=== PATIENT | male | born 1945 | race Two or more races ===

== ENCOUNTER → 2020-01-12 14:50 | Outpatient (BNVA) | payer MEDICARE, MEDICAID, SELFPAY | PROVIDERS: PCP Nurse Practitioner Family; Referring Provider Nurse Practitioner Family; Visit Provider Internal Medicine | DX: I25.10 Atherosclerotic heart disease of native coronary artery without angina pectoris (principal); I42.8 Other cardiomyopathies; R94.31 Abnormal electrocardiogram [ECG] [EKG]; E78.5 Hyperlipidemia, unspecified; E11.8 Type 2 diabetes mellitus with unspecified complications; F17.200 Nicotine dependence, unspecified, uncomplicated; Z86.73 Personal history of transient ischemic attack (TIA), and cerebral infarction without residual deficits | CPT/HCPCS: 99214 ==

== ENCOUNTER 2020-01-16 13:51 | Emergency (ER) | payer MEDICARE, MEDICAID, SELFPAY ==
[2020-01-16 16:47] VITALS: BP 143/81; PULSE 89; RESP 16; TEMP 36.4; O2SAT 97; BMI 26.4
--- NOTE | 2020-01-16 17:34 | CT_ITS ---
EXAMINATION: CT ABDOMEN AND PELVIS WITHOUT CONTRAST CLINICAL INFORMATION: Abdominal pain. COMPARISON: Chest CT from May 27, 2018. TECHNIQUE: Contiguous axial thin section helical images of the abdomen and pelvis were performed without oral or IV contrast. The data set was reformatted in the coronal and sagittal planes and reviewed on an independent workstation. DLP: 488 mGy-cm. FINDINGS: There is stable chronic changes at the lung bases including a bleb within the posterior basal segment of the left lower lobe. The visualized portions of the heart are unremarkable. The liver is of normal size and attenuation without focal lesions nor intrahepatic biliary ductal dilation. A normal gallbladder is identified. There is no wall thickening or discernible pericholecystic fluid. The spleen, pancreas, adrenal glands are unremarkable. Both kidneys are of normal size and attenuation without hydronephrosis. There is a punctate 2 mm nonobstructive calculus within the upper pole of the left kidney. There aren't. Punctate nonobstructive calculi, possibly vascular, within the right kidney. There is no abdominal free fluid. There is neither mesenteric nor retroperitoneal lymphadenopathy. There is sigmoid diverticulosis without evidence of diverticulitis; otherwise, unremarkable unopacified loops of small and large bowel are identified. There is no pelvic free fluid. The urinary bladder is unremarkable. There is neither pelvic nor inguinal lymphadenopathy. Bone windows: Neither sclerotic nor lytic bone lesions are identified. IMPRESSION: Unremarkable abdominal and pelvic CT. Automated exposure control (Care Dose) Adjustment of the mA and/or kv according to patient size (this includes techniques or standardized protocols for targeted exams where dose is matched to indication / reason for exam; i.e. extremities or head).
[2020-01-16 17:35] VITALS: PULSE 89; RESP 15; TEMP 36.6; O2SAT 96
--- NOTE | 2020-01-16 17:35 | ED.MALEGU ---
HPI - Male Genitourinary General Chief complaint: Urogenital-Male Stated complaint: WEAKNESS Time Seen by Provider: 01/16/20 17:16 Source: patient History of Present Illness HPI Narrative: patient is a 74-year-old male with a history of diabetes, non ischemic cardiomyopathy, coronary artery disease presented today with having generalized malaise. Increased urination. Pain on urination. Patient denies any chest pain shortness of breath diaphoresis. Positive increasing urinary frequency. Mild flank pain bilaterally. No radiation. The pain is dull in nature. Worse with movement. No coughing or congestion or upper respiratory symptoms. No diaphoresis. States the symptom has been ongoing for 3 days. No history of the same. No bloody urine. No bloody stool. No vomiting. No nausea. No history of abdominal surgery Related Data Home Medications Medication Instructions Recorded Confirmed aspirin 81 mg tablet,delayed 81 mg PO DAILY 01/12/20 release gabapentin 400 mg capsule 800 mg PO TID 01/12/20 loratadine 10 mg tablet 10 mg PO QAM 01/12/20 metformin 500 mg tablet,extended 0 mg PO 01/12/20 release 24 hr simvastatin 20 mg tablet 20 mg PO BEDTIME 01/12/20 Allergies Allergy/AdvReac Type Severity Reaction Status Date / Time No Known Allergies Allergy Verified 01/12/20 15:02 [No Known Allergies*] Review of Systems Review of Systems: Constitutional: No Weight loss, No Fever, No Chills, No Night Sweats, positive Fatigue, No Malaise ENT/Mouth: No Hearing loss, No Ear Pain, No Nasal Congestion, No Sinus Pain, No Hoarseness, No sore throat, No Rhinorrhea, No Swallowing Difficulty Eyes: No Eye Pain, No Swelling, No Redness, No Foreign Body, No Discharge, No Vision Changes Cardiovascular: No Chest Pain, No SOB, No Dyspnea on Exertion, No Orthopnea, No Edema, No Palpitations Respiratory: No Cough, No Sputum, No Wheezing, No Smoke Exposure, No Dyspnea Gastrointestinal: No Nausea, No Vomiting, No Diarrhea, No Constipation, No abdominal Pain, No Hematochezia, No Melena Genitourinary: no irregular bleeding, No Hematuria, No Urinary Incontinence, positive urgency positive flank pain positive pain on urination Musculoskeletal: No joint pain, No Myalgias, No Joint Swelling Skin: No Skin Lesions, No rash Neuro: No Weakness, No Numbness, No Paresthesias, No Loss of Consciousness, No Dizziness, No Headache Psych: No Anxiety/Panic, No Depression, No SI/HI/AH/VH, No Social Issues, Heme/Lymph: No Bruising, No Bleeding,No Lymphadenopathy Endocrine: No Polyuria, No Polydipsia, No Temperature Intolerance [facility] Past Medical History Medical History Atherosclerotic heart disease of [place] coronary artery without angina pectoris Hyperlipidemia, unspecified NICM (nonischemic cardiomyopathy) Smoker Transient cerebral ischemic attack, unspecified Type 2 diabetes mellitus with unspecified complications Surgical History History of cardiac catheterization (12/28/19) History of inguinal hernia repair, bilateral (~04/2016) Family History Family History Father Cardiovascular disease Diabetes Mother Osteoporosis Social History Social History Alcohol intake: never Smoking Status: Unknown if ever smoked Packs Per Day: 1 Cigarettes Per Day: 20.0 Use of substances other than those prescribed or required for medical reasons: No Advance Directives: No Advance Directives Information Provided: No Physical Exam Vital Signs: Vital Signs: Vital Signs Temp Pulse Resp BP Pulse Ox 01/16/20 18:00 86 16 142/74 H 96 01/16/20 17:35 98 F 89 15 96 01/16/20 16:47 97.6 F 89 16 143/81 H 97 Body Mass Index 26.4 O2 sat 97% on room air normal. Appearance: Alert. Oriented X3. No acute distress. Eyes: Pupils equal, round and reactive to light. ENT: Pharynx normal. Neck: Normal inspection. Neck supple. No lymph nodes noted. No crepitus CVS: Normal heart rate and rhythm. Pulses normal. Normal S1 and S2 Respiratory: No respiratory distress. Breath sounds normal. No Wheezing. No rales Abdomen: Soft and nontender. No rigidity. No distention. good BS x4 Skin: Skin warm and dry. Normal skin color. Normal skin turgor. Extremities: No lower extremity edema. Neurovascular intact to all extremities. No Lacerations. No Rash Neuro: Oriented X 3. No motor deficit. No sensory deficit. Moving all extermities. No slurred speech MDM - Male Genitourinary Medical Records Medical records narrative: patient's creatinine is normal. CT scan of the abdomen did not show any acute evidence of kidney stone, abscess, perforation. Urine did show evidence of blood 2+. There was blood will need to be further investigated by Urology. Malignancy cannot be absolutely excluded. Patient's hemoglobin hematocrit is normal. White count is normal. Patient's postvoid residual was 46 cc is no evidence of retention. Will discharge patient home close follow-up outpatient. Patient given information for bloody urine. Told that he must follow-up with urology. Currently in stable condition. Lab Data Attestation: I reviewed the patient's lab results. Result diagrams: 01/16/20 17:54 01/16/20 17:54 Labs: Lab Results 01/16/20 01/16/20 01/16/20 Range/Units 17:54 17:54 17:54 WBC 9.7 (4.8-10.8) X10*3/uL RBC 4.64 (4.60-5.80) X10*6/uL Hgb 14.6 (14.0-18.0) g/dl Hct 43.4 (42-52) % MCV 93.5 (80-98) fL MCH 31.5 (27.0-33.0) pg MCHC 33.6 (31.0-36.0) g/dl RDW 12.5 (11.0-16.0) % Plt Count 240 (160-400) X10*3/uL MPV 9.8 (9.4-12.4) fL Immature Gran % (Auto) 0.4 (0.0-0.4) % Neut % (Auto) 66.0 (45-73) % Lymph % (Auto) 19.4 L (20-40) % Kern % (Auto) 9.5 (2-11) % Eos % (Auto) 4.4 H (0-4) % Baso % (Auto) 0.3 (0-2) % Lymph # (Auto) 1.9 (1.2-4.9) X10*3/uL Kern # (Auto) 0.9 (0.1-1.2) X10*3/uL Eos # (Auto) 0.4 (0.0-0.4) X10*3/uL Baso # (Auto) 0.0 (0.0-0.2) X10*3/uL Abs Immat Gran (auto) 0.04 H (0.00-0.03) X10*3/uL Absolute Neuts (auto) 6.4 (2.0-8.3) X10*3/uL Absolute Nucleated RBC 0.000 (0.0-0.012) X10*3/uL Nucleated RBC % (auto) 0.0 (0.0-0.2) /100WBC Hold Blue Top SEE NOTE Sodium (135-145) mmol/L Potassium (3.3-5.1) mmol/l Chloride (96-108) mmol/L Carbon Dioxide (22-29) mmol/L Anion Gap (12-20) BUN (9-16) mg/dL Creatinine (0.5-1.4) mg/dL Estim Creat Clear Calc Estimated GFR Random Glucose (60-115) mg/dL Calcium (8.4-10.2) mg/dL Total Bilirubin (0.0-1.0) mg/dL AST (5-37) U/L ALT (0-40) U/L Alkaline Phosphatase (39-117) U/L Total Protein (6.5-8.0) g/dL Albumin (3.5-5.0) g/dL Lipase (8-78) U/L Urine Color YELLOW Urine Appearance CLEAR Urine pH 5.5 (5.0-8.0) Ur Specific [place] 1.020 (1.005-1.025) Urine Protein 1+ H (NEG-TRACE) MG/DL Urine Glucose (UA) NEG (NEG) MG/DL Urine Ketones NEG (NEG) MG/DL Urine Blood 2+ H (NEG) Urine Nitrite NEG (NEG) Ur Leukocyte Esterase NEG (NEG) Urine RBC 10-14 H (0) /HPF Urine WBC 0-2 (0-4) /HPF Ur Squamous Epith Cells TRACE /LPF Urine Bacteria NONE /LPF 01/16/20 Range/Units 17:54 WBC (4.8-10.8) X10*3/uL RBC (4.60-5.80) X10*6/uL Hgb (14.0-18.0) g/dl Hct (42-52) % MCV (80-98) fL MCH (27.0-33.0) pg MCHC (31.0-36.0) g/dl RDW (11.0-16.0) % Plt Count (160-400) X10*3/uL MPV (9.4-12.4) fL Immature Gran % (Auto) (0.0-0.4) % Neut % (Auto) (45-73) % Lymph % (Auto) (20-40) % Kern % (Auto) (2-11) % Eos % (Auto) (0-4) % Baso % (Auto) (0-2) % Lymph # (Auto) (1.2-4.9) X10*3/uL Kern # (Auto) (0.1-1.2) X10*3/uL Eos # (Auto) (0.0-0.4) X10*3/uL Baso # (Auto) (0.0-0.2) X10*3/uL Abs Immat Gran (auto) (0.00-0.03) X10*3/uL Absolute Neuts (auto) (2.0-8.3) X10*3/uL Absolute Nucleated RBC (0.0-0.012) X10*3/uL Nucleated RBC % (auto) (0.0-0.2) /100WBC Hold Blue Top Sodium 137 (135-145) mmol/L Potassium 4.4 (3.3-5.1) mmol/l Chloride 101 (96-108) mmol/L Carbon Dioxide 25 (22-29) mmol/L Anion Gap 15 (12-20) BUN 18 H (9-16) mg/dL Creatinine 1.34 (0.5-1.4) mg/dL Estim Creat Clear Calc 44.9 Estimated GFR 52 Random Glucose 87 (60-115) mg/dL Calcium 9.0 (8.4-10.2) mg/dL Total Bilirubin 0.3 (0.0-1.0) mg/dL AST 20 (5-37) U/L ALT 14 (0-40) U/L Alkaline Phosphatase 80 (39-117) U/L Total Protein 7.0 (6.5-8.0) g/dL Albumin 4.4 (3.5-5.0) g/dL Lipase 37 (8-78) U/L Urine Color Urine Appearance Urine pH (5.0-8.0) Ur Specific [place] (1.005-1.025) Urine Protein (NEG-TRACE) MG/DL Urine Glucose (UA) (NEG) MG/DL Urine Ketones (NEG) MG/DL Urine Blood (NEG) Urine Nitrite (NEG) Ur Leukocyte Esterase (NEG) Urine RBC (0) /HPF Urine WBC (0-4) /HPF Ur Squamous Epith Cells /LPF Urine Bacteria /LPF Discharge Plan Discharge Clinical Impression: Blood in urine Patient Disposition: Home, Self-Care Additional Instructions: Thank you for visiting the emergency department today. If your symptoms worsen or do not resolve completely please return to the emergency department immediately or call 911. if he have any questions please call your primary care physician. Blood was noted in your urine. This could be from cancer. Please closely follow-up with urology on an outpatient basis. Prescriptions: No Action gabapentin 400 mg capsule 800 mg PO TID RF: 0 loratadine 10 mg tablet 10 mg PO QAM RF: 0 metformin 500 mg tablet extended release 24 hr 0 mg PO RF: 0 simvastatin 20 mg tablet 20 mg PO BEDTIME RF: 0 aspirin 81 mg tablet,delayed release (DR/EC) 81 mg PO DAILY RF: 0 Referrals: Krunal Garcia III, MD [Physician] - 2 days
[2020-01-16 18:00] VITALS: BP 142/74; PULSE 86; RESP 16; O2SAT 96
[2020-01-16 18:22] LABS: MANUAL DIFF FLAG NO
[2020-01-16 18:24] LABS: Basophils Percent Auto 0.3 % (0-2); Eosinophils Absolute Auto 0.4 X10*3/uL (0.0-0.4); Eosinophils Percent Auto 4.4 % (0-4); Hematocrit 43.4 % (42-52); Hemoglobin 14.6 g/dl (14.0-18.0); Imm Gran Abs Auto 0.04 X10*3/uL (0.00-0.03); Imm Gran Pct Auto 0.4 % (0.0-0.4); Lymphocytes Absolute Auto 1.9 X10*3/uL (1.2-4.9); Lymphocytes Percent Auto 19.4 % (20-40); Mean Corpuscular HGB Conc 33.6 g/dl (31.0-36.0); Mean Corpuscular Hemoglobin 31.5 pg (27.0-33.0); Mean Corpuscular Volume 93.5 fL (80-98); Mean Platelet Volume 9.8 fL (9.4-12.4); Monocytes Absolute Auto 0.9 X10*3/uL (0.1-1.2); Monocytes Percent Auto 9.5 % (2-11); Neutrophils Absolute Auto 6.4 X10*3/uL (2.0-8.3); Platelet Count 240 X10*3/uL (160-400); Red Blood Count 4.64 X10*6/uL (4.60-5.80); Red Cell Distribution Width 12.5 % (11.0-16.0); White Blood Count 9.7 X10*3/uL (4.8-10.8)
[2020-01-16 18:26] LABS: Glucose Urine UA NEG (NEG); Leukocyte Esterase Urine NEG (NEG); Nitrite Urine NEG (NEG); PH 5.5 (5.0-8.0); Urine Blood 2+ (NEG); Urine Ketones NEG (NEG); Urine Protein 1+ MG/DL (NEG-TRACE)
[2020-01-16 18:27] LABS: Appearance Urine CLEAR; Color Urine YELLOW
[2020-01-16 18:35] LABS: Squamous Epithelial Cell Urine TRACE /LPF; WBC Urine 0-2 /HPF (0-4)
[2020-01-16 18:58] LABS: Alanine Aminotransferase 14 U/L (0-40); Albumin Level 4.4 g/dL (3.5-5.0); Alkaline Phosphatase 80 U/L (39-117); Anion Gap 15 (12-20); Aspartate Amino Transferase 20 U/L (5-37); Bilirubin Total 0.3 mg/dL (0.0-1.0); Blood Urea Nitrogen 18 mg/dL (9-16); Carbon Dioxide 25 mmol/L (22-29); Chloride 101 mmol/L (96-108); Creatinine Clr Calc Pharmacy 44.9; Estimated Glomerular Filt Rate 52; Glucose Random 87 mg/dL (60-115); Lipase 37 U/L (8-78); Potassium 4.4 mmol/l (3.3-5.1); Sodium 137 mmol/L (135-145)
== END 2020-01-16 21:25 | disposition home or self-care (01) ==
PROVIDERS: Emergency Provider Emergency Medicine Emergency Medical Services; PCP Nurse Practitioner Family
DX: R31.9 Hematuria, unspecified (principal); R10.9 Unspecified abdominal pain; E11.9 Type 2 diabetes mellitus without complications; Z86.73 Personal history of transient ischemic attack (TIA), and cerebral infarction without residual deficits; Z79.899 Other long term (current) drug therapy; Z79.84 Long term (current) use of oral hypoglycemic drugs
CPT/HCPCS: 36415; 51798; 74176; 80053; 81001; 83690; 85025; 99284

== ENCOUNTER → 2020-01-21 14:41 | Outpatient (BNVA) | payer MEDICARE, MEDICAID, SELFPAY | PROVIDERS: PCP Nurse Practitioner Family; Visit Provider Urology | DX: Z76.89 Persons encountering health services in other specified circumstances (principal) | CPT/HCPCS: 99202 ==

== ENCOUNTER 2020-02-07 09:28 | Day surgery (SDC) | payer MEDICARE, MEDICAID, SELFPAY ==
[2020-01-31 13:09] VITALS: BP 138/70; PULSE 106; RESP 16; O2SAT 98; BMI 27.5
--- NOTE | 2020-01-31 13:27 | P.CONAN_ITS ---
Documented by User: Aide Aguilar 02/04/20 11:53 HPI - Anesthesia Eval Consult details Narrative: 74yo M for fulgeration of condyloma PMFSH Past Medical History Medical History Atherosclerotic heart disease of [place] coronary artery without angina pectoris BPH (benign prostatic hyperplasia) CAD (coronary artery disease) CVA (cerebral vascular accident) Hematuria HTN (hypertension) Hx of dermatitis Hyperlipidemia, unspecified NICM (nonischemic cardiomyopathy) Pulmonary HTN Seasonal allergies Smoker Transient cerebral ischemic attack, unspecified Type 2 diabetes mellitus with unspecified complications Family History Family History Father Cardiovascular disease Diabetes Mother Osteoporosis Surgical History Surgical History History of cardiac catheterization (12/28/19) History of inguinal hernia repair, bilateral (~04/2016) Hx of bilateral cataract extraction Hx of colonoscopy Social History Social History Are you a primary after school caregiver to a significant other at home: No Do you presently have visiting nurse or other home services: No Alcohol intake: never Smoking Status: Current every day smoker Packs Per Day: 1 Cigarettes Per Day: 20.0 Years Smoked: 55 Patient Given Instructions on How to Stop Smoking: Yes Date Education Initiated: 01/31/20 Second Hand Smoke Exposure: Yes Use of substances other than those prescribed or required for medical reasons: No Have you been hit, kicked, punched, or otherwise hurt by someone within the past year? If so, by whom?: No [employer] Healthcare Practices: Adventism Advance Directives: No Advance Directives Information Provided: No Advance Directives on File: No Recently lost weight without trying: No Narrative Narrative: 01/23/20 Had near syncope with overnight OBS at [facility]. No ischemic changes by EKG, orthostatics negative, neg for PE. Thought related to terazosin and instructed to stop (had recently been rx'd by Uro). Incidental finding of lung nodules with recommended follow up in 8-[address] Fabian No CP/SOB at rest. Denies CP. Reports RINCON with stairs. Meds Allergies Allergy/AdvReac Type Severity Reaction Status Date / Time No Known Allergies Allergy Verified 01/28/20 13:27 [No Known Allergies*] Home Medications Medication Instructions Recorded Confirmed Type aspirin 81 mg tablet,delayed 81 mg PO DAILY 01/12/20 01/31/20 History release gabapentin 400 mg capsule 800 mg PO TID 01/12/20 02/07/20 History loratadine 10 mg tablet 10 mg PO QAM 01/12/20 01/31/20 History metformin 500 mg tablet,extended 500 mg PO TID 01/12/20 01/31/20 History release 24 hr Exam Exam Date and Time: January 31, 2020 1327 Height,Weight and Vital Signs: Height 5 ft 5 in Weight 75 kg Last Vital Signs Pulse 106 H 01/31/20 13:09 Resp 16 01/31/20 13:09 BP 138/70 01/31/20 13:09 Pulse Ox 98 01/31/20 13:09 Pertinent Lab Results Pertinent Lab Results: Laboratory Tests 01/16/20 01/16/20 17:54 17:54 WBC 9.7 Hgb 14.6 Hct 43.4 Plt Count 240 Sodium 137 Potassium 4.4 Chloride 101 BUN 18 H Creatinine 1.34 Narrative Narrative: EKG 12/28/19: NSR@91 Cath 12/28/19: mild CAD, false positive stress Echo 11/2019: LVEF 40-45%, Gr 1 DD, no obvious valve pathology Holter 10/2019: NSR, no long pause or profound stephie, occ PAC Airway Mallampati Class: I TM Dist: >3cm Neck ROM: Full Denture: Upper and Lower (Doesn't wear) Heart: RR Tachy Lungs: Coarse MARGARITA and LLL, clears with cough Clear right lobes Assessment and Plan Assessment Anesthesia Assessment: Anesthesia Plan Discussed (MAC vs GA), Smoking Cess. Discussed and PAT Visit Documented by User: Sary Gale 02/07/20 12:29 [facility] Past Medical History Medical History Atherosclerotic heart disease of [place] coronary artery without angina pectoris BPH (benign prostatic hyperplasia) CAD (coronary artery disease) CVA (cerebral vascular accident) Hematuria HTN (hypertension) Hx of dermatitis Hyperlipidemia, unspecified NICM (nonischemic cardiomyopathy) Pulmonary HTN Seasonal allergies Smoker Transient cerebral ischemic attack, unspecified Type 2 diabetes mellitus with unspecified complications Family History Family History Father Cardiovascular disease Diabetes Mother Osteoporosis Surgical History Surgical History History of cardiac catheterization (12/28/19) History of inguinal hernia repair, bilateral (~04/2016) Hx of bilateral cataract extraction Hx of colonoscopy Social History Social History Are you a primary after school caregiver to a significant other at home: No Do you presently have visiting nurse or other home services: No Alcohol intake: never Smoking Status: Current every day smoker Packs Per Day: 1 Cigarettes Per Day: 20.0 Years Smoked: 55 Patient Given Instructions on How to Stop Smoking: Yes Date Education Initiated: 01/31/20 Second Hand Smoke Exposure: Yes Use of substances other than those prescribed or required for medical reasons: No Have you been hit, kicked, punched, or otherwise hurt by someone within the past year? If so, by whom?: No [employer] Healthcare Practices: Adventism Advance Directives: No Advance Directives Information Provided: No Advance Directives on File: No Recently lost weight without trying: No Meds Allergies Allergy/AdvReac Type Severity Reaction Status Date / Time No Known Allergies Allergy Verified 01/28/20 13:27 [No Known Allergies*] Home Medications Medication Instructions Recorded Confirmed Type aspirin 81 mg tablet,delayed 81 mg PO DAILY 01/12/20 01/31/20 History release gabapentin 400 mg capsule 800 mg PO TID 01/12/20 02/07/20 History loratadine 10 mg tablet 10 mg PO QAM 01/12/20 01/31/20 History metformin 500 mg tablet,extended 500 mg PO TID 01/12/20 01/31/20 History release 24 hr Exam Airway Mallampati Class: II TM Dist: >3cm Neck ROM: Full Denture: Upper and Lower Heart: RRR Lungs: cTA
[2020-02-07 11:17] VITALS: BP 125/73; PULSE 86; RESP 18; TEMP 36.2; O2SAT 97
[2020-02-07] MEDS: Lactated Ringers 1,000 ML 50 ML IVCONT (11:37)
[2020-02-07 11:41] LABS: Glucose, Whole Blood 128 mg/dL (60-115)
[2020-02-07] MEDS: cephALEXin 500 MG CAPSULE PO (12:42)
--- NOTE | 2020-02-07 13:15 | PM.OP ---
Brief Operative Note Date of procedure: 02/07/20 Pre-op diagnosis: perineal condyloma Post-op diagnosis: same Procedure: removal of multiple condyloma - 1 lesion 1.5 cm - 5 lesions 0.5-1.0 cm Surgeon: Grady Aly MD Anesthesia: GLMA Estimated blood loss (mL): 0 Pathology: other Condition: stable Disposition: same day
[2020-02-07 13:27] VITALS: BP 141/71; PULSE 85; RESP 16; TEMP 36.1; O2SAT 95
[2020-02-07 13:32] VITALS: BP 149/80; PULSE 84; RESP 18; O2SAT 98
[2020-02-07 13:37] VITALS: BP 144/74; PULSE 85; RESP 16; O2SAT 98
[2020-02-07 13:42] VITALS: BP 150/79; PULSE 84; RESP 18; O2SAT 97
[2020-02-07 14:01] VITALS: BP 156/83; PULSE 85; RESP 18; TEMP 36.3; O2SAT 94
--- NOTE | 2020-02-07 14:37 | HO.POSTANES ---
Post Anesthesia Evaluation Post Anesthesia Evaluation Vital Signs: Vital Signs Temp Pulse Resp BP Pulse Ox 02/07/20 14:01 97.4 F 85 18 156/83 H 94 02/07/20 13:42 84 18 150/79 H 97 02/07/20 13:37 85 16 144/74 H 98 02/07/20 13:32 84 18 149/80 H 98 02/07/20 13:27 97 F 85 16 141/71 H 95 02/07/20 11:17 97.2 F 86 18 125/73 97 Anesthesia: Monitored Mental Status: Awake Pain Control: Satisfactory Nausea/Vomiting: None Hydration: Adequate Anesthesia-Related Issues: No Anes. Related Issues
== END 2020-02-07 23:59 | disposition home or self-care (01) ==
PROVIDERS: PCP Nurse Practitioner Family; Visit Provider Urology
PROC: (CPT 46922; principal; 2020-02-07 11:30)
DX: A63.0 Anogenital (venereal) warts (principal); I10 Essential (primary) hypertension; I27.20 Pulmonary hypertension, unspecified; E11.9 Type 2 diabetes mellitus without complications; I25.10 Atherosclerotic heart disease of native coronary artery without angina pectoris; N40.0 Benign prostatic hyperplasia without lower urinary tract symptoms; F17.210 Nicotine dependence, cigarettes, uncomplicated; Z86.73 Personal history of transient ischemic attack (TIA), and cerebral infarction without residual deficits; Z79.84 Long term (current) use of oral hypoglycemic drugs; Z79.82 Long term (current) use of aspirin; Z79.899 Other long term (current) drug therapy
CPT/HCPCS: 46922; 82947; 88305; J2370; J3010

== ENCOUNTER 2020-02-25 09:12 | Outpatient (REF) | payer MEDICARE, MEDICAID, SELFPAY ==
--- NOTE | 2020-02-25 09:17 | CT_ITS ---
EXAMINATION: CT CHEST WITHOUT CONTRAST CLINICAL INFORMATION: Solitary pulmonary nodule. COMPARISON: Chest CT scan dated 05/27/2018. TECHNIQUE: Multidetector volumetric CT imaging of the chest was done. Axial MIP volume rendering provided. Sagittal and coronal reformatted images were obtained. This CT examination was performed using dose optimization techniques as appropriate, variously including the following: *Automated exposure control *Adjustment of mA and/or kV according to patient size (this includes techniques or standardized protocols for targeted exams where dose is matched to indication/reason for exam; i.e. extremities or head) *Use of iterative reconstruction technique DLP: 151 mGy-cm FINDINGS: LUNGS/PLEURA/AIRWAYS: There is mild to moderate elevation of the right hemidiaphragm without interval change. Mild to moderate upper lobe and lower lobe superior segment predominant centrilobular and paraseptal emphysema is again seen without significant change. The previously seen cyst along the posterior margin of the left lower lobe shows interval decreased mural thickening. Previously seen infiltrative changes and cystic mural thickening anteromedially in the left upper lobe has resolved as well. No significant new or suspicious abnormality is seen. There are no pleural effusions. The airways are patent. MEDIASTINUM: The visualized thyroid gland is unremarkable. Mild atherosclerosis is seen in the thoracic aorta without significant ectasia. The pulmonary arteries are unremarkable. Moderate to severe coronary artery calcifications are seen. There is no pericardial effusion. AXILLA: No lymphadenopathy. UPPER ABDOMEN: Unremarkable. OSSEOUS STRUCTURES: Unremarkable. CT/CT chest wo con IMPRESSION: 1. Mild to moderate centrilobular and paraseptal emphysema shows a similar distribution and severity compared the previous study. Previously seen infiltrative changes in the left upper lobe anteromedially as well as cystic mural thickening in the left lower lobe have resolved. No significant new or suspicious abnormality is seen. Radiographic/CT follow-up is recommended as clinically indicated. 2. Moderate to severe coronary artery calcifications without significant change.
== END 2020-02-25 09:13 | disposition home or self-care (01) ==
LOC: HO.CT 09:12
PROVIDERS: PCP Nurse Practitioner Family; Visit Provider Nurse Practitioner Family
DX: R91.1 Solitary pulmonary nodule (principal)
CPT/HCPCS: 71250

== ENCOUNTER 2020-03-07 09:15 | Outpatient (REF) | payer MEDICARE, MEDICAID, SELFPAY ==
[2020-03-07 11:51] LABS: MANUAL DIFF FLAG NO
[2020-03-07 11:58] LABS: Basophils Percent Auto 0.6 % (0-2); Eosinophils Absolute Auto 0.3 X10*3/uL (0.0-0.4); Eosinophils Percent Auto 4.2 % (0-4); Hemoglobin 14.4 g/dl (14.0-18.0); Imm Gran Abs Auto 0.03 X10*3/uL (0.00-0.03); Imm Gran Pct Auto 0.4 % (0.0-0.4); Lymphocytes Absolute Auto 1.3 X10*3/uL (1.2-4.9); Lymphocytes Percent Auto 17.9 % (20-40); Mean Corpuscular HGB Conc 32.7 g/dl (31.0-36.0); Mean Corpuscular Hemoglobin 31.4 pg (27.0-33.0); Mean Corpuscular Volume 95.9 fL (80-98); Mean Platelet Volume 9.8 fL (9.4-12.4); Monocytes Absolute Auto 0.8 X10*3/uL (0.1-1.2); Monocytes Percent Auto 10.8 % (2-11); Neutrophils Absolute Auto 4.8 X10*3/uL (2.0-8.3); Neutrophils Percent Auto 66.1 % (45-73); Platelet Count 258 X10*3/uL (160-400); Red Blood Count 4.59 X10*6/uL (4.60-5.80); Red Cell Distribution Width 12.9 % (11.0-16.0); White Blood Count 7.2 X10*3/uL (4.8-10.8)
[2020-03-07 12:28] LABS: Alanine Aminotransferase 13 U/L (0-40); Albumin Level 4.3 g/dL (3.5-5.0); Alkaline Phosphatase 79 U/L (39-117); Anion Gap 14 (12-20); Aspartate Amino Transferase 15 U/L (5-37); Bilirubin Direct 0.2 mg/dL (0.0-0.5); Bilirubin Total 0.5 mg/dL (0.0-1.0); Blood Urea Nitrogen 23 mg/dL (9-16); C Reactive Protein 0.15 mg/dL (< or = 0.50); Calcium 9.2 mg/dL (8.4-10.2); Carbon Dioxide 25 mmol/L (22-29); Chloride 102 mmol/L (96-108); Estimated Glomerular Filt Rate 46; Glucose Random 130 mg/dL (60-115); Sodium 136 mmol/L (135-145); Total Protein 6.8 g/dL (6.5-8.0)
[2020-03-07 12:44] LABS: Erythrocyte Sedimentation Rate 6 MM/HR (0-15)
[2020-03-07 12:50] LABS: Thyroid Stimulating Hormone 1.86 uIU/mL (0.32-4.0)
[2020-03-10 00:02] LABS: Anti Nuclear Antibody Screen NEGATIVE (NEGATIVE)
[2020-03-10 05:27] LABS: Immunoglobulin E 10837 kU/L (<OR=114)
== END 2020-03-07 09:16 | disposition home or self-care (01) ==
LOC: HO.HMGCLDS 09:15
PROVIDERS: PCP Nurse Practitioner Family; Visit Provider Physician Assistant Medical
DX: L30.9 Dermatitis, unspecified (principal); L29.8 Other pruritus
CPT/HCPCS: 36415; 80048; 80076; 82785; 84439; 84443; 85025; 85652; 86038; 86039; 86140

== ENCOUNTER 2020-05-18 08:40 | Outpatient (REF) | payer MEDICARE, MEDICAID, SELFPAY | END 2020-05-18 08:41 | disposition home or self-care (01) | LOC: HO.LAB 08:40 | PROVIDERS: Visit Provider Internal Medicine | DX: Z20.822 Contact with and (suspected) exposure to COVID-19 (principal) | CPT/HCPCS: 36415; C9803; U0003; U0005 ==

== ENCOUNTER 2020-06-27 14:22 | Outpatient (REF) | payer MEDICARE, MEDICAID, SELFPAY ==
--- NOTE | ~2020-06-27 | XR_ITS ---
EXAMINATION: XR CHEST CLINICAL INFORMATION: Cough. COMPARISON: None TECHNIQUE: 2 views of the chest were obtained. FINDINGS: The lungs are well-expanded patchy opacities seen in the left lower lobe and lingula likely developing infiltrates. Rest of lungs are clear. The heart size and pulmonary vascularity is normal. No gross bony abnormality. XR/XR chest 2V IMPRESSION: Patchy opacity in the lingula and left lower lobe likely developing infiltrates.
[2020-06-27 16:21] LABS: MANUAL DIFF FLAG NO
[2020-06-27 16:36] LABS: Basophils Percent Auto 0.1 % (0-2); Eosinophils Absolute Auto 0.1 X10*3/uL (0.0-0.4); Eosinophils Percent Auto 1.3 % (0-4); Hematocrit 42.7 % (42-52); Hemoglobin 14.1 g/dl (14.0-18.0); Imm Gran Abs Auto 0.05 X10*3/uL (0.00-0.03); Imm Gran Pct Auto 0.5 % (0.0-0.4); Lymphocytes Absolute Auto 1.4 X10*3/uL (1.2-4.9); Lymphocytes Percent Auto 13.8 % (20-40); Mean Corpuscular Hemoglobin 31.1 pg (27.0-33.0); Mean Corpuscular Volume 94.1 fL (80-98); Mean Platelet Volume 9.5 fL (9.4-12.4); Monocytes Percent Auto 10.1 % (2-11); Neutrophils Absolute Auto 7.7 X10*3/uL (2.0-8.3); Neutrophils Percent Auto 74.2 % (45-73); Platelet Count 253 X10*3/uL (160-400); Red Blood Count 4.54 X10*6/uL (4.60-5.80); White Blood Count 10.3 X10*3/uL (4.8-10.8)
[2020-06-27 16:37] LABS: Glucose Urine UA 250 MG/DL (NEG); Leukocyte Esterase Urine NEG (NEG); Nitrite Urine NEG (NEG); Urine Blood NEG (NEG); Urine Ketones NEG (NEG); Urine Protein TRACE MG/DL (NEG-TRACE)
[2020-06-27 16:39] LABS: Appearance Urine CLEAR; Color Urine YELLOW
[2020-06-27 16:54] LABS: Alanine Aminotransferase 20 U/L (0-40); Albumin Level 3.8 g/dL (3.5-5.0); Alkaline Phosphatase 96 U/L (39-117); Anion Gap 21 (12-20); Aspartate Amino Transferase 24 U/L (5-37); Bilirubin Total 0.5 mg/dL (0.0-1.0); Blood Urea Nitrogen 16 mg/dL (9-16); Calcium 8.6 mg/dL (8.4-10.2); Carbon Dioxide 24 mmol/L (22-29); Chloride 95 mmol/L (96-108); Estimated Glomerular Filt Rate 48; Glucose Random 218 mg/dL (60-115); Potassium 4.5 mmol/L (3.3-5.1); Sodium 135 mmol/L (135-145); Total Protein 6.8 g/dL (6.5-8.0)
[2020-06-27 16:55] LABS: B Type Natriuretic Peptide 21 pg/mL (<100)
== END 2020-06-27 14:23 | disposition home or self-care (01) ==
LOC: HO.HMGCX 14:22
PROVIDERS: Visit Provider Nurse Practitioner Family
DX: R42 Dizziness and giddiness (principal); R05 Cough
CPT/HCPCS: 36415; 71046; 80053; 81003; 83880; 85025

== ENCOUNTER → 2020-07-11 10:24 | Outpatient (REF) | payer MEDICARE, MEDICAID, SELFPAY ==
--- NOTE | 2020-07-11 10:30 | CA_ITS ---
Transthoracic Echocardiogram Patient (Last, First, Middle): Darius Askew, Gender: Male Date of : 1945 Age: 75 Procedure Date: 07/11/2020 Procedure Type: Transthoracic Echocardiogram Location: OP Height: 167.64 cm Weight: 77.11 kg BSA: 1.87 m2 Heart Rate: bpm BP: 127 / 74 mmHg Frame Catcher: VERÓNICA Oviedo MD: Georges Key MD Rn Diabetes: Vinny Ballard MD Symptoms: I42.8 - Other cardiomyopathies Study Quality: Fair ECG Rhythm: Sinus Conclusions: - 1. [id number]-[id number] LV systolic dysfunction with grade 1 diastolic dysfunction 2. Normal cardiac valvular Doppler 3. Normal RV systolic pressure 4. No pericardial effusion Findings Left Ventricle Normal left ventricular cavity size. There is normal left ventricular wall thickness. The left ventricular systolic function is mild to moderately decreased. The visually estimated ejection fraction is between 40-45%. Spectral Doppler is indicative of an impaired relaxation filling pattern. E/E prime ratio is <8, consistent with normal filling pressures. Evidence suggests grade I (mild) diastolic dysfunction.Peak global LV strain is reduced at-7.4% Right Ventricle The right ventricle was not well visualized. Atria The left atrium is normal in size. Interatrial shunt cannot be excluded. The right atrium was not well visualized. Aortic Valve The aortic valve structure and function is likely normal. There is no aortic valve stenosis. There is no aortic valve regurgitation. Mitral Valve Likely normal mitral valve structure and function. There is trace mitral valve regurgitation. There is no mitral valve stenosis. Pulmonic Valve The pulmonic valve was not well visualized. Tricuspid Valve Likely normal tricuspid valve structure and function. There is trace tricuspid valve regurgitation. The right ventricular systolic pressure is normal. The right ventricular systolic pressure is 26 mmHg. Normal right atrial pressure. There is no evidence of pulmonary hypertension. Great Vessels All visible segments of the aorta are normal in size. Venous The inferior vena cava is normal in size and collapses greater than 50% with inspiration. Pericardium/Pleural There is no evidence of pericardial effusion. Prior Study Comparison No significant change compared to prior study dated: 11/15/2019. Measurements M-Mode Liner Measurements Normals - Women/Men AOV Cusps: 2.20 1.5-2.6 cm/m2 2D Linear Measurements IVSd: 1.05 0.6-0.9/0.6-1.0 cm LVIDd: 3.66 3.9-5.3/4.2-5.9 cm LVIDd Index: 1.96 2.4-3.2/2.2-3.1 cm/m2 LVIDs: 2.14 2.0-3.6 cm LVPWd: 1.11 0.7-1.1 cm Ao Root: 3.50 2.1-3.5 cm LA Diam: 2.20 2.7-3.8/3.0-4.0 cm LAIDs Index: 1.18 1.5-2.3 cm/m2 LV Mass: 154.03 67-162/88-224 g LV Mass Index: 82.37 43-95/49-115 g/m2 LVOT Diam: 2.20 3.0+(-)1.3 cm 2D Systolic Function EF 4C: 49.90 >55% EF 2C: 38.70 >55% EF BiP: 44.30 >55% Mitral Valve MV Pk E: 0.42 MV PK A: 1.03 MV Decel Time: 361.00 E/A: 0.40 E'Lateral: 5.66 E'Medial: 4.24 E/E' Med: 9.80 E/E' Lat: 7.30 PHT: 106.00 MVA PHT: 2.08 Decel [place]: 1.15 Aortic Valve AoV Pk Albaro: 1.05 AoV Pk Grad: 4.00 LVOT LVOT Pk Albaro: 0.70 LVOT Mn Albaro: 0.52 LVOT VTI: 0.12 LVOT Pk Grad: 2.00 LVOT Mn Grad: 1.00 LVOT Diam: 2.20 LVOT Area: 3.80 Diastolic Function MV Pk E: 0.42 MV Pk A: 1.03 E/A: 0.40 E'Medial: 4.24 E/E' Med: 9.80 E' Laterial: 5.66 E/E' Lat: 7.30 Tricuspid Valve TR Pk Albaro: 2.39 TR Pk Grad: 23.00 RA Press: 3.00 RVSP: 26.00 Great Vessels Aorta Ao Root-2D: 3.50 2.0-3.7 cm Ao Asc: 3.60 2.1-3.4 cm Ao Arch: 2.60 Pulmonary Valve PV Pk Albaro: 0.96 Peak PV Grad: 4.00 Updated in Other Vendor System with Status of Final Vinny Ballard MD electronically signed on 07/11/2020 3:16:36 PM with status of Final
== END ==
LOC: HO.CARD 10:24
PROVIDERS: Visit Provider Internal Medicine
DX: I42.8 Other cardiomyopathies (principal)
CPT/HCPCS: 93306

== ENCOUNTER 2020-07-12 09:39 | Outpatient (REF) | payer MEDICARE, MEDICAID, SELFPAY ==
[2020-07-12 17:57] LABS: Anion Gap 15 (12-20); Blood Urea Nitrogen 22 mg/dL (9-16); Calcium 9.2 mg/dL (8.4-10.2); Carbon Dioxide 27 mmol/L (22-29); Chloride 100 mmol/L (96-108); Estimated Glomerular Filt Rate 48; Potassium 5.2 mmol/L (3.3-5.1); Sodium 137 mmol/L (135-145); Uric Acid 6.1 mg/dL (3.4-7.0)
[2020-07-12 18:48] LABS: Renal w Reflex Lab Use Only Order verified
== END 2020-07-12 09:40 | disposition home or self-care (01) ==
LOC: HO.HMGCLDS 09:39
PROVIDERS: Visit Provider Internal Medicine Nephrology
DX: R79.89 Other specified abnormal findings of blood chemistry (principal); I12.9 Hypertensive chronic kidney disease with stage 1 through stage 4 chronic kidney disease, or unspecified chronic kidney disease; M18.30 Unilateral post-traumatic osteoarthritis of first carpometacarpal joint, unspecified hand; E11.22 Type 2 diabetes mellitus with diabetic chronic kidney disease; N17.9 Acute kidney failure, unspecified
CPT/HCPCS: 36415; 80051; 82310; 82565; 84100; 84520; 84550

== ENCOUNTER → 2020-07-13 09:09 | Outpatient (BNVA) | payer MEDICARE, MEDICAID, SELFPAY | PROVIDERS: PCP Nurse Practitioner Family; Visit Provider Internal Medicine | DX: I25.10 Atherosclerotic heart disease of native coronary artery without angina pectoris (principal); I42.8 Other cardiomyopathies; I73.9 Peripheral vascular disease, unspecified; G45.9 Transient cerebral ischemic attack, unspecified; F17.200 Nicotine dependence, unspecified, uncomplicated; E11.8 Type 2 diabetes mellitus with unspecified complications; E11.22 Type 2 diabetes mellitus with diabetic chronic kidney disease; N18.31 Chronic kidney disease, stage 3a | CPT/HCPCS: 99212 ==

== ENCOUNTER 2020-07-25 08:24 | Outpatient (REF) | payer MEDICARE, MEDICAID, SELFPAY ==
--- NOTE | ~2020-07-25 | US_ITS ---
EXAMINATION: COLOR-FLOW DUPLEX IMAGING OF THE BILATERAL LOWER EXTREMITY ARTERIAL SYSTEM. VELOCITY MEASUREMENTS THROUGHOUT THE FEMORAL ARTERIES CLINICAL INFORMATION: This is a 75-year-old male with peripheral vascular disease. Interventional Radiologist: Dougie Vega M.D., F.S.I.R., F.A.C.R. RIGHT FEMORAL RUNOFF VELOCITIES: The right common femoral artery measures 149 cm/s and biphasic. The right profunda femoral artery is 117 cm/s and is biphasic. Right proximal superficial femoral artery measures 119 cm/s and biphasic. Mid superficial femoral artery is 87 cm/s and biphasic. Distal right superficial femoral artery measures 46 cm/s and is biphasic. Right popliteal velocity measures 48 cm/s and is biphasic. The posterior tibial artery velocity measures 54 cm/s and was biphasic. LEFT FEMORAL RUNOFF VELOCITIES: The left common femoral artery measures 138 cm/s and biphasic. The left profunda femoral artery is 93 cm/s and is biphasic. Left proximal superficial femoral artery measures 149 cm/s and biphasic. Mid superficial femoral artery is 89 cm/s and biphasic. Distal left superficial femoral artery measures 82 cm/s and is triphasic. Left popliteal velocity measures 89 cm/s and is biphasic. The posterior tibial artery velocity measures 75 cm/s and was biphasic. There is scattered atherosclerotic plaque with calcified atherosclerotic disease throughout the arteries. However, a focal stenosis could not be demonstrated.. An arrhythmia was demonstrated during the duplex portion of the study. US/US arterial duplex LE BI IMPRESSION: 1. There is scattered bilateral atherosclerotic disease without evidence of focal velocity shift or hemodynamically significant stenosis.
== END 2020-07-25 08:25 | disposition home or self-care (01) ==
LOC: HO.US 08:24
PROVIDERS: Visit Provider Internal Medicine
DX: I73.9 Peripheral vascular disease, unspecified (principal)
CPT/HCPCS: 93925

== ENCOUNTER 2020-09-12 12:40 | Outpatient (REF) | payer MEDICARE, MEDICAID, SELFPAY ==
--- NOTE | ~2020-09-12 | XR_ITS ---
EXAMINATION: XR CHEST CLINICAL INFORMATION: COPD COMPARISON: None TECHNIQUE: 2 views of the chest were obtained. FINDINGS: The cardiac and mediastinal contours are stable. There is slight elevation of the right hemidiaphragm that is stable. Improvement in the increased markings at the left lung base probably representing resolving pneumonia compared to most recent chest x-ray June 2020. The lungs are otherwise clear. There is no pleural effusion or pneumothorax. Bony structures are unremarkable. XR/XR chest 2V IMPRESSION: No evidence for acute disease in the chest. Improved left base infiltrate from June 2020. Stable elevation of the right hemidiaphragm.
[2020-09-12 14:12] LABS: MANUAL DIFF FLAG NO
[2020-09-12 14:19] LABS: Basophils Absolute Auto 0.1 X10*3/uL (0.0-0.2); Basophils Percent Auto 0.7 % (0-2); Eosinophils Absolute Auto 0.3 X10*3/uL (0.0-0.4); Eosinophils Percent Auto 4.5 % (0-4); Hematocrit 46.6 % (42-52); Hemoglobin 15.6 g/dl (14.0-18.0); Imm Gran Abs Auto 0.02 X10*3/uL (0.00-0.03); Imm Gran Pct Auto 0.3 % (0.0-0.4); Lymphocytes Absolute Auto 2.2 X10*3/uL (1.2-4.9); Mean Corpuscular HGB Conc 33.5 g/dl (31.0-36.0); Mean Corpuscular Hemoglobin 30.6 pg (27.0-33.0); Mean Corpuscular Volume 91.6 fL (80-98); Mean Platelet Volume 9.9 fL (9.4-12.4); Monocytes Absolute Auto 0.6 X10*3/uL (0.1-1.2); Monocytes Percent Auto 9.3 % (2-11); Neutrophils Absolute Auto 3.7 X10*3/uL (2.0-8.3); Neutrophils Percent Auto 53.2 % (45-73); Platelet Count 266 X10*3/uL (160-400); Red Blood Count 5.09 X10*6/uL (4.60-5.80); Red Cell Distribution Width 12.7 % (11.0-16.0); White Blood Count 6.9 X10*3/uL (4.8-10.8)
[2020-09-12 14:31] LABS: D Dimer < 200 NG/ML
[2020-09-12 14:34] LABS: Troponin-I High Sensitivity 4.7 ng/L (<3.5-35.0)
[2020-09-12 14:46] LABS: Alanine Aminotransferase 10 U/L (0-40); Albumin Level 4.5 g/dL (3.5-5.0); Alkaline Phosphatase 89 U/L (39-117); Anion Gap 15 (12-20); Aspartate Amino Transferase 16 U/L (5-37); Bilirubin Total 0.7 mg/dL (0.0-1.0); Blood Urea Nitrogen 21 mg/dL (9-16); Calcium 9.4 mg/dL (8.4-10.2); Carbon Dioxide 23 mmol/L (22-29); Chloride 102 mmol/L (96-108); Estimated Glomerular Filt Rate 50; Glucose Random 138 mg/dL (60-115); Iron 148 mcg/dL (45-160); Percent Iron Saturation 46 % (15-50); Sodium 135 mmol/L (135-145); Total Iron Binding Capacity 320 mcg/dL (228-428); Total Protein 7.1 g/dL (6.5-8.0); Unsaturated Iron Binding 172 ug/dL
[2020-09-12 15:00] LABS: Vitamin B12 199 pg/mL (200-900)
[2020-09-12 15:50] LABS: Ferritin 73 ng/mL (20-250); TSH reflex Free T4 2.22 uIU/mL (0.32-4.0)
[2020-09-13 21:22] LABS: Lyme Abs Screen <0.90 index
== END 2020-09-12 12:41 | disposition home or self-care (01) ==
LOC: HO.HMGCX 12:40
PROVIDERS: PCP Nurse Practitioner Family; Visit Provider Nurse Practitioner Family
DX: J44.9 Chronic obstructive pulmonary disease, unspecified (principal); R05 Cough; R53.83 Other fatigue; F17.200 Nicotine dependence, unspecified, uncomplicated
CPT/HCPCS: 36415; 71046; 80053; 82607; 82728; 83540; 84443; 84484; 85025; 85379; 86617; 86618

== ENCOUNTER → 2020-10-24 13:58 | Outpatient (BNVA) | payer MEDICARE, MEDICAID, SELFPAY | PROVIDERS: PCP Nurse Practitioner Family; Visit Provider Internal Medicine Pulmonary Disease | DX: J44.9 Chronic obstructive pulmonary disease, unspecified (principal); I25.10 Atherosclerotic heart disease of native coronary artery without angina pectoris; E11.22 Type 2 diabetes mellitus with diabetic chronic kidney disease; I12.9 Hypertensive chronic kidney disease with stage 1 through stage 4 chronic kidney disease, or unspecified chronic kidney disease; N18.30 Chronic kidney disease, stage 3 unspecified; N40.0 Benign prostatic hyperplasia without lower urinary tract symptoms; F17.210 Nicotine dependence, cigarettes, uncomplicated | CPT/HCPCS: 99202 ==

== ENCOUNTER 2020-11-20 09:41 | Outpatient (REF) | payer MEDICARE, MEDICAID, SELFPAY ==
--- NOTE | 2020-11-20 10:36 | PFT_ITS ---
INDICATION: COPD. SPIROMETRY: The FEV1 to FVC of 73% with an FEV1 of 1.5 L, which is 57% predicted, an FVC of 2.05 L which is 56% predicted. No significant response to bronchodilators noted. Maximum voluntary ventilation. Total lung capacity 58% predicted. Expiratory reserve volume 35% predicted. DIFFUSION CAPACITY: DLCO of 32% predicted. COMPARISONS: None. INTERPRETATION: No definitive obstructive ventilatory defect. The patient does not meet the FEV1 to FVC criteria 70%, although does appear to have an obstructive physiology, however. The patient also has significant small airways disease and no significant response to bronchodilators noted. The patient has a moderate decrease in the maximum voluntary ventilation secondary to deconditioning, although cannot rule out neuromuscular conditions. Most significant in the moderate restrictive ventilatory defect, which could be secondary to underlying interstitial lung conditions and/or neuromuscular conditions. In addition to that, the patient does have a decrease in the expiratory reserve volume secondary to likely an elevated BMI that may be contributing as well. The patient has a severe diffusion impairment. Therefore, 6-minute walk test may be warranted. Clinical correlation warranted. MD SARIAH Medina/DESMOND / [id number]
== END 2020-11-20 09:42 | disposition home or self-care (01) ==
LOC: HO.RESP 09:41
PROVIDERS: Visit Provider Internal Medicine Pulmonary Disease
DX: J44.9 Chronic obstructive pulmonary disease, unspecified (principal)
CPT/HCPCS: 94060; 94727; 94729

== ENCOUNTER → 2020-12-07 09:09 | Outpatient (BNVA) | payer MEDICARE, MEDICAID, SELFPAY | PROVIDERS: PCP Nurse Practitioner Family; Visit Provider Internal Medicine Pulmonary Disease | DX: J44.9 Chronic obstructive pulmonary disease, unspecified (principal); R91.1 Solitary pulmonary nodule | CPT/HCPCS: 99212 ==

== ENCOUNTER 2020-12-13 12:18 | Outpatient (REF) | payer MEDICARE, MEDICAID, SELFPAY ==
[2020-12-13 13:04] LABS: MANUAL DIFF FLAG NO
[2020-12-13 13:10] LABS: Basophils Percent Auto 0.4 % (0-2); Eosinophils Absolute Auto 0.3 X10*3/uL (0.0-0.4); Eosinophils Percent Auto 4.1 % (0-4); Hematocrit 45.5 % (42-52); Hemoglobin 15.1 g/dl (14.0-18.0); Imm Gran Abs Auto 0.02 X10*3/uL (0.00-0.03); Imm Gran Pct Auto 0.3 % (0.0-0.4); Lymphocytes Absolute Auto 1.5 X10*3/uL (1.2-4.9); Lymphocytes Percent Auto 19.6 % (20-40); Mean Corpuscular HGB Conc 33.2 g/dl (31.0-36.0); Mean Corpuscular Hemoglobin 30.9 pg (27.0-33.0); Mean Platelet Volume 9.9 fL (9.4-12.4); Monocytes Absolute Auto 0.8 X10*3/uL (0.1-1.2); Monocytes Percent Auto 10.8 % (2-11); Neutrophils Percent Auto 64.8 % (45-73); Platelet Count 222 X10*3/uL (160-400); Red Blood Count 4.89 X10*6/uL (4.60-5.80); Red Cell Distribution Width 12.8 % (11.0-16.0); White Blood Count 7.8 X10*3/uL (4.8-10.8)
[2020-12-13 13:15] LABS: Estimated Average Glucose 160 mg/dL; Hemoglobin A1c % 7.2 %
[2020-12-13 13:27] LABS: Anion Gap 14 (12-20); Blood Urea Nitrogen 26 mg/dL (9-16); Calcium 9.9 mg/dL (8.4-10.2); Carbon Dioxide 25 mmol/L (22-29); Chloride 105 mmol/L (96-108); Estimated Glomerular Filt Rate 45; Glucose Random 182 mg/dL (60-115); Potassium 4.8 mmol/L (3.3-5.1); Sodium 139 mmol/L (135-145)
== END 2020-12-13 12:19 | disposition home or self-care (01) ==
LOC: HO.LAB 12:18
PROVIDERS: PCP Nurse Practitioner Family; Visit Provider Psychiatry & Neurology Neurology
DX: G62.9 Polyneuropathy, unspecified (principal); E11.9 Type 2 diabetes mellitus without complications
CPT/HCPCS: 36415; 80048; 83036; 85025

== ENCOUNTER 2021-02-14 09:55 | Outpatient (REF) | payer MEDICARE, MEDICAID, SELFPAY ==
--- NOTE | ~2021-02-14 | CT_ITS ---
EXAMINATION: CT CHEST WITHOUT CONTRAST CLINICAL INFORMATION: Follow up pulmonary nodule. COMPARISON: Previous chest CT 02/25/2020. TECHNIQUE: Multidetector volumetric CT imaging of the chest was done. Axial MIP volume rendering provided. Sagittal and coronal reformatted images were obtained. This CT examination was performed using dose optimization techniques as appropriate, variously including the following: *Automated exposure control *Adjustment of mA and/or kV according to patient size (this includes techniques or standardized protocols for targeted exams where dose is matched to indication/reason for exam; i.e. extremities or head) *Use of iterative reconstruction technique DLP: 157 mGy-cm FINDINGS: LUNGS: There is elevation of the right hemidiaphragm that appears unchanged. There is paraseptal and centrilobular emphysema. There is a bullous or cystic change in the peripheral or subpleural left lower lobe. This does not appear appreciably changed from previous exams. There is a small 3 mm peripheral or subpleural calcified nodule in the left lower lobe (axial image 260, series 7). This is stable. No other pulmonary nodule is seen. No endobronchial or endotracheal lesion is seen. MEDIASTINUM: There is coronary artery calcification. The mediastinum is otherwise normal. PLEURA: There is no pleural effusion. No pleural mass or thickening. AXILLA: No lymphadenopathy. UPPER ABDOMEN: There are small calcifications in the upper pole of both kidneys questionable for small stones. OSSEOUS STRUCTURES: There are degenerative changes of the spine. CT/CT chest wo con IMPRESSION: Severe emphysema. Stable small calcified left lower lobe nodule. Coronary artery calcification. Elevated right hemidiaphragm.
== END 2021-02-14 09:56 | disposition home or self-care (01) ==
LOC: HO.CT 09:55
PROVIDERS: PCP Nurse Practitioner Family; Visit Provider Internal Medicine Pulmonary Disease
DX: R91.1 Solitary pulmonary nodule (principal)
CPT/HCPCS: 71250

== ENCOUNTER → 2021-03-06 12:13 | Outpatient (BNVA) | payer MEDICARE, MEDICAID, SELFPAY | PROVIDERS: PCP Nurse Practitioner Family; Referring Provider Nurse Practitioner Family; Visit Provider Internal Medicine | DX: I25.10 Atherosclerotic heart disease of native coronary artery without angina pectoris (principal); I42.8 Other cardiomyopathies; I73.9 Peripheral vascular disease, unspecified; G45.9 Transient cerebral ischemic attack, unspecified; F17.200 Nicotine dependence, unspecified, uncomplicated; E11.22 Type 2 diabetes mellitus with diabetic chronic kidney disease; N18.31 Chronic kidney disease, stage 3a; E11.8 Type 2 diabetes mellitus with unspecified complications | CPT/HCPCS: 99212 ==

== ENCOUNTER 2021-03-12 09:50 | Outpatient (REF) | payer MEDICARE, MEDICAID, SELFPAY ==
[2021-03-12 11:45] LABS: MANUAL DIFF FLAG NO
[2021-03-12 11:47] LABS: Basophils Percent Auto 0.4 % (0-2); Eosinophils Absolute Auto 0.2 X10*3/uL (0.0-0.4); Eosinophils Percent Auto 2.3 % (0-4); Hematocrit 46.9 % (42.0-52.0); Hemoglobin 15.5 g/dl (14.0-18.0); Imm Gran Abs Auto 0.02 X10*3/uL (0.00-0.03); Imm Gran Pct Auto 0.3 % (0.0-0.4); Lymphocytes Absolute Auto 1.5 X10*3/uL (1.2-4.9); Lymphocytes Percent Auto 21.2 % (20-40); Mean Corpuscular Hemoglobin 31.1 pg (27.0-33.0); Mean Platelet Volume 10.1 fL (9.4-12.4); Monocytes Absolute Auto 0.6 X10*3/uL (0.1-1.2); Monocytes Percent Auto 8.9 % (2-11); Neutrophils Absolute Auto 4.6 x10*3/uL (2.0-8.3); Neutrophils Percent Auto 66.9 % (45-73); Platelet Count 217 X10*3/uL (160-400); Red Blood Count 4.99 X10*6/uL (4.60-5.80); Red Cell Distribution Width 12.4 % (11.0-16.0); White Blood Count 6.9 X10*3/uL (4.8-10.8)
[2021-03-12 12:34] LABS: Alanine Aminotransferase 10 U/L (0-40); Albumin Level 4.2 g/dL (3.5-5.0); Alkaline Phosphatase 95 U/L (39-117); Anion Gap 13 (12-20); Aspartate Amino Transferase 13 U/L (5-37); Bilirubin Total 0.4 mg/dL (0.0-1.0); Blood Urea Nitrogen 22 mg/dL (9-16); Calcium 9.3 mg/dL (8.4-10.2); Carbon Dioxide 25 mmol/L (22-29); Chloride 103 mmol/L (96-108); Estimated Glomerular Filt Rate 47; Glucose Random 234 mg/dL (60-115); Sodium 136 mmol/L (135-145); Total Protein 6.7 g/dL (6.5-8.0)
[2021-03-12 12:39] LABS: Folate 8.8 ng/mL (> or = 4.0); Vitamin B12 896 pg/mL (200-900)
== END 2021-03-12 09:51 | disposition home or self-care (01) ==
LOC: HO.HMGCLDS 09:50
PROVIDERS: PCP Nurse Practitioner Family; Visit Provider Nurse Practitioner Family
DX: E53.8 Deficiency of other specified B group vitamins (principal)
CPT/HCPCS: 36415; 80053; 82607; 82746; 85025

== ENCOUNTER 2021-03-20 08:08 | Outpatient (REF) | payer MEDICARE, MEDICAID, SELFPAY ==
--- NOTE | ~2021-03-20 | CT_ITS ---
EXAMINATION: CT ABDOMEN WITH CONTRAST CLINICAL INFORMATION: Epigastric pain. COMPARISON: CT abdomen and pelvis dated 01/16/2020; renal ultrasound dated 11/20/2018. TECHNIQUE: Contiguous axial thin section helical images of the abdomen were performed following the administration of oral contrast and 85 mL of Omnipaque 350 intravenous contrast. The data set was reformatted in the coronal and sagittal planes and reviewed on an independent workstation. This CT examination was performed using dose optimization techniques as appropriate, variously including the following: *Automated exposure control *Adjustment of mA and/or kV according to patient size (this includes techniques or standardized protocols for targeted exams where dose is matched to indication/reason for exam; i.e. extremities or head) *Use of iterative reconstruction technique DLP: 225 mGy-cm FINDINGS: LUNG BASES: There are bibasilar paraseptal emphysematous changes. There is mild bibasilar hypoaeration. There are coronary artery atherosclerotic calcifications. LIVER, GALLBLADDER, AND BILIARY TREE: The liver is normal in size, shape, and attenuation. No focal hepatic lesion or biliary ductal dilatation is present. The gallbladder is unremarkable, with no evidence of radiopaque gallstones, gallbladder wall thickening or obvious pericholecystic inflammatory change. PANCREAS: Unremarkable. SPLEEN: Unremarkable. ADRENAL GLANDS: Unremarkable. KIDNEYS AND URETERS: The kidneys are normal in size, shape, and attenuation. No hydronephrosis, hydroureter, or calculi seen. No perinephric stranding. GASTROINTESTINAL TRACT: The small and large bowel are unremarkable. The appendix is unremarkable. ABDOMINAL WALL: There is a small fat-containing umbilical hernia. LYMPH NODES: Normal. VASCULAR: There is moderate aortoiliac atherosclerotic calcification. OSSEOUS STRUCTURES: There is multi-level lumbar spondylosis. No acute or aggressive osseous abnormality is seen. CT/CT abdomen w con IMPRESSION: 1. No bowel obstruction, free intraperitoneal air or abscess is seen. No appendicitis or diverticulitis is noted. 2. No urinary calculus or obstructive uropathy is seen. 3. There is no abdominal mass or lymphadenopathy seen. 4. There is multi-level lumbar degenerative disc disease and spondylosis. No aggressive osseous lesion is seen. 5. There are paraseptal emphysematous changes. 6. There are coronary artery atherosclerotic calcifications.
[2021-03-20] MEDS: iohexoL 350 MG/ML 100 ML INFUS..BTL IV (09:44)
[2021-03-20] MEDS: Barium Sulfate Oral (Vanilla) 450 ML ORAL.SUSP PO (09:45)
== END 2021-03-20 08:09 | disposition home or self-care (01) ==
LOC: HO.CT 08:08
PROVIDERS: Visit Provider Nurse Practitioner Family
DX: R10.13 Epigastric pain (principal)
CPT/HCPCS: 74160; Q9967

== ENCOUNTER 2021-06-06 07:42 | Outpatient (REF) | payer MEDICARE, MEDICAID, SELFPAY ==
[2021-06-06 11:05] LABS: MANUAL DIFF FLAG NO
[2021-06-06 11:17] LABS: Appearance Urine CLOUDY; Basophils Percent Auto 0.3 % (0-2); Color Urine YELLOW; Eosinophils Absolute Auto 0.2 X10*3/uL (0.0-0.4); Glucose Urine UA NEG (NEG); Hematocrit 45.8 % (42.0-52.0); Hemoglobin 15.1 g/dl (14.0-18.0); Imm Gran Abs Auto 0.02 X10*3/uL (0.00-0.03); Imm Gran Pct Auto 0.3 % (0.0-0.4); Leukocyte Esterase Urine NEG (NEG); Lymphocytes Absolute Auto 1.9 X10*3/uL (1.2-4.9); Lymphocytes Percent Auto 27.4 % (20-40); Mean Corpuscular Hemoglobin 30.8 pg (27.0-33.0); Mean Corpuscular Volume 93.5 fL (80.0-98.0); Mean Platelet Volume 10.2 fL (9.4-12.4); Monocytes Absolute Auto 0.7 X10*3/uL (0.1-1.2); Monocytes Percent Auto 9.2 % (2-11); Neutrophils Absolute Auto 4.2 x10*3/uL (2.0-8.3); Neutrophils Percent Auto 59.8 % (45-73); Nitrite Urine NEG (NEG); PH 5.5 (5.0-8.0); Platelet Count 225 X10*3/uL (160-400); Red Cell Distribution Width 12.7 % (11.0-16.0); Specific Gravity - Urine 1.025 (1.005-1.025); UACC Culture Trigger NO; Urine Blood NEG (NEG); Urine Ketones 5 MG/DL (NEG); Urine Protein 1+ MG/DL (NEG-TRACE)
[2021-06-06 11:30] LABS: Estimated Average Glucose 174 mg/dL; Hemoglobin A1c % 7.7 %
[2021-06-06 11:39] LABS: Amorphous Sediment Urine 4+ /LPF; RBC Urine 0 /HPF (0); Sperm Urine NOTED; Squamous Epithelial Cell Urine TRACE /LPF; WBC Urine 0-2 /HPF (0-4)
[2021-06-06 11:52] LABS: TSH reflex Free T4 2.28 uIU/mL (0.32-4.0)
[2021-06-06 12:03] LABS: Vitamin B12 648 pg/mL (200-900)
[2021-06-06 12:12] LABS: Alanine Aminotransferase 11 U/L (0-40); Albumin Level 4.3 g/dL (3.5-5.0); Alkaline Phosphatase 75 U/L (39-117); Anion Gap 13 (12-20); Aspartate Amino Transferase 14 U/L (5-37); Bilirubin Total 0.4 mg/dL (0.0-1.0); Blood Urea Nitrogen 25 mg/dL (9-16); Calcium 9.5 mg/dL (8.4-10.2); Carbon Dioxide 27 mmol/L (22-29); Chloride 106 mmol/L (96-108); Cholesterol 100 mg/dL; Estimated Glomerular Filt Rate 38; Glucose Fasting 190 mg/dL (60-99); HDL Cholesterol 37 mg/dL; LDL Cholesterol Calculated 44 mg/dl; Potassium 5.3 mmol/L (3.3-5.1); Sodium 141 mmol/L (135-145); Total Protein 6.8 g/dL (6.5-8.0); Triglycerides 99 mg/dL
[2021-06-06 12:15] LABS: Creatinine Urine 259.68 mg/dL; Microalbum/Creatinine Ratio Ur 98.1 ug/mg cr
[2021-06-06 12:47] LABS: Prostate Specific Antigen Scr 3.32 ng/mL (<0.05-4.0)
== END 2021-06-06 07:43 | disposition home or self-care (01) ==
LOC: HO.HMGCLDS 07:42
PROVIDERS: Visit Provider Nurse Practitioner Family
DX: E11.42 Type 2 diabetes mellitus with diabetic polyneuropathy (principal); E53.8 Deficiency of other specified B group vitamins; Z12.5 Encounter for screening for malignant neoplasm of prostate
CPT/HCPCS: 36415; 80053; 80061; 81001; 82043; 82607; 83036; 84153; 84443; 85025

== ENCOUNTER → 2021-06-12 09:01 | Outpatient (BNVA) | payer MEDICARE, MEDICAID, SELFPAY | PROVIDERS: PCP Nurse Practitioner Family; Visit Provider Internal Medicine Pulmonary Disease | DX: J44.9 Chronic obstructive pulmonary disease, unspecified (principal); R91.1 Solitary pulmonary nodule; J30.2 Other seasonal allergic rhinitis; E11.22 Type 2 diabetes mellitus with diabetic chronic kidney disease; E11.42 Type 2 diabetes mellitus with diabetic polyneuropathy; I25.10 Atherosclerotic heart disease of native coronary artery without angina pectoris; I12.9 Hypertensive chronic kidney disease with stage 1 through stage 4 chronic kidney disease, or unspecified chronic kidney disease; N18.30 Chronic kidney disease, stage 3 unspecified; I42.8 Other cardiomyopathies; I27.20 Pulmonary hypertension, unspecified; E78.5 Hyperlipidemia, unspecified; F17.210 Nicotine dependence, cigarettes, uncomplicated; Z98.890 Other specified postprocedural states; Z79.899 Other long term (current) drug therapy | CPT/HCPCS: 99212 ==

== ENCOUNTER 2021-08-08 10:42 | Outpatient (REF) | payer MEDICARE, MEDICAID, SELFPAY ==
[2021-08-08 13:44] LABS: Hematocrit 45.1 % (42.0-52.0); Hemoglobin 14.8 g/dl (14.0-18.0); Mean Corpuscular HGB Conc 32.8 g/dl (31.0-36.0); Mean Corpuscular Hemoglobin 30.6 pg (27.0-33.0); Mean Corpuscular Volume 93.2 fL (80.0-98.0); Mean Platelet Volume 9.8 fL (9.4-12.4); Platelet Count 240 X10*3/uL (160-400); Red Blood Count 4.84 X10*6/uL (4.60-5.80); Red Cell Distribution Width 12.8 % (11.0-16.0); White Blood Count 8.4 X10*3/uL (4.8-10.8)
[2021-08-08 14:27] LABS: Vitamin B12 624 pg/mL (200-900)
[2021-08-14 21:56] LABS: Intrinsic Factor Antibodies Negative (Negative)
[2021-08-15 23:20] LABS: Parietal Cell Antibody <=20.0 Unit (<=20.0)
== END 2021-08-08 10:43 | disposition home or self-care (01) ==
LOC: HO.HMGCLDS 10:42
PROVIDERS: PCP Nurse Practitioner Family; Visit Provider Nurse Practitioner Family
DX: E53.8 Deficiency of other specified B group vitamins (principal)
CPT/HCPCS: 36415; 82607; 83516; 85027; 86340

== ENCOUNTER → 2021-08-30 08:33 | Outpatient (BNVA) | payer MEDICARE, MEDICAID, SELFPAY | PROVIDERS: PCP Nurse Practitioner Family; Referring Provider Nurse Practitioner Family; Visit Provider Internal Medicine | DX: I25.10 Atherosclerotic heart disease of native coronary artery without angina pectoris (principal); I42.8 Other cardiomyopathies; I73.9 Peripheral vascular disease, unspecified; E11.22 Type 2 diabetes mellitus with diabetic chronic kidney disease; N18.31 Chronic kidney disease, stage 3a; F17.200 Nicotine dependence, unspecified, uncomplicated; Z86.73 Personal history of transient ischemic attack (TIA), and cerebral infarction without residual deficits; Z79.82 Long term (current) use of aspirin; Z79.84 Long term (current) use of oral hypoglycemic drugs; Z79.899 Other long term (current) drug therapy | CPT/HCPCS: 93005; 99212 ==

== ENCOUNTER 2021-09-18 10:31 | Outpatient (REF) | payer MEDICARE, MEDICAID, SELFPAY ==
--- NOTE | ~2021-09-18 | XR_ITS ---
EXAMINATION: XR BILATERAL HIPS WITH AP PELVIS CLINICAL INFORMATION: M25.551 - Pain in right hip COMPARISON: CT abdomen and pelvis 01/16/2020. TECHNIQUE: Each hip is imaged in AP and frog-lateral projections. There are a total of 4 views. FINDINGS: There is normal bony mineralization. No fracture, dislocation, destructive process. The SI joints and pubis show no diastases or erosive change. There is mild borderline joint narrowing superior medial hip joints. No erosive change or chondrocalcinosis or subchondral sclerosis on either side. There are atherosclerotic calcifications bilateral femoral vasculature. XR/XR hips HEIDI min 3V IMPRESSION: -Borderline narrowing superior medial bilateral hips. -No erosive change or some chondral sclerosis.
== END 2021-09-18 10:32 | disposition home or self-care (01) ==
LOC: HO.HMGCX 10:31
PROVIDERS: Visit Provider Nurse Practitioner Family
DX: M25.551 Pain in right hip (principal); M25.552 Pain in left hip
CPT/HCPCS: 73522

== ENCOUNTER 2021-11-30 08:00 | Outpatient (RCR) | payer MEDICARE, MEDICAID, SELFPAY ==
--- NOTE | 2021-11-12 16:16 | MHC.PT.EP ---
[facility] [place] Office [place] Office [place] Office [address] Wendie Holm [address] [phone] F: [phone] F: [phone] F: [phone] F: [phone] Physical Therapy Plan of Care Date of Evaluation: Date of Surgery: Diagnosis: B hip pain Assessment: Pt is a 76 y/o male referred to PT for eval and treat of B hip pain who presents with B hip and lumbar dysfunction resulting in decreased tolerance for standing and walking, performing HH chores, squatting activities and negotiating stairs secondary to decreased B LE strength, decreased core strength, gait abnormality, decreased trunk mobility, TTP of B lateral hips, increased lumbar and hip tissue tension an pain. Pt is deemed an appropriate candidate to receive skilled PT services in order to address his physical impairments to improve his functional ability. Frequency and Duration: The patient will be seen 2 x / wk x 5 wks. Short Term Goals: Initiate HEP. improve baseline pain from 10/10 at most with activity to < 7/10. Pt will improve TTP of B hips from 2+ (moderate) to at most 1+ (mild). Mcfp Goals: I with home program. Improve B hip abd MMT by at least 1/2 grade. initial 4/5 B. Pt will be able wo walk 2 blocks with at most moderate difficulty; initial: extreme difficulty or inability. Treatment Plan: Modalities to reduce pain, spasms and effusion. Manual therapy to restore motion and function. Therapeutic exercise to improve strength and flexibility. Neuromuscular re-education for posture and balance. Therapeutic activities to return to functional activities of daily living. Electronically signed by: Shiv Song PT. Please sign and return to therapist. Thank you for your referral.
--- NOTE | 2022-04-04 08:41 | MHC.PT.DC ---
[facility] [place] Office [place] Office [place] Office [address] Wendie Holm [address] [phone] F: [phone] F: [phone] F: [phone] F: [phone] Physical Therapy Discharge Report Diagnosis: B hip pain Date of Surgery: Date of Evaluation: 11/12/21 Date of Discharge: 03/07/22 Treatments to Date: 6 Cancellations to Date: No Shows to Date: Discharge Status: Patient Elected to Stop Discharge Summary: Cues for breathing with exercises as he tends to hold breath and increased abdominal pressure. Low tolerance for exercises and therapeutic rest breaks throughout. Also educated pt on performing intermittent movement breaks throughout the day as he discussed sitting all day. Reports relief following session. Electronically signed by: Shiv Song PT. Please sign and return to therapist. Thank you for your referral.
== END 2022-04-04 08:43 | disposition home or self-care (01) ==
LOC: HO.PTCHIC 08:00
PROVIDERS: PCP Nurse Practitioner Family; Visit Provider Nurse Practitioner Family
DX: M25.551 Pain in right hip (principal); M25.552 Pain in left hip
CPT/HCPCS: 97014; 97110; 97162

== ENCOUNTER → 2021-12-21 12:54 | Outpatient (BNVA) | payer MEDICARE, MEDICAID, SELFPAY | PROVIDERS: PCP Nurse Practitioner Family; Visit Provider Internal Medicine Pulmonary Disease | DX: T17.900A Unspecified foreign body in respiratory tract, part unspecified causing asphyxiation, initial encounter (principal); J44.9 Chronic obstructive pulmonary disease, unspecified; R91.1 Solitary pulmonary nodule | CPT/HCPCS: 99212 ==

== ENCOUNTER 2022-02-19 08:38 | Outpatient (REF) | payer MEDICARE, MEDICAID, SELFPAY ==
--- NOTE | ~2022-02-19 | CT_ITS ---
EXAMINATION: CT CHEST WITHOUT CONTRAST CLINICAL INFORMATION: Pulmonary nodule. COMPARISON: Previous chest CT most recent February 2021. TECHNIQUE: Multidetector volumetric CT imaging of the chest was done. Axial MIP volume rendering provided. Sagittal and coronal reformatted images were obtained. This CT examination was performed using dose optimization techniques as appropriate, variously including the following: *Automated exposure control. *Adjustment of mA and/or kV according to patient size (this includes techniques or standardized protocols for targeted exams where dose is matched to indication/reason for exam; i.e. extremities or head). *Use of iterative reconstruction technique. 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 This is similar to previous exam. LUNGS: There is elevation of the right hemidiaphragm. There is evidence of severe emphysema. There are areas of peripheral or subpleural cystic change, greatest in the left lower lobe. There is a 3 mm peripheral left upper lobe nodule, axial image 146 series 5, that is stable. There is question increasing compressive atelectasis or consolidation in the posterior right lower lobe adjacent to the elevated right hemidiaphragm versus nodule. This area measures approximately 0.8 x 1.5 cm, axial 10 series 5, sagittal reconstructed image 77 and coronal reconstructed image 66. No endobronchial or endotracheal lesion. MEDIASTINUM: Shotty mediastinal lymphadenopathy. Largest lymph nodes are upper normal in size. This is similar to previous exam. Difficult to evaluate for hilar lymphadenopathy without contrast. Normal heart size. Mduxvivh-vc-noovcy coronary artery calcification. Upper normal-size thoracic aorta. No pericardial effusion. CORONARY ARTERY CALCIFICATION: Gkstbvyi-jc-oeuqky. PLEURA: There is no pleural effusion. No pleural mass or thickening. AXILLA: No lymphadenopathy. UPPER ABDOMEN: Bilateral renal stones. OSSEOUS STRUCTURES: Degenerative changes of the spine. CT/CT chest wo IV con IMPRESSION: Severe emphysema. Stable small left upper lobe nodule. Question increasing compressive atelectasis or consolidation in the posterior right lower lobe adjacent to the elevated right hemidiaphragm versus nodule. Stable elevation of the right hemidiaphragm. Fjmscqkf-vp-rjafqw coronary artery calcification. Bilateral renal stones. Fleischner guidelines were followed.
== END 2022-02-19 08:39 | disposition home or self-care (01) ==
LOC: HO.CT 08:38
PROVIDERS: PCP Nurse Practitioner Family; Visit Provider Internal Medicine Pulmonary Disease
DX: R91.1 Solitary pulmonary nodule (principal)
CPT/HCPCS: 71250

== ENCOUNTER → 2022-02-25 08:22 | Outpatient (REF) | payer MEDICARE, MEDICAID, SELFPAY ==
--- NOTE | 2022-02-25 08:27 | CA_ITS ---
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 The calculated ejection fraction is 42% by biplane method. - There is mildly decreased right ventricular systolic function. - No obvious valvular pathology seen on this study. Findings Left Ventricle Normal left ventricular cavity size. There is moderately increased left ventricular wall thickness. The left ventricular systolic function is mildly decreased. The calculated ejection fraction is 42% by biplane method. There is mild global hypokinesis. Diastolic function is normal for age. Right Ventricle Normal right ventricular cavity size. There is mildly decreased right ventricular systolic function. Atria Both atria are normal in size. Aortic Valve There is a normal trileaflet aortic valve. There is no aortic valve stenosis. There is no aortic valve regurgitation. Mitral Valve The mitral valve appears normal. There is no mitral valve regurgitation. There is no mitral valve stenosis. Pulmonic Valve The pulmonic valve is likely normal. Tricuspid Valve Normal tricuspid valve structure. There is trace tricuspid valve regurgitation. There is no evidence of pulmonary hypertension. Great Vessels The asc aorta is normal in size. Venous The inferior vena cava is normal in size and collapses greater than 50% with inspiration. Pericardium/Pleural There is no evidence of pericardial effusion. Prior Study Comparison No significant change compared to prior study dated: 07/11/2020. Recommendations, Care & Conclusions No obvious valvular pathology seen on this study. Measurements 2D Linear Measurements IVSd: 1.32 0.6-0.9/0.6-1.0 cm LVIDd: 3.96 3.9-5.3/4.2-5.9 cm LVIDd Index: 2.12 2.4-3.2/2.2-3.1 cm/m2 LVIDs: 2.06 2.0-3.6 cm LVPWd: 1.35 0.7-1.1 cm Ao Root: 3.60 2.1-3.5 cm LA Diam: 2.80 2.7-3.8/3.0-4.0 cm LAIDs Index: 1.50 1.5-2.3 cm/m2 LV Mass: 238.51 67-162/88-224 g LV Mass Index: 127.54 43-95/49-115 g/m2 LVOT Diam: 2.10 3.0+(-)1.3 cm 2D Systolic Function EF 4C: 41.90 >55% EF 2C: 45.70 >55% EF BiP: 42.00 >55% Mitral Valve MV Pk E: 0.50 MV PK A: 0.84 MV Decel Time: 162.00 E/A: 0.60 E'Lateral: 4.46 E'Medial: 5.87 E/E' Med: 8.50 E/E' Lat: 11.20 PHT: 48.00 MVA PHT: 4.58 Decel [place]: 3.09 Aortic Valve AoV Pk Albaro: 0.97 AoV Mn Albaro: 0.65 AoV VTI: 0.21 AoV Pk Grad: 4.00 Aov Mn Grad: 2.00 SCOTT Cont.VTI: 2.45 LVOT LVOT Pk Albaro: 0.62 LVOT Mn Albaro: 0.40 LVOT VTI: 0.15 LVOT Pk Grad: 2.00 LVOT Mn Grad: 1.00 LVOT Diam: 2.10 LVOT Area: 3.46 Diastolic Function MV Pk E: 0.50 MV Pk A: 0.84 E/A: 0.60 E'Medial: 5.87 E/E' Med: 8.50 E' Laterial: 4.46 E/E' Lat: 11.20 Right Ventricle TAPSE (mm): 17.00 TVS' Albaro: 9.00 Tricuspid Valve TR Pk Albaro: 1.95 TR Pk Grad: 15.00 RA Press: 3.00 RVSP: 18.00 Great Vessels Aorta Ao Root-2D: 3.60 2.0-3.7 cm Ao Asc: 3.50 2.1-3.4 cm Pulmonary Valve PV Pk Albaro: 0.88 Peak PV Grad: 3.00 Updated in Other Vendor System with Status of Final Georges Key MD electronically signed on 02/26/2022 10:27:04 AM with status of Final
== END ==
LOC: HO.CARD 08:22
PROVIDERS: Visit Provider Internal Medicine
DX: I42.8 Other cardiomyopathies (principal)
CPT/HCPCS: 93306

== ENCOUNTER → 2022-03-07 08:51 | Outpatient (BNVA) | payer MEDICARE, MEDICAID, SELFPAY | PROVIDERS: PCP Nurse Practitioner Family; Referring Provider Nurse Practitioner Family; Visit Provider Internal Medicine | DX: I25.10 Atherosclerotic heart disease of native coronary artery without angina pectoris (principal); I42.8 Other cardiomyopathies; G45.9 Transient cerebral ischemic attack, unspecified; I73.9 Peripheral vascular disease, unspecified; E11.22 Type 2 diabetes mellitus with diabetic chronic kidney disease; N18.31 Chronic kidney disease, stage 3a; F17.210 Nicotine dependence, cigarettes, uncomplicated | CPT/HCPCS: 99212 ==

== ENCOUNTER 2022-06-05 08:59 | Outpatient (REF) | payer MEDICARE, MEDICAID, SELFPAY ==
[2022-06-05 11:04] LABS: MANUAL DIFF FLAG NO
[2022-06-05 11:11] LABS: Appearance Urine Clear; Color Urine Yellow; Glucose Urine UA Negative (Negative); Leukocyte Esterase Urine Negative (Negative); Nitrite Urine Negative (Negative); PH 5.5 (5.0-9.0); UMIC TRIGGER UACC YES; Urine Blood Negative (Negative); Urine Ketones Trace mg/dL (Negative); Urine Protein 30 (1+) mg/dL (Neg-Trace)
[2022-06-05 11:17] LABS: Bacteria Urine None Seen (None Seen); RBC Urine 0-2 /HPF (0-2); Squamous Epithelial Cell Urine 0-2 /HPF (0-2); WBC Urine 0-5 /HPF (0-5)
[2022-06-05 11:18] LABS: Basophils Percent Auto 0.4 % (0-2); Eosinophils Absolute Auto 0.1 X10*3/uL (0.0-0.4); Eosinophils Percent Auto 1.6 % (0-4); Hematocrit 45.9 % (42.0-52.0); Hemoglobin 15.1 g/dl (14.0-18.0); Imm Gran Abs Auto 0.02 X10*3/uL (0.00-0.03); Imm Gran Pct Auto 0.3 % (0.0-0.4); Lymphocytes Percent Auto 25.5 % (20-40); Mean Corpuscular HGB Conc 32.9 g/dl (31.0-36.0); Mean Corpuscular Hemoglobin 30.2 pg (27.0-33.0); Mean Corpuscular Volume 91.8 fL (80.0-98.0); Mean Platelet Volume 10.3 fL (9.4-12.4); Monocytes Absolute Auto 0.7 X10*3/uL (0.1-1.2); Monocytes Percent Auto 8.8 % (2-11); Neutrophils Absolute Auto 4.9 x10*3/uL (2.0-8.3); Neutrophils Percent Auto 63.4 % (45-73); Platelet Count 229 X10*3/uL (160-400); Red Cell Distribution Width 12.7 % (11.0-16.0); White Blood Count 7.7 X10*3/uL (4.8-10.8)
[2022-06-05 11:49] LABS: Estimated Average Glucose 177 mg/dL; Hemoglobin A1c % 7.8 %
[2022-06-05 12:27] LABS: Alanine Aminotransferase 14 U/L (0-40); Albumin Level 4.4 g/dL (3.5-5.0); Alkaline Phosphatase 80 U/L (39-117); Anion Gap 15 (12-20); Aspartate Amino Transferase 15 U/L (5-37); Bilirubin Total 0.5 mg/dL (0.0-1.0); Blood Urea Nitrogen 41 mg/dL (9-16); Calcium 9.3 mg/dL (8.4-10.2); Carbon Dioxide 24 mmol/L (22-29); Chloride 105 mmol/L (96-108); Cholesterol 99 mg/dL; Estimated Glomerular Filt Rate 31; Glucose Fasting 142 mg/dL (60-99); HDL Cholesterol 37 mg/dL; LDL Cholesterol Calculated 44 mg/dl; Potassium 6.8 mmol/L (3.3-5.1); Sodium 137 mmol/L (135-145); Total Protein 6.9 g/dL (6.5-8.0); Triglycerides 91 mg/dL
[2022-06-05 13:04] LABS: Folate 11.1 ng/mL (> or = 4.0); Prostate Specific Antigen Scr 3.92 ng/mL (<0.05-4.0); TSH reflex Free T4 2.21 uIU/mL (0.32-4.0); Vitamin B12 399 pg/mL (200-900)
== END 2022-06-05 09:00 | disposition home or self-care (01) ==
LOC: HO.HMGCLDS 08:59
PROVIDERS: PCP Nurse Practitioner Family; Visit Provider Nurse Practitioner Family
DX: Z13.89 Encounter for screening for other disorder (principal)
CPT/HCPCS: 36415; 80053; 80061; 81001; 82607; 82746; 83036; 84153; 84443; 85025

== ENCOUNTER 2022-06-05 09:49 | Outpatient (REF) | payer MEDICARE, MEDICAID, SELFPAY ==
--- NOTE | ~2022-06-05 | FL_ITS ---
EXAMINATION: FL BARIUM SWALLOW CLINICAL INFORMATION: Dysphagia. Cough. COMPARISON: CT chest 02/19/2022 TECHNIQUE: Barium swallow examination is performed using fluoroscopic evaluation in addition to multiple fluoroscopic spot views, including cine images during swallowing. The patient is imaged both upright and prone and using both thick and thin sulfate along with effervescent granules. Barium pill challenge also performed. Fluoroscopy time: 2.0 minutes DAP: 9.5 Gycm2 Images: 43 FINDINGS: There is one episode of aspiration during swallowing thin barium suspension. This initiated a sudden cough reflex as expected. There is no nasopharyngeal penetration. No cervical achalasia, stricture, web, or diverticulum. The cervicothoracic junction is unremarkable. The thoracic esophagus shows normal motility with no obstruction, stricture, or ulceration. There is no hiatal hernia. Trace gastroesophageal reflux is seen during water siphon test. Barium pill challenge unremarkable with prompt transit from mouth to stomach. A cursory view of the upper abdomen shows no gastric outlet obstruction. FL/FL barium swallow IMPRESSION: -Single episode of aspiration during swallowing thin barium sulfate with immediate cough reflex. -No cervical web, diverticulum, or achalasia. -No thoracic stricture or dysmotility. No hiatal hernia. -Trace gastroesophageal reflux during water siphon test.
== END 2022-06-05 09:50 | disposition home or self-care (01) ==
LOC: HO.XRAY 09:49
PROVIDERS: PCP Nurse Practitioner Family; Visit Provider Internal Medicine Pulmonary Disease
DX: T17.900A Unspecified foreign body in respiratory tract, part unspecified causing asphyxiation, initial encounter (principal); E11.42 Type 2 diabetes mellitus with diabetic polyneuropathy; Z12.5 Encounter for screening for malignant neoplasm of prostate
CPT/HCPCS: 36415; 74220; 80053; 80061; 81001; 82607; 82746; 83036; 84153; 84443; 85025

== ENCOUNTER 2022-06-06 10:34 | Outpatient (REF) | payer MEDICARE, MEDICAID, SELFPAY ==
[2022-06-06 12:20] LABS: Anion Gap 15 (12-20); Carbon Dioxide 21 mmol/L (22-29); Chloride 101 mmol/L (96-108); Potassium 5.5 mmol/L (3.3-5.1); Sodium 131 mmol/L (135-145)
[2022-06-06 14:03] LABS: Appearance Urine Clear; Color Urine Yellow; Glucose Urine UA Negative (Negative); Leukocyte Esterase Urine Negative (Negative); Nitrite Urine Negative (Negative); Urine Blood Negative (Negative); Urine Ketones Negative (Negative); Urine Protein Negative (Neg-Trace)
== END 2022-06-06 10:35 | disposition home or self-care (01) ==
LOC: HO.HMGCLDS 10:34
PROVIDERS: PCP Nurse Practitioner Family; Visit Provider Nurse Practitioner Family
DX: E11.42 Type 2 diabetes mellitus with diabetic polyneuropathy (principal); E87.5 Hyperkalemia
CPT/HCPCS: 36415; 80051; 81003

== ENCOUNTER 2022-06-07 08:02 | Outpatient (REF) | payer MEDICARE, MEDICAID, SELFPAY ==
[2022-06-07 12:23] LABS: Anion Gap 13 (12-20); Carbon Dioxide 25 mmol/L (22-29); Chloride 100 mmol/L (96-108); Potassium 5.6 mmol/L (3.3-5.1); Sodium 132 mmol/L (135-145)
[2022-06-07 12:40] LABS: Folate 10.6 ng/mL (> or = 4.0); Vitamin B12 381 pg/mL (200-900)
== END 2022-06-07 08:03 | disposition home or self-care (01) ==
LOC: HO.HMGCLDS 08:02
PROVIDERS: PCP Nurse Practitioner Family; Visit Provider Nurse Practitioner Family
DX: E53.8 Deficiency of other specified B group vitamins (principal); E87.5 Hyperkalemia; E11.42 Type 2 diabetes mellitus with diabetic polyneuropathy
CPT/HCPCS: 36415; 80051; 82607; 82746

== ENCOUNTER 2022-06-20 10:57 | Outpatient (REF) | payer MEDICARE, MEDICAID, SELFPAY ==
[2022-06-20 15:16] LABS: Alanine Aminotransferase 17 U/L (0-40); Albumin Level 4.3 g/dL (3.5-5.0); Alkaline Phosphatase 76 U/L (39-117); Anion Gap 14 (12-20); Aspartate Amino Transferase 20 U/L (5-37); Bilirubin Total 0.5 mg/dL (0.0-1.0); Blood Urea Nitrogen 30 mg/dL (9-16); Carbon Dioxide 24 mmol/L (22-29); Chloride 102 mmol/L (96-108); Estimated Glomerular Filt Rate 46; Glucose Random 121 mg/dL (60-115); Potassium 5.3 mmol/L (3.3-5.1); Sodium 135 mmol/L (135-145); Total Protein 6.8 g/dL (6.5-8.0)
== END 2022-06-20 10:58 | disposition home or self-care (01) ==
LOC: HO.HMGCLDS 10:57
PROVIDERS: PCP Nurse Practitioner Family; Visit Provider Nurse Practitioner Family
DX: E78.5 Hyperlipidemia, unspecified (principal); N18.31 Chronic kidney disease, stage 3a
CPT/HCPCS: 36415; 80053

== ENCOUNTER 2022-07-04 13:15 | Outpatient (REF) | payer MEDICARE, MEDICAID, SELFPAY ==
--- NOTE | ~2022-07-04 | XR_ITS ---
EXAMINATION: XR CHEST CLINICAL INFORMATION: COPD. COMPARISON: 09/12/2020 chest radiographs. TECHNIQUE: 2 views of the chest were obtained. FINDINGS: Minimal bibasilar linear markings are seen. The upper lung sierra are clear. The heart and mediastinal structures are unremarkable XR/XR chest 2V IMPRESSION: Minimal bibasilar linear atelectasis/scarring. No acute cardiopulmonary process.
[2022-07-04 18:32] LABS: Influenza A PCR NEGATIVE (Negative); Influenza B PCR NEGATIVE (Negative); Resp Syncy Virus RNA Qual PCR NEGATIVE (Negative); SARS COV2 PCR INHOUSE NEGATIVE (Negative)
== END 2022-07-04 13:16 | disposition home or self-care (01) ==
LOC: HO.HMGCX 13:15
PROVIDERS: PCP Nurse Practitioner Family; Visit Provider Nurse Practitioner Family
DX: J44.9 Chronic obstructive pulmonary disease, unspecified (principal); R06.2 Wheezing; R09.89 Other specified symptoms and signs involving the circulatory and respiratory systems; Z20.822 Contact with and (suspected) exposure to COVID-19
CPT/HCPCS: 0241U; 71046

== ENCOUNTER → 2022-08-16 12:56 | Outpatient (BNVA) | payer MEDICARE, MEDICAID, SELFPAY | PROVIDERS: PCP Nurse Practitioner Family; Visit Provider Nurse Practitioner Family | DX: R32 Unspecified urinary incontinence (principal) | CPT/HCPCS: 51798; 99202 ==

== ENCOUNTER 2022-09-18 14:31 | Outpatient (REF) | payer MEDICARE, MEDICAID, SELFPAY ==
--- NOTE | ~2022-09-18 | US_ITS ---
EXAMINATION: US RETROPERITONEAL COMPLETE (RENAL) CLINICAL INFORMATION: Unspecified urinary incontinence. COMPARISON: CT abdomen with contrast 03/20/2021. Ultrasound retroperitoneal limited (renal only) 11/20/2018. TECHNIQUE: Real-time imaging of the kidneys and bladder. FINDINGS: RIGHT KIDNEY: 11.6 x 5.3 x 5.0 cm (SAG x AP x TRV). The kidney is normal in size, contour, and echogenicity. Renal cortical thickness is normal. No calculi or focal parenchymal lesions. No hydronephrosis. No evidence of hydronephrosis but calyectasis LEFT KIDNEY: 11.6 x 5.1 x 4.2 cm (SAG x AP x TRV). The kidney is normal in size, contour, and echogenicity. Renal cortical thickness is normal. No calculi or focal parenchymal lesions. No hydronephrosis. No evidence of hydronephrosis but calyectasis bilaterally. There is trace of fluid on the left surrounding the left kidney. BLADDER: Well distended and normal. Bilateral ureteral jets are demonstrated. Prevoid bladder volume is 196 mL. Postvoid bladder volume is 5.9 mL. ADDITIONAL FINDINGS: Prostate volume measured 45.2 mL US/US retroperitoneal comp IMPRESSION: Bilateral calyectasis without evidence of hydronephrosis. Trace of fluid around the left kidney.
== END 2022-09-18 14:32 | disposition home or self-care (01) ==
LOC: HO.US 14:31
PROVIDERS: PCP Nurse Practitioner Family; Visit Provider Nurse Practitioner Family
DX: R32 Unspecified urinary incontinence (principal)
CPT/HCPCS: 76770

== ENCOUNTER → 2022-09-26 12:45 | Outpatient (BNVA) | payer MEDICARE, MEDICAID, SELFPAY | PROVIDERS: PCP Nurse Practitioner Family; Visit Provider Nurse Practitioner Family | DX: R32 Unspecified urinary incontinence (principal); N40.0 Benign prostatic hyperplasia without lower urinary tract symptoms; E11.69 Type 2 diabetes mellitus with other specified complication; N52.1 Erectile dysfunction due to diseases classified elsewhere | CPT/HCPCS: 51798; 99212 ==

== ENCOUNTER → 2022-10-10 13:59 | Outpatient (BNVA) | payer MEDICARE, MEDICAID, SELFPAY | PROVIDERS: PCP Nurse Practitioner Family; Visit Provider Internal Medicine Pulmonary Disease | DX: J44.9 Chronic obstructive pulmonary disease, unspecified (principal); R91.1 Solitary pulmonary nodule; T17.900A Unspecified foreign body in respiratory tract, part unspecified causing asphyxiation, initial encounter | CPT/HCPCS: 99212 ==

== ENCOUNTER 2022-11-04 07:03 | Outpatient (REF) | payer MEDICARE, MEDICAID, SELFPAY ==
[2022-11-04 11:25] LABS: MANUAL DIFF FLAG NO
[2022-11-04 11:26] LABS: Appearance Urine Clear; Color Urine Yellow; Glucose Urine UA Negative (Negative); Leukocyte Esterase Urine Negative (Negative); Nitrite Urine Negative (Negative); PH 5.5 (5.0-9.0); UMIC TRIGGER UACC YES; Urine Blood Negative (Negative); Urine Ketones Negative (Negative); Urine Protein 30 (1+) mg/dL (Neg-Trace)
[2022-11-04 11:29] LABS: Bacteria Urine None Seen (None Seen); Hyaline Casts Urine 0-2 /LPF (0-2); Squamous Epithelial Cell Urine 0-2 /HPF (0-2); WBC Urine 0-5 /HPF (0-5)
[2022-11-04 11:58] LABS: Basophils Percent Auto 0.4 % (0-2); Eosinophils Absolute Auto 0.2 X10*3/uL (0.0-0.4); Eosinophils Percent Auto 3.4 % (0-4); Hematocrit 47.8 % (42.0-52.0); Hemoglobin 15.2 g/dl (14.0-18.0); Imm Gran Abs Auto 0.01 X10*3/uL (0.00-0.03); Imm Gran Pct Auto 0.1 % (0.0-0.4); Lymphocytes Absolute Auto 1.8 X10*3/uL (1.2-4.9); Lymphocytes Percent Auto 26.4 % (20-40); Mean Corpuscular HGB Conc 31.8 g/dl (31.0-36.0); Mean Corpuscular Hemoglobin 30.3 pg (27.0-33.0); Mean Corpuscular Volume 95.2 fL (80.0-98.0); Mean Platelet Volume 9.8 fL (9.4-12.4); Monocytes Absolute Auto 0.5 X10*3/uL (0.1-1.2); Monocytes Percent Auto 7.8 % (2-11); Neutrophils Absolute Auto 4.1 x10*3/uL (2.0-8.3); Neutrophils Percent Auto 61.9 % (45-73); Platelet Count 209 X10*3/uL (160-400); Red Blood Count 5.02 X10*6/uL (4.60-5.80); Red Cell Distribution Width 13.2 % (11.0-16.0); White Blood Count 6.7 X10*3/uL (4.8-10.8)
[2022-11-04 12:26] LABS: Alanine Aminotransferase 10 U/L (0-40); Albumin Level 4.1 g/dL (3.5-5.0); Alkaline Phosphatase 82 U/L (39-117); Anion Gap 16 (12-20); Aspartate Amino Transferase 14 U/L (5-37); Bilirubin Total 0.3 mg/dL (0.0-1.0); Blood Urea Nitrogen 28 mg/dL (9-16); Calcium 9.7 mg/dL (8.4-10.2); Carbon Dioxide 20 mmol/L (22-29); Chloride 114 mmol/L (96-108); Cholesterol 95 mg/dL; Estimated Glomerular Filt Rate 43; Glucose Fasting 145 mg/dL (60-99); HDL Cholesterol 43 mg/dL; LDL Cholesterol Calculated 42 mg/dl; Potassium 5.5 mmol/L (3.3-5.1); Sodium 144 mmol/L (135-145); Total Protein 6.9 g/dL (6.5-8.0); Triglycerides 53 mg/dL
[2022-11-04 12:36] LABS: Vitamin B12 362 pg/mL (200-900)
[2022-11-04 12:41] LABS: TSH reflex Free T4 2.33 uIU/mL (0.32-4.0)
[2022-11-04 13:10] LABS: Creatinine Urine 114.19 mg/dL; Microalbum/Creatinine Ratio Ur 134.8 ug/mg cr
[2022-11-04 16:17] LABS: Estimated Average Glucose 140 mg/dL; Hemoglobin A1c % 6.5 %
== END 2022-11-04 07:04 | disposition home or self-care (01) ==
LOC: HO.HMGCLDS 07:03
PROVIDERS: PCP Nurse Practitioner Family; Visit Provider Nurse Practitioner Family
DX: E11.42 Type 2 diabetes mellitus with diabetic polyneuropathy (principal); E53.8 Deficiency of other specified B group vitamins
CPT/HCPCS: 36415; 80053; 80061; 81001; 82043; 82607; 82746; 83036; 84443; 85025

== ENCOUNTER 2022-11-05 06:43 | Outpatient (REF) | payer MEDICARE, MEDICAID, SELFPAY ==
[2022-11-05 11:28] LABS: Urine Cytology See Pathology rpt
[2022-11-05 11:49] LABS: Appearance Urine Clear; Color Urine Yellow; Glucose Urine UA Negative (Negative); Leukocyte Esterase Urine Negative (Negative); Nitrite Urine Negative (Negative); PH 5.5 (5.0-9.0); UMIC TRIGGER UACC YES; Urine Blood Negative (Negative); Urine Ketones Negative (Negative); Urine Protein 30 (1+) mg/dL (Neg-Trace)
[2022-11-05 12:05] LABS: Bacteria Urine None Seen (None Seen); Hyaline Casts Urine 0-2 /LPF (0-2); RBC Urine 0-2 /HPF (0-2); Squamous Epithelial Cell Urine 0-2 /HPF (0-2); WBC Urine 0-5 /HPF (0-5)
[2022-11-05 12:22] LABS: Anion Gap 16 (12-20); Carbon Dioxide 19 mmol/L (22-29); Chloride 111 mmol/L (96-108); Sodium 141 mmol/L (135-145)
== END 2022-11-05 06:44 | disposition home or self-care (01) ==
LOC: HO.HMGCLDS 06:43
PROVIDERS: PCP Nurse Practitioner Family; Visit Provider Nurse Practitioner Family
DX: E11.42 Type 2 diabetes mellitus with diabetic polyneuropathy (principal); E78.5 Hyperlipidemia, unspecified; R31.29 Other microscopic hematuria
CPT/HCPCS: 36415; 80051; 81001; 88112

== ENCOUNTER 2022-11-08 08:46 | Outpatient (REF) | payer MEDICARE, MEDICAID, SELFPAY ==
--- NOTE | ~2022-11-08 | CT_ITS ---
EXAMINATION: CT CHEST WITHOUT CONTRAST CLINICAL INFORMATION: Solitary pulmonary nodule. COMPARISON: CT chest 02/19/2022. TECHNIQUE: Multidetector volumetric CT imaging of the chest was done. Axial MIP volume rendering provided. Sagittal and coronal reformatted images were obtained. This CT examination was performed using dose optimization techniques as appropriate, variously including the following: *Automated exposure control *Adjustment of mA and/or kV according to patient size (this includes techniques or standardized protocols for targeted exams where dose is matched to indication/reason for exam; i.e. extremities or head) *Use of iterative reconstruction technique. DLP: 146 mGy-cm. FINDINGS: CANDY BUTCHER: Elevated right diaphragm is mildly improved but still significantly elevated. LUNGS: Emphysematous changes are again noted. Subpleural bullous formation is present most prominent posteriorly along the pleural surfaces. These findings appear worse when compared to the prior study (compare 8:87 with prior 8:81). Previously seen 3 mm peripheral left upper lobe nodule is unchanged (5:181 compare prior 5:145). No new or worrisome lung mass is seen. MEDIASTINUM: The right internal jugular vein is distended. The thyroid appears normal. No mediastinal or hilar lymphadenopathy seen. There are small AP window lymph nodes again noted. CORONARY ARTERY CALCIFICATION: Severe. PLEURA: There is no pleural effusion. No pleural mass or thickening. AXILLA: No lymphadenopathy. UPPER ABDOMEN: A calcified splenic granuloma is present. OSSEOUS STRUCTURES: Mild degenerative changes are again seen in the spine. CT/CT chest wo IV con IMPRESSION: 1. Emphysematous changes with more prominent subpleural bullous formation. 2. Stable 3 mm left upper lobe nodule. 3. No new or worrisome lung mass is seen. 4. Incidental note made of distended right internal jugular vein, severe coronary artery disease and degenerative changes in the spine. Fleischner guidelines were followed.
== END 2022-11-08 08:47 | disposition home or self-care (01) ==
LOC: HO.CT 08:46
PROVIDERS: PCP Nurse Practitioner Family; Visit Provider Internal Medicine Pulmonary Disease
DX: R91.1 Solitary pulmonary nodule (principal)
CPT/HCPCS: 71250

== ENCOUNTER 2023-01-21 08:04 | Outpatient (REF) | payer MEDICARE, MEDICAID, SELFPAY ==
[2023-01-21 12:04] LABS: Appearance Urine Clear; Color Urine Yellow; Glucose Urine UA Negative (Negative); Leukocyte Esterase Urine Negative (Negative); Nitrite Urine Negative (Negative); PH 5.5 (5.0-9.0); UMIC TRIGGER UACC YES; Urine Blood Negative (Negative); Urine Ketones Negative (Negative); Urine Protein 30 (1+) mg/dL (Neg-Trace)
[2023-01-21 12:09] LABS: Bacteria Urine None Seen (None Seen); Hyaline Casts Urine 0-2 /LPF (0-2); RBC Urine 0-2 /HPF (0-2); Squamous Epithelial Cell Urine 0-2 /HPF (0-2); WBC Urine 0-5 /HPF (0-5)
[2023-01-21 12:40] LABS: Prostate Specific Antigen 3.59 ng/mL (<0.05-4.0)
== END 2023-01-21 08:05 | disposition home or self-care (01) ==
LOC: HO.HMGCLDS 08:04
PROVIDERS: PCP Nurse Practitioner Family; Visit Provider Nurse Practitioner Family
DX: Z12.5 Encounter for screening for malignant neoplasm of prostate (principal); E11.42 Type 2 diabetes mellitus with diabetic polyneuropathy
CPT/HCPCS: 36415; 81001; 81003; 84153

== ENCOUNTER 2023-01-22 08:41 | Outpatient (AMB) | payer MEDICARE, MEDICAID, SELFPAY ==
--- NOTE | 2023-01-22 08:44 | MHC.PC.OV ---
Vital Signs 01/22/23 08:48 Height 5 ft 6 in Weight 166 lb BMI 26.8 BP 110/70 Blood Pressure Location Rt brachial Position Sitting Pulse 68 Pulse Source Pulse Oximeter Pulse Oximetry (%) 97 Oxygen Delivery Method Room Air Intake Visit Reasons: 4 month follow up Allergies No Known Allergies [No Known Allergies*] Allergy (Verified 01/22/23 08:48) Medication List - Last Reconciled 01/22/23 by KRYSTLE Rivera-CHERYL alcohol swabs (Alcohol Prep Pads) 1 pad topical TID 30 days aspirin 81 mg PO DAILY blood sugar diagnostic (FreeStyle Lite Strips) test TID blood-glucose meter (FreeStyle Lite Meter kit) Test TID carvedilol 3.125 mg PO BID cyanocobalamin (vitamin B-12) 1,000 mcg IM Q4W 4 months [extra-depth Diabetic shoes with 3 pair Custom heat-molded multi-density innersoles As directed] finasteride 5 mg PO DAILY 90 days fluticasone propionate 50 mcg/actuation (Allergy Relief (fluticasone)) 1 spray intranasal Q12H gabapentin 800 mg PO TID gabapentin 1,200 mg PO TID ketoconazole 2% 1 appl topical BID 20 days lancets (FreeStyle Lancets) Test TID lisinopril 2.5 mg PO DAILY mecobalamin (vitamin B12) (B12 Active) 1,000 mcg PO DAILY 30 days metformin 1,000 mg (2 x 500 mg) PO BID 90 days mirabegron ER (Myrbetriq) 25 mg PO DAILY 90 days rosuvastatin (Crestor) 40 mg PO DAILY Shower Chair use daily, for lower extrem weakness/hip pains sodium polystyrene sulf-sorbtl 15-20 gram/60 mL 60 mL PO DAILY 1 day umeclidinium-vilanterol 62.5-25 mcg/actuation (Anoro Ellipta) 1 inh inhalation DAILY Ventolin HFA 90 mcg/actuation (albuterol sulfate) 2 puffs inhalation Q4-6H PRN NS Tobacco use date assessed: 09/25/22 Fall risk assessment: No Falls in past year Last assessed Fall Risk: 01/22/23 HPI 4 month follow up HPI Details Pt is a diabetic, on an BERYL and a statin. A1C in office today is 7.0. Microalbumin is up to date. Denies polyuria, polydipsia, and neuropathy. Pt denies any signs and symptoms of hypoglycemia and does know how to correct it. Pt reports that his blood sugar this morning was 142. Will increase metformin from 500mg tid to 1000mg bid. Eye exam is up to date. Pt follows up with cardiology, pulmonology, and urology. Denies any chest pain and shortness of breath. Pt was seeing nephrology in the past, recommend a follow up, new referral placed (last documented follow up was from 2019). [facility] Medical History Hypertensive retinopathy Raynauds disease Type 2 diabetes mellitus with diabetic polyneuropathy CKD (chronic kidney disease) stage 3, GFR 30-59 ml/min Sleep apnea CAD (coronary artery disease) Seasonal allergies BPH (benign prostatic hyperplasia) Hematuria Hx of dermatitis Pulmonary HTN HTN (hypertension) CVA (cerebral vascular accident) Type 2 diabetes mellitus with unspecified complications NICM (nonischemic cardiomyopathy) Atherosclerotic heart disease of [place] coronary artery without angina pectoris Hyperlipidemia, unspecified Smoker Transient cerebral ischemic attack, unspecified Surgical History Hx of colonoscopy Hx of bilateral cataract extraction History of inguinal hernia repair, bilateral (~04/2016) History of cardiac catheterization (12/28/19) Family History Father Cardiovascular disease Diabetes Mother Osteoporosis Social History Housing: Apartment Are you a primary director day care center to a significant other at home: No Do you presently have visiting nurse or other home services: No Alcohol intake: never Patient Tobacco Use Status: Current everyday Tobacco user Cigarette Packs Per Day: 1 Cigarettes Per Day: 20.0 Years Smoked: 55 e-Cigarette/Vaping Use: Never Used Second Hand Smoke Exposure: Yes Current occupational status: retired Cognitive needs: No Hearing needs: No Vision needs: No Review of Systems Const Reports as per HPI Physical exam (Primary Care) Vital Signs: Last Vital Signs Pulse 68 01/22/23 08:48 BP 110/70 01/22/23 08:48 Pulse Ox 97 01/22/23 08:48 Oxygen Delivery Method Room Air 01/22/23 08:48 BMI result Body Mass Index 26.8 Tobacco/Smoking Status: Tobacco use Status Tobacco use date assessed 09/25/22 01/22/23 08:47 Patient Tobacco Use Status Current everyday Tobacco 01/22/23 08:47 e-Cigarette/Vaping Use Never Used 01/22/23 08:47 Const General: cooperative Orientation/consciousness: patient oriented x3 Resp Effort & Inspection: normal respiratory effort Auscultation: clear to auscultation bilaterally and diminished lung sounds Cardio Rate: regular rate Rhythm: regular rhythm Heart sounds: S1 normal heart sound present and S2 normal heart sound present Neuro General: patient oriented x3 Extrem Other: bilat feet: + sensation with use of monofilament, onychomycosis noted bilat Psych Appearance: grossly normal Mental Status: mental status grossly normal Speech and movement: Normal speech and movement present Affect: normal affect Attitude: cooperative Thought process: Normal thought process present Thought content: Normal thought content present Insight: Good insight present (Psych) Judgement: Good judgement present (Psych) Results AMB Hemoglobin A1c AMB Hemoglobin A1c 7.0 % Last Edit by DAVID Dunbar on 01/22/23 09:07 Immunizations pneumoc 20-luis conj-dip cr(PF) 0.5 mL IM syringe Performing Provider: URBAN Rivera Performing Location: [facility] [place] [facility] Administered by: Bj Layne CMA on 01/22/23 09:16 Dose Route Admin Location Dispensed Lot Number Expiration Date NDC Pipe Buffer 0.5 mL IM Left Deltoid 0.5 mL [id number] 02/05/24 6208-1577-44 [employer] VIS Given Date VIS Provided VIS Publication Date 01/22/23 Single Vaccine 21 Eligibility Eligibility Date Funding Source Not [facility] Eligible 01/22/23 Private Results Reviewed Results Reviewed: Laboratory Last Values Hgb A1c (Clinic) 7.0 % (4.0-6.0) H 01/22/23 09:06 Assessment and Plan Assessment & Plan (1) Type 2 diabetes mellitus with diabetic polyneuropathy: Code(s): E11.42 - Type 2 diabetes mellitus with diabetic polyneuropathy (2) B12 deficiency: Code(s): E53.8 - Deficiency of other specified B group vitamins (3) CKD (chronic kidney disease) stage 3, GFR 30-59 ml/min: Code(s): N18.30 - Chronic kidney disease, stage 3 unspecified Qualifiers: Chronic kidney disease stage 3 subtype: stage 3a (GFR 45-59) Qualified Code(s): N18.31 - Chronic kidney disease, stage 3a Plan The patient agreed to the use of a medical payment poster for this encounter. Scribed for TEJAS Apodaca by Leonila Lyle medical payment poster, on 01/22/2023 at 09:00 EST Orders: Orders Lipid Panel Today E11.42 - Type 2 diabetes mellitus with diabetic polyneuropathy Vitamin B12 and Folate Today E53.8 - Deficiency of other specified B group vitamins AMB Hemoglobin A1c Today Z13.9 - Encounter for screening, unspecified Complete Blood Count Auto Diff Today E11.42 - Type 2 diabetes mellitus with diabetic polyneuropathy Comprehensive [place]. Panel Fast Today E11.42 - Type 2 diabetes mellitus with diabetic polyneuropathy TSH reflex Free T4 Today E11.42 - Type 2 diabetes mellitus with diabetic polyneuropathy UA CC w/rflx Micro + Cult Today E11.42 - Type 2 diabetes mellitus with diabetic polyneuropathy Pneumococcal 20 Immunization Today Z23 - Encounter for immunization Referrals Nephrology Referral N18.30 - Chronic kidney disease, stage 3 unspecified Medications: Changed From metformin 500 mg PO TID 30 days 90 tabs 6RF To metformin 1,000 mg (2 x 500 mg) PO BID 90 days 360 tabs 6RF Coding Level of Care Code Est Pt Level 3 (91562) Diagnoses Type 2 diabetes mellitus with diabetic polyneuropathy E11.42 B12 deficiency E53.8 Stage 3a chronic kidney disease N18.31 Chronic kidney disease stage 3 subtype: stage 3a (GFR 45-59)
[2023-01-22 08:48] VITALS: BP 110/70; PULSE 68; O2SAT 97; BMI 26.8
== END 2023-01-22 09:18 | disposition home or self-care (01) ==
PROVIDERS: PCP Nurse Practitioner Family; Visit Provider Nurse Practitioner Family
DX: E11.42 Type 2 diabetes mellitus with diabetic polyneuropathy (principal); E53.8 Deficiency of other specified B group vitamins; N18.31 Chronic kidney disease, stage 3a; Z23 Encounter for immunization; Z13.9 Encounter for screening, unspecified
CPT/HCPCS: 83036; 90471; 90677; 99213

== ENCOUNTER 2023-01-22 09:39 | Outpatient (AMB) | payer MEDICARE, MEDICAID, SELFPAY ==
--- NOTE | 2023-01-22 10:08 | A.OFFVIS_ITS ---
Intake Intake Visit Reasons: 4m/labs Intake Note: Patient is present for follow up incontinence/psa lab (psa 3.59) Urology Medications: myrbetriq, finasteride Blood Thinner: aspirin PVR: 0ml's Material Reprocessing Associate Required: No Accompanied by: Self / Same As Patient Allergies No Known Allergies [No Known Allergies*] Allergy (Verified 01/22/23 10:33) Medication List - Last Reconciled 01/22/23 by KRYSTLE Rudolph-CHERYL alcohol swabs (Alcohol Prep Pads) 1 pad topical TID 30 days aspirin 81 mg PO DAILY blood sugar diagnostic (FreeStyle Lite Strips) test TID blood-glucose meter (FreeStyle Lite Meter kit) Test TID carvedilol 3.125 mg PO BID cyanocobalamin (vitamin B-12) 1,000 mcg IM Q4W 4 months [extra-depth Diabetic shoes with 3 pair Custom heat-molded multi-density innersoles As directed] finasteride 5 mg PO DAILY 90 days fluticasone propionate 50 mcg/actuation (Allergy Relief (fluticasone)) 1 spray intranasal Q12H gabapentin 800 mg PO TID gabapentin 1,200 mg PO TID ketoconazole 2% 1 appl topical BID 20 days lancets (FreeStyle Lancets) Test TID lisinopril 2.5 mg PO DAILY mecobalamin (vitamin B12) (B12 Active) 1,000 mcg PO DAILY 30 days metformin 1,000 mg (2 x 500 mg) PO BID 90 days mirabegron ER (Myrbetriq) 25 mg PO DAILY 90 days rosuvastatin (Crestor) 40 mg PO DAILY Shower Chair use daily, for lower extrem weakness/hip pains sodium polystyrene sulf-sorbtl 15-20 gram/60 mL 60 mL PO DAILY 1 day umeclidinium-vilanterol 62.5-25 mcg/actuation (Anoro Ellipta) 1 inh inhalation DAILY Ventolin HFA 90 mcg/actuation (albuterol sulfate) 2 puffs inhalation Q4-6H PRN NS HPI HPI Comments History of Present Illness Details Darius is a pleasant 77 year old male patient of Dr. Ta. He has a PMH of hypertension, Raynaud's disease, diabetes, chronic kidney disease stage 3, sleep apnea, coronary artery disease, seasonal allergies, pulmonary hypertension, CVA, nonischemic cardiomyopathy, hyperlipidemia, and nicotine dependence. He presents to the office today for a follow up. When asked patient reports to be doing and feeling well. He reports having followed up with his PCP earlier this morning for a follow-up as well. When asked she reports compliance with finasteride 5 mg daily and Myrbetriq 25 mg daily. She reports to be happy with current voiding parameters and offers no urological issues or concerns at this time. He does discussed his ongoing issues with back pain due to disc issues. 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 In office urinalysis results reviewed with the patient today. PVR 0 mL. Recent PSA results reviewed with the patient today. As noted and trended below. Previous workup has included a retroperitoneal ultrasound noting bilateral kidneys with no calculi, lesions, and or hydronephrosis noted. The bladder is well distended and normal. Pre void bladder volume is approximately 200 mL. Postvoid bladder volume is approximately 5 mL. Prostate volume measures 45 mL. PSA's are as follows: 06/26--3.3 06/27--3.01/27--3.6 Discussed and stressed at length importance of managing diabetes for improvement in urinary symptoms as well as for overall health and well being. He discusses PCP increasing metformin today as his most recent A1c is 7.4. Also stressed the importance of limiting/quitting cigarette smoking for overall health and well- being. Patient discusses his sobriety over the last 10 years. He otherwise offers no issues or concerns at this time. [facility] Medical History Hypertensive retinopathy Raynauds disease Type 2 diabetes mellitus with diabetic polyneuropathy CKD (chronic kidney disease) stage 3, GFR 30-59 ml/min Sleep apnea CAD (coronary artery disease) Seasonal allergies BPH (benign prostatic hyperplasia) Hematuria Hx of dermatitis Pulmonary HTN HTN (hypertension) CVA (cerebral vascular accident) Type 2 diabetes mellitus with unspecified complications NICM (nonischemic cardiomyopathy) Atherosclerotic heart disease of [place] coronary artery without angina pectoris Hyperlipidemia, unspecified Smoker Transient cerebral ischemic attack, unspecified Surgical History Hx of colonoscopy Hx of bilateral cataract extraction History of inguinal hernia repair, bilateral (~04/2016) History of cardiac catheterization (12/28/19) Family History Father Cardiovascular disease Diabetes Mother Osteoporosis Social History Housing: Apartment Are you a primary healthcare customer service to a significant other at home: No Do you presently have visiting nurse or other home services: No Alcohol intake: never Patient Tobacco Use Status: Current everyday Tobacco user Cigarette Packs Per Day: 1 Cigarettes Per Day: 20.0 Years Smoked: 55 e-Cigarette/Vaping Use: Never Used Second Hand Smoke Exposure: Yes Current occupational status: retired Cognitive needs: No Hearing needs: No Vision needs: No Review of Systems Const Reports as per HPI Eyes Reports no additional complaints ENT Reports no additional complaints Card Reports as per HPI Resp Reports as per HPI GI Reports no additional complaints Reports as per HPI Musc Reports as per HPI Neuro Reports as per HPI Psych Reports no additional complaints Endo Reports as per HPI Physical Exam Const General: cooperative, comfortable, no acute distress, well developed, alert and awake Orientation/consciousness: patient oriented x3 Limitations: no limitations HEENT Head: Yes normal to inspection, Yes normocephalic and Yes atraumatic Ears: hearing grossly normal bilaterally Eyes General: appearance normal, both eyes and all related structures Neck Neck: Yes normal visual inspection and Yes trachea midline Chest Chest palpation & inspection: normal inspection of the chest Resp Effort & Inspection: normal respiratory effort and able to speak in complete sentences Cardio Rate: regular rate GI Inspection: Yes normal to inspection General: Yes no CVA tenderness Back/Spine/Pelvis Back: no CVA tenderness Skin General skin exam: no rashes or lesions noted Neuro General: patient oriented x3 Extrem General: Yes normal to inspection Psych Appearance: grossly normal and well kempt Mental Status: mental status grossly normal Speech and movement: Normal speech and movement present and Clear speech present Affect: normal affect Attitude: cooperative Thought process: Normal thought process present Thought content: Normal thought content present Insight: Fair insight present (Psych) Judgement: Fair judgement present (Psych) Office Procedures Post Void Residual Post Residual Void Post Void Residual (PVR): 0 [id number] Void Residual by ultrasound Results AMB Hemoglobin A1c AMB Hemoglobin A1c 7.0 % Last Edit by DAVID Dunbar on 01/22/23 09 :07 AMB Urinalysis, Automated UA Leukoctes 0 Brian/uL Last Edit by Benjamin Grossman on 01/22/23 10:25 UA Nitrite Negative Last Edit by Benjamin Grossman on 01/22/23 10:25 UA Urobilinogen 0.2 mg/dL Last Edit by Benjamin Grossman on 01/22/23 10:25 UA Protein 30 mg/dL Last Edit by Benjamin Grossman on 01/22/23 10:25 UA pH 6.0 Last Edit by Benjamin Grossman on 01/22/23 10:25 UA Blood 0 Demetrius/uL Last Edit by Benjamin Grossman on 01/22/23 10:25 UA Specific [place] 1.015 Last Edit by Benjamin Grossman on 01/22/23 10:25 UA Ketone Negative Last Edit by Benjamin Grossman on 01/22/23 10:25 UA Bilirubin 0 mg/dL Last Edit by Benjamin Grossman on 01/22/23 10:25 UA Glucose 0 mg/dL Last Edit by Benjamin Grossman on 01/22/23 10:25 Assessment & Plan Assessment & Plan (1) Enlarged prostate: Code(s): N40.0 - Benign prostatic hyperplasia without lower urinary tract symptoms (2) Incontinence: Code(s): R32 - Unspecified urinary incontinence Plan In office urinalysis results reviewed with the patient today; as noted above. PVR 0 mL. Continue Myrbetriq and finasteride as prescribed; refills provided Recent PSA results reviewed with the patient today. Patient denies any bothersome urinary issues or concerns at this time. Patient reports be happy with current voiding parameters on Myrbetriq and finasteride daily. Discussed, educated, encouraged on the importance of managing diabetes for improvement in lower urinary tract symptoms as well as overall health. Discussed and educated on importance of limiting/quitting cigarette smoking for overall health and well-being. PSA in 6 months. Follow-up in 6 months with lab to be completed prior; or sooner with any issues, concerns, and or questions. Orders: Orders Prostate Specific Antigen 6 Months N40.0 - Benign prostatic hyperplasia without lower urinary tract symptoms AMB Urinalysis Automated Today Z13.9 - Encounter for screening, unspecified AMB Post Void Residual by ultrasound Today R32 - Unspecified urinary incontinence Medications: Refilled mirabegron ER (Myrbetriq) 25 mg PO DAILY 90 tabs 3RF 90 days N32.81 - Overactive bladder, R35.1 - Nocturia Patient Instructions: The patient had an opportunity to ask questions regarding the treatment plan. All questions were answered. Physical exam, labs, and imaging were discussed and reviewed in detail. As well as risks, benefits, and discussion of treatment choices. No major barriers to understanding were identified. The patient expressed understanding and agreement with the above treatment plan. The patient was made aware they should contact our office by phone for worsening of their current condition, the appearance of new symptoms, or with any questions or concerns. Compliance is encouraged with any medications and follow up testing that is ordered. It is a privilege to be allowed the opportunity to participate in? your urological care.? Again, if you have any questions or concerns If you have any questions or concerns please do not hesitate to contact me. The office is [phone]. This note is constructed using voice recognition software. While every effort has been made to ensure accuracy customer account administrator errors may have been included. Yours sincerely, URBAN Rudolph Coding Level of Care Code Est Pt Level 3 (19561) Diagnoses Enlarged prostate N40.0 Incontinence R32 CPT Codes Post Residual Void - PVR CPT Code: 11105-Layv Void Residual by ultrasound ([id number])
== END 2023-01-22 10:34 | disposition home or self-care (01) ==
PROVIDERS: PCP Nurse Practitioner Family; Visit Provider Nurse Practitioner Family
DX: N40.0 Benign prostatic hyperplasia without lower urinary tract symptoms (principal); R32 Unspecified urinary incontinence; Z13.9 Encounter for screening, unspecified
CPT/HCPCS: 99213

== ENCOUNTER → 2023-01-22 09:39 | Outpatient (BNVA) | payer MEDICARE, MEDICAID, SELFPAY | PROVIDERS: PCP Nurse Practitioner Family; Visit Provider Nurse Practitioner Family | DX: N40.0 Benign prostatic hyperplasia without lower urinary tract symptoms (principal); R32 Unspecified urinary incontinence | CPT/HCPCS: 51798; 81003; 99212 ==

== ENCOUNTER 2023-02-05 09:55 | Outpatient (AMB) | payer MEDICARE, MEDICAID, SELFPAY ==
--- NOTE | 2023-02-05 10:02 | HO.NEPHOV_ITS ---
Intake Vital Signs 02/05/23 10:03 Height 5 ft 6 in Weight 168 lb BMI 27.1 BP 128/74 Blood Pressure Location Lt brachial Position Sitting Pulse 72 Pulse Source Pulse Oximeter Intake Visit Reasons: CKD Computer Applications Instructor Required: Yes Computer Applications Instructor Name: Chey [id number] Accompanied by: Self / Same As Patient Allergies No Known Allergies [No Known Allergies*] Allergy (Verified 02/05/23 10:15) HPI HPI Comments History of Present Illness Details Darius was seen in follow up for his CKD. He has diabetic renal disease. His blood sugars are fluctuating between 150 to 250. He has no episodes of hypoglycemia. He has no hematuria, edema or dizziness. He is compliant with his medications. He is not on any SGLT2 inhibitors. His last serum creatinine was 1.58. He has H/O mild hyperkalemia . He is on ACEI. He does not take any NSAID's. He feels well otherwise. Assessment & Plan Assessment & Plan (1) CKD (chronic kidney disease) stage 3, GFR 30-59 ml/min: Code(s): N18.30 - Chronic kidney disease, stage 3 unspecified Qualifiers: Chronic kidney disease stage 3 subtype: stage 3a (GFR 45-59) Qualified Code(s): N18.31 - Chronic kidney disease, stage 3a Plan Has CKD for long time. Serum creatinine currently stable Urine output good. Does not take NSAID's; Good hydration Blood pressure is at goal. Needs consistent good BS control Is a candidate for SGLT2 inhibitor. Labs ordered; Computer Applications Instructor present All questions answered . F/U given for 3 months Orders: Orders Blood Urea Nitrogen Today N18.30 - Chronic kidney disease, stage 3 unspecified Protein Creatinine Ratio, Ur Today N18.30 - Chronic kidney disease, stage 3 unspecified Electrolytes Today N18.30 - Chronic kidney disease, stage 3 unspecified Creatinine Today N18.30 - Chronic kidney disease, stage 3 unspecified Calcium Today N18.30 - Chronic kidney disease, stage 3 unspecified Coding Level of Care Code Est Pt Level 4 (80321) Diagnoses Stage 3a chronic kidney disease N18.31 Chronic kidney disease stage 3 subtype: stage 3a (GFR 45-59)
[2023-02-05 10:03] VITALS: BP 128/74; PULSE 72; BMI 27.1
== END 2023-02-05 10:53 | disposition home or self-care (01) ==
PROVIDERS: PCP Nurse Practitioner Family; Visit Provider Internal Medicine Nephrology
DX: N18.31 Chronic kidney disease, stage 3a (principal)
CPT/HCPCS: 99214

== ENCOUNTER → 2023-02-05 09:55 | Outpatient (BNVA) | payer MEDICARE, MEDICAID, SELFPAY | PROVIDERS: PCP Nurse Practitioner Family; Visit Provider Internal Medicine Nephrology | DX: N18.31 Chronic kidney disease, stage 3a (principal) | CPT/HCPCS: 99212 ==

== ENCOUNTER 2023-02-14 08:36 | Outpatient (AMB) | payer MEDICARE, MEDICAID, SELFPAY ==
--- NOTE | 2023-02-14 08:46 | A.OFFVIS_ITS ---
Intake Vital Signs 02/14/23 08:47 Height 5 ft 6 in Weight 166 lb 7.184 oz BMI 26.9 BP 124/62 Blood Pressure Location Rt brachial Position Sitting Pulse 74 Pulse Source Doppler Pulse Oximetry (%) 96 Oxygen Delivery Method Room Air Intake Visit Reasons: COPD Allergies No Known Allergies [No Known Allergies*] Allergy (Verified 02/14/23 08:49) HPI COPD HPI Details 77-year-old gentleman, active 50+ pack-y ear smoker, followed for underlying moderate to severe COPD. Patient continues to use Anoro and albuterol MDI with reasonable control of his symptoms. He denies any recent exacerbations. His follow-up CT chest shows stable pulmonary nodules. [facility] Medical History Hypertensive retinopathy Raynauds disease Type 2 diabetes mellitus with diabetic polyneuropathy CKD (chronic kidney disease) stage 3, GFR 30-59 ml/min Sleep apnea CAD (coronary artery disease) Seasonal allergies BPH (benign prostatic hyperplasia) Hematuria Hx of dermatitis Pulmonary HTN HTN (hypertension) CVA (cerebral vascular accident) Type 2 diabetes mellitus with unspecified complications NICM (nonischemic cardiomyopathy) Atherosclerotic heart disease of [place] coronary artery without angina pectoris Hyperlipidemia, unspecified Smoker Transient cerebral ischemic attack, unspecified Surgical History Hx of colonoscopy Hx of bilateral cataract extraction History of inguinal hernia repair, bilateral (~04/2016) History of cardiac catheterization (12/28/19) Family History Father Cardiovascular disease Diabetes Mother Osteoporosis Social History (Updated 02/14/23 @ 08:50 by Eva Smiley [facility]) Housing: Apartment Are you a primary neonatal intensive care nurse to a significant other at home: No Do you presently have visiting nurse or other home services: No Alcohol intake: never Patient Tobacco Use Status: Current everyday Tobacco user Cigarettes Per Day: 10 Years Smoked: 55 e-Cigarette/Vaping Use: Never Used Second Hand Smoke Exposure: Yes Current occupational status: retired Cognitive needs: No Hearing needs: No Vision needs: No Review of Systems Const Denies daytime sleepiness, Denies excessive sweating, Denies fatigue, Denies fever(s), Denies lethargy, Denies malaise, Denies night sweats, Denies snoring and Denies weight loss Eyes Denies blurry vision and Denies itchy eyes ENT Denies nasal congestion, Denies post nasal drip, Denies sinus pain, Denies sinus pressure and Denies other ( Thrush) Card Denies chest pain, Denies pedal edema, Denies dyspnea, Denies orthopnea and Denies paroxysmal nocturnal dyspnea Resp Denies cough, Denies hemoptysis, Denies excessive phlegm production, Denies dyspnea, Denies snoring and Denies wheezing GI Denies abdominal pain and Denies heartburn Musc Denies myalgias, Denies arthralgias and Denies joint swelling Skin/Breast Denies rash Neuro Denies memory loss and Denies seizure-like activity Psych Denies abnormal sleep pattern, Denies anxiety and Denies memory loss Endo Denies excessive sweating, Denies fatigue and Denies heat intolerance [place]/Lymph Denies easy bruising Aller/Immun Denies itchy eyes, Denies seasonal rhinorrhea and Denies wheezing Physical Exam Vital Signs: Last Vital Signs Pulse 74 02/14/23 08:47 BP 124/62 02/14/23 08:47 Pulse Ox 96 02/14/23 08:47 Oxygen Delivery Method Room Air 02/14/23 08:47 BMI result Body Mass Index 26.9 Const General: no acute distress and alert Nutritional Appearance: not obese Orientation/consciousness: Other orientation findings ( oriented) HEENT Head: Yes atraumatic Eyes General: appearance normal, both eyes and all related structures Sclerae: sclerae normal EOM: EOMs intact bilaterally Neck Neck: Yes supple Lymphatic: no lymphadenopathy noted Resp Effort & Inspection: normal respiratory effort and no use of accessory muscles Auscultation: clear to auscultation bilaterally Cardio Rate: regular rate Rhythm: regular rhythm Heart sounds: no gallops, no murmurs and no rubs Skin General skin exam: other ( warm) Extrem General: No clubbing, No cyanosis and No edema Assessment & Plan Assessment & Plan (1) COPD (chronic obstructive pulmonary disease): Code(s): J44.9 - Chronic obstructive pulmonary disease, unspecified Plan: Well controlled on Anoro and albuterol MDI. Continue current regimen. (2) Pulmonary nodule: Code(s): R91.1 - Solitary pulmonary nodule Plan: Results of follow-up CT chest from November of 2022 reviewed, stable pulmonary nodules. Will repeat CT chest in November of 2023. Orders: Orders CT chest wo IV con 11/15/23 R91.1 - Solitary pulmonary nodule Coding Level of Care Code Est Pt Level 4 (15958) Diagnoses COPD (chronic obstructive pulmonary disease) J44.9 Pulmonary nodule R91.1
[2023-02-14 08:47] VITALS: BP 124/62; PULSE 74; O2SAT 96; BMI 26.9
== END 2023-02-14 09:07 | disposition home or self-care (01) ==
PROVIDERS: PCP Nurse Practitioner Family; Visit Provider Internal Medicine Pulmonary Disease
DX: J44.9 Chronic obstructive pulmonary disease, unspecified (principal); R91.1 Solitary pulmonary nodule
CPT/HCPCS: 99214

== ENCOUNTER → 2023-02-14 08:36 | Outpatient (BNVA) | payer MEDICARE, MEDICAID, SELFPAY | PROVIDERS: PCP Nurse Practitioner Family; Visit Provider Internal Medicine Pulmonary Disease | DX: J44.9 Chronic obstructive pulmonary disease, unspecified (principal); R91.1 Solitary pulmonary nodule | CPT/HCPCS: 99212 ==

== ENCOUNTER 2023-04-30 07:56 | Outpatient (AMB) | payer MEDICARE, MEDICAID, SELFPAY ==
--- NOTE | 2023-04-30 08:09 | A.OFFPC_ITS ---
Vital Signs 04/30/23 08:10 Height 5 ft 6 in Weight 170 lb 6 oz BMI 27.5 BP 126/78 Blood Pressure Location Rt brachial Position Sitting Pulse 86 Pulse Source Pulse Oximeter Pulse Oximetry (%) 100 Oxygen Delivery Method Room Air Intake Visit Reasons: 3 month fu Intake Note: Pt is here to follow up for his DM Allergies No Known Allergies [No Known Allergies*] Allergy (Verified 04/30/23 08:13) Medication List - Last Reconciled 04/30/23 by URBAN Rivera alcohol swabs (Alcohol Prep Pads) 1 pad topical TID 30 days aspirin 81 mg PO DAILY blood sugar diagnostic (FreeStyle Lite Strips) test TID blood-glucose meter (FreeStyle Lite Meter kit) Test TID carvedilol 3.125 mg PO BID [extra-depth Diabetic shoes with 3 pair Custom heat-molded multi-density innersoles As directed] finasteride 5 mg PO DAILY 90 days gabapentin 1,200 mg PO TID ketoconazole 2% 1 appl topical BID 20 days lancets (FreeStyle Lancets) Test TID lisinopril 2.5 mg PO DAILY metformin 500 mg PO TID mirabegron ER (Myrbetriq) 25 mg PO DAILY 90 days rosuvastatin 40 mg PO DAILY Shower Chair use daily, for lower extrem weakness/hip pains umeclidinium-vilanterol 62.5-25 mcg/actuation (Anoro Ellipta) 1 inh inhalation DAILY Ventolin HFA 90 mcg/actuation (albuterol sulfate) 2 puffs inhalation Q4-6H PRN NS Tobacco use date assessed: 04/30/23 Fall risk assessment: No Falls in past year Last assessed Fall Risk: 04/30/23 Dental Screening Dental Screen Date: 04/30/23 Did you have a dental visit in the last 12 months?: No Did you have a dental problem in the last 6 months where you did not have access to dental care?: No Was dental information given to patient?: Patient has dentist HPI 3 month fu HPI Details Pt is a diabetic, on an BERYL and a statin. A1C in office today is 8.1. Microalbumin is up to date. Denies polyuria, polydipsia, reports intermittent neuropathy. Pt denies any signs and symptoms of hypoglycemia and does know how to correct it. Will start ozempic 0.25mg. Pt is following up with nephrology, pulmonology, and urology. Pt needs a follow up with cardiology, will reach out to their office. Pt c/o cervical neck pain. He reports falling several months ago, hitting the back of his head and he developed neck pain. Pt denies any radicular symptoms, changes in vision, dizziness, N/V, any LOC. Will order XR. 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 CKD (chronic kidney disease) stage 3, GFR 30-59 ml/min Sleep apnea CAD (coronary artery disease) Seasonal allergies BPH (benign prostatic hyperplasia) Hematuria Hx of dermatitis Pulmonary HTN HTN (hypertension) CVA (cerebral vascular accident) Type 2 diabetes mellitus with unspecified complications NICM (nonischemic cardiomyopathy) Atherosclerotic heart disease of [place] coronary artery without angina pectoris Hyperlipidemia, unspecified Smoker Transient cerebral ischemic attack, unspecified Surgical History Hx of colonoscopy Hx of bilateral cataract extraction History of inguinal hernia repair, bilateral (~04/2016) History of cardiac catheterization (12/28/19) Family History Father Cardiovascular disease Diabetes Mother Osteoporosis Social History Housing: Apartment Are you a primary personal care worker to a significant other at home: No Do you presently have visiting nurse or other home services: No Alcohol intake: never Patient Tobacco Use Status: Current everyday Tobacco user Cigarettes Per Day: 10 Years Smoked: 55 e-Cigarette/Vaping Use: Never Used Second Hand Smoke Exposure: Yes Current occupational status: retired Cognitive needs: No Hearing needs: No Vision needs: No Questionnaire PHQ-9 Over the last 2 weeks, how often have you been bothered by any of the following problems? 65208 - PHQ-9 Billing: Patient declined-do not bill Source: Developed by Drs. Crispin Vargas, Nannette Alanis, Jimmy Parks and colleagues, with an educational orville from [employer]. Thrive Questionnaire Date Thrive assessed: 04/30/23 I am a: Patient What is your living situation today?: I choose not to answer this question Within the past 12 months, did the food you bought not last and you didn't have the money to get more?: I choose not to answer this question Within the past 12 months, did you worry whether your food would run out before you got money to buy more?: I choose not to answer this question Do you have trouble paying for medicines?: I choose not to answer this question Do you have trouble getting transportation to medical appointments?: I choose not to answer this question Do you have trouble paying your heating and electricity bill?: I choose not to answer this question Do you have trouble taking care of your child, family member or friend?: I choose not to answer this question Do you have trouble with day-to-day activities such as bathing, preparing meals, shopping, managing finances, etc.?: I choose not to answer this question Are you currently unemployed and looking for a job?: I choose not to answer this question Are you interested in more education?: I choose not to answer this question THRIVE Score: 0 MECHELLE-7 AMB Questionnaire MECHELLE-7 Date MECHELLE - 7 assessed: 04/30/23 Source: Developed by Drs. Crispin Vargas, Nannette Alanis, Jimmy Parks and colleagues, with an educational orville from [employer]. MECHELLE-7 Assessment Billing MECHELLE-7 Assessment Tool: pt declined-do not bill Review of Systems Const Reports as per HPI Physical exam (Primary Care) Vital Signs: Last Vital Signs Pulse 86 04/30/23 08:10 BP 126/78 04/30/23 08:10 Pulse Ox 100 04/30/23 08:10 Oxygen Delivery Method Room Air 04/30/23 08:10 BMI result Body Mass Index 27.5 Tobacco/Smoking Status: Tobacco use Status Tobacco use date assessed 04/30/23 04/30/23 08:19 Patient Tobacco Use Status Current everyday Tobacco 04/30/23 08:10 e-Cigarette/Vaping Use Never Used 04/30/23 08:10 Thrive Assessment: Date of Thrive Assessment Date Thrive assessed 04/30/23 04/30/23 08:19 Const General: cooperative Orientation/consciousness: patient oriented x3 HENMT Head: Yes normal to inspection and Yes normocephalic Resp Other: lungs with coarse wheezing throughout, slightly diminished Effort & Inspection: normal respiratory effort Cardio Rate: regular rate Rhythm: regular rhythm Heart sounds: S1 normal heart sound present and S2 normal heart sound present Back/Spine/Pelvis Other: cervical neck pain exacerbated without radicular symptoms with turning head side to side and chin raises, + spurlings Neuro General: patient oriented x3 Extrem Other: bilat feet: + sensation with use of monofilament, onychomycosis noted bilat Psych Appearance: grossly normal Mental Status: mental status grossly normal Speech and movement: Normal speech and movement present Affect: normal affect Attitude: cooperative Thought process: Normal thought process present Thought content: Normal thought content present Insight: Good insight present (Psych) Judgement: Good judgement present (Psych) Results AMB Hemoglobin A1c AMB Hemoglobin A1c 8.1 % Last Edit by Nallely Isaac CMA on 04/30/23 08: 43 Results Reviewed Results Reviewed: Laboratory Last Values Hgb A1c (Clinic) 8.1 % (4.0-6.0) H 04/30/23 08:42 Assessment and Plan Assessment & Plan (1) Neck pain: Code(s): M54.2 - Cervicalgia Plan: XR ordered (2) Type 2 diabetes mellitus with diabetic polyneuropathy: Code(s): E11.42 - Type 2 diabetes mellitus with diabetic polyneuropathy Plan: added ozempic to his med regime Plan The patient agreed to the use of a medical delivery technician for this encounter. Scribed for URBAN Apodaca by Leonila Lyle medical delivery technician, on 04/30/2023 at 08:25 EST. Orders: Orders AMB Hemoglobin A1c Today E11.42 - Type 2 diabetes mellitus with diabetic polyneuropathy, M54.2 - Cervicalgia XR cervical spine 2V Today M54.2 - Cervicalgia Medications: New semaglutide (Ozempic) for 4 weeks 0.25 mg (0.368 mL) subcut QWEEK 3 mL 0RF Coding Level of Care Code Est Pt Level 3 (30293) Diagnoses Neck pain M54.2 Type 2 diabetes mellitus with diabetic polyneuropathy E11.42
[2023-04-30 08:10] VITALS: BP 126/78; PULSE 86; O2SAT 100; BMI 27.5
== END 2023-04-30 08:52 | disposition home or self-care (01) ==
PROVIDERS: PCP Nurse Practitioner Family; Visit Provider Nurse Practitioner Family
DX: M54.2 Cervicalgia (principal); E11.42 Type 2 diabetes mellitus with diabetic polyneuropathy
CPT/HCPCS: 83036; 99213

== ENCOUNTER 2023-05-05 08:04 | Outpatient (REF) | payer MEDICARE, MEDICAID, SELFPAY ==
--- NOTE | ~2023-05-05 | XR_ITS ---
EXAMINATION: XR CERVICAL SPINE CLINICAL INFORMATION: Cervicalgia. COMPARISON: Cervical spine radiographs dated 12/05/2007. TECHNIQUE: Frontal, odontoid and lateral views of the cervical spine were obtained. FINDINGS: There is bony demineralization. At C3-C4, there is a 2 mm anterolisthesis. At C3-C4-C5, there is a 3 mm anterolisthesis. At C5-C6 and C6-C7, there is moderate anterior disc space narrowing. No acute fracture or spondylolisthesis is seen. There is multi-level cervical spondylosis and facet arthropathy. The posterior elements are intact. The dens is intact. No prevertebral soft tissue swelling is seen. There are bilateral carotid atherosclerotic calcifications. XR/XR cervical spine 2V IMPRESSION: 1. There is multi-level cervical degenerative disc disease, spondylosis and facet arthropathy. Degenerative disc disease is most pronounced at C5-C6 and C6-C7, where it is moderate. 2. There are bilateral carotid atherosclerotic calcifications, which could be more fully evaluated with dedicated carotid ultrasound, if clinically indicated.
[2023-05-05 11:07] LABS: MANUAL DIFF FLAG NO
[2023-05-05 11:09] LABS: Basophils Percent Auto 0.5 % (0-2); Eosinophils Absolute Auto 0.2 X10*3/uL (0.0-0.4); Eosinophils Percent Auto 2.3 % (0-4); Hematocrit 45.2 % (42.0-52.0); Imm Gran Abs Auto 0.02 X10*3/uL (0.00-0.03); Imm Gran Pct Auto 0.3 % (0.0-0.4); Lymphocytes Absolute Auto 1.9 X10*3/uL (1.2-4.9); Lymphocytes Percent Auto 28.3 % (20-40); Mean Corpuscular HGB Conc 33.2 g/dl (31.0-36.0); Mean Corpuscular Hemoglobin 31.1 pg (27.0-33.0); Mean Corpuscular Volume 93.8 fL (80.0-98.0); Mean Platelet Volume 10.4 fL (9.4-12.4); Monocytes Absolute Auto 0.6 X10*3/uL (0.1-1.2); Monocytes Percent Auto 8.9 % (2-11); Neutrophils Absolute Auto 3.9 x10*3/uL (2.0-8.3); Neutrophils Percent Auto 59.7 % (45-73); Platelet Count 203 X10*3/uL (160-400); Red Blood Count 4.82 X10*6/uL (4.60-5.80); Red Cell Distribution Width 12.9 % (11.0-16.0); White Blood Count 6.6 X10*3/uL (4.8-10.8)
[2023-05-05 11:13] LABS: Appearance Urine Clear; Color Urine Yellow; Glucose Urine UA Negative (Negative); Leukocyte Esterase Urine Negative (Negative); Nitrite Urine Negative (Negative); PH 5.5 (5.0-9.0); Specific Gravity - Urine 1.025 (1.005-1.025); UMIC TRIGGER UACC YES; Urine Blood Negative (Negative); Urine Ketones Trace mg/dL (Negative); Urine Protein 30 (1+) mg/dL (Neg-Trace)
[2023-05-05 11:35] LABS: Bacteria Urine None Seen (None Seen); Hyaline Casts Urine 0-2 /LPF (0-2); RBC Urine 0-2 /HPF (0-2); Squamous Epithelial Cell Urine 0-2 /HPF (0-2); WBC Urine 0-5 /HPF (0-5)
[2023-05-05 12:16] LABS: Alanine Aminotransferase 9 U/L (0-40); Albumin Level 4.4 g/dL (3.5-5.0); Alkaline Phosphatase 70 U/L (39-117); Anion Gap 12 (12-20); Aspartate Amino Transferase 13 U/L (5-37); Bilirubin Total 0.5 mg/dL (0.0-1.0); Blood Urea Nitrogen 28 mg/dL (9-16); Calcium 9.4 mg/dL (8.4-10.2); Carbon Dioxide 26 mmol/L (22-29); Chloride 107 mmol/L (96-108); Cholesterol 100 mg/dL (<200); Estimated Glomerular Filt Rate 41; Glucose Fasting 146 mg/dL (60-99); HDL Cholesterol 45 mg/dL (>40); LDL Cholesterol Calculated 40 mg/dL (<100); Potassium 5.1 mmol/L (3.3-5.1); Sodium 140 mmol/L (135-145); Total Protein 7.3 g/dL (6.5-8.0); Triglycerides 75 mg/dL (<150)
[2023-05-05 12:16] LABS: Protein/Creatinine Ratio, Ur 0.34 (<0.2); Total Protein Urine Random 67 mg/dL (<12)
[2023-05-05 12:19] LABS: TSH reflex Free T4 2.56 uIU/mL (0.32-4.0)
[2023-05-05 12:33] LABS: Vitamin B12 258 pg/mL (200-900)
== END 2023-05-05 08:05 | disposition home or self-care (01) ==
LOC: HO.HMGCX 08:04
PROVIDERS: PCP Nurse Practitioner Family; Referring Provider Internal Medicine Nephrology; Visit Provider Nurse Practitioner Family
DX: N18.30 Chronic kidney disease, stage 3 unspecified (principal); M54.2 Cervicalgia; E53.8 Deficiency of other specified B group vitamins; E11.42 Type 2 diabetes mellitus with diabetic polyneuropathy
CPT/HCPCS: 36415; 72040; 80053; 80061; 81001; 82570; 82607; 82746; 84156; 84443; 85025

== ENCOUNTER 2023-05-13 14:04 | Outpatient (AMB) | payer MEDICARE, MEDICAID, SELFPAY ==
[2023-05-13 14:09] VITALS: BP 124/78; PULSE 75; BMI 27.8
--- NOTE | 2023-05-13 14:09 | MHC.OFFVIS ---
Intake Vital Signs 05/13/23 14:09 Height 5 ft 6 in Weight 171 lb 15.369 oz BMI 27.8 BP 124/78 Blood Pressure Location Lt brachial Position Sitting Pulse 75 Intake Visit Reasons: follow up per request from PCP Intake Note: follow up Sleeve Presser Operator Required: No Accompanied by: Self / Same As Patient Allergies No Known Allergies [No Known Allergies*] Allergy (Verified 05/13/23 14:10) Medication List - Last Reconciled 05/13/23 by Georges Key MD alcohol swabs (Alcohol Prep Pads) 1 pad topical TID 30 days aspirin 81 mg PO DAILY blood sugar diagnostic (FreeStyle Lite Strips) test TID blood-glucose meter (FreeStyle Lite Meter kit) Test TID carvedilol 3.125 mg PO BID [extra-depth Diabetic shoes with 3 pair Custom heat-molded multi-density innersoles As directed] gabapentin 1,200 mg PO TID ketoconazole 2% 1 appl topical BID 20 days lancets (FreeStyle Lancets) Test TID lisinopril 2.5 mg PO DAILY metformin 500 mg PO TID mirabegron ER (Myrbetriq) 25 mg PO DAILY 90 days rosuvastatin 40 mg PO DAILY semaglutide (Ozempic) 0.25 mg (0.368 mL) subcut QWEEK Shower Chair use daily, for lower extrem weakness/hip pains umeclidinium-vilanterol 62.5-25 mcg/actuation (Anoro Ellipta) 1 inh inhalation DAILY Ventolin HFA 90 mcg/actuation (albuterol sulfate) 2 puffs inhalation Q4-6H PRN NS HPI HPI Comments History of Present Illness Details Darius returns for follow-up regarding cardiomyopathy other concerns. He has numerous risk factors including type 2 diabetes, hyperlipidemia, active smoking among others. In May of 2019, he apparently had speech difficulty and right arm numbness and that led to hospitalization at [facility]. He was diagnosed to have a TIA and then discharged home. Thought to have small vessel related infarcts. From the cardiac standpoint, he does have a lot of coronary artery calcification on chest CT scan but cardiac catheterization did not show anything significant. Unfortunately, he is still smoking. Shortness of breath with exertion. [facility] Medical History Hypertensive retinopathy Raynauds disease Type 2 diabetes mellitus with diabetic polyneuropathy CKD (chronic kidney disease) stage 3, GFR 30-59 ml/min Sleep apnea CAD (coronary artery disease) Seasonal allergies BPH (benign prostatic hyperplasia) Hematuria Hx of dermatitis Pulmonary HTN HTN (hypertension) CVA (cerebral vascular accident) Type 2 diabetes mellitus with unspecified complications NICM (nonischemic cardiomyopathy) Atherosclerotic heart disease of [place] coronary artery without angina pectoris Hyperlipidemia, unspecified Smoker Transient cerebral ischemic attack, unspecified Surgical History Hx of colonoscopy Hx of bilateral cataract extraction History of inguinal hernia repair, bilateral (~04/2016) History of cardiac catheterization (12/28/19) Family History Father Cardiovascular disease Diabetes Mother Osteoporosis Social History Housing: Apartment Are you a primary child care centre manager to a significant other at home: No Do you presently have visiting nurse or other home services: No Alcohol intake: never Patient Tobacco Use Status: Current everyday Tobacco user Cigarettes Per Day: 10 Years Smoked: 55 e-Cigarette/Vaping Use: Never Used Second Hand Smoke Exposure: Yes Current occupational status: retired Cognitive needs: No Hearing needs: No Vision needs: No Review of Systems Const Denies weakness ENT Denies dizziness Card Denies chest pain, Denies chest pain with activity, Denies syncope, Denies rapid heart rate, Denies pedal edema, Denies edema, Denies leg edema, Denies lightheadedness, Denies palpitations and Denies orthopnea Resp Denies cough GI Denies hematochezia and Denies change in stool character Musc Denies abnormal gait, Denies muscle cramps, Denies muscle weakness, Denies numbness, Denies radiating pain into limb and Denies tingling Neuro Denies abnormal gait, Denies dizziness, Denies syncope, Denies numbness, Denies tingling and Denies weakness Endo Denies palpitations Physical Exam Vital Signs: Last Vital Signs Pulse 75 05/13/23 14:09 BP 124/78 05/13/23 14:09 BMI result Body Mass Index 27.8 Const General: comfortable and no acute distress Orientation/consciousness: patient oriented x3 HEENT Other: Unremarkable Head: Yes normal to inspection Neck Neck: Yes normal visual inspection Chest Chest palpation & inspection: normal inspection of the chest Resp Auscultation: clear to auscultation bilaterally Cardio Palpation: normal PMI Heart sounds: S1 normal heart sound present, S2 normal heart sound present, no gallops, no murmurs and no rubs GI Palpation (GI): Soft to palpation Back/Spine/Pelvis Other: unremarkable Skin General skin exam: no rashes or lesions noted Neuro General: patient oriented x3 Extrem General: Yes normal to inspection Psych Mental Status: mental status grossly normal Office Procedures EKG Details: EKG with sinus rhythm at 75/Min; MI prolongation to 288 millisecond; [place]. [id number], Complete Assessment & Plan Assessment & Plan (1) Atherosclerotic heart disease of [place] coronary artery without angina pectoris: Code(s): I25.10 - Atherosclerotic heart disease of [place] coronary artery without angina pectoris Qualifiers: [place] vs. transplanted heart: [place] heart Qualified Code(s): I25.10 - Atherosclerotic heart disease of [place] coronary artery without angina pectoris Plan: Cardiac catheterization without any obstructive lesions. There was only mild coronary disease. Continue aspirin and statins. Most recent LDL 40 mg/dL. Triglycerides 75mg/dL. (2) NICM (nonischemic cardiomyopathy): Code(s): I42.8 - Other cardiomyopathies Plan: Based on the last echocardiogram, LVEF 42% with mild global hypokinesis. No significant valvular issues. RV function was also mildly reduced. Cardiac catheterization however does not show any significant lesions. Shortness of breath more likely from pulmonary than cardiac. Clinically, does not seem to be in any active heart failure. Due to MI prolongation on the EKG, we can stop the Coreg. Of note, there was an admission to [facility] in past for syncope following use of prazosin. (3) Transient cerebral ischemic attack, unspecified: Code(s): G45.9 - Transient cerebral ischemic attack, unspecified Qualifiers: Transient cerebral ischemia type: unspecified Qualified Code(s): G45.9 - Transient cerebral ischemic attack, unspecified Plan: [place] [facility] [place], no significant carotid stenosis in the neck. Ulcerated plaque in the aorta just inferior to the origin of left common carotid artery noted. MRI brain had not shown any acute infarcts but there are multiple chronic small lacunar infarcts and chronic small vessel disease. Continue aspirin and statins. (4) Claudication of both lower extremities: Code(s): I73.9 - Peripheral vascular disease, unspecified Plan: Arterial Doppler does not show any evidence of obstructive peripheral arterial disease. (5) Smoker: Code(s): F17.200 - Nicotine dependence, unspecified, uncomplicated Plan: Discussed numerous times in the past and again today. (6) Type 2 diabetes mellitus with unspecified complications: Code(s): E11.8 - Type 2 diabetes mellitus with unspecified complications Plan: On metformin, Ozempic. Last Hemoglobin A1c 8.1 %. (7) CKD (chronic kidney disease) stage 3, GFR 30-59 ml/min: Code(s): N18.30 - Chronic kidney disease, stage 3 unspecified Qualifiers: Chronic kidney disease stage 3 subtype: stage 3a (GFR 45-59) Qualified Code(s): N18.31 - Chronic kidney disease, stage 3a Plan: Most recent creatinine is 1.65. Medications: Discontinued carvedilol Discontinued Reason: Doctor's Order 3.125 mg PO BID 180 tabs 3RF Coding Level of Care Code Est Pt Level 4 (66141) Diagnoses Atherosclerosis of [place] coronary artery of [place] heart without angina pectoris I25.10 [place] vs. transplanted heart: [place] heart NICM (nonischemic cardiomyopathy) I42.8 Transient cerebral ischemia, unspecified type G45.9 Transient cerebral ischemia type: unspecified Claudication of both lower extremities I73.9 Smoker F17.200 Type 2 diabetes mellitus with unspecified complications E11.8 Stage 3a chronic kidney disease N18.31 Chronic kidney disease stage 3 subtype: stage 3a (GFR 45-59) CPT Codes EKG - CPT: 59017-[id number], Complete ([id number])
== END 2023-05-13 14:28 | disposition home or self-care (01) ==
PROVIDERS: PCP Nurse Practitioner Family; Visit Provider Internal Medicine
DX: I25.10 Atherosclerotic heart disease of native coronary artery without angina pectoris (principal); I42.8 Other cardiomyopathies; G45.9 Transient cerebral ischemic attack, unspecified; I73.9 Peripheral vascular disease, unspecified; F17.200 Nicotine dependence, unspecified, uncomplicated; E11.8 Type 2 diabetes mellitus with unspecified complications; N18.31 Chronic kidney disease, stage 3a
CPT/HCPCS: 93010; 99214

== ENCOUNTER → 2023-05-13 14:04 | Outpatient (BNVA) | payer MEDICARE, MEDICAID, SELFPAY | PROVIDERS: PCP Nurse Practitioner Family; Visit Provider Internal Medicine | DX: I25.10 Atherosclerotic heart disease of native coronary artery without angina pectoris (principal); I42.8 Other cardiomyopathies; I73.9 Peripheral vascular disease, unspecified; G45.9 Transient cerebral ischemic attack, unspecified; E11.8 Type 2 diabetes mellitus with unspecified complications; E11.22 Type 2 diabetes mellitus with diabetic chronic kidney disease; N18.31 Chronic kidney disease, stage 3a; F17.210 Nicotine dependence, cigarettes, uncomplicated | CPT/HCPCS: 93005; 99212 ==

== ENCOUNTER 2023-05-14 09:53 | Outpatient (AMB) | payer MEDICARE, MEDICAID, SELFPAY ==
[2023-05-14 10:00] VITALS: BP 122/70; PULSE 88; O2SAT 97; BMI 27.6
--- NOTE | 2023-05-14 10:00 | HO.NEPHOV ---
HPI HPI Comments History of Present Illness Details Darius was seen in follow up for his CKD. He has diabetic renal disease. His blood sugars are fluctuating between 150 to 250. He has no episodes of hypoglycemia. He has no hematuria, edema or dizziness. He is compliant with his medications. He is not on any SGLT2 inhibitors. His last serum creatinine was 1.58. He has H/O mild hyperkalemia . He is on ACEI. He does not take any NSAID's. He feels well otherwise [facility] Medical History Hypertensive retinopathy Raynauds disease Type 2 diabetes mellitus with diabetic polyneuropathy CKD (chronic kidney disease) stage 3, GFR 30-59 ml/min Sleep apnea CAD (coronary artery disease) Seasonal allergies BPH (benign prostatic hyperplasia) Hematuria Hx of dermatitis Pulmonary HTN HTN (hypertension) CVA (cerebral vascular accident) Type 2 diabetes mellitus with unspecified complications NICM (nonischemic cardiomyopathy) Atherosclerotic heart disease of [place] coronary artery without angina pectoris Hyperlipidemia, unspecified Smoker Transient cerebral ischemic attack, unspecified Surgical History Hx of colonoscopy Hx of bilateral cataract extraction History of inguinal hernia repair, bilateral (~04/2016) History of cardiac catheterization (12/28/19) Family History Father Cardiovascular disease Diabetes Mother Osteoporosis Social History Housing: Apartment Are you a primary post acute care nurse practitioner to a significant other at home: No Do you presently have visiting nurse or other home services: No Alcohol intake: never Patient Tobacco Use Status: Current everyday Tobacco user Cigarettes Per Day: 10 Years Smoked: 55 e-Cigarette/Vaping Use: Never Used Second Hand Smoke Exposure: Yes Current occupational status: retired Cognitive needs: No Hearing needs: No Vision needs: No Vital Signs 05/14/23 10:00 Height 5 ft 6 in Weight 171 lb BMI 27.6 BP 122/70 Blood Pressure Location Rt brachial Position Sitting Pulse 88 Pulse Source Pulse Oximeter Pulse Oximetry (%) 97 Oxygen Delivery Method Room Air Physical Exam Vital Signs: Last Vital Signs Pulse 88 05/14/23 10:00 BP 122/70 05/14/23 10:00 Pulse Ox 97 05/14/23 10:00 Oxygen Delivery Method Room Air 05/14/23 10:00 BMI result Body Mass Index 27.6 Const General: comfortable and no acute distress Orientation/consciousness: patient oriented x3 HEENT Head: Yes normocephalic Mouth: Normal oral and palatal mucosa present Eyes EOM: EOMs intact bilaterally Neck Neck: Yes supple Resp Auscultation: clear to auscultation bilaterally Cardio Jugular venous distension: no JVD Rate: regular rate GI Palpation (GI): Soft to palpation Auscultation: normal bowel sounds General: Yes no CVA tenderness Back/Spine/Pelvis Back: no CVA tenderness Skin General skin exam: no rashes or lesions noted Neuro General: patient oriented x3 and moves all extremities Extrem General: Yes no pedal edema Assessment & Plan Assessment & Plan (1) CKD (chronic kidney disease) stage 3, GFR 30-59 ml/min: Code(s): N18.30 - Chronic kidney disease, stage 3 unspecified Qualifiers: Chronic kidney disease stage 3 subtype: stage 3a (GFR 45-59) Qualified Code(s): N18.31 - Chronic kidney disease, stage 3a Plan Has CKD for long time. Serum creatinine currently stable Urine output good. Does not take NSAID's; Good hydration Blood pressure is at goal. Needs consistent good BS control Started Jardiance 5 mg daily. Labs ordered All questions answered . F/U given for 3 months Orders: Orders Electrolytes Today N18.30 - Chronic kidney disease, stage 3 unspecified Creatinine Today N18.30 - Chronic kidney disease, stage 3 unspecified Blood Urea Nitrogen Today N18.30 - Chronic kidney disease, stage 3 unspecified Medications: New empagliflozin (Jardiance) 5 mg (1/2 x 10 mg) PO DAILY 30 days 15 tabs 3RF Coding Level of Care Code Est Pt Level 4 (91482) Diagnoses Stage 3a chronic kidney disease N18.31 Chronic kidney disease stage 3 subtype: stage 3a (GFR 45-59) Results Reviewed Nephrology Results: Hgb 15.0 g/dl (14.0-18.0) 05/05/23 WBC 6.6 X10*3/uL (4.8-10.8) 05/05/23 Plt Count 203 X10*3/uL (160-400) 05/05/23 Sodium 140 mmol/L (135-145) 05/05/23 Potassium 5.1 mmol/L (3.3-5.1) 05/05/23 Chloride 107 mmol/L (96-108) 05/05/23 Carbon Dioxide 26 mmol/L (22-29) 05/05/23 BUN 28 mg/dL (9-16) H 05/05/23 Creatinine 1.65 mg/dL (0.5-1.4) H 05/05/23 Calcium 9.4 mg/dL (8.4-10.2) 05/05/23 Urine Protein 30 (1+) mg/dL (Neg-Trace) H 05/05/23 Urine Creatinine 196.80 mg/dL 05/05/23 Protein/Creatinin Ratio 0.34 (<0.2) H 05/05/23
== END 2023-05-14 10:32 | disposition home or self-care (01) ==
PROVIDERS: PCP Nurse Practitioner Family; Visit Provider Internal Medicine Nephrology
DX: N18.31 Chronic kidney disease, stage 3a (principal)
CPT/HCPCS: 99214

== ENCOUNTER → 2023-05-14 09:53 | Outpatient (BNVA) | payer MEDICARE, MEDICAID, SELFPAY | PROVIDERS: PCP Nurse Practitioner Family; Visit Provider Internal Medicine Nephrology | DX: N18.31 Chronic kidney disease, stage 3a (principal) | CPT/HCPCS: 99212 ==

== ENCOUNTER 2023-05-23 08:55 | Outpatient (REF) | payer MEDICARE, MEDICAID, SELFPAY ==
--- NOTE | ~2023-05-23 | US_ITS ---
EXAMINATION: US EXTRACRANIAL CAROTID DUPLEX, BILATERAL CLINICAL INFORMATION: Carotid stenosis. COMPARISON: None available. TECHNIQUE: Real-time ultrasound and Doppler techniques (integrating B-mode 2-D vascular images, Doppler spectral analysis and color-flow Doppler imaging) were utilized to interrogate the extracranial carotid arteries, the vertebral arteries and proximal subclavian arteries bilaterally. The degree of stenosis is determined by criteria similar to NASCET. FINDINGS: Right Side: 1. There is mild atherosclerotic plaque seen in the bifurcation/proximal ICA region. 2. The common carotid artery PSV proximally is 85 cm/s and distally 77 cm/s. 3. The proximal internal carotid artery velocities are 48 cm/s systolic and 12 cm/s diastolic. 4. The proximal external carotid artery PSV is 55 cm/s. 5. The vertebral artery shows antegrade flow. 6. The subclavian artery waveforms are normal. Left Side: 1. There is mild atherosclerotic plaque seen in the bifurcation/proximal ICA region. 2. The common carotid artery PSV proximally is 67 cm/s and distally 48 cm/s. 3. The proximal internal carotid artery velocities are 34 cm/s systolic and 12 cm/s diastolic. 4. The proximal external carotid artery PSV is 57 cm/s. 5. The vertebral artery shows antegrade flow. 6. The subclavian artery waveforms are normal. US/US carotid duplex BI IMPRESSION: 1. RIGHT: Minimal, non-hemodynamically significant stenosis of the proximal right internal carotid artery corresponding to a 0-49% stenosis by velocity criteria. 2. LEFT: Minimal, non-hemodynamically significant stenosis of the proximal left internal carotid artery corresponding to a 0-49% stenosis by velocity criteria.
== END 2023-05-23 08:56 | disposition home or self-care (01) ==
LOC: HO.HMGCX 08:55
PROVIDERS: PCP Nurse Practitioner Family; Visit Provider Nurse Practitioner Family
DX: I65.23 Occlusion and stenosis of bilateral carotid arteries (principal)
CPT/HCPCS: 93880

== ENCOUNTER 2023-06-11 10:13 | Outpatient (REF) | payer MEDICARE, MEDICAID, SELFPAY ==
[2023-06-11 14:13] LABS: Anion Gap 10 (12-20); Blood Urea Nitrogen 30 mg/dL (9-16); Carbon Dioxide 24 mmol/L (22-29); Chloride 110 mmol/L (96-108); Estimated Glomerular Filt Rate 48; Potassium 4.6 mmol/L (3.3-5.1); Sodium 139 mmol/L (135-145)
== END 2023-06-11 10:14 | disposition home or self-care (01) ==
LOC: HO.HMGCLDS 10:13
PROVIDERS: PCP Nurse Practitioner Family; Visit Provider Internal Medicine Nephrology
DX: E11.22 Type 2 diabetes mellitus with diabetic chronic kidney disease (principal); N18.31 Chronic kidney disease, stage 3a; Z79.899 Other long term (current) drug therapy
CPT/HCPCS: 36415; 80051; 82565; 84520; 99212

== ENCOUNTER 2023-06-11 11:12 | Outpatient (AMB) | payer MEDICARE, MEDICAID, SELFPAY ==
[2023-06-11 11:39] VITALS: BP 110/60; PULSE 80; O2SAT 97; BMI 27.4
--- NOTE | 2023-06-11 11:39 | HO.NEPHOV_ITS ---
HPI HPI Comments History of Present Illness Details Darius was seen in follow up for his CKD. He has diabetic renal disease. He has no episodes of hypoglycemia. He has no hematuria, edema or dizziness. He is compliant with his medications. He is not on any SGLT2 in hibitors. His last serum creatinine has been stable. He has H/O mild hyperkalemia . He is on ACEI. He does not take any NSAID's. He feels well otherwise 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 CKD (chronic kidney disease) stage 3, GFR 30-59 ml/min Sleep apnea CAD (coronary artery disease) Seasonal allergies BPH (benign prostatic hyperplasia) Hematuria Hx of dermatitis Pulmonary HTN HTN (hypertension) CVA (cerebral vascular accident) Type 2 diabetes mellitus with unspecified complications NICM (nonischemic cardiomyopathy) Atherosclerotic heart disease of [place] coronary artery without angina pectoris Hyperlipidemia, unspecified Smoker Transient cerebral ischemic attack, unspecified Surgical History Hx of colonoscopy Hx of bilateral cataract extraction History of inguinal hernia repair, bilateral (~04/2016) History of cardiac catheterization (12/28/19) Family History Father Cardiovascular disease Diabetes Mother Osteoporosis Social History Housing: Apartment Are you a primary insurance healthcare consultant to a significant other at home: No Do you presently have visiting nurse or other home services: No Alcohol intake: never Patient Tobacco Use Status: Current everyday Tobacco user Cigarettes Per Day: 10 Years Smoked: 55 e-Cigarette/Vaping Use: Never Used Second Hand Smoke Exposure: Yes Current occupational status: retired Cognitive needs: No Hearing needs: No Vision needs: No Vital Signs 06/11/23 11:39 Height 5 ft 6 in Weight 169 lb 8 oz BMI 27.4 BP 110/60 Blood Pressure Location Rt brachial Position Sitting Pulse 80 Pulse Source Pulse Oximeter Pulse Oximetry (%) 97 Oxygen Delivery Method Room Air Physical Exam Vital Signs: Last Vital Signs Pulse 80 06/11/23 11:39 BP 110/60 06/11/23 11:39 Pulse Ox 97 06/11/23 11:39 Oxygen Delivery Method Room Air 06/11/23 11:39 BMI result Body Mass Index 27.4 Const General: comfortable and no acute distress Orientation/consciousness: patient oriented x3 HEENT Head: Yes normocephalic Mouth: Normal oral and palatal mucosa present Eyes EOM: EOMs intact bilaterally Neck Neck: Yes supple Resp Auscultation: clear to auscultation bilaterally Cardio Jugular venous distension: no JVD Rate: regular rate GI Palpation (GI): Soft to palpation Auscultation: normal bowel sounds General: Yes no CVA tenderness Back/Spine/Pelvis Back: no CVA tenderness Skin General skin exam: no rashes or lesions noted Neuro General: patient oriented x3 and moves all extremities Extrem General: Yes no pedal edema Assessment & Plan Assessment & Plan (1) CKD (chronic kidney disease) stage 3, GFR 30-59 ml/min: Code(s): N18.30 - Chronic kidney disease, stage 3 unspecified Qualifiers: Chronic kidney disease stage 3 subtype: stage 3a (GFR 45-59) Qualified Code(s): N18.31 - Chronic kidney disease, stage 3a Plan Has CKD for long time. Serum creatinine currently stable Urine output good. Does not take NSAID's; Good hydration Blood pressure is at goal. On ACEI. Needs consistent good BS control Started Jardiance 5 mg daily at last visit( has insurance issues) Labs ordered; All questions answered . F/U given for 3 months Orders: Orders Electrolytes 3 Months N18.30 - Chronic kidney disease, stage 3 unspecified Creatinine 3 Months N18.30 - Chronic kidney disease, stage 3 unspecified Blood Urea Nitrogen 3 Months N18.30 - Chronic kidney disease, stage 3 unspecified Coding Level of Care Code Est Pt Level 3 (07550) Diagnoses Stage 3a chronic kidney disease N18.31 Chronic kidney disease stage 3 subtype: stage 3a (GFR 45-59) Results Reviewed Nephrology Results: Hgb 15.0 g/dl (14.0-18.0) 05/05/23 WBC 6.6 X10*3/uL (4.8-10.8) 05/05/23 Plt Count 203 X10*3/uL (160-400) 05/05/23 Sodium 140 mmol/L (135-145) 05/05/23 Potassium 5.1 mmol/L (3.3-5.1) 05/05/23 Chloride 107 mmol/L (96-108) 05/05/23 Carbon Dioxide 26 mmol/L (22-29) 05/05/23 BUN 28 mg/dL (9-16) H 05/05/23 Creatinine 1.65 mg/dL (0.5-1.4) H 05/05/23 Calcium 9.4 mg/dL (8.4-10.2) 05/05/23 Urine Protein 30 (1+) mg/dL (Neg-Trace) H 05/05/23 Urine Creatinine 196.80 mg/dL 05/05/23 Protein/Creatinin Ratio 0.34 (<0.2) H 05/05/23
== END 2023-06-11 12:15 | disposition home or self-care (01) ==
PROVIDERS: PCP Nurse Practitioner Family; Visit Provider Internal Medicine Nephrology
DX: N18.31 Chronic kidney disease, stage 3a (principal)
CPT/HCPCS: 99213

== ENCOUNTER 2023-07-24 10:16 | Outpatient (REF) | payer MEDICARE, MEDICAID, SELFPAY | END 2023-07-24 10:17 | disposition home or self-care (01) | LOC: HO.HMGCLDS 10:16 | PROVIDERS: PCP Nurse Practitioner Family; Visit Provider Nurse Practitioner Family | DX: Z12.5 Encounter for screening for malignant neoplasm of prostate (principal); N40.0 Benign prostatic hyperplasia without lower urinary tract symptoms | CPT/HCPCS: 36415; 84153 ==

== ENCOUNTER 2023-07-25 09:51 | Outpatient (AMB) | payer MEDICARE, MEDICAID, SELFPAY ==
--- NOTE | 2023-07-25 09:58 | A.OFFVIS_ITS ---
Intake Visit Reasons: 6m/PSA Intake Note: Patient is present for follow up incontinence/psa lab (psa 1.70) Urology Medications: myrbetriq, finasteride Blood Thinner: aspirin PVR: 24ml's [employer] Required: No Accompanied by: Self / Same As Patient Allergies No Known Allergies [No Known Allergies*] Allergy (Verified 07/25/23 10:39) Medication List - Last Reconciled 07/25/23 by URBAN Rudolph alcohol swabs (Alcohol Prep Pads) 1 pad topical TID 30 days aspirin 81 mg PO DAILY blood sugar diagnostic (FreeStyle Lite Strips) test TID blood-glucose meter (FreeStyle Lite Meter kit) Test TID dapagliflozin propanediol (Farxiga) 2.5 mg (1/2 x 5 mg) PO DAILY [extra-depth Diabetic shoes with 3 pair Custom heat-molded multi-density innersoles As directed] finasteride 5 mg PO DAILY 90 days gabapentin 1,200 mg PO TID ketoconazole 2% 1 appl topical BID 20 days lancets (FreeStyle Lancets) Test TID lisinopril 2.5 mg PO DAILY metformin 500 mg PO TID mirabegron ER (Myrbetriq) 25 mg PO DAILY 90 days rosuvastatin 40 mg PO DAILY semaglutide (Ozempic) 0.25 mg (0.368 mL) subcut QWEEK Shower Chair use daily, for lower extrem weakness/hip pains umeclidinium-vilanterol 62.5-25 mcg/actuation (Anoro Ellipta) 1 inh inhalation DAILY Ventolin HFA 90 mcg/actuation (albuterol sulfate) 2 puffs inhalation Q4-6H PRN NS HPI Comments Details: Darius is a pleasant 78 year old male patient of Dr. Ta. He has a PMH of hypertension, Raynaud's disease, diabetes, chronic kidney disease stage 3, sleep apnea, coronary artery disease, seasonal allergies, pulmonary hypertension, CVA, nonischemic cardiomyopathy, hyperlipidemia, and nicotine dependence. He presents to the office today for a follow up. When asked patient reports to be doing and feeling well. He reports having recently followed up with Nephrology at which time he was started on Farxiga. He reports his blood sugars have been more controlled. However, he has been having issues with insurance coverage. He discusses his daughter is helping him in this process. When asked he reports compliance with finasteride and Myrbetriq as prescribed. He currently denies any bothersome urinary issues or concerns. He reports e pisodes of nocturia have significantly improved. He does report episodes of urinary urgency in the morning however relates this to his increased consumption of coffee. He otherwise denies hematuria, dysuria, foul smelling urine, changes to urinary stream, flank pain, fever, and or chills. He is happy with his current voiding parameters. In office urinalysis results reviewed with the patient today. PVR 24 mLs. Recent PSA results reviewed with the patient today. As noted and trended below. Previous workup has included a retroperitoneal ultrasound noting bilateral kidneys with no calculi, lesions, and or hydronephrosis noted. The bladder is well distended and normal. Pre void bladder volume is approximately 200 mL. Postvoid bladder volume is approximately 5 mL. Prostate volume measures 45 mL. PSA's are as follows: 06/26 3.3, 06/27 3.9, 01/27 3.6 07/29 1.7 Discussed and stressed at length importance of managing diabetes for improvement in urinary symptoms as well as for overall health and well being. Also stressed the importance of limiting/quitting cigarette smoking for overall health and well-being. He otherwise offers no issues or concerns at this time. [facility] Medical History Hypertensive retinopathy Raynauds disease Type 2 diabetes mellitus with diabetic polyneuropathy CKD (chronic kidney disease) stage 3, GFR 30-59 ml/min Sleep apnea CAD (coronary artery disease) Seasonal allergies BPH (benign prostatic hyperplasia) Hematuria Hx of dermatitis Pulmonary HTN HTN (hypertension) CVA (cerebral vascular accident) Type 2 diabetes mellitus with unspecified complications NICM (nonischemic cardiomyopathy) Atherosclerotic heart disease of [place] coronary artery without angina pectoris Hyperlipidemia, unspecified Smoker Transient cerebral ischemic attack, unspecified Surgical History Hx of colonoscopy Hx of bilateral cataract extraction History of inguinal hernia repair, bilateral (~04/2016) History of cardiac catheterization (12/28/19) Family History Father Cardiovascular disease Diabetes Mother Osteoporosis Social History Housing: Apartment Are you a primary care connector to a significant other at home: No Do you presently have visiting nurse or other home services: No Alcohol intake: never Patient Tobacco Use Status: Current everyday Tobacco user Cigarettes Per Day: 10 Years Smoked: 55 e-Cigarette/Vaping Use: Never Used Second Hand Smoke Exposure: Yes Current occupational status: retired Cognitive needs: No Hearing needs: No Vision needs: No Office Procedures Post Void Residual Post Residual Void Post Void Residual (PVR): [id number] Void Residual by ultrasound Results AMB Urinalysis, Automated UA Leukoctes 0 Brian/uL Last Edit by Zade[employer]jer[employer] on 07/25/23 10:28 UA Nitrite Negative Last Edit by Zadegojerrod [employer] on 07/25/23 10:28 UA Urobilinogen 0.2 mg/dL Last Edit by [employer] on 07/25/23 10:28 UA Protein 30 mg/dL Last Edit by DickSolePowerjerrod Grossman on 07/25/23 10:28 UA pH 5.5 Last Edit by Benjamin Grossman on 07/25/23 10:28 UA Blood 0 Demetrius/uL Last Edit by [employer] on 07/25/23 10:28 UA Specific [place] 1.015 Last Edit by [employer] on 07/25/23 10:28 UA Ketone Negative Last Edit by [employer] on 07/25/23 10:28 UA Bilirubin 0 mg/dL Last Edit by [employer] on 07/25/23 10:28 UA Glucose 0 mg/dL Last Edit by [employer] on 07/25/23 10:28 Results Reviewed Results Reviewed: Laboratory Last Values Urine pH (Auto) 5.5 07/25/23 10:24 Specific [place] (Auto) 1.015 07/25/23 10:24 Urine Protein (Auto) 30 mg/dL 07/25/23 10:24 Glucose (UA)(Auto) 0 mg/dL 07/25/23 10:24 Urine Ketones (Auto) Negative 07/25/23 10:24 Urine Blood (Auto) 0 Demetrius/uL 07/25/23 10:24 Urine Nitrite (Auto) Negative 07/25/23 10:24 Urine Bilirubin (Auto) 0 mg/dL 07/25/23 10:24 Urine Urobilinogen (Auto) 0.2 mg/dL 07/25/23 10:24 Leukocyte Esterase (Auto) 0 Brian/uL 07/25/23 10:24 Assessment & Plan Assessment & Plan (1) Erectile dysfunction associated with type 2 diabetes mellitus: Code(s): E11.69 - Type 2 diabetes mellitus with other specified complication; N52.1 - Erectile dysfunction due to diseases classified elsewhere Category: Medical (2) Enlarged prostate: Code(s): N40.0 - Benign prostatic hyperplasia without lower urinary tract symptoms Category: Medical (3) Incontinence: Code(s): R32 - Unspecified urinary incontinence Category: Medical (4) BPH w urinary obs/LUTS: Code(s): N40.1 - Benign prostatic hyperplasia with lower urinary tract symptoms; N13.8 - Other obstructive and reflux uropathy Category: Medical Plan In office urinalysis results reviewed with the patient today. PVR 24 mL. Recent PSA results reviewed with the patient today; as noted above; discussed significant drop in PSA will consider decreasing Finasteride to MWF versus daily. Continue finasteride and Myrbetriq as discussed and prescribed; refill provided Patient reports to be happy with current voiding parameters. Patient currently denies any bothersome urinary issues or concerns. Will obtain PSA in 6 months. Follow-up in 6 months with lab to be completed prior and PVR at next office visit; or sooner with any issues, concerns, or questions. Orders: Orders AMB Post Void Residual by ultrasound 07/25/23 R32 - Unspecified urinary incontinence Prostate Specific Antigen 6 Months N40.0 - Benign prostatic hyperplasia without lower urinary tract symptoms AMB Urinalysis Automated 07/25/23 R32 - Unspecified urinary incontinence, Z13.9 - Encounter for screening, unspecified Medications: New finasteride 5 mg PO DAILY 90 tabs 3RF 90 days Refilled mirabegron ER (Myrbetriq) 25 mg PO DAILY 90 tabs 3RF 90 days N32.81 - Overactive bladder, R35.1 - Nocturia Patient Instructions: The patient had an opportunity to ask questions regarding the treatment plan. All questions were answered. Physical exam, labs, and imaging were discussed and reviewed in detail. As well as risks, benefits, and discussion of treatment choices. No major barriers to understanding were identified. The patient expressed understanding and agreement with the above treatment plan. The patient was made aware they should contact our office by phone for worsening of their current condition, the appearance of new symptoms, or with any questions or concerns. Compliance is encouraged with any medications and follow up testing that is ordered. It is a privilege to be allowed the opportunity to participate in? your urological care.? Again, if you have any questions or concerns If you have any questions or concerns please do not hesitate to contact me. The office is [phone]. This note is constructed using voice recognition software. While every effort has been made to ensure accuracy med asst errors may have been included. Yours sincerely, URBAN Rudolph
== END 2023-07-25 10:38 | disposition home or self-care (01) ==
PROVIDERS: PCP Nurse Practitioner Family; Visit Provider Nurse Practitioner Family
DX: E11.69 Type 2 diabetes mellitus with other specified complication (principal); N52.1 Erectile dysfunction due to diseases classified elsewhere; N40.0 Benign prostatic hyperplasia without lower urinary tract symptoms; R32 Unspecified urinary incontinence; N40.1 Benign prostatic hyperplasia with lower urinary tract symptoms; N13.8 Other obstructive and reflux uropathy
CPT/HCPCS: 99213

== ENCOUNTER → 2023-07-25 09:51 | Outpatient (BNVA) | payer MEDICARE, MEDICAID, SELFPAY | PROVIDERS: PCP Nurse Practitioner Family; Visit Provider Nurse Practitioner Family | DX: N40.1 Benign prostatic hyperplasia with lower urinary tract symptoms (principal); N13.8 Other obstructive and reflux uropathy; R32 Unspecified urinary incontinence; E11.69 Type 2 diabetes mellitus with other specified complication; N52.1 Erectile dysfunction due to diseases classified elsewhere; Z79.82 Long term (current) use of aspirin; Z79.899 Other long term (current) drug therapy | CPT/HCPCS: 51798; 81003; 99212 ==

== ENCOUNTER 2023-07-31 08:53 | Outpatient (AMB) | payer MEDICARE, MEDICAID, SELFPAY ==
[2023-07-31 08:58] VITALS: BP 127/74; PULSE 89; O2SAT 92; BMI 27.0
--- NOTE | 2023-07-31 08:58 | A.OFFVIS_ITS ---
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 Patient continues to use Anoro and albuterol MDI with reasonable control of his symptoms. He denies any recent exacerbations. His follow-up CT chest is scheduled for November of 2023. 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 CKD (chronic kidney disease) stage 3, GFR 30-59 ml/min Sleep apnea CAD (coronary artery disease) Seasonal allergies BPH (benign prostatic hyperplasia) Hematuria Hx of dermatitis Pulmonary HTN HTN (hypertension) CVA (cerebral vascular accident) Type 2 diabetes mellitus with unspecified complications NICM (nonischemic cardiomyopathy) Atherosclerotic heart disease of [place] coronary artery without angina pectoris Hyperlipidemia, unspecified Smoker Transient cerebral ischemic attack, unspecified Surgical History Hx of colonoscopy Hx of bilateral cataract extraction History of inguinal hernia repair, bilateral (~04/2016) History of cardiac catheterization (12/28/19) Family History Father Cardiovascular disease Diabetes Mother Osteoporosis Social History Housing: Apartment Are you a primary managed care liaison to a significant other at home: No Do you presently have visiting nurse or other home services: No Alcohol intake: never Patient Tobacco Use Status: Current everyday Tobacco user Cigarettes Per Day: 10 Years Smoked: 55 e-Cigarette/Vaping Use: Never Used Second Hand Smoke Exposure: Yes Current occupational status: retired Cognitive needs: No Hearing needs: No Vision needs: No Review of Systems Const Denies daytime sleepiness, Denies excessive sweating, Denies fatigue, Denies fever(s), Denies lethargy, Denies malaise, Denies night sweats, Denies snoring and Denies weight loss Eyes Denies blurry vision and Denies itchy eyes ENT Denies nasal congestion, Denies post nasal drip, Denies sinus pain, Denies sinus pressure and Denies other ( Thrush) Card Denies chest pain, Denies pedal edema, Denies dyspnea, Denies orthopnea and Denies paroxysmal nocturnal dyspnea Resp Denies cough, Denies hemoptysis, Denies excessive phlegm production, Denies dyspnea, Denies snoring and Denies wheezing GI Denies abdominal pain and Denies heartburn Musc Denies myalgias, Denies arthralgias and Denies joint swelling Skin/Breast Denies rash Neuro Denies memory loss and Denies seizure-like activity Psych Denies abnormal sleep pattern, Denies anxiety and Denies memory loss Endo Denies excessive sweating, Denies fatigue and Denies heat intolerance [place]iden/Lymph Denies easy bruising Aller/Immun Denies itchy eyes, Denies seasonal rhinorrhea and Denies wheezing Physical Exam Vital Signs: Last Vital Signs Pulse 89 07/31/23 08:58 BP 127/74 07/31/23 08:58 Pulse Ox 92 07/31/23 08:58 Oxygen Delivery Method Room Air 07/31/23 08:58 BMI result Body Mass Index 27.0 Const General: no acute distress and alert Nutritional Appearance: not obese Orientation/consciousness: Other orientation findings ( oriented) HEENT Head: Yes atraumatic Eyes General: appearance normal, both eyes and all related structures Sclerae: sclerae normal EOM: EOMs intact bilaterally Neck Neck: Yes supple Lymphatic: no lymphadenopathy noted Resp Effort & Inspection: normal respiratory effort and no use of accessory muscles Auscultation: clear to auscultation bilaterally Cardio Rate: regular rate Rhythm: regular rhythm Heart sounds: no gallops, no murmurs and no rubs Skin General skin exam: other ( warm) Extrem General: No clubbing, No cyanosis and No edema Assessment & Plan Assessment & Plan (1) COPD (chronic obstructive pulmonary disease): Code(s): J44.9 - Chronic obstructive pulmonary disease, unspecified Category: Medical Plan: Well controlled on Anoro and albuterol MDI. Continue current regimen. (2) Pulmonary nodules: Code(s): R91.8 - Other nonspecific abnormal finding of lung field Category: Medical Plan: Previously stable, follow-up CT chest is pending for November 2023. Coding Level of Care Code Est Pt Level 4 (83045) Diagnoses COPD (chronic obstructive pulmonary disease) J44.9 Pulmonary nodules R91.8
== END 2023-07-31 09:17 | disposition home or self-care (01) ==
PROVIDERS: PCP Nurse Practitioner Family; Visit Provider Internal Medicine Pulmonary Disease
DX: J44.9 Chronic obstructive pulmonary disease, unspecified (principal); R91.8 Other nonspecific abnormal finding of lung field
CPT/HCPCS: 99214

== ENCOUNTER → 2023-07-31 08:53 | Outpatient (BNVA) | payer MEDICARE, MEDICAID, SELFPAY | PROVIDERS: PCP Nurse Practitioner Family; Visit Provider Internal Medicine Pulmonary Disease | DX: J44.9 Chronic obstructive pulmonary disease, unspecified (principal); R91.8 Other nonspecific abnormal finding of lung field; F17.210 Nicotine dependence, cigarettes, uncomplicated; Z79.899 Other long term (current) drug therapy | CPT/HCPCS: 99212 ==

== ENCOUNTER 2023-09-17 09:30 | Outpatient (AMB) | payer MEDICARE, MEDICAID, SELFPAY ==
--- NOTE | 2023-09-17 09:32 | HO.NEPHOV_ITS ---
Vital Signs 09/17/23 09:34 Height 5 ft 6 in Weight 159 lb 8 oz BMI 25.7 BP 100/70 Blood Pressure Location Rt brachial Position Sitting Pulse 97 Pulse Source Pulse Oximeter Pulse Oximetry (%) 99 Oxygen Delivery Method Room Air Intake Visit Reasons: CKD/ 3 MO FU/ LVM Intake Note: Customer Program Specialist services refused, refusal form signed and scanned into chart Customer Program Specialist Required: Yes Accompanied by: Self / Same As Patient Allergies No Known Allergies [No Known Allergies*] Allergy (Verified 09/17/23 09:36) HPI Comments Details: Darius was seen in follow up for his CKD. He has diabetic renal disease. He has no episodes of hypoglycemia. He has no hematuria, edema or dizziness. He is compliant with his medications. He is on SGLT2 inhibitor. His last serum creatinine had been stable. He has H/O mild hyperkalemia . He is on ACEI. He does not take any NSAID's. 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 CKD (chronic kidney disease) stage 3, GFR 30-59 ml/min Sleep apnea CAD (coronary artery disease) Seasonal allergies BPH (benign prostatic hyperplasia) Hematuria Hx of dermatitis Pulmonary HTN HTN (hypertension) CVA (cerebral vascular accident) Type 2 diabetes mellitus with unspecified complications NICM (nonischemic cardiomyopathy) Atherosclerotic heart disease of [place] coronary artery without angina pectoris Hyperlipidemia, unspecified Smoker Transient cerebral ischemic attack, unspecified Surgical History Hx of colonoscopy Hx of bilateral cataract extraction History of inguinal hernia repair, bilateral (~04/2016) History of cardiac catheterization (12/28/19) Family History Father Cardiovascular disease Diabetes Mother Osteoporosis Social History Housing: Apartment Are you a primary career development specialist to a significant other at home: No Do you presently have visiting nurse or other home services: No Alcohol intake: never Patient Tobacco Use Status: Current everyday Tobacco user Cigarettes Per Day: 10 Years Smoked: 55 e-Cigarette/Vaping Use: Never Used Second Hand Smoke Exposure: Yes Current occupational status: retired Cognitive needs: No Hearing needs: No Vision needs: No Physical Exam Vital Signs: Last Vital Signs Pulse 97 09/17/23 09:34 BP 100/70 09/17/23 09:34 Pulse Ox 99 09/17/23 09:34 Oxygen Delivery Method Room Air 09/17/23 09:34 BMI result Body Mass Index 25.7 Const General: comfortable and no acute distress Orientation/consciousness: patient oriented x3 HEENT Head: Yes normocephalic Mouth: Normal oral and palatal mucosa present Eyes EOM: EOMs intact bilaterally Neck Neck: Yes supple Resp Auscultation: clear to auscultation bilaterally Cardio Jugular venous distension: no JVD Rate: regular rate GI Palpation (GI): Soft to palpation Auscultation: normal bowel sounds General: Yes no CVA tenderness Back/Spine/Pelvis Back: no CVA tenderness Skin General skin exam: no rashes or lesions noted Neuro General: patient oriented x3 and moves all extremities Extrem General: Yes no pedal edema Results Reviewed Nephrology Results: Sodium 139 mmol/L (135-145) 06/11/23 Potassium 4.6 mmol/L (3.3-5.1) 06/11/23 Chloride 110 mmol/L (96-108) H 06/11/23 Carbon Dioxide 24 mmol/L (22-29) 06/11/23 BUN 30 mg/dL (9-16) H 06/11/23 Creatinine 1.44 mg/dL (0.5-1.4) H 06/11/23 Assessment & Plan Assessment & Plan (1) Hyperkalemia: Code(s): E87.5 - Hyperkalemia Category: Medical (2) CKD (chronic kidney disease) stage 3, GFR 30-59 ml/min: Code(s): N18.30 - Chronic kidney disease, stage 3 unspecified Category: Medical Qualifiers: Chronic kidney disease stage 3 subtype: stage 3a (GFR 45-59) Qualified Code(s): N18.31 - Chronic kidney disease, stage 3a Plan Has CKD for long time. Serum creatinine had been stable Urine output good. Does not take NSAID's; Good hydration Blood pressure at goal. On ACEI. Needs consistent good BS control On Farxiga 2.5 mg daily- may increase the dose next visit Labs ordered; All questions answered . F/U given for 3 months Orders: Orders Blood Urea Nitrogen Today N18.31 - Chronic kidney disease, stage 3a Electrolytes Today N18.31 - Chronic kidney disease, stage 3a Electrolytes 3 Months E87.5 - Hyperkalemia, N18.31 - Chronic kidney disease, stage 3a Creatinine Today N18.31 - Chronic kidney disease, stage 3a Creatinine 3 Months E87.5 - Hyperkalemia, N18.31 - Chronic kidney disease, stage 3a Blood Urea Nitrogen 3 Months E87.5 - Hyperkalemia, N18.31 - Chronic kidney disease, stage 3a Medications: Refilled dapagliflozin propanediol (Farxiga) 2.5 mg (1/2 x 5 mg) PO DAILY 15 tabs 6RF Coding Level of Care Code Est Pt Level 4 (22494) Diagnoses Hyperkalemia E87.5 Stage 3a chronic kidney disease N18.31 Chronic kidney disease stage 3 subtype: stage 3a (GFR 45-59)
[2023-09-17 09:34] VITALS: BP 100/70; PULSE 97; O2SAT 99; BMI 25.7
== END 2023-09-17 09:50 | disposition home or self-care (01) ==
PROVIDERS: PCP Nurse Practitioner Family; Visit Provider Internal Medicine Nephrology
DX: E87.5 Hyperkalemia (principal); N18.31 Chronic kidney disease, stage 3a
CPT/HCPCS: 99214

== ENCOUNTER → 2023-09-17 09:30 | Outpatient (BNVA) | payer MEDICARE, SELFPAY | PROVIDERS: PCP Nurse Practitioner Family; Visit Provider Internal Medicine Nephrology ==

== ENCOUNTER 2023-09-17 09:55 | Outpatient (REF) | payer MEDICARE, MEDICAID, SELFPAY ==
[2023-09-17 11:26] LABS: Anion Gap 14 (12-20); Blood Urea Nitrogen 35 mg/dL (9-16); Carbon Dioxide 21 mmol/L (22-29); Chloride 108 mmol/L (96-108); Estimated Glomerular Filt Rate 45; Potassium 4.8 mmol/L (3.3-5.1); Sodium 138 mmol/L (135-145)
== END 2023-09-17 09:56 | disposition home or self-care (01) ==
LOC: HO.10HDL 09:55
PROVIDERS: Visit Provider Internal Medicine Nephrology
DX: N18.31 Chronic kidney disease, stage 3a (principal); E87.5 Hyperkalemia
CPT/HCPCS: 36415; 80051; 82565; 84520; 99212

== ENCOUNTER 2023-11-19 14:46 | Outpatient (REF) | payer MEDICARE, MEDICAID, SELFPAY ==
--- NOTE | ~2023-11-19 | CT_ITS ---
EXAMINATION: CT CHEST WITHOUT CONTRAST CLINICAL INFORMATION: Solitary pulmonary nodule COMPARISON: 11/08/2022 TECHNIQUE: Multidetector volumetric CT imaging of the chest was done. Axial MIP volume rendering provided. Sagittal and coronal reformatted images were obtained. This CT examination was performed using dose optimization techniques as appropriate, variously including the following: *Automated exposure control *Adjustment of mA and/or kV according to patient size (this includes techniques or standardized protocols for targeted exams where dose is matched to indication/reason for exam; i.e. extremities or head) *Use of iterative reconstruction technique DLP: 139 mGy-cm FINDINGS: BILL BOARD POSTER: Elevated right hemidiaphragm, chronic. LUNGS: The central airways are patent. There is mild centrilobular and moderate paraseptal emphysema. Cystic changes are greatest at the lung bases. No dense consolidation. The peripheral left upper lobe nodule measuring 0.3 cm in noted, less dense than on prior. This is seen on series 5 image 184. There is no increase in size. No new pulmonary nodules are seen. MEDIASTINUM: No mediastinal lymphadenopathy. Small mediastinal nodes are present. CORONARY ARTERY CALCIFICATION: Present. PLEURA: There is no pleural effusion. No pneumothorax. AXILLA: No lymphadenopathy. UPPER ABDOMEN: No acute abnormality. Renal calculi are seen. On the right there are at least 4 calculi present measuring up to 0.3 cm, 8 cm from the posterior axillary line. There is also a 0.2 cm left upper pole calculus noted. OSSEOUS STRUCTURES: No acute or suspicious finding. Mild degenerative changes in the spine. CT/CT chest wo IV con IMPRESSION: Emphysema. 0.3 cm left upper lobe pulmonary nodule is less dense than on prior. No new pulmonary nodules are seen. No specific follow-up is suggested. Given the presence of emphysema, consider annual low dose screening CT. Fleischner guidelines were followed. Electronically signed by: Jorge Singletary MD 12/16/2023 08:43 AM EDT
== END 2023-11-19 14:47 | disposition home or self-care (01) ==
LOC: HO.CT 14:46
PROVIDERS: PCP Nurse Practitioner Family; Visit Provider Internal Medicine Pulmonary Disease
DX: R91.1 Solitary pulmonary nodule (principal)
CPT/HCPCS: 71250

== ENCOUNTER 2023-12-19 10:50 | Outpatient (AMB) | payer MEDICARE, MEDICAID, SELFPAY ==
--- NOTE | 2023-12-19 10:58 | HO.NEPHOV ---
Vital Signs 12/19/23 11:00 Height 5 ft 6 in Weight 153 lb 6 oz BMI 24.8 BP 100/60 Blood Pressure Location Rt brachial Position Sitting Pulse 82 Pulse Source Pulse Oximeter Pulse Oximetry (%) 96 Oxygen Delivery Method Room Air Intake Visit Reasons: CKD- LVM Motorcoach Driver Required: No Motorcoach Driver Services: Motorcoach Driver Offered & Declined (Motorcoach Driver services refused, refusal form signed and scanned into chart.) Motorcoach Driver Name: Self Accompanied by: Self / Same As Patient Allergies No Known Allergies [No Known Allergies*] Allergy (Verified 12/19/23 11:02) HPI Comments Details: Darius was seen in follow up for his CKD. He has diabetic renal disease. He has no episodes of hypoglycemia. He has no hematuria, edema or dizziness. He is compliant with his medications. He is on SGLT2 inhibitor. His last serum creatinine had been stable. He has H/O mild hyperkalemia . He is on ACEI. He does not take any NSAID's. He feels well otherwise [facility] Medical History Hypertensive retinopathy Raynauds disease Type 2 diabetes mellitus with diabetic polyneuropathy CKD (chronic kidney disease) stage 3, GFR 30-59 ml/min Sleep apnea CAD (coronary artery disease) Seasonal allergies BPH (benign prostatic hyperplasia) Hematuria Hx of dermatitis Pulmonary HTN HTN (hypertension) CVA (cerebral vascular accident) Type 2 diabetes mellitus with unspecified complications NICM (nonischemic cardiomyopathy) Atherosclerotic heart disease of [place] coronary artery without angina pectoris Hyperlipidemia, unspecified Smoker Transient cerebral ischemic attack, unspecified Surgical History Hx of colonoscopy Hx of bilateral cataract extraction History of inguinal hernia repair, bilateral (~04/2016) History of cardiac catheterization (12/28/19) Family History Father Cardiovascular disease Diabetes Mother Osteoporosis Social History Housing: Apartment Are you a primary manager intensive care unit to a significant other at home: No Do you presently have visiting nurse or other home services: No Alcohol intake: never Patient Tobacco Use Status: Current everyday Tobacco user Cigarettes Per Day: 10 Years Smoked: 55 e-Cigarette/Vaping Use: Never Used Second Hand Smoke Exposure: Yes Current occupational status: retired Cognitive needs: No Hearing needs: No Vision needs: No Review of Systems Const All systems reviewed & are unremarkable except as noted in HPI and below Physical Exam Vital Signs: Last Vital Signs Pulse 82 12/19/23 11:00 BP 100/60 12/19/23 11:00 Pulse Ox 96 12/19/23 11:00 Oxygen Delivery Method Room Air 12/19/23 11:00 BMI result Body Mass Index 24.8 Const General: comfortable and no acute distress Orientation/consciousness: patient oriented x3 HEENT Head: Yes normocephalic Mouth: Normal oral and palatal mucosa present Eyes EOM: EOMs intact bilaterally Neck Neck: Yes supple Resp Auscultation: clear to auscultation bilaterally Cardio Jugular venous distension: no JVD Rate: regular rate GI Palpation (GI): Soft to palpation Auscultation: normal bowel sounds General: Yes no CVA tenderness Back/Spine/Pelvis Back: no CVA tenderness Skin General skin exam: no rashes or lesions noted Neuro General: patient oriented x3 and moves all extremities Extrem General: Yes no pedal edema Results Reviewed Nephrology Results: Sodium 138 mmol/L (135-145) 09/17/23 Potassium 4.8 mmol/L (3.3-5.1) 09/17/23 Chloride 108 mmol/L (96-108) 09/17/23 Carbon Dioxide 21 mmol/L (22-29) L 09/17/23 BUN 35 mg/dL (9-16) H 09/17/23 Creatinine 1.52 mg/dL (0.5-1.4) H 09/17/23 Assessment & Plan Assessment & Plan (1) CKD (chronic kidney disease) stage 3, GFR 30-59 ml/min: Code(s): N18.30 - Chronic kidney disease, stage 3 unspecified Category: Medical Qualifiers: Chronic kidney disease stage 3 subtype: stage 3a (GFR 45-59) Qualified Code(s): N18.31 - Chronic kidney disease, stage 3a Plan Has CKD for long time. Serum creatinine had been fairly stable Urine output good. Does not take NSAID's; Good hydration Blood pressure at goal. On ACEI. Needs consistent good BS control On Farxiga 2.5 mg daily- may increase the dose with time; No NSAID's Labs ordered; All questions answered . F/U given for 3 months Orders: Orders Blood Urea Nitrogen 6 Months N18.31 - Chronic kidney disease, stage 3a Electrolytes 6 Months N18.31 - Chronic kidney disease, stage 3a Creatinine 6 Months N18.31 - Chronic kidney disease, stage 3a Coding Level of Care Code Est Pt Level 4 (64097) Diagnoses Stage 3a chronic kidney disease N18.31 Chronic kidney disease stage 3 subtype: stage 3a (GFR 45-59)
[2023-12-19 11:00] VITALS: BP 100/60; PULSE 82; O2SAT 96; BMI 24.8
== END 2023-12-19 11:14 | disposition home or self-care (01) ==
PROVIDERS: PCP Nurse Practitioner Family; Visit Provider Internal Medicine Nephrology
DX: E11.22 Type 2 diabetes mellitus with diabetic chronic kidney disease (principal); N18.31 Chronic kidney disease, stage 3a
CPT/HCPCS: 99214

== ENCOUNTER → 2023-12-19 10:50 | Outpatient (BNVA) | payer MEDICARE, SELFPAY | PROVIDERS: PCP Nurse Practitioner Family; Visit Provider Internal Medicine Nephrology | DX: E11.22 Type 2 diabetes mellitus with diabetic chronic kidney disease (principal); N18.31 Chronic kidney disease, stage 3a | CPT/HCPCS: 99212 ==

== ENCOUNTER 2023-12-29 10:01 | Outpatient (AMB) | payer MEDICARE, MEDICAID, SELFPAY ==
--- NOTE | 2023-12-29 10:08 | A.OFFVIS_ITS ---
Vital Signs 12/29/23 10:09 Height 5 ft 6 in Weight 150 lb BMI 24.2 BP 139/74 Blood Pressure Location Lt brachial Position Sitting Respiration 14 Pulse 100 Pulse Source Pulse Oximeter Pulse Oximetry (%) 98 Oxygen Delivery Method Room Air Intake Visit Reasons: Lumbar degenerative disc disease Entertainment Director Required: Yes Entertainment Director Name: Lorelei Allergies No Known Allergies [No Known Allergies*] Allergy (Verified 01/23/24 10:27) Medication List - Last Reconciled 12/29/23 by Lennie Medellin LPN alcohol swabs (Alcohol Prep Pads) 1 pad topical TID 30 days aspirin 81 mg PO DAILY blood sugar diagnostic (FreeStyle Lite Strips) test TID blood-glucose meter (FreeStyle Lite Meter kit) Test TID dapagliflozin propanediol (Farxiga) 2.5 mg (1/2 x 5 mg) PO DAILY [extra-depth Diabetic shoes with 3 pair Custom heat-molded multi-density innersoles As directed] finasteride 5 mg PO DAILY 90 days gabapentin 1,200 mg PO TID ketoconazole 2% 1 appl topical BID 20 days lancets (FreeStyle Lancets) Test TID lisinopril 2.5 mg PO DAILY metformin 500 mg PO TID rosuvastatin 40 mg PO DAILY semaglutide (Ozempic) 0.25 mg (0.368 mL) subcut QWEEK Shower Chair use daily, for lower extrem weakness/hip pains umeclidinium-vilanterol 62.5-25 mcg/actuation (Anoro Ellipta) 1 inh inhalation DAILY Ventolin HFA 90 mcg/actuation (albuterol sulfate) 2 puffs inhalation Q4-6H PRN NS vibegron (Gemtesa) 75 mg PO DAILY 30 days HPI HPI Lumbar degenerative disc disease: Details: 78-year-old male who presents today to the office for evaluation of lumbar degenerative disc disease. His daughter accompanied him today in the office. He reports bilateral cervical neck pain and pressure. He reports falling several months ago, hitting the back of his head, and he developed neck pain. He has some difficulty seeing around. He denies any radicular symptoms, changes in vision, dizziness, N/V, or any LOC. He had an x-ray of the cervical spine that was produced below. He also reports low back pain that radiates down to the left leg. He has been following up with Dr. Cross for spinal stenosis and herniated disk. He had an MRI scan done recently in [place]. He has been taking Tylenol. He is also taking gabapentin 100 milligrams TID for diabetic neuropathy. He was recommended taking diclofenac and steroid medications. He lives with his . His daughter is a nurse. [facility] Medical History Hypertensive retinopathy Raynauds disease Type 2 diabetes mellitus with diabetic polyneuropathy CKD (chronic kidney disease) stage 3, GFR 30-59 ml/min Sleep apnea CAD (coronary artery disease) Seasonal allergies BPH (benign prostatic hyperplasia) Hematuria Hx of dermatitis Pulmonary HTN HTN (hypertension) CVA (cerebral vascular accident) Type 2 diabetes mellitus with unspecified complications NICM (nonischemic cardiomyopathy) Atherosclerotic heart disease of [place] coronary artery without angina pectoris Hyperlipidemia, unspecified Smoker Transient cerebral ischemic attack, unspecified Surgical History Hx of colonoscopy Hx of bilateral cataract extraction History of inguinal hernia repair, bilateral (~04/2016) History of cardiac catheterization (12/28/19) Family History Father Cardiovascular disease Diabetes Mother Osteoporosis Social History Housing: Apartment Are you a primary child care giver to a significant other at home: No Do you presently have visiting nurse or other home services: No Alcohol intake: never Patient Tobacco Use Status: Current everyday Tobacco user Cigarettes Per Day: 10 Years Smoked: 55 e-Cigarette/Vaping Use: Never Used Second Hand Smoke Exposure: Yes Current occupational status: retired Cognitive needs: No Hearing needs: No Vision needs: No Review of Systems Const All systems reviewed & are unremarkable except as noted in HPI and below Physical Exam Vital Signs: Last Vital Signs Pulse 100 12/29/23 10:09 Resp 14 12/29/23 10:09 BP 139/74 12/29/23 10:09 Pulse Ox 98 12/29/23 10:09 Oxygen Delivery Method Room Air 12/29/23 10:09 BMI result Body Mass Index 24.2 General: Appears afebrile. Alert and oriented. Mood and affect appropriate. Follows and participates in conversation appropriately. Respiratory effort is unlabored. Able to transition from sit to stand unassisted. Ambulates with bilaterally normal heel strike and toe off. Results Reviewed Results Reviewed: 11/19/23: CT CHEST WITHOUT CONTRAST OSSEOUS STRUCTURES: No acute or suspicious finding. Mild degenerative changes in the spine. 05/05/23: XR CERVICAL SPINE FINDINGS: There is bony demineralization. At C3-C4, there is a 2 mm anterolisthesis. At C3-C4-C5, there is a 3 mm anterolisthesis. At C5-C6 and C6-C7, there is moderate anterior disc space narrowing. No acute fracture or spondylolisthesis is seen. There is multi-level cervical spondylosis and facet arthropathy. The posterior elements are intact. The dens is intact. No prevertebral soft tissue swelling is seen. There are bilateral carotid atherosclerotic calcifications. IMPRESSION: 1. There is multi-level cervical degenerative disc disease, spondylosis and facet arthropathy. Degenerative disc disease is most pronounced at C5-C6 and C6-C7, where it is moderate. 2. There are bilateral carotid atherosclerotic calcifications, which could be more fully evaluated with dedicated carotid ultrasound, if clinically indicated. Assessment & Plan Assessment & Plan (1) Cervical spondylosis: Code(s): M47.812 - Spondylosis without myelopathy or radiculopathy, cervical region Category: Medical (2) Neck pain: Code(s): M54.2 - Cervicalgia Category: Medical Plan Discussed temporary peripheral nerve stimulator as possible treatment option for neck and back pain. We will schedule him for a left C4 medial branch nerve stimulator placement and then on right side 1-2 weeks later. Discussed the risks and benefits of the procedure with the patient in detail. All questions were answered. The patient is on board with the plan. Justification for interventional therapy: ? Patient with average pain > 6/10 ? Patient has exhausted conservative therapy ? Patient unable to tolerate physical therapy due to pain . Patient has a good understanding of their pain condition and has appropriate mental and social support He has significant axial low back pain as well, secondary to lumbar spondylosis and might benefit from the lumbar medial branch radiofrequency ablation in the future. He is also taking gabapentin 100 milligrams TID for diabetic neuropathy. It told him that I will be happy to renew this prescription to minimize his doctor visits. Scribed for Dr. Jara by Aly Pope, medical billing manager, on 12/29/2023. I, Dr. Jara, have personally reviewed and agree with the information entered by the scribe. Coding Level of Care Code New Pt Level 4 (16698) Diagnoses Cervical spondylosis M47.812 Neck pain M54.2
[2023-12-29 10:09] VITALS: BP 139/74; PULSE 100; RESP 14; O2SAT 98; BMI 24.2
== END 2023-12-29 10:43 | disposition home or self-care (01) ==
PROVIDERS: PCP Internal Medicine; Visit Provider Internal Medicine
DX: M47.812 Spondylosis without myelopathy or radiculopathy, cervical region (principal); M54.2 Cervicalgia
CPT/HCPCS: 99204

== ENCOUNTER → 2023-12-29 10:01 | Outpatient (BNVA) | payer MEDICARE, MEDICAID, SELFPAY | PROVIDERS: PCP Internal Medicine; Visit Provider Internal Medicine | DX: M47.812 Spondylosis without myelopathy or radiculopathy, cervical region (principal) | CPT/HCPCS: 99202 ==

== ENCOUNTER 2024-01-08 14:15 | Outpatient (REF) | payer MEDICARE, SELFPAY ==
[2024-01-08 17:10] LABS: Influenza A PCR NEGATIVE (Negative); Influenza B PCR NEGATIVE (Negative); Resp Syncy Virus RNA Qual PCR NEGATIVE (Negative); SARS COV2 PCR INHOUSE NEGATIVE (Negative)
== END 2024-01-08 14:16 | disposition home or self-care (01) ==
LOC: HO.LAB 14:15
PROVIDERS: PCP Nurse Practitioner Family; Visit Provider Nurse Practitioner Family
DX: Z13.89 Encounter for screening for other disorder (principal)
CPT/HCPCS: 0241U; 99212

== ENCOUNTER 2024-01-08 14:15 | Outpatient (AMB) | payer MEDICARE, SELFPAY ==
[2024-01-08 14:20] VITALS: BP 100/52; PULSE 60; O2SAT 100; BMI 24.7
--- NOTE | 2024-01-08 14:20 | A.OFFPC_ITS ---
Vital Signs 01/08/24 14:20 Height 5 ft 6 in Weight 153 lb BMI 24.7 BP 100/52 L Blood Pressure Location Lt brachial Position Sitting Pulse 60 Pulse Source Pulse Oximeter Pulse Oximetry (%) 100 Oxygen Delivery Method Room Air Intake Visit Reasons: regular visit Intake Note: Pt is here today for his regular visit Allergies No Known Allergies [No Known Allergies*] Allergy (Verified 01/08/24 16:55) Medication List - Last Reconciled 01/08/24 by TEJAS Rivera alcohol swabs (Alcohol Prep Pads) 1 pad topical TID 30 days aspirin 81 mg PO DAILY azithromycin For 250 mg dose pack: take 500 mg today (day 1), then 250 mg for 4 days (days 2-5) PO blood sugar diagnostic (FreeStyle Lite Strips) test TID blood-glucose meter (FreeStyle Lite Meter kit) Test TID dapagliflozin propanediol (Farxiga) 2.5 mg (1/2 x 5 mg) PO DAILY [extra-depth Diabetic shoes with 3 pair Custom heat-molded multi-density innersoles As directed] finasteride 5 mg PO DAILY 90 days gabapentin 1,200 mg PO TID ketoconazole 2% 1 appl topical BID 20 days lancets (FreeStyle Lancets) Test TID lisinopril 2.5 mg PO DAILY metformin 500 mg PO TID prednisone 40 mg (2 x 20 mg) PO DAILY 6 days rosuvastatin 40 mg PO DAILY semaglutide (Ozempic) 0.25 mg (0.368 mL) subcut QWEEK Shower Chair use daily, for lower extrem weakness/hip pains umeclidinium-vilanterol 62.5-25 mcg/actuation (Anoro Ellipta) 1 inh inhalation DAILY Ventolin HFA 90 mcg/actuation (albuterol sulfate) 2 puffs inhalation Q4-6H PRN NS vibegron (Gemtesa) 75 mg PO DAILY 30 days Tobacco use date assessed: 01/08/24 Fall risk assessment: 1 Fall in past year Last assessed Fall Risk: 01/08/24 Dental Screening Dental Screen Date: 01/08/24 Did you have a dental visit in the last 12 months?: No Did you have a dental problem in the last 6 months where you did not have access to dental care?: No Was dental information given to patient?: No HPI regular visit HPI Details Pt is a diabetic, on an BERYL and a statin. A1C in office today is 6.1. Due for microalbumin, will order. Denies polyuria and polydipsia, does report neuropathy. Pt denies any signs and symptoms of hypoglycemia and does know how to correct it. Pt c/o cough x 2 weeks. He is producing mucus with the cough. He reports some chills as well. Will swab for COVID/flu/RSV. Will also order chest XR. Pt does have a hx of COPD. Will send azithromycin and prednisone. Denies fever, chest pain, and increased shortness of breath. He does smoke still. 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 CKD (chronic kidney disease) stage 3, GFR 30-59 ml/min Sleep apnea CAD (coronary artery disease) Seasonal allergies BPH (benign prostatic hyperplasia) Hematuria Hx of dermatitis Pulmonary HTN HTN (hypertension) CVA (cerebral vascular accident) Type 2 diabetes mellitus with unspecified complications NICM (nonischemic cardiomyopathy) Atherosclerotic heart disease of [place] coronary artery without angina pectoris Hyperlipidemia, unspecified Smoker Transient cerebral ischemic attack, unspecified Surgical History Hx of colonoscopy Hx of bilateral cataract extraction History of inguinal hernia repair, bilateral (~04/2016) History of cardiac catheterization (12/28/19) Family History Father Cardiovascular disease Diabetes Mother Osteoporosis Social History Housing: Apartment Are you a primary nursing care attendant to a significant other at home: No Do you presently have visiting nurse or other home services: No Alcohol intake: never Patient Tobacco Use Status: Current everyday Tobacco user Cigarettes Per Day: 10 Years Smoked: 55 e-Cigarette/Vaping Use: Never Used Second Hand Smoke Exposure: Yes Current occupational status: retired Cognitive needs: No Hearing needs: No Vision needs: No Questionnaire Thrive Questionnaire Date Thrive assessed: 04/30/23 MECHELLE-7 AMB Questionnaire MECHELLE-7 Date MECHELLE - 7 assessed: 04/30/23 Source: Developed by Drs. Crispin Vargas, Nannetet Alanis, Jimmy Parks and colleagues, with an educational orville from [employer]. Review of Systems Const Reports as per HPI Physical exam (Primary Care) Vital Signs: Last Vital Signs Pulse 60 01/08/24 14:20 BP 100/52 L 01/08/24 14:20 Pulse Ox 100 01/08/24 14:20 Oxygen Delivery Method Room Air 01/08/24 14:20 BMI result Body Mass Index 24.7 Tobacco/Smoking Status: Tobacco use Status Tobacco use date assessed 01/08/24 01/08/24 14:21 Patient Tobacco Use Status Current everyday Tobacco 01/08/24 14:21 e-Cigarette/Vaping Use Never Used 01/08/24 14:21 Thrive Assessment: Date of Thrive Assessment Date Thrive assessed 04/30/23 01/08/24 14:21 Const General: cooperative Orientation/consciousness: patient oriented x3 Resp Other: lungs with coarse wheezes Effort & Inspection: normal respiratory effort Auscultation: diminished lung sounds Cardio Rate: regular rate Rhythm: regular rhythm Heart sounds: S1 normal heart sound present and S2 normal heart sound present Neuro General: patient oriented x3 Extrem Other: bilat feet: + sensation with use of monofilament, feet intact, onychomycosis noted bilat, elongated toenails Psych Appearance: grossly normal Mental Status: mental status grossly normal Speech and movement: Normal speech and movement present Affect: normal affect Attitude: cooperative Thought process: Normal thought process present Thought content: Normal thought content present Insight: Good insight present (Psych) Judgement: Good judgement present (Psych) Coding Level of Care Code Est Pt Level 4 (40851) Diagnoses Cough R05 Respiratory infection J98.8 Type 2 diabetes mellitus with diabetic polyneuropathy E11.42 Assessment & Plan Assessment & Plan (1) Cough: Code(s): R05 - Cough Category: Medical Plan: Chest XR ordered, swabbed for COVID/flu/RSV, antibiotic and prednisone sent (2) Respiratory infection: Code(s): J98.8 - Other specified respiratory disorders Category: Medical Plan: Chest XR ordered, swabbed for COVID/flu/RSV (3) Type 2 diabetes mellitus with diabetic polyneuropathy: Code(s): E11.42 - Type 2 diabetes mellitus with diabetic polyneuropathy Category: Medical Plan: A1C done in office Plan The patient agreed to the use of a family practice medical doctor for this encounter. Scribed for URBAN Apodaca by Leonila Lyle family practice medical doctor, on 01/08/2024 at 14:30 EST. Orders: Orders XR chest 2V Today R05 - Cough SARS-CoV2/FLU/RSV Today J98.8 - Other specified respiratory disorders Comprehensive [place]. Panel Fast Today E11.42 - Type 2 diabetes mellitus with diabetic polyneuropathy Complete Blood Count Auto Diff Today E11.42 - Type 2 diabetes mellitus with diabetic polyneuropathy TSH reflex Free T4 Today E11.42 - Type 2 diabetes mellitus with diabetic polyneuropathy UA CC w/rflx Micro + Cult Today E11.42 - Type 2 diabetes mellitus with diabetic polyneuropathy Lipid Panel Today E11.42 - Type 2 diabetes mellitus with diabetic polyneuropathy Medications: New azithromycin For 250 mg dose pack: take 500 mg today (day 1), then 250 mg for 4 days (days 2-5) PO 6 tabs 0RF prednisone 40 mg (2 x 20 mg) PO DAILY 6 days 12 tabs 0RF
== END 2024-01-08 16:58 | disposition home or self-care (01) ==
PROVIDERS: PCP Nurse Practitioner Family; Visit Provider Nurse Practitioner Family
DX: R05.9 Cough, unspecified (principal); J98.8 Other specified respiratory disorders; E11.42 Type 2 diabetes mellitus with diabetic polyneuropathy

== ENCOUNTER 2024-01-08 14:55 | Outpatient (REF) | payer MEDICARE, MEDICAID, SELFPAY ==
--- NOTE | ~2024-01-08 | XR_ITS ---
EXAMINATION: XR CHEST 2 VIEWS CLINICAL INFORMATION: Cough R05. COMPARISON: XR Chest 07/04/2022, CT chest November 19, 2023. TECHNIQUE: 2 views of the chest were obtained. FINDINGS: No pneumothorax or dominant airspace consolidation seen. There is a new fluid level identified in a left lower lobe bulla. This measures approximately 4.5 cm transverse on the film. There is small mid to left basilar patchy opacities which could reflect minimal patchy infiltrates or adjacent atelectasis. No new distinct pleural effusions. Hilar regions and pulmonary vascularity appear stable. XR/XR chest 2V IMPRESSION: 1. New fluid level in a left lower lobe bulla. This could be on an infectious basis, and clinical correlation recommended. 2. Small mid to left basilar patchy opacities may reflect minimal patchy infiltrates or adjacent atelectasis. Electronically signed by: Manfred Castellon MD 03/18/2024 11:51 AM SHANDA PEREZ
== END 2024-01-08 14:56 | disposition home or self-care (01) ==
LOC: HO.HMGCX 14:55
PROVIDERS: PCP Nurse Practitioner Family; Visit Provider Nurse Practitioner Family
DX: R05.9 Cough, unspecified (principal); J98.8 Other specified respiratory disorders; E11.42 Type 2 diabetes mellitus with diabetic polyneuropathy
CPT/HCPCS: 0241U; 71046; 99212

== ENCOUNTER 2024-01-15 06:10 | Outpatient (REF) | payer MEDICARE, SELFPAY | END 2024-01-15 06:11 | disposition home or self-care (01) | LOC: CF 06:10 | PROVIDERS: Visit Provider Internal Medicine | DX: M47.812 Spondylosis without myelopathy or radiculopathy, cervical region (principal); Z45.42 Encounter for adjustment and management of neurostimulator | CPT/HCPCS: 64555; C1778; J2003 ==

== ENCOUNTER 2024-01-15 10:22 | Outpatient (AMB) | payer MEDICARE, MEDICAID, SELFPAY ==
[2024-01-15 10:28] VITALS: BP 146/74; PULSE 84; O2SAT 98
--- NOTE | 2024-01-15 10:28 | MHC.OFFVIS ---
Vital Signs 01/15/24 10:28 01/15/24 11:05 BP 146/74 H 147/75 H Blood Pressure Location Lt brachial Lt brachial Position Sitting Sitting Pulse 84 88 Pulse Source Pulse Oximeter Pulse Oximeter Pulse Oximetry (%) 98 96 Oxygen Delivery Method Room Air Room Air Intake Visit Reasons: Left C4 Sprint Allergies No Known Allergies [No Known Allergies*] Allergy (Verified 01/08/24 16:55) HPI HPI Left C4 Sprint: Details: Patient presents for scheduled procedure. Denies any recent cough, cold, infection, fever or other significant changes in medical history since last office visit. 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 CKD (chronic kidney disease) stage 3, GFR 30-59 ml/min Sleep apnea CAD (coronary artery disease) Seasonal allergies BPH (benign prostatic hyperplasia) Hematuria Hx of dermatitis Pulmonary HTN HTN (hypertension) CVA (cerebral vascular accident) Type 2 diabetes mellitus with unspecified complications NICM (nonischemic cardiomyopathy) Atherosclerotic heart disease of [place] coronary artery without angina pectoris Hyperlipidemia, unspecified Smoker Transient cerebral ischemic attack, unspecified Surgical History Hx of colonoscopy Hx of bilateral cataract extraction History of inguinal hernia repair, bilateral (~04/2016) History of cardiac catheterization (12/28/19) Family History Father Cardiovascular disease Diabetes Mother Osteoporosis Social History Housing: Apartment Are you a primary ocular care technician to a significant other at home: No Do you presently have visiting nurse or other home services: No Alcohol intake: never Patient Tobacco Use Status: Current everyday Tobacco user Cigarettes Per Day: 10 Years Smoked: 55 e-Cigarette/Vaping Use: Never Used Second Hand Smoke Exposure: Yes Current occupational status: retired Cognitive needs: No Hearing needs: No Vision needs: No Physical Exam Vital Signs: Last Vital Signs Pulse 88 01/15/24 11:05 BP 147/75 H 01/15/24 11:05 Pulse Ox 96 01/15/24 11:05 Oxygen Delivery Method Room Air 01/15/24 11:05 Office Procedures Details: Cervical Medial Branch Nerve Stimulation Lead Placement, SPR (Sprint) System, C5 Left ? After the risks, benefits and alternatives were discussed with the patient and informed consent was obtained, patient was placed in the prone position and padded to foster comfort. The skin overlying the cervical spine was prepped and draped in sterile fashion. Fluoroscopy was used to identify the spinous process and lamina over the left C5 articular pillar. After identifying and marking the intended target along the course of the medial branch nerve, the skin around the planned entry point and the subcutaneous tissues were injected with lidocaine 1%. An introducer needle and stimulating probe were assembled, inserted and advanced along the intended course of the medial branch nerve, taking care to maintain the proper depth of insertion as the introducer was advanced under fluoroscopic guidance. The introducer needle was delivered to a location in proximity to the nerve. Multiple stimulation parameters were used to deliver stimulation to the target medial branch nerve in concert with stimulating at multiple positions around the nerve. Nerve target acquisition was confirmed noting generation of paresthesias in the paravertebral regions corresponding to the level being stimulated. Various electrical parameter combinations were tested, and the lead location was adjusted (physically relocated) until the patient indicated paresthesia/muscle tension overlapping the distribution of the patient?s typical region of pain, including neck and occipital region. The stimulating probe was removed from the introducer and a percutaneous lead was guided through the needle and delivered to a location in similar proximity to the nerve. Final location was verified with electrical stimulation and documented with fluoroscopy. The introducer needle was removed, and the exposed end of the percutaneous lead was attached to an external stimulator unit. Various electrical parameter combinations were again tested until the patient indicated paresthesia or muscle tension overlapping the distribution of the patient?s typical region of pain. Fluoroscopy was used to document the location of the percutaneous lead in the deployed position. After confirming that lead impedance was in the normal range, the external unit was detached, the needle was removed, and the lead was anchored at the skin. The lead was threaded into the connector block and electrical continuity and desired patient response was confirmed. The connector block was attached to the external stimulator unit. The site was covered with a sterile occlusive pressure dressing. The patient was observed for stability of vital signs and comfort. Patient was dischared in stable condition. Sprint PNS Device: Sprint PNS Device [id number] Percutaneous Peripheral Neuroelectrode Procedure: 36622 - Percutaneous Peripheral Neuroelectrode Procedure code (CPT) selection complete Office Meds lidocaine HCl 10 mg/mL (1 %) injection solution Performing Provider: Cheryl Kraus APRN, CNP Performing Location: [facility] Administered by: Lennie Medellin LPN on 01/15/24 10:41 Dose Route Admin Location Dispensed Lot Number Expiration Date NDC Field Operations Supervisor 5 mL subcut 5 mL Assessment & Plan Assessment & Plan (1) Cervical spondylosis: Code(s): M47.812 - Spondylosis without myelopathy or radiculopathy, cervical region Category: Medical (2) Neck pain: Code(s): M54.2 - Cervicalgia Category: Medical Plan Patient is status post left C5 medial branch temporary nerve stimulator placement. Patient tolerated procedure well and was discharged home in stable condition with discharge instructions. All questions were answered. We will follow-up via telephone or in clinic to assess response to therapy. A follow-up appointment was made during today's visit. Orders: Orders AMB Sprint PNS Today M47.812 - Spondylosis without myelopathy or radiculopathy, cervical region FL guidance in treatment room Today M47.812 - Spondylosis without myelopathy or radiculopathy, cervical region Coding Level of Care Code Procedure Only Diagnoses Cervical spondylosis M47.812 Neck pain M54.2 CPT Codes Sprint PNS - Sprint PNS Device: Sprint PNS Device ([id number]) Sprint PNS - SPRINT: 53755 - Percutaneous Peripheral Neuroelectrode ([id number]) Implantable Device Implantable Device Implantable Devices Qty Field Operations Supervisor Implant Date Expiration Date Analgesic PENS system 1 [employer] 01/15/24 06/29/25
[2024-01-15 11:05] VITALS: BP 147/75; PULSE 88; O2SAT 96
== END 2024-01-15 11:23 | disposition home or self-care (01) ==
LOC: HO.PMCPRC 10:22
PROVIDERS: PCP Nurse Practitioner Family; Visit Provider Internal Medicine
DX: M47.812 Spondylosis without myelopathy or radiculopathy, cervical region (principal); M54.2 Cervicalgia
CPT/HCPCS: 64555

== ENCOUNTER 2024-01-23 08:50 | Outpatient (AMB) | payer MEDICARE, MEDICAID, SELFPAY ==
[2024-01-23 08:59] VITALS: BP 102/62; PULSE 97; O2SAT 98; BMI 25.2
--- NOTE | 2024-01-23 08:59 | MHC.OFFVIS ---
Vital Signs 01/23/24 08:59 Height 5 ft 6 in Weight 156 lb BMI 25.2 BP 102/62 Blood Pressure Location Rt brachial Position Sitting Pulse 97 Pulse Source Doppler Pulse Oximetry (%) 98 Oxygen Delivery Method Room Air Intake Visit Reasons: COPD Allergies No Known Allergies [No Known Allergies*] Allergy (Verified 01/08/24 16:55) HPI HPI COPD: Details: 78-year-old gentleman, active 50+ pack-year smoker, followed for underlying moderate to severe COPD and pulmonary nodules. Patient continues to use Anoro and albuterol MDI with reasonable control of his symptoms. He denies any recent exacerbations. His follow-up CT chest shows no worrisome pulmonary nodules. 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 CKD (chronic kidney disease) stage 3, GFR 30-59 ml/min Sleep apnea CAD (coronary artery disease) Seasonal allergies BPH (benign prostatic hyperplasia) Hematuria Hx of dermatitis Pulmonary HTN HTN (hypertension) CVA (cerebral vascular accident) Type 2 diabetes mellitus with unspecified complications NICM (nonischemic cardiomyopathy) Atherosclerotic heart disease of [place] coronary artery without angina pectoris Hyperlipidemia, unspecified Smoker Transient cerebral ischemic attack, unspecified Surgical History Hx of colonoscopy Hx of bilateral cataract extraction History of inguinal hernia repair, bilateral (~04/2016) History of cardiac catheterization (12/28/19) Family History Father Cardiovascular disease Diabetes Mother Osteoporosis Social History Housing: Apartment Are you a primary critical care nurse specialist to a significant other at home: No Do you presently have visiting nurse or other home services: No Alcohol intake: never Patient Tobacco Use Status: Current everyday Tobacco user Cigarettes Per Day: 10 Years Smoked: 55 e-Cigarette/Vaping Use: Never Used Second Hand Smoke Exposure: Yes Current occupational status: retired Cognitive needs: No Hearing needs: No Vision needs: No Review of Systems Const Denies daytime sleepiness, Denies excessive sweating, Denies fatigue, Denies fever(s), Denies lethargy, Denies malaise, Denies night sweats, Denies snoring and Denies weight loss Eyes Denies blurry vision and Denies itchy eyes ENT Denies nasal congestion, Denies post nasal drip, Denies sinus pain, Denies sinus pressure and Denies other ( Thrush) Card Denies chest pain, Denies pedal edema, Denies dyspnea, Denies orthopnea and Denies paroxysmal nocturnal dyspnea Resp Denies cough, Denies hemoptysis, Denies excessive phlegm production, Denies dyspnea, Denies snoring and Denies wheezing GI Denies abdominal pain and Denies heartburn Musc Denies myalgias, Denies arthralgias and Denies joint swelling Skin/Breast Denies rash Neuro Denies memory loss and Denies seizure-like activity Psych Denies abnormal sleep pattern, Denies anxiety and Denies memory loss Endo Denies excessive sweating, Denies fatigue and Denies heat intolerance [place]/Lymph Denies easy bruising Aller/Immun Denies itchy eyes, Denies seasonal rhinorrhea and Denies wheezing Physical Exam Vital Signs: Last Vital Signs Pulse 97 01/23/24 08:59 BP 102/62 01/23/24 08:59 Pulse Ox 98 01/23/24 08:59 Oxygen Delivery Method Room Air 01/23/24 08:59 BMI result Body Mass Index 25.2 Const General: no acute distress and alert Nutritional Appearance: not obese Orientation/consciousness: Other orientation findings ( oriented) HEENT Head: Yes atraumatic Eyes General: appearance normal, both eyes and all related structures Sclerae: sclerae normal EOM: EOMs intact bilaterally Neck Neck: Yes supple Lymphatic: no lymphadenopathy noted Resp Effort & Inspection: normal respiratory effort and no use of accessory muscles Auscultation: clear to auscultation bilaterally Cardio Rate: regular rate Rhythm: regular rhythm Heart sounds: no gallops, no murmurs and no rubs Skin General skin exam: other ( warm) Extrem General: No clubbing, No cyanosis and No edema Assessment & Plan Assessment & Plan (1) COPD (chronic obstructive pulmonary disease): Code(s): J44.9 - Chronic obstructive pulmonary disease, unspecified Category: Medical Plan: Well controlled on current regimen of Anoro and albuterol MDI. Continue current regimen. (2) Pulmonary nodules: Code(s): R91.8 - Other nonspecific abnormal finding of lung field Category: Medical Plan: Results of follow-up CT chest reviewed, no worrisome pulmonary nodules. No longer requires further imaging follow-up. Coding Level of Care Code Est Pt Level 4 (10041) Diagnoses COPD (chronic obstructive pulmonary disease) J44.9 Pulmonary nodules R91.8
== END 2024-01-23 09:11 | disposition home or self-care (01) ==
PROVIDERS: PCP Nurse Practitioner Family; Visit Provider Internal Medicine Pulmonary Disease
DX: J44.9 Chronic obstructive pulmonary disease, unspecified (principal); R91.8 Other nonspecific abnormal finding of lung field
CPT/HCPCS: 99214

== ENCOUNTER → 2024-01-23 08:50 | Outpatient (BNVA) | payer MEDICARE, MEDICAID, SELFPAY | PROVIDERS: PCP Nurse Practitioner Family; Visit Provider Internal Medicine Pulmonary Disease | DX: J44.9 Chronic obstructive pulmonary disease, unspecified (principal); R91.8 Other nonspecific abnormal finding of lung field; Z48.00 Encounter for change or removal of nonsurgical wound dressing | CPT/HCPCS: 99211; 99212 ==

== ENCOUNTER 2024-01-29 06:17 | Outpatient (REF) | payer MEDICARE, MEDICAID, SELFPAY | END 2024-01-29 06:18 | disposition home or self-care (01) | LOC: CF 06:17 | PROVIDERS: Visit Provider Internal Medicine | DX: M47.812 Spondylosis without myelopathy or radiculopathy, cervical region (principal); G58.9 Mononeuropathy, unspecified; Z45.42 Encounter for adjustment and management of neurostimulator | CPT/HCPCS: 64555; C1778; J2003 ==

== ENCOUNTER 2024-01-29 10:05 | Outpatient (AMB) | payer MEDICARE, MEDICAID, SELFPAY ==
--- NOTE | 2024-01-29 09:52 | A.OFFVIS_ITS ---
Vital Signs 01/29/24 10:12 01/29/24 10:48 BP 115/64 119/65 Blood Pressure Location Lt brachial Lt brachial Position Sitting Sitting Pulse 73 80 Pulse Source Pulse Oximeter Pulse Oximeter Pulse Oximetry (%) 99 97 Oxygen Delivery Method Room Air Room Air Intake Visit Reasons: Right C4 Sprint, Right cervical MB sprint Allergies No Known Allergies [No Known Allergies*] Allergy (Verified 01/23/24 10:27) HPI HPI Right C4 Sprint: Details: Patient presents for scheduled procedure. Denies any recent cough, cold, infection, fever or other significant changes in medical history since last office visit. [facility] Medical History Hypertensive retinopathy Raynauds disease Type 2 diabetes mellitus with diabetic polyneuropathy CKD (chronic kidney disease) stage 3, GFR 30-59 ml/min Sleep apnea CAD (coronary artery disease) Seasonal allergies BPH (benign prostatic hyperplasia) Hematuria Hx of dermatitis Pulmonary HTN HTN (hypertension) CVA (cerebral vascular accident) Type 2 diabetes mellitus with unspecified complications NICM (nonischemic cardiomyopathy) Atherosclerotic heart disease of [place] coronary artery without angina pectoris Hyperlipidemia, unspecified Smoker Transient cerebral ischemic attack, unspecified Surgical History Hx of colonoscopy Hx of bilateral cataract extraction History of inguinal hernia repair, bilateral (~04/2016) History of cardiac catheterization (12/28/19) Family History Father Cardiovascular disease Diabetes Mother Osteoporosis Social History Housing: Apartment Are you a primary clinical care manager to a significant other at home: No Do you presently have visiting nurse or other home services: No Alcohol intake: never Patient Tobacco Use Status: Current everyday Tobacco user Cigarettes Per Day: 10 Years Smoked: 55 e-Cigarette/Vaping Use: Never Used Second Hand Smoke Exposure: Yes Current occupational status: retired Cognitive needs: No Hearing needs: No Vision needs: No Physical Exam Vital Signs: Last Vital Signs Pulse 73 01/29/24 10:12 BP 115/64 01/29/24 10:12 Pulse Ox 99 01/29/24 10:12 Oxygen Delivery Method Room Air 01/29/24 10:12 Office Procedures Details: Cervical Medial Branch Nerve Stimulation Lead Placement, SPR (Sprint) System, Right C5 ? After the risks, benefits and alternatives were discussed with the patient and informed consent was obtained, patient was placed in the prone position and padded to foster comfort. The skin overlying the cervical spine was prepped and draped in sterile fashion. Fluoroscopy was used to identify the spinous process and lamina over the C5 articular pillar. After identifying and marking the intended target along the course of the medial branch nerve, the skin around the planned entry point and the subcutaneous tissues were injected with lidocaine 1%. An introducer needle and stimulating probe were assembled, inserted and advanced along the intended course of the medial branch nerve, taking care to maintain the proper depth of insertion as the introducer was advanced under fluoroscopic guidance. The introducer needle was delivered to a location in proximity to the nerve. Multiple stimulation parameters were used to deliver stimulation to the target medial branch nerve in concert with stimulating at multiple positions around the nerve. Nerve target acquisition was confirmed noting generation of paresthesias in the paravertebral regions corresponding to the level being stimulated. Various electrical parameter combinations were tested, and the lead location was adjusted (physically relocated) until the patient indicated paresthesia/muscle tension overlapping the distribution of the patient?s typical region of pain, including neck and occipital region. The stimulating probe was removed from the introducer and a percutaneous lead was guided through the needle and delivered to a location in similar proximity to the nerve. Final location was verified with electrical stimulation and documented with fluoroscopy. The introducer needle was removed, and the exposed end of the percutaneous lead was attached to an external stimulator unit. Various electrical parameter combi nations were again tested until the patient indicated paresthesia or muscle tension overlapping the distribution of the patient?s typical region of pain. Fluoroscopy was used to document the location of the percutaneous lead in the deployed position. After confirming that lead impedance was in the normal range, the external unit was detached, the needle was removed, and the lead was anchored at the skin. The lead was threaded into the connector block and electrical continuity and desired patient response was confirmed. The connector block was attached to the external stimulator unit. The site was covered with a sterile occlusive pressure dressing. The patient was observed for stability of vital signs and comfort. Patient was dischared in stable condition. Sprint PNS Device: Sprint PNS Device [id number] Percutaneous Peripheral Neuroelectrode Procedure: 19390 - Percutaneous Peripheral Neuroelectrode Procedure code (CPT) selection complete Office Meds lidocaine HCl 10 mg/mL (1 %) injection solution Performing Provider: Cheryl Kraus APRN, CNP Performing Location: [facility] Administered by: Lennie Medellin LPN on 01/29/24 10:27 Dose Route Admin Location Dispensed Lot Number Expiration Date [facility] [place] [employer] 5 mL subcut 5 mL Assessment & Plan Assessment & Plan (1) Cervical spondylosis: Code(s): M47.812 - Spondylosis without myelopathy or radiculopathy, cervical region Category: Medical (2) Neck pain: Code(s): M54.2 - Cervicalgia Category: Medical (3) Mononeuropathy: Code(s): 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 Patient tolerated procedure well and was discharged home in stable condition with discharge instructions. All questions were answered. We will follow-up via telephone or in clinic to assess response to therapy. A follow-up appointment was made during today's visit. Orders: Orders FL guidance in treatment room Today M47.812 - Spondylosis without myelopathy or radiculopathy, cervical region AMB Sprint PNS Today M47.812 - Spondylosis without myelopathy or radiculopathy, cervical region Coding Level of Care Code Procedure Only Diagnoses Cervical spondylosis M47.812 Neck pain M54.2 Mononeuropathy G58.9 CPT Codes Sprint PNS - Sprint PNS Device: Sprint PNS Device ([id number]) Sprint PNS - SPRINT: 19151 - Percutaneous Peripheral Neuroelectrode ([id number]) Implantable Device Implantable Device Implantable Devices Qty Termite Helper Implant Date Expiration Date Analgesic PENS system 1 [employer] 01/15/24 06/29/25 Analgesic PENS system 1 [employer] 01/29/24 10/13/25
[2024-01-29 10:12] VITALS: BP 115/64; PULSE 73; O2SAT 99
[2024-01-29 10:48] VITALS: BP 119/65; PULSE 80; O2SAT 97
== END 2024-01-29 11:01 | disposition home or self-care (01) ==
LOC: HO.PMCPRC 10:05
PROVIDERS: PCP Nurse Practitioner Family; Visit Provider Internal Medicine
DX: M47.812 Spondylosis without myelopathy or radiculopathy, cervical region (principal); M54.2 Cervicalgia; G58.9 Mononeuropathy, unspecified
CPT/HCPCS: 64555

== ENCOUNTER → 2024-02-04 10:40 | Outpatient (BNVA) | payer MEDICARE, MEDICAID, SELFPAY | PROVIDERS: PCP Nurse Practitioner Family; Visit Provider Internal Medicine ==

== ENCOUNTER 2024-03-10 09:05 | Outpatient (REF) | payer MEDICARE, MEDICAID, SELFPAY ==
[2024-03-10 11:41] LABS: Prostate Specific Antigen 1.48 ng/mL (<0.05-4.0)
--- OUTSIDE RECORDS SUMMARY | 2024-03-16 16:42 | XMS_ITS | Patient Health Record ---
Author Organization [facility] [place] Address [address] [place] [address] Care Team Providers Care Certified Medical Dosimetrist Name Role Phone Finn Bird Primary Care Provider Unav ailjodi AdamsSky Unavailable [phone] Allergies No Known Allergies Reason For Referral No Information Medications Medication SIG (Take, Route, Frequency, Duration) Notes Start Date End Date Status Cyanocobalamin 1000 MCG/ML as directed Orally Active metFORMIN HCl ER 500 MG 1 tablet with ev ening meal Orally Once a day for 30 day(s) Active Gabapentin 400 MG 1 capsule Orally Onc e a day for 30 day(s) Active Simvastatin 20 MG 1 tablet in the even ing Orally Once a day for 30 day(s) Active Rosuvastatin Calcium 40 MG Oral for 90 Active Vitamin B-12 Active Umeclidinium-Vilanterol 62.5-25 MCG/INH 1 puff Inhalation Once a day Active Extra Depth Diabetic Shoes with 3 Pair Custom heat-molded multi-density innersoles for 1 year Dx: 12/13/2020 Active Aspirin 81 MG 1 tablet Orally Once a day for 30 day(s) Active Carvedilol 3.125 MG 1 tablet with food Orally Twice a day for 30 day(s) Active Immunizations Vaccine Route Administration Date Status Comme nts Influenza Unknown 03/15/2021 Refused Social History Tobacco Use: Social History Observation Description Date Details (start date - stop date) Current Smoker 12/07/1970 - NA Tobacco Use/Smoking Question Answer Notes Are you a: current smoker When did you start smoking? 12/07/1970 Additional Findings: Tobacco Non-User Ex-moderat e cigarette smoker (10-19/day) Alcohol Screen Question Answer Notes Did you have a drink containing alcohol in the p ast year? No Points 0 Interpretation Negative Tobacco use other than smoking: Question Answer Notes Are you an other tobacco user? No Problems Problem Type SNOMED Code ICD Code Onset Dates Problem Status W/U Status Risk Notes Problem Polyneuropathy due to type 2 diabetes mellitus (155265534) Type 2 diabetes mellitus with diabetic polyneuropathy (E11.42) Active confirmed Problem Polyneuropathy due to diabetes mellitus type I ([id number]) Type 1 diabetes mellitus with diabetic polyneuropathy (E10.42) Active confirmed Problem [id number] Raynaud's diseas e without gangrene (I73.00) Active confirmed Plan Of Treatment Pending Test Test Name Order Date 91902-CQKQ SKIN LESIONS, 2 TO 4 12/14/19 21 [id number] SKIN LESIONS, 2 TO 4 03/15/20 21 [id number] SKIN LESIONS, 2 TO 4 06/07/19 22 Insurance Providers Payer Name Payer Address Payer Phone Subscriber Number Group Number Insured Name Patient Relationship to Insured Coverage Start Date Coverage End Date Medicare National [employer] [address] [place] [address] [id number] Darius Askew Self - patient is the insured Medical (General) History Medical History History ICD Code Arthritis Depression Diabetes, Type 2 Heart disease Hiatal hernia Kidney disease Numbness Poor circulation Vascular grafts (shunt) Benign prostatic hyperplasia (BPH) Stroke Hematuria Dermatitis Hyperlipidemia Seasonal allergies Sleep apnea Surgical History Surgery Date(Month/Year) Hiatal Hernia repair (bilateral inquinal ) 05/03/2016 cardiac catheterization 12/28/19 colonoscopy anogenital warts 02/06/2021
== END 2024-03-10 09:06 | disposition home or self-care (01) ==
LOC: HO.10HDL 09:05
PROVIDERS: Visit Provider Nurse Practitioner Family
DX: Z12.5 Encounter for screening for malignant neoplasm of prostate (principal); N40.0 Benign prostatic hyperplasia without lower urinary tract symptoms; E11.69 Type 2 diabetes mellitus with other specified complication; N52.1 Erectile dysfunction due to diseases classified elsewhere; R32 Unspecified urinary incontinence; N13.8 Other obstructive and reflux uropathy; N40.1 Benign prostatic hyperplasia with lower urinary tract symptoms
CPT/HCPCS: 36415; 51798; 81003; 84153; 99212

== ENCOUNTER 2024-03-10 13:36 | Outpatient (AMB) | payer MEDICARE, MEDICAID, SELFPAY ==
--- NOTE | 2024-03-10 13:38 | A.OFFVIS_ITS ---
Intake Visit Reasons: 6m/PSA/PVR Intake Note: Patient is present for follow up incontinence/psa lab PSA: 1.48 Urology Medications: myrbetriq, finasteride Blood Thinner: aspirin PVR: 34ml's Inventory Control Specialist Required: No Accompanied by: Self / Same As Patient Allergies No Known Allergies [No Known Allergies*] Allergy (Verified 03/10/24 13:53) HPI Comments Details: Darius is a pleasant 78 year old male patient of Dr. Ta. He has a PMH of hypertension, Raynaud's disease, diabetes, chronic kidney disease stage 3, sleep apnea, coronary artery disease, seasonal allergies, pulmonary hypertension, CVA, nonischemic cardiomyopathy, hyperlipidemia, and nicotine dependence. He presents to the office today for a follow up. When asked patient reports to be doing and feeling well. When asked he reports compliance with finasteride and Gemtesa as prescribed. Of note, patient was last seen approximately 3 months ago at which time Myrbetriq was switched to Gemtesa due to insurance coverage. He reports feeling Gemtesa has been helpful in treating his lower urinary tract symptoms of urinary urgency, frequency, and nocturia. Currently denies any bothersome urinary issues or concerns. Recent PSA results reviewed with the patient today as noted and trended below. He otherwise denies hematuria, dysuria, foul smelling urine, changes to urinary stream, flank pain, fever, and or chills. He is happy with his current voiding parameters. In office urinalysis results reviewed with the patient today. PVR 34 mLs. Previous workup has included a retroperitoneal ultrasound noting bilateral kidneys with no calculi, lesions, and or hydronephrosis noted. The bladder is well distended and normal. Pre void bladder volume is approximately 200 mL. Postvoid bladder volume is approximately 5 mL. Prostate volume measures 45 mL. PSA's are as follows: 06/26 3.3, 06/27 3.9, 01/27 3.6 07/29 1.7, 02/28 1.5 Discussed and stressed at length importance of managing diabetes for improvement in urinary symptoms as well as for overall health and well being. Also stressed the importance of limiting/quitting cigarette smoking for overall health and well-being. He otherwise offers no issues or concerns at this time. [facility] Medical History Hypertensive retinopathy Raynauds disease Type 2 diabetes mellitus with diabetic polyneuropathy CKD (chronic kidney disease) stage 3, GFR 30-59 ml/min Sleep apnea CAD (coronary artery disease) Seasonal allergies BPH (benign prostatic hyperplasia) Hematuria Hx of dermatitis Pulmonary HTN HTN (hypertension) CVA (cerebral vascular accident) Type 2 diabetes mellitus with unspecified complications NICM (nonischemic cardiomyopathy) Atherosclerotic heart disease of [place] coronary artery without angina pectoris Hyperlipidemia, unspecified Smoker Transient cerebral ischemic attack, unspecified Surgical History Hx of colonoscopy Hx of bilateral cataract extraction History of inguinal hernia repair, bilateral (~04/2016) History of cardiac catheterization (12/28/19) Family History Father Cardiovascular disease Diabetes Mother Osteoporosis Social History Housing: Apartment Are you a primary critical care rn to a significant other at home: No Do you presently have visiting nurse or other home services: No Alcohol intake: never Patient Tobacco Use Status: Current everyday Tobacco user Cigarettes Per Day: 10 Years Smoked: 55 e-Cigarette/Vaping Use: Never Used Second Hand Smoke Exposure: Yes Current occupational status: retired Cognitive needs: No Hearing needs: No Vision needs: No Review of Systems Const Reports as per HPI Eyes Reports no additional complaints ENT Reports no additional complaints Card Reports as per HPI Resp Reports as per HPI GI Reports no additional complaints Reports as per HPI Musc Reports as per HPI Neuro Reports as per HPI Psych Reports no additional complaints Endo Reports as per HPI Physical Exam Const General: cooperative, comfortable, no acute distress, well developed, alert and awake Orientation/consciousness: patient oriented x3 Limitations: no limitations HEENT Head: Yes normal to inspection, Yes normocephalic and Yes atraumatic Ears: hearing grossly normal bilaterally Eyes General: appearance normal, both eyes and all related structures Neck Neck: Yes normal visual inspection and Yes trachea midline Chest Chest palpation & inspection: normal inspection of the chest Resp Effort & Inspection: normal respiratory effort and able to speak in complete sentences Cardio Rate: regular rate GI Inspection: Yes normal to inspection General: Yes no CVA tenderness Back/Spine/Pelvis Back: no CVA tenderness Skin General skin exam: no rashes or lesions noted Neuro General: patient oriented x3 Extrem General: Yes normal to inspection Psych Appearance: grossly normal and well kempt Mental Status: mental status grossly normal Speech and movement: Normal speech and movement present and Clear speech present Affect: normal affect Attitude: cooperative Thought process: Normal thought process present Thought content: Normal thought content present Insight: Fair insight present (Psych) Judgement: Fair judgement present (Psych) Office Procedures Post Void Residual Post Residual Void Post Void Residual (PVR): 34 76748-Ntoy Void Residual by ultrasound Results AMB Urinalysis, Automated UA Leukoctes 0 Brian/uL Last Edit by [employer] on 03/10/24 13:55 UA Nitrite Last Edit by [employer] on 03/10/24 13:55 UA Urobilinogen 0.2 mg/dL Last Edit by [employer] on 03/10/24 13:55 UA Protein 0 mg/dL Last Edit by [employer] on 03/10/24 13:55 UA pH 6.0 Last Edit by [employer] on 03/10/24 13:55 UA Blood 0 Demetrius/uL Last Edit by [employer] on 03/10/24 13:55 UA Specific Floweree 1.010 Last Edit by [employer] on 03/10/24 13:55 UA Ketone Last Edit by [employer] on 03/10/24 13:55 UA Bilirubin 0 mg/dL Last Edit by [employer] on 03/10/24 13:55 UA Glucose 250 mg/dL Last Edit by [employer] on 03/10/24 13:55 Results Reviewed Results Reviewed: Laboratory Last Values Urine pH (Auto) 6.0 03/10/24 13:54 Specific Floweree (Auto) 1.010 03/10/24 13:54 Urine Protein (Auto) 0 mg/dL 03/10/24 13:54 Glucose (UA)(Auto) 250 mg/dL 03/10/24 13:54 Urine Blood (Auto) 0 Demetrius/uL 03/10/24 13:54 Urine Bilirubin (Auto) 0 mg/dL 03/10/24 13:54 Urine Urobilinogen (Auto) 0.2 mg/dL 03/10/24 13:54 Leukocyte Esterase (Auto) 0 Brian/uL 03/10/24 13:54 Assessment & Plan Assessment & Plan (1) Erectile dysfunction associated with type 2 diabetes mellitus: Code(s): E11.69 - Type 2 diabetes mellitus with other specified complication; N52.1 - Erectile dysfunction due to diseases classified elsewhere Category: Medical (2) Enlarged prostate: Code(s): N40.0 - Benign prostatic hyperplasia without lower urinary tract symptoms Category: Medical (3) Incontinence: Code(s): R32 - Unspecified urinary incontinence Category: Medical (4) BPH w urinary obs/LUTS: Code(s): N40.1 - Benign prostatic hyperplasia with lower urinary tract symptoms; N13.8 - Other obstructive and reflux uropathy Category: Medical Plan In office urinalysis results reviewed with the patient today. PVR 34 mL. Recent PSA results reviewed with the patient today; as noted above; discussed decreasing finasteride to 3 times per week Continue finasteride and Gemtesa as discussed and prescribed; refill provided Patient reports to be happy with current voiding parameters. Patient currently denies any bothersome urinary issues or concerns. Follow-up in 6 months with PVR at next office visit; or sooner with any issues, concerns, or questions. Orders: Orders AMB Urinalysis Automated Today Z13.9 - Encounter for screening, unspecified AMB Post Void Residual by ultrasound Today R32 - Unspecified urinary incontinence Medications: Changed From vibegron (Gemtesa) 75 mg PO DAILY 30 days 30 tabs 1RF N32.81 - Overactive bladder To vibegron (Gemtesa) 75 mg PO DAILY 90 days 90 tabs 2RF N32.81 - Overactive bladder Patient Instructions: The patient had an opportunity to ask questions regarding the treatment plan. All questions were answered. Physical exam, labs, and imaging were discussed and reviewed in detail. As well as risks, benefits, and discussion of treatment choices. No major barriers to understanding were identified. The patient expressed understanding and agreement with the above treatment plan. The patient was made aware they should contact our office by phone for worsening of their current condition, the appearance of new symptoms, or with any questions or concerns. Compliance is encouraged with any medications and follow up testing that is ordered. It is a privilege to be allowed the opportunity to participate in? your urological care.? Again, if you have any questions or concerns If you have any questions or concerns please do not hesitate to contact me. The office is [phone]. This note is constructed using voice recognition software. While every effort has been made to ensure accuracy assistant office manager errors may have been included. Yours sincerely, URBAN Rudolph Coding Level of Care Code Est Pt Level 3 (53975) Complex EM visit Add On G2211 Diagnoses Erectile dysfunction associated with type 2 diabetes mellitus E11.69; N52.1 Enlarged prostate N40.0 Incontinence R32 BPH w urinary obs/LUTS N40.1; N13.8 CPT Codes Post Residual Void - PVR CPT Code: 09839-Lmnh Void Residual by ultrasound ([id number])
== END 2024-03-10 14:03 | disposition home or self-care (01) ==
LOC: HO.HUSH 13:36
PROVIDERS: PCP Nurse Practitioner Family; Visit Provider Nurse Practitioner Family
DX: E11.69 Type 2 diabetes mellitus with other specified complication (principal); N52.1 Erectile dysfunction due to diseases classified elsewhere; N40.0 Benign prostatic hyperplasia without lower urinary tract symptoms; R32 Unspecified urinary incontinence; N40.1 Benign prostatic hyperplasia with lower urinary tract symptoms; N13.8 Other obstructive and reflux uropathy; Z13.9 Encounter for screening, unspecified
CPT/HCPCS: 99213; G2211

== ENCOUNTER 2024-03-12 09:12 | Outpatient (AMB) | payer MEDICARE, MEDICAID, SELFPAY ==
--- NOTE | 2024-03-12 09:14 | MHC.OFFVIS ---
Vital Signs 03/12/24 09:18 Height 5 ft 6 in Weight 159 lb BMI 25.7 BP 112/64 Blood Pressure Location Lt brachial Position Sitting Respiration 16 Pulse 86 Pulse Source Pulse Oximeter Pulse Oximetry (%) 96 Oxygen Delivery Method Room Air Intake Visit Reasons: Left Sprint removal Intake Note: Patient presents for left sprint removal. Cryptologic Technician Operator/Analyst Required: Yes Cryptologic Technician Operator/Analyst Language: Office Executive Services: Cryptologic Technician Operator/Analyst Present Cryptologic Technician Operator/Analyst Name: Darrick [id number] Information Interpreted: non-clinical & clinical Allergies No Known Allergies [No Known Allergies*] Allergy (Verified 03/12/24 09:17) HPI HPI Left Sprint removal: Details: 78-year-old male who presents today to the office for a left sprint removal. He had more than 80% relief for his left sided neck pain. Past procedures 01/29/24: Cervical Medial Branch Nerve Stimulation Lead Placement, SPR (Sprint) System, Right C5: ongoing relief. 01/15/24: Cervical Medial Branch Nerve Stimulation Lead Placement, SPR (Sprint) System, C5 Left: 80% relief. [facility] Medical History Hypertensive retinopathy Raynauds disease Type 2 diabetes mellitus with diabetic polyneuropathy CKD (chronic kidney disease) stage 3, GFR 30-59 ml/min Sleep apnea CAD (coronary artery disease) Seasonal allergies BPH (benign prostatic hyperplasia) Hematuria Hx of dermatitis Pulmonary HTN HTN (hypertension) CVA (cerebral vascular accident) Type 2 diabetes mellitus with unspecified complications NICM (nonischemic cardiomyopathy) Atherosclerotic heart disease of [place] coronary artery without angina pectoris Hyperlipidemia, unspecified Smoker Transient cerebral ischemic attack, unspecified Surgical History Hx of colonoscopy Hx of bilateral cataract extraction History of inguinal hernia repair, bilateral (~04/2016) History of cardiac catheterization (12/28/19) Family History Father Cardiovascular disease Diabetes Mother Osteoporosis Social History Housing: Apartment Are you a primary clinical manager home care to a significant other at home: No Do you presently have visiting nurse or other home services: No Alcohol intake: never Patient Tobacco Use Status: Current everyday Tobacco user Cigarettes Per Day: 10 Years Smoked: 55 e-Cigarette/Vaping Use: Never Used Second Hand Smoke Exposure: Yes Current occupational status: retired Cognitive needs: No Hearing needs: No Vision needs: No Review of Systems Const All systems reviewed & are unremarkable except as noted in HPI and below Physical Exam Vital Signs: Last Vital Signs Pulse 86 03/12/24 09:18 Resp 16 03/12/24 09:18 BP 112/64 03/12/24 09:18 Pulse Ox 96 03/12/24 09:18 Oxygen Delivery Method Room Air 03/12/24 09:18 BMI result Body Mass Index 25.7 General: Appears afebrile. Alert and oriented. Mood and affect appropriate. Follows and participates in conversation appropriately. Respiratory effort is unlabored. Able to transition from sit to stand unassisted. Ambulates with bilaterally normal heel strike and toe off. The left lead was removed with tip intact. The right lead is still intact. Results Reviewed Results Reviewed: No imaging is available for review. Assessment & Plan Assessment & Plan (1) Cervical spondylosis: Code(s): M47.812 - Spondylosis without myelopathy or radiculopathy, cervical region Category: Medical (2) Neck pain: Code(s): M54.2 - Cervicalgia Category: Medical Plan Follow up for right lead removal in two weeks. Scribed for Dr. Jara by Aly Pope, medical office rep, on 03/12/2024. I, Dr. Jara, have personally reviewed and agree with the information entered by the scribe. Coding Level of Care Code Est Pt Level 3 (07634) Diagnoses Cervical spondylosis M47.812 Neck pain M54.2
[2024-03-12 09:18] VITALS: BP 112/64; PULSE 86; RESP 16; O2SAT 96; BMI 25.7
== END 2024-03-12 09:38 | disposition home or self-care (01) ==
PROVIDERS: PCP Internal Medicine; Visit Provider Internal Medicine
DX: M47.812 Spondylosis without myelopathy or radiculopathy, cervical region (principal); M54.2 Cervicalgia
CPT/HCPCS: 99213

== ENCOUNTER → 2024-03-12 09:12 | Outpatient (BNVA) | payer MEDICARE, MEDICAID, SELFPAY | PROVIDERS: PCP Internal Medicine; Visit Provider Internal Medicine | DX: M47.812 Spondylosis without myelopathy or radiculopathy, cervical region (principal); M54.2 Cervicalgia; Z45.42 Encounter for adjustment and management of neurostimulator | CPT/HCPCS: 99212 ==

== ENCOUNTER 2024-03-24 08:53 | Outpatient (AMB) | payer MEDICARE, MEDICAID, SELFPAY ==
--- NOTE | 2024-03-24 09:02 | A.OFFVIS_ITS ---
Vital Signs 03/24/24 09:12 Height 5 ft 6 in Weight 158 lb BMI 25.5 BP 123/64 Blood Pressure Location Lt brachial Position Sitting Respiration 16 Pulse 84 Pulse Source Pulse Oximeter Pulse Oximetry (%) 96 Oxygen Delivery Method Room Air Intake Visit Reasons: Right Sprint removal Allergies No Known Allergies [No Known Allergies*] Allergy (Verified 03/24/24 09:15) Medication List - Last Reconciled 03/24/24 by Lennie Medellin LPN alcohol swabs (Alcohol Prep Pads) 1 pad topical TID 30 days amoxicillin-pot clavulanate 875-125 mg 1 tab PO BID 10 days aspirin 81 mg PO DAILY blood sugar diagnostic (FreeStyle Lite Strips) test TID blood-glucose meter (FreeStyle Lite Meter kit) Test TID dapagliflozin propanediol (Farxiga) 2.5 mg (1/2 x 5 mg) PO DAILY doxycycline hyclate 100 mg PO BID 10 days [extra-depth Diabetic shoes with 3 pair Custom heat-molded multi-density innersoles As directed] finasteride 5 mg PO DAILY 90 days gabapentin 1,200 mg PO TID ketoconazole 2% 1 appl topical BID 20 days lancets (FreeStyle Lancets) Test TID lisinopril 2.5 mg PO DAILY metformin 500 mg PO TID rosuvastatin 40 mg PO DAILY semaglutide (Ozempic) 0.25 mg (0.368 mL) subcut QWEEK Shower Chair use daily, for lower extrem weakness/hip pains umeclidinium-vilanterol 62.5-25 mcg/actuation (Anoro Ellipta) 1 inh inhalation DAILY Ventolin HFA 90 mcg/actuation (albuterol sulfate) 2 puffs inhalation Q4-6H PRN NS vibegron (Gemtesa) 75 mg PO DAILY 90 days HPI HPI Right Sprint removal: Details: 78-year-old male who presents to the office today for right sprint removal. He reports excellent pain relief on both sides. He also reports decrease in pain in his lower back. He is curious if the device can be placed for his lower back if the back pain becomes worse again. At this time he is happy with the level of pain relief for both his neck and back. Past procedures 01/29/24: Cervical Medial Branch Nerve Stimulation Lead Placement, SPR (Sprint) System, Right C5: ongoing relief. 01/15/24: Cervical Medial Branch Nerve Stimulation Lead Placement, SPR (Sprint) System, C5 Left: 80% relief. [facility] Medical History Hypertensive retinopathy Raynauds disease Type 2 diabetes mellitus with diabetic polyneuropathy CKD (chronic kidney disease) stage 3, GFR 30-59 ml/min Sleep apnea CAD (coronary artery disease) Seasonal allergies BPH (benign prostatic hyperplasia) Hematuria Hx of dermatitis Pulmonary HTN HTN (hypertension) CVA (cerebral vascular accident) Type 2 diabetes mellitus with unspecified complications NICM (nonischemic cardiomyopathy) Atherosclerotic heart disease of [place] coronary artery without angina pectoris Hyperlipidemia, unspecified Smoker Transient cerebral ischemic attack, unspecified Surgical History Hx of colonoscopy Hx of bilateral cataract extraction History of inguinal hernia repair, bilateral (~04/2016) History of cardiac catheterization (12/28/19) Family History Father Cardiovascular disease Diabetes Mother Osteoporosis Social History Housing: Apartment Are you a primary special needs child caregiver to a significant other at home: No Do you presently have visiting nurse or other home services: No Alcohol intake: never Patient Tobacco Use Status: Current everyday Tobacco user Cigarettes Per Day: 10 Years Smoked: 55 e-Cigarette/Vaping Use: Never Used Second Hand Smoke Exposure: Yes Current occupational status: retired Cognitive needs: No Hearing needs: No Vision needs: No Review of Systems Const All systems reviewed & are unremarkable except as noted in HPI and below Physical Exam Vital Signs: Last Vital Signs Pulse 84 03/24/24 09:12 Resp 16 03/24/24 09:12 BP 123/64 03/24/24 09:12 Pulse Ox 96 03/24/24 09:12 Oxygen Delivery Method Room Air 03/24/24 09:12 BMI result Body Mass Index 25.5 General: Appears afebrile. Alert and oriented. Mood and affect appropriate. Follows and participates in conversation appropriately. Respiratory effort is unlabored. Able to transition from sit to stand unassisted. Ambulates with bilaterally normal heel strike and toe off. Lead removed with tip intact. Results Reviewed Results Reviewed: 05/05/23: XR CERVICAL SPINE FINDINGS: There is bony demineralization. At C3-C4, there is a 2 mm anterolisthesis. At C3-C4-C5, there is a 3 mm anterolisthesis. At C5-C6 and C6-C7, there is moderate anterior disc space narrowing. No acute fracture or spondylolisthesis is seen. There is multi-level cervical spondylosis and facet arthropathy. The posterior elements are intact. The dens is intact. No prevertebral soft tissue swelling is seen. There are bilateral carotid atherosclerotic calcifications. IMPRESSION: 1. There is multi-level cervical degenerative disc disease, spondylosis and facet arthropathy. Degenerative disc disease is most pronounced at C5-C6 and C6-C7, where it is moderate. 2. There are bilateral carotid atherosclerotic calcifications, which could be more fully evaluated with dedicated carotid ultrasound, if clinically indicated. 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 Both devices have now been removed. Reports excellent pain relief for both his neck and low back symptoms from the therapy. He will follow-up as needed for repeat therapy. Scribed for Dr. Jara by Dieudonne medical social worker, on 03/24/2024. I, Dr. Jara, have personally reviewed and agree with the information entered by the scribe. Coding Level of Care Code Est Pt Level 3 (54022) Diagnoses Cervical spondylosis M47.812 Mononeuropathy G58.9
[2024-03-24 09:12] VITALS: BP 123/64; PULSE 84; RESP 16; O2SAT 96; BMI 25.5
== END 2024-03-24 09:38 | disposition home or self-care (01) ==
PROVIDERS: PCP Internal Medicine; Visit Provider Internal Medicine
DX: M47.812 Spondylosis without myelopathy or radiculopathy, cervical region (principal); G58.9 Mononeuropathy, unspecified
CPT/HCPCS: 99213

== ENCOUNTER → 2024-03-24 08:53 | Outpatient (BNVA) | payer MEDICARE, MEDICAID, SELFPAY | PROVIDERS: PCP Internal Medicine; Visit Provider Internal Medicine | DX: M47.812 Spondylosis without myelopathy or radiculopathy, cervical region (principal); G58.9 Mononeuropathy, unspecified | CPT/HCPCS: 99212 ==

== ENCOUNTER 2024-06-16 10:07 | Outpatient (AMB) | payer MEDICARE, MEDICAID, SELFPAY ==
--- NOTE | 2024-06-16 10:21 | HO.NEPHOV ---
Vital Signs 06/16/24 10:24 Height 5 ft 6 in Weight 165 lb 2 oz BMI 26.6 BP 110/60 Blood Pressure Location Lt brachial Position Sitting Intake Visit Reasons: CKD-Conf Goat Driver Required: Yes Goat Driver Language: Banquet Houseperson Services: Goat Driver Offered & Declined ([facility] [place] cert occupational therapy asst services refused.) Accompanied by: Self / Same As Patient Allergies No Known Allergies [No Known Allergies*] Allergy (Verified 06/16/24 10:23) HPI Comments Details: Darius was seen in follow up for his CKD. He has diabetic renal disease. He has no episodes of hypoglycemia. He has no hematuria, edema or dizziness. He is compliant with his medications. He is on SGLT2 inhibitor. His last serum creatinine had been stable. He has H/O mild hyperkalemia . He is on ACEI. He does not take any NSAID's. He feels well otherwise [facility] Medical History Hypertensive retinopathy Raynauds disease Type 2 diabetes mellitus with diabetic polyneuropathy CKD (chronic kidney disease) stage 3, GFR 30-59 ml/min Sleep apnea CAD (coronary artery disease) Seasonal allergies BPH (benign prostatic hyperplasia) Hematuria Hx of dermatitis Pulmonary HTN HTN (hypertension) CVA (cerebral vascular accident) Type 2 diabetes mellitus with unspecified complications NICM (nonischemic cardiomyopathy) Atherosclerotic heart disease of [place] coronary artery without angina pectoris Hyperlipidemia, unspecified Smoker Transient cerebral ischemic attack, unspecified Surgical History Hx of colonoscopy Hx of bilateral cataract extraction History of inguinal hernia repair, bilateral (~04/2016) History of cardiac catheterization (12/28/19) Family History Father Cardiovascular disease Diabetes Mother Osteoporosis Social History Housing: Apartment Are you a primary resident caregiver to a significant other at home: No Do you presently have visiting nurse or other home services: No Alcohol intake: never Patient Tobacco Use Status: Current everyday Tobacco user Cigarettes Per Day: 10 Years Smoked: 55 e-Cigarette/Vaping Use: Never Used Second Hand Smoke Exposure: Yes Current occupational status: retired Cognitive needs: No Hearing needs: No Vision needs: No Review of Systems Const All systems reviewed & are unremarkable except as noted in HPI and below Physical Exam Vital Signs: Last Vital Signs BP 110/60 06/16/24 10:24 BMI result Body Mass Index 26.6 Const General: comfortable and no acute distress Orientation/consciousness: patient oriented x3 HEENT Head: Yes normocephalic Mouth: Normal oral and palatal mucosa present Eyes EOM: EOMs intact bilaterally Neck Neck: Yes supple Resp Auscultation: clear to auscultation bilaterally Cardio Jugular venous distension: no JVD Rate: regular rate GI Palpation (GI): Soft to palpation Auscultation: normal bowel sounds Skin General skin exam: no rashes or lesions noted Neuro General: patient oriented x3 and moves all extremities Extrem General: Yes no pedal edema Results Reviewed Nephrology Results: No Data to Display Assessment & Plan Assessment & Plan (1) CKD (chronic kidney disease) stage 3, GFR 30-59 ml/min: Code(s): N18.30 - Chronic kidney disease, stage 3 unspecified Category: Medical Qualifiers: Chronic kidney disease stage 3 subtype: stage 3a (GFR 45-59) Qualified Code(s): N18.31 - Chronic kidney disease, stage 3a Plan Has CKD for long time. Serum creatinine had been fairly stable Urine output good. Does not take NSAID's; Good hydration Blood pressure at goal. On ACEI. Needs consistent good BS control On Farxiga 2.5 mg daily- may increase the dose with time; No NSAID's Labs ordered; All questions answered . F/U given for 4 months Orders: Orders Blood Urea Nitrogen 3 Months N18.31 - Chronic kidney disease, stage 3a Electrolytes 3 Months N18.31 - Chronic kidney disease, stage 3a Electrolytes Today N18.31 - Chronic kidney disease, stage 3a Blood Urea Nitrogen Today N18.31 - Chronic kidney disease, stage 3a Creatinine Today N18.31 - Chronic kidney disease, stage 3a Protein Creatinine Ratio, Ur Today N18.31 - Chronic kidney disease, stage 3a Creatinine 3 Months N18.31 - Chronic kidney disease, stage 3a Coding Level of Care Code Est Pt Level 4 (36264) Diagnoses Stage 3a chronic kidney disease N18.31 Chronic kidney disease stage 3 subtype: stage 3a (GFR 45-59)
[2024-06-16 10:24] VITALS: BP 110/60; BMI 26.6
--- OUTSIDE RECORDS SUMMARY | 2024-06-16 11:32 | XMS_ITS | Clinical Summary ---
Author Organization [facility] Address [address] [place] [address] Phone Care Team Providers Care Body Stylist Name Role Phone Finn Ta NP Primary Care Provider [phone] Allergies No known active allergies Medications gabapentin (NEURONTIN) 600 MG tablet Take 2 tablets by mouth 3 times a day 06/28/2020 Active [facility] Ear Drops 6.5 % otic solution DROP 5 DROPS INTO THE LEFT EAR EVERY 12 HOURS FOR 4 DAYS 06/27/2020 Active simvastatin (ZOCOR) 20 MG tablet Take 1 tablet by mouth at bed time Active Tiotropium [place] Monohydrate (Spiriva Respimat) 2.5 MCG/ACT aerosol solution 2 puffs by Other route 1 (one) time each day Active metFORMIN XR (GLUCOPHAGE-XR) 500 MG 24 hr tablet Take 3 tablets by mouth 1 (one) time each day 1 tablet am 2 tablets pm 06/09/2020 Active aspirin ([facility] [place]) 81 MG EC tablet Take 81 mg by mouth 1 (one) time each day Active Active Problems Problem Noted Date Diagnosed Date Acute nontraumatic kidney injury 07/12/2020 Stage 3a chronic kidney disease 07/12/2020 Essential hypertension 07/12/2020 Renal stone 07/12/2020 Serum creatinine above reference range Type 2 diabetes mellitus 07/12/2020 Family History Medical History Relation Comments Kidney disease Sibling 1 Diabetes Sibling 2 Relation Status Comments Father Mother Sibling 1 Sibling 2 Social History Tobacco Use Types Packs/Day Years Used Date Smoking Tobacco: Every Day Smokeless Tobacco: Current Alcohol Use Standard Drinks/Week Comments No 0 (1 standard drink = 0.6 oz pur e alcohol) Sex and Gender Information Value Date Recorded Sex Assigned at Not on file Legal Sex Male 4:55 PM EST Gender Identity Not on file Sexual Orientation Not on file Last Filed Vital Signs Vital Sign Reading Time Taken Comments Blood Pressure 110/64 07/12/2020 12:59 PM EDT Pulse 105 07/12/2020 12:59 PM EDT Temperature - - Respiratory Rate - - Oxygen Saturation - - Inhaled Oxygen Concentration - - Weight 75.3 kg (166 lb) 07/12/2020 12:59 PM EDT Height 167.6 cm (5' 6 ) 09/01/2019 12:00 PM EDT Body Mass Index 26.79 09/01/2019 12:00 PM EDT Plan of Treatment Health Maintenance Due Date Last Done Comments Pneumococcal Vaccine: 65+ Ye ars (1 of 2 - PCV) 06/09/1951 Diabetes: Hemoglobin A1C 05/07/2020 Diabetes: Ophthalmology Exam 05/07/2020 Diabetes: Pedal Pulse Checked 05/07/2020 Diabetes: Sensory Foot Exam 05/07/2020 Diabetes: Visual Foot Exam 05/07/2020 Influenza Vaccine (#1) 2023 Hepatitis B Vaccine Aged Out No longe r eligible based on patient's age to complete this topic Insurance [place] Care Teams Body Stylist Relationship Specialty Start Date End Date Finn Ta NP [facility] [place] [address] PCP - General Nurse Practitioner 07/12/20
--- OUTSIDE RECORDS SUMMARY | 2024-06-16 11:33 | XMS_ITS | Patient Health Record ---
Author Organization [facility] Address [address] [place] [address] Care Team Providers Care Convolute Tube Winder Name Role Phone Finn Bird Primary Care Provider Unav ailSky Cowan Unavailable [phone] Allergies No Known Allergies Reason For Referral [...] Polyneuropathy due to type 2 diabetes mellitus ([id number]) Type 2 diabetes mellitus with diabetic polyneuropathy (E11.42) Active confirmed Problem Polyneuropathy due to diabetes mellitus type I ([id number]) Type 1 diabetes mellitus with diabetic polyneuropathy (E10.42) Active confirmed Problem [id number] Raynaud's diseas e without gangrene (I73.00) Active confirmed Plan Of Treatment Pending Test Test Name Order Date [id number] SKIN LESIONS, 2 TO 4 12/14/19 21 [id number] SKIN LESIONS, 2 TO 4 03/15/20 21 [id number] SKIN LESIONS, 2 TO 4 06/07/19 22 Insurance Providers Payer Name Payer Address Payer Phone Subscriber Number Group Number Insured Name Patient Relationship to Insured Coverage Start Date Coverage End Date Medicare National [employer] [address] [facility] [address] [id number] Darius Askew Self - patient is the [...]
--- OUTSIDE RECORDS SUMMARY | 2024-06-16 11:33 | XMS_ITS | Clinical Summary ---
Author Organization [address] [facility] Address [address] [place] [address] Phone Care Team Providers Care Junior Estimator Name Role Phone Lonny Tamayo MD Primary Care Provider Allergies No known active allergies Medications No known medications Encounters Date Type Department Care Team Description 05/24/2024 10:30 AM EST Office Visit Orthopedic Surgery [facility] [address] [phone] Walter Guillory DPM Controlled type 2 diabetes mellitus with diabetic polyneuropathy, without long-term current use of insulin ([facility]) (Primary Dx); PAD (peripheral artery disease) ([facility]); Metatarsalgia of left foot; Onychomycosis from Last 3 Months Social History Tobacco Use Types Packs/Day Years Used Date Smoking Tobacco: Never Assessed Sex and Gender Information Value Date Recorded Sex Assigned at Not on file Legal Sex Male 4:37 PM EDT Gender Identity Not on file Sexual Orientation Not on file Last Filed Vital Signs Vital Sign Reading Time Taken Comments Blood Pressure - - Pulse - - Temperature - - Respiratory Rate - - Oxygen Saturation - - Inhaled Oxygen Concentration - - Weight 72.1 kg (159 lb) 05/24/2024 10:37 AM EST Height 165.1 cm (5' 5 ) 05/24/2024 10:37 AM EST Body Mass Index 26.46 05/24/2024 10:37 AM EST Plan of Treatment Upcoming Encounters Date Type Department Care Team (Late Contact Info) Description 07/26/2024 9:30 AM EDT Office Visit Orthopedic [facility] [address] [phone] Walter Guillory DPM [address] [address] Health Maintenance Due Date Last Done Comments Diabetes: Annual GFR (Glomerular Filtration Rate) 1945 Diabetes: Annual Foot Exam 06/09/1957 Diabetes: Annual Retina Eye Exam 06/09/1957 Zoster Vaccines (1 of 2) 06/09/1997 DTaP,Tdap,and Td Vaccines (2 - Td or Tdap) 06/01/2022 06/01/2012 RSV Immunization Patients 60+ Years Old (1 - 1-dose 75+ series) 06/09/2022 COVID-19 Vaccine (3 - season) 2023 08/16/2020, 07/24/2020 Influenza Vaccine (#1) 2023 9, 01/06/2018, 11/18/2016, Additional history exists Cholesterol Screening (Lipid Panel) 01/31/2024 Depression Screening 01/31/2024 Falls Risk Assessment 01/31/2024 Hepatitis C Screening 01/31/2024 Medicare Annual Wellness Visit 01/31/2024 Social Influencers of Health Screening 01/31/2024 Diabetes: Annual Urine Albumin-Creatinine Ratio (uACR) 03/16/2024 Diabetes: Blood Sugar Control Test (HGBA1C) 03/16/2024 Hypertension/CHF/CAD Annual BMP Blood Test 03/16/2024 Pneumococcal Vaccine: 50+ Years Completed 01/22/2023, 06/11/2021 HIB Vaccines Aged Out No longer eligi ble based on patient's age to complete this topic HPV Vaccines Aged Out No longer eligi ble based on patient's age to complete this topic Hepatitis A Vaccines Aged Out No long er eligible based on patient's age to complete this topic Hepatitis B Vaccines Aged Out No long er eligible based on patient's age to complete this topic IPV Vaccines Aged Out No longer eligi ble based on patient's age to complete this topic MMR Vaccines Aged Out No longer eligi ble based on patient's age to complete this topic Meningococcal ACWY Vaccine Aged Out N o longer eligible based on patient's age to complete this topic Meningococcal B Vacine Aged Out No lo nger eligible based on patient's age to complete this topic RSV Immunization Patients Under 20 months Aged Out No longer eligible based on patient's age to complete this topic Varicella Vaccines Aged Out No longer eligible based on patient's age to complete this topic Insurance MEDICARE MEDICAID - [place] Care Teams Junior Estimator Relationship Specialty Start Date End Date Lonny Tamayo MD [address] [place] [id number] PCP - General Internal Medicine 03/22/24
--- OUTSIDE RECORDS SUMMARY | 2024-06-16 11:33 | XMS_ITS | Encounter Summary ---
Author Organization [facility] Address [address] [place] [address] Care Team Providers Care Churn Drill Operator Name Role Phone Lonny Tamayo MD Primary Care Provider Reason for Visit * Reason Comments DM Foot Care Encounter Details Date Type Department Care Team (Late st Contact Info) Description 05/24/2024 10:30 AM EST Office Visit Orthopedic Surgery - [place] [address] [phone] Walter Guillory DPM [address] [address] Controlled type 2 diabetes mellitus with diabetic polyneuropathy, without long-term current use of insulin (CMS/HCC) (Primary Dx); PAD (peripheral artery disease) (CMS/HCC); Metatarsalgia of left foot; Onychomycosis Social History Tobacco Use Types Packs/Day Years Used Date Smoking Tobacco: Never Assessed Sex and Gender Information Value Date Recorded Sex Assigned at Not on file Legal Sex Male 4:37 PM EDT Gender Identity Not on file Sexual Orientation Not on file documented as of this encounter Last Filed Vital Signs Vital Sign Reading Time Taken Comments Blood Pressure - - Pulse - - Temperature - - Respiratory Rate - - Oxygen Saturation - - Inhaled Oxygen Concentration - - Weight 72.1 kg (159 lb) 05/24/2024 10:37 AM EST Height 165.1 cm (5' 5 ) 05/24/2024 10:37 AM EST Body Mass Index 26.46 05/24/2024 10:37 AM EST documented in this encounter Progress Notes * Walter Guillory DPM - 05/24/2024 10:30 AM EST Referring MD: leona Last PCP visit: 01/25/2024 IDENTIFIER: @TITLE@ Jamilah is a 78 y.o. year old male who presents for consultation. CC: Pain in feet HPI: 78-year-old diabetic male returns to office for chief complaint of bilateral foot pain Patient states that they have been diabetic for the past few years and continues to deal with extensive tingling numbness to the feet bilaterally Denies any history of ulceration, or infection. Patient notes his nails are thickened and misshapened and continue to cause pain in close toed shoes as well as rubbing on adjacent digits Patient has received his diabetic shoes and is using them daily Patient reports mild calluses that are becoming bothersome. Patient with minimal other pedal complaints at this time. Patient's FBS this AM was 136 Recent A1C is %. 6.9 ROS: GENERAL: Pt denies nausea, fever, vomiting, chills, or shortness of breath. Pt in NAD. CARDIOLOGY: pt denies chest pain, palpitations LUNGS: pt denies shortness of breath MUSCULOSKELETAL: See HPI, otherwise no joint pain or swelling, back pain, or muscle pain. SKIN: see HPI, otherwise no lesions, rash or itching NEURO: No persistent headache, weakness or numbness The remainder of the review of systems is noncontributory PAST MEDICAL HISTORY: There is no problem list on file for this patient. SOCIAL HISTORY: Social History Tobacco Use Smoking status: Not on file Smokeless tobacco: Not on file Substance Use Topics Alcohol use: Not on file ACTIVE MEDICATIONS: No outpatient medications have been marked as taking for the 05/24/24 encounter (Office Visit) with Walter Guillory DPM. ALLERGIES: @ALL@ PHYSICAL EXAM: Height 1.651 m (65 ), weight 72.1 kg (159 lb). PODIATRIC EXAMINATION: GENERAL: Patient appears well nourished, with NAD. VASCULAR: Dorsalis pedis pulses are 0/4 bilaterally and Posterior tibial pulses are 2/4 bilaterally. Capillary filling time within normal limits the digits. No pallor on elevation or rubor on dependency. Positive hair growth. Many varicosities. Denies rest pain or claudication pain. NEUROLOGICAL: Sharp/dull sensation intact, protective sensation intact on [place]. Multiple peripheral neuropathies bilaterally. ORTHOPEDIC: Good muscle strength 5/5 of all flexors and extensors. Dorsi flexion of ankle ,10 degrees, plantar flexion WNL. No muscle atrophy. Arthritic changes to the midfoot bilaterally with dorsalexostoses that are palpable. Rigid contractures of digits 2 through 5 for gout reduction. Notable flexibility in the midfoot with collapse of the midfoot arch on stance DERMATOLOGICAL:.No masses or skin lesions noted. Normal skin temperature, normal skin turgor. Nailsare elongated dystrophic discolored x 10 with subungual debris BIOMECHANICS: STJ ROM wnl, MTJ ROM wnl, 1st MPJ ROM wnl. IMPRESSION: 1. Controlled type 2 diabetes mellitus with diabetic polyneuropathy, without long-term current use of insulin ([facility]) 2. PAD (peripheral artery disease) ([facility]) 3. Metatarsalgia of left foot 4. Onychomycosis PLAN: Pt was seen and examined, history reviewed. Patient instructed to continue with tight glucose control or limit chance of ulceration infection and amputation in the future Patient understands he has decreased blood flow to bilateral legs and should continue to ambulate as often as possible to promote blood flow. Patient notes that he has pain in his hips when he ambulates and it keeps him from walking often Patient continues to have pain associated with diabetic neuropathy. Patient to continue using topical analgesics and Biofreeze as a way to limit the pain associated with his neuropathic flares Patient is wearing good supportive shoes. Patient understands that this will limit the pain and flareups in his midfoot from arthritic change Nail debridement performed to nails 1-5 bilateral as nails were described to be causing pain and difficulty for walking while in shoegear at their previous length. They were debrided in thickness andlength, with no incident. Clinical evidence of mycosis is documented which required active treatment. Patient expressed immediate relief. Patient is to RTC in 9 weeks Walter Guillory DPM documented in this encounter Plan of Treatment Upcoming Encounters Date Type Department Care Team (Late st Contact Info) Description 07/26/2024 9:30 AM EDT Office Visit Orthopedic Surgery - [place] [address] [phone] Walter Guillory DPM [address] [address] documented as of this encounter Visit Diagnoses Diagnosis Controlled type 2 diabetes mellitus with diabetic polyneuropathy, without long- term current use of insulin ([facility])- Primary PAD (peripheral artery disease) ([facility]) Unspecified peripheral vascular disease Metatarsalgia of left foot Onychomycosis Dermatophytosis of nail documented in this encounter Care Teams Churn Drill Operator Relationship Specialty Start Date End Date Lonny Tamayo MD [address] [place] [address] PCP - General Internal Medicine 03/22/24 documented as of this encounter
== END 2024-06-16 10:47 | disposition home or self-care (01) ==
LOC: HO.HKA 10:08
PROVIDERS: PCP Nurse Practitioner Family; Visit Provider Internal Medicine Nephrology
DX: N18.31 Chronic kidney disease, stage 3a (principal)
CPT/HCPCS: 99214

== ENCOUNTER → 2024-06-16 10:07 | Outpatient (BNVA) | payer MEDICARE, SELFPAY | PROVIDERS: PCP Nurse Practitioner Family; Visit Provider Internal Medicine Nephrology ==

== ENCOUNTER 2024-06-16 10:51 | Outpatient (REF) | payer MEDICARE, SELFPAY ==
--- OUTSIDE RECORDS SUMMARY | 2024-06-16 12:37 | XMS_ITS | Clinical Summary ---
Author Organization 175 [facility] Address 175 [place] [address] Phone Care Team Providers Care Brokerage Coordinator Name Role Phone Lonny Tamayo MD Primary Care Provider Allergies No known active allergies Medications No known medications Encounters Date Type Department Care Team Description 05/24/2024 10:30 AM EST Office Visit Orthopedic Surgery [facility] [address] [phone] Walter Guillory DPM Controlled type 2 diabetes mellitus with diabetic polyneuropathy, without long-term current use of insulin ([facility]) (Primary Dx); PAD (peripheral artery disease) ([facility]); Metatarsalgia of left foot; Onychomycosis from Last [...] 07/26/2024 9:30 AM EDT Office Visit Orthopedic [facility] [address] [phone] Walter Guillory DPM [address] [address] Health Maintenance Due Date Last Done Comments [...] Insurance MEDICARE MEDICAID - [place] Care Teams Brokerage Coordinator Relationship Specialty Start Date End Date Lonny Tamayo MD [address] [place] [id number] PCP - General Internal Medicine 03/22/24
--- OUTSIDE RECORDS SUMMARY | 2024-06-16 12:37 | XMS_ITS | Clinical Summary ---
Author Organization [facility] Address [address] [place] [address] Phone Care Team Providers Care Auth Specialist Name Role Phone Finn Ta NP Primary Care Provider [phone] Allergies No known active allergies Medications gabapentin (NEURONTIN) 600 MG tablet Take 2 tablets by mouth 3 times a day 06/28/2020 Active [facility] Ear Drops 6.5 % otic solution DROP 5 DROPS INTO THE LEFT EAR EVERY 12 HOURS FOR 4 DAYS 06/27/2020 Active simvastatin (ZOCOR) 20 MG tablet Take 1 tablet by mouth at bed time Active Tiotropium [place] Monohydrate (Spiriva Respimat) 2.5 MCG/ACT aerosol solution [...] [place] Care Teams Auth Specialist Relationship Specialty Start Date End Date Finn Ta NP [place] [address] PCP - General Nurse Practitioner 07/12/20
--- OUTSIDE RECORDS SUMMARY | 2024-06-16 12:37 | XMS_ITS | Encounter Summary ---
Author Organization [facility] Address [address] [place] [address] Care Team Providers Care Architectural Examiner Name Role Phone Lonny Tamayo MD Primary Care Provider Reason for Visit * Reason Comments DM Foot Care Encounter Details Date Type Department Care Team (Late st Contact Info) Description 05/24/2024 10:30 AM EST Office Visit Orthopedic Surgery - [place] [address] [phone] Walter Guillory DPM [address] [address] Controlled type 2 diabetes mellitus with diabetic [...] Sharp/dull sensation intact, protective sensation intact on [place]. Multiple peripheral neuropathies bilaterally. ORTHOPEDIC: Good muscle [...] polyneuropathy, without long-term current use of insulin ([facility]) 2. PAD (peripheral artery disease) ([facility]) 3. Metatarsalgia of left foot 4. Onychomycosis [...] AM EDT Office Visit Orthopedic Surgery - [place] [address] [phone] Walter Guilolry DPM [address] [address] documented as of this encounter Visit Diagnoses Diagnosis Controlled type 2 diabetes mellitus with diabetic polyneuropathy, without long- term current use of insulin ([facility])- Primary PAD (peripheral artery disease) ([facility]) Unspecified peripheral vascular disease Metatarsalgia of left foot Onychomycosis Dermatophytosis of nail documented in this encounter Care Teams Architectural Examiner Relationship Specialty Start Date End Date Lonny Tamayo MD [address] [place] [address] PCP - General Internal Medicine 03/22/24 documented as of this encounter
[2024-06-16 13:24] LABS: Anion Gap 13 (12-20); Blood Urea Nitrogen 29 mg/dL (9-16); Carbon Dioxide 23 mmol/L (22-29); Chloride 107 mmol/L (96-108); Estimated Glomerular Filt Rate 42; Potassium 5.5 mmol/L (3.3-5.1); Sodium 137 mmol/L (135-145)
[2024-06-16 13:40] LABS: Creatinine Urine 55.96 mg/dL; Protein/Creatinine Ratio, Ur 0.29 (<0.2); Total Protein Urine Random 16 mg/dL (<12)
== END 2024-06-16 10:52 | disposition home or self-care (01) ==
LOC: HO.10HDL 10:51
PROVIDERS: Visit Provider Internal Medicine Nephrology
DX: N18.31 Chronic kidney disease, stage 3a (principal)
CPT/HCPCS: 36415; 80051; 82565; 82570; 84156; 84520; 99212

== ENCOUNTER 2024-06-17 12:44 | Outpatient (AMB) | payer MEDICARE, MEDICAID, SELFPAY ==
--- NOTE | 2024-06-17 12:53 | A.OFFPC_ITS ---
Vital Signs 06/17/24 12:58 Height 5 ft 6 in Weight 164 lb BMI 26.5 BP 118/70 Blood Pressure Location Lt brachial Position Sitting Respiration 17 Pulse 74 Pulse Source Pulse Oximeter Temp 97.4 F Temp Source Oral Pulse Oximetry (%) 94 Oxygen Delivery Method Room Air Intake Visit Reasons: DM foot Finn vasquez pt Allergies No Known Allergies [No Known Allergies*] Allergy (Verified 06/17/24 13:04) Medication List - Last Reconciled 06/17/24 by Lindsay Odom MD alcohol swabs (Alcohol Prep Pads) 1 pad topical TID 30 days aspirin 81 mg PO DAILY blood sugar diagnostic (FreeStyle Lite Strips) test TID blood-glucose meter (FreeStyle Lite Meter kit) Test TID dapagliflozin propanediol (Farxiga) 2.5 mg (1/2 x 5 mg) PO DAILY 90 days [extra-depth Diabetic shoes with 3 pair Custom heat-molded multi-density innersoles As directed] finasteride 5 mg PO DAILY 90 days gabapentin 1,200 mg PO TID ketoconazole 2% 1 appl topical BID 20 days lancets (FreeStyle Lancets) Test TID lisinopril 2.5 mg PO DAILY metformin 500 mg PO TID rosuvastatin 40 mg PO DAILY Shower Chair use daily, for lower extrem weakness/hip pains sodium polystyrene sulfonate 30 grams PO ONCE umeclidinium-vilanterol 62.5-25 mcg/actuation (Anoro Ellipta) 1 inh inhalation DAILY Ventolin HFA 90 mcg/actuation (albuterol sulfate) 2 puffs inhalation Q4-6H PRN NS vibegron (Gemtesa) 75 mg PO DAILY 90 days Tobacco use date assessed: 06/17/24 Fall risk assessment: 1 Fall in past year Last assessed Fall Risk: 06/17/24 Dental Screening Dental Screen Date: 06/17/24 Did you have a dental visit in the last 12 months?: No Did you have a dental problem in the last 6 months where you did not have access to dental care?: No Was dental information given to patient?: No HPI DM Finn kinney pt HPI Details 79-year-old male with history of diabete s mellitus with retinopathy and polyneuropathy, here today to have a diabetes foot exam and requesting a prescription for his diabetic shoes with inserts . His last hemoglobin A1c was 04/26/done 04/2023 was at 8.1%. He is currently taking Farxiga 2.5 mg once a day in a.m. and metformin 500 mg 1 tablet 3 times a day. [facility] Medical History (Updated 06/17/24 @ 13:34 by Lindsay Odom MD) Bilateral impacted cerumen Diabetes mellitus with polyneuropathy Hypertensive retinopathy Raynauds disease Type 2 diabetes mellitus with diabetic polyneuropathy CKD (chronic kidney disease) stage 3, GFR 30-59 ml/min Sleep apnea CAD (coronary artery disease) Seasonal allergies BPH (benign prostatic hyperplasia) Hematuria Hx of dermatitis Pulmonary HTN HTN (hypertension) CVA (cerebral vascular accident) Type 2 diabetes mellitus with unspecified complications NICM (nonischemic cardiomyopathy) Atherosclerotic heart disease of [place] coronary artery without angina pectoris Hyperlipidemia, unspecified Smoker Transient cerebral ischemic attack, unspecified Surgical History Hx of colonoscopy Hx of bilateral cataract extraction History of inguinal hernia repair, bilateral (~04/2016) History of cardiac catheterization (12/28/19) Family History Father Cardiovascular disease Diabetes Mother Osteoporosis Social History Housing: Apartment Are you a primary progressive care unit registered nurse to a significant other at home: No Do you presently have visiting nurse or other home services: No Alcohol intake: never Patient Tobacco Use Status: Current everyday Tobacco user Cigarettes Per Day: 10 Years Smoked: 55 Packs per year/per ci.50 e-Cigarette/Vaping Use: Never Used Second Hand Smoke Exposure: Yes Current occupational status: retired Cognitive needs: No Hearing needs: No Vision needs: Yes Questionnaire Thrive Questionnaire Date Thrive assessed: 04/30/23 MECHELLE-7 AMB Questionnaire MECHELLE-7 Date MECHELLE - 7 assessed: 04/30/23 Source: Developed by Drs. Crispin Vargas, Nannette Alanis, Jimmy Parks and colleagues, with an educational orville from [employer]. Physical exam (Primary Care) Vital Signs: Last Vital Signs Temp 97.4 F 06/17/24 12:58 Pulse 74 06/17/24 12:58 Resp 17 06/17/24 12:58 BP 118/70 06/17/24 12:58 Pulse Ox 94 06/17/24 12:58 Oxygen Delivery Method Room Air 06/17/24 12:58 BMI result Body Mass Index 26.5 Tobacco/Smoking Status: Tobacco use Status Tobacco use date assessed 06/17/24 06/17/24 12:59 Patient Tobacco Use Status Current everyday Tobacco 06/17/24 12:54 e-Cigarette/Vaping Use Never Used 06/17/24 12:54 Thrive Assessment: Date of Thrive Assessment Date Thrive assessed 04/30/23 06/17/24 12:54 Results AMB Hemoglobin A1c AMB Hemoglobin A1c 7.0 % Last Edit by Brittny Pina CMA on 06/17/24 14:04 Coding Level of Care Code Est Pt Level 4 (27726) Complex EM visit Add On G2211 Diagnoses Diabetes mellitus with polyneuropathy E11.42 Bilateral impacted cerumen H61.23 Assessment & Plan Assessment & Plan (1) Diabetes mellitus with polyneuropathy: Code(s): E11.42 - Type 2 diabetes mellitus with diabetic polyneuropathy Category: Medical (2) Bilateral impacted cerumen: Code(s): H61.23 - Impacted cerumen, bilateral Category: Medical Orders: Orders AMB Hemoglobin A1c Today E11.8 - Type 2 diabetes mellitus with unspecified complications
[2024-06-17 12:58] VITALS: BP 118/70; PULSE 74; RESP 17; TEMP 36.3; O2SAT 94; BMI 26.5
--- OUTSIDE RECORDS SUMMARY | 2024-06-17 16:04 | XMS_ITS | Encounter Summary ---
Author Organization [facility] Address [address] [place] [address] Care Team Providers Care Irrigation Equipment Installer Name Role Phone Lonny Tamayo MD Primary Care Provider [phone] Reason for Visit * Reason Comments DM Foot Care Encounter Details Date Type Department Care Team (Late st Contact Info) Description 05/24/2024 10:30 AM EST Office Visit Orthopedic Surgery - [place] [address] [place] [address] [phone] Walter Guillory DPM [address] [address] Controlled type 2 diabetes mellitus with diabetic [...] Sharp/dull sensation intact, protective sensation intact on [place]. Multiple peripheral neuropathies bilaterally. ORTHOPEDIC: Good muscle [...] polyneuropathy, without long-term current use of insulin ([facility]) 2. PAD (peripheral artery disease) ([facility]) 3. Metatarsalgia of left foot 4. Onychomycosis [...] AM EDT Office Visit Orthopedic Surgery - [place] [address] [place] [address] [phone] Walter Guillory DPM [address] [address] documented as of this encounter Visit Diagnoses Diagnosis Controlled type 2 diabetes mellitus with diabetic polyneuropathy, without long- term current use of insulin ([facility])- Primary PAD (peripheral artery disease) ([facility]) Unspecified peripheral vascular disease Metatarsalgia of left foot Onychomycosis Dermatophytosis of nail documented in this encounter Care Teams Irrigation Equipment Installer Relationship Specialty Start Date End Date Lonny Tamayo MD [address] [place] [address] PCP - General Internal Medicine 03/22/24 documented as of this encounter
--- OUTSIDE RECORDS SUMMARY | 2024-06-17 16:04 | XMS_ITS | Patient Health Record ---
Author Organization [facility] Address [address] [place] [address] Care Team Providers Care Licensed Embalmer Supervisor Name Role Phone Finn Bird Primary Care Provider Unav ailSky oCwan Unavailable [phone] Allergies No Known Allergies Reason For Referral [...] Polyneuropathy due to type 2 diabetes mellitus (456769928) Type 2 diabetes mellitus with diabetic polyneuropathy (E11.42) Active confirmed Problem Polyneuropathy due to diabetes mellitus type I (153013609) Type 1 diabetes mellitus with diabetic polyneuropathy (E10.42) Active confirmed Problem [id number] Raynaud's diseas e without gangrene (I73.00) Active confirmed Plan Of Treatment Pending Test Test Name Order Date [id number] SKIN LESIONS, 2 TO 4 12/14/19 21 [id number] SKIN LESIONS, 2 TO 4 03/15/20 21 [id number] SKIN LESIONS, 2 TO 4 06/07/19 22 Insurance Providers Payer Name Payer Address Payer Phone Subscriber Number Group Number Insured Name Patient Relationship to Insured Coverage Start Date Coverage End Date Medicare National [employer]t [employer] [address] [place] [address] [id number] Darius Askew Self - patient is the [...]
--- OUTSIDE RECORDS SUMMARY | 2024-06-17 16:04 | XMS_ITS | Clinical Summary ---
Author Organization 175 [facility] Address 175 [place] [address] Phone Care Team Providers Care Supervisor Lump Room Name Role Phone Lonny Tamayo MD Primary Care Provider Allergies No known active allergies Medications No known medications Encounters Date Type Department Care Team Description 05/24/2024 10:30 AM EST Office Visit Orthopedic Surgery [facility] [address] [phone] Walter Guillory DPM Controlled type 2 diabetes mellitus with diabetic polyneuropathy, without long-term current use of insulin ([facility]) (Primary Dx); PAD (peripheral artery disease) ([facility]); Metatarsalgia of left foot; Onychomycosis from Last [...] 07/26/2024 9:30 AM EDT Office Visit [facility] [address] [phone] Walter Guillory DPM [address] [address] Health Maintenance Due Date Last Done Comments [...] Insurance MEDICARE MEDICAID - [place] Care Teams Supervisor Lump Room Relationship Specialty Start Date End Date Lonny Tamayo MD [address] [place] [phone] PCP - General Internal Medicine 03/22/24
--- OUTSIDE RECORDS SUMMARY | 2024-06-17 16:04 | XMS_ITS | Clinical Summary ---
Author Organization [facility] Address [address] [place] [address] Phone Care Team Providers Care Oil Recovery Operator Name Role Phone Finn Ta NP Primary Care Provider [phone] Allergies No known active allergies Medications gabapentin (NEURONTIN) 600 MG tablet Take 2 tablets by mouth 3 times a day 06/28/2020 Active [facility] Ear Drops 6.5 % otic solution DROP 5 DROPS INTO THE LEFT EAR EVERY 12 HOURS FOR 4 DAYS 06/27/2020 Active simvastatin (ZOCOR) 20 MG tablet Take 1 tablet by mouth at bed time Active Tiotropium [place] Monohydrate (Spiriva Respimat) 2.5 MCG/ACT aerosol solution [...] [place] Care Teams Oil Recovery Operator Relationship Specialty Start Date End Date Finn Ta NP [facility] [place] [address] PCP - General Nurse Practitioner 07/12/20
== END 2024-06-17 15:08 | disposition home or self-care (01) ==
LOC: HO.HMCC 12:45
PROVIDERS: PCP Nurse Practitioner Family; Visit Provider Internal Medicine
DX: E11.8 Type 2 diabetes mellitus with unspecified complications (principal)

== ENCOUNTER → 2024-06-17 12:44 | Outpatient (BNVA) | payer MEDICARE, MEDICAID, SELFPAY | PROVIDERS: PCP Nurse Practitioner Family; Visit Provider Internal Medicine | DX: E11.42 Type 2 diabetes mellitus with diabetic polyneuropathy (principal); H61.23 Impacted cerumen, bilateral | CPT/HCPCS: 83036; 99212 ==

== ENCOUNTER 2024-07-02 11:34 | Outpatient (REF) | payer MEDICARE, MEDICAID, SELFPAY ==
[2024-07-02 13:44] LABS: Anion Gap 13 (12-20); Blood Urea Nitrogen 26 mg/dL (9-16); Carbon Dioxide 22 mmol/L (22-29); Chloride 104 mmol/L (96-108); Estimated Glomerular Filt Rate 44; Potassium 5.2 mmol/L (3.3-5.1); Sodium 134 mmol/L (135-145)
== END 2024-07-02 11:35 | disposition home or self-care (01) ==
LOC: HO.10HDL 11:34
PROVIDERS: Visit Provider Internal Medicine Nephrology
DX: N18.31 Chronic kidney disease, stage 3a (principal)
CPT/HCPCS: 36415; 80051; 82565; 84520

== ENCOUNTER 2024-08-04 12:46 | Outpatient (AMB) | payer MEDICARE, MEDICAID, SELFPAY ==
[2024-08-04 12:54] VITALS: BP 112/62; PULSE 76; O2SAT 97; BMI 26.8
--- NOTE | 2024-08-04 12:54 | MHC.PC.OV ---
Vital Signs 08/04/24 12:54 Height 5 ft 6 in Weight 166 lb BMI 26.8 BP 112/62 Blood Pressure Location Lt brachial Position Sitting Pulse 76 Pulse Source Pulse Oximeter Pulse Oximetry (%) 97 Oxygen Delivery Method Room Air Intake Visit Reasons: Pain left ear Zone Maintenance Technician Required: No Accompanied by: Self / Same As Patient Allergies No Known Allergies [No Known Allergies*] Allergy (Verified 08/04/24 12:55) Tobacco use date assessed: 06/17/24 Fall risk assessment: No Falls in past year Last assessed Fall Risk: 08/04/24 Dental Screening Dental Screen Date: 06/17/24 HPI Pain left ear HPI Details Chief Complaint The patient presents for follow-up management of diabetes. History of Present Illness The patient is a 79-year-old male presenting with diabetes for follow-up management. He has been undergoing consistent monitoring of his diabetes mellitus, including periodic evaluations of his A1c to assess glycemic control. He reports neuropathy, a common complication of diabetes, though monofilament testing indicated good sensation at the time of the visit. The patient also presents with elongated toenails but without signs of fungal infection. He experiences transient ear discomfort localized to the tragus area, which presents in the morning but resolves thereafter. On physical examination, this area was non-tender with no visible inflammation. The patient is being managed for his condition with regular check-ups and collaboration with his hazardous materials driver. Pt, unfortunately, continues to smoke Social History - The patient did not report any relevant social determinants of health. (EMPTY) Health Maintenance - Ongoing diabetes management with regular A1c check. - Routine nephrology follow-up. Review of Systems - Neurological: Reports neuropathy. - Integumentary: Reports elongated toenails. - Ear, Nose, Throat: Reports ear discomfort in the morning. - Denies any other symptoms. Physical Exam General: Cooperative, healthy appearing, comfortable, no acute distress and well developed Orientation: Patient oriented x3 Limitations: No limitations Head: Normal to inspection Ears: Hearing grossly normal bilaterally, though patient reports some ear discomfort, pointing more to his Tragus. No tenderness noted with Tragus manipulation of the left. No Tragus erythema or surrounding erythema. Eardrums are intact with no signs of infection, canal without any trauma or abrasions or excoriations. Nose: Normal external nose present Face and sinus: Normal facial exam Eyes: Appearance normal, both eyes and all related structures Neck: Normal visual inspection and Yes full ROM Respiratory: Normal respiratory effort and able to speak in complete sentences. Clear to auscultation bilaterally Cardiovascular: Regular rate and rhythm. Normal S1 and S2 GI: Normal to inspection. Soft to palpation and nontender Skin: No rashes or lesions noted Neuro: Patient oriented x3, reports some neuropathy, though good sensation today with monofilament Extremities: Normal to inspection, elongated toenails, bilateral onychomyocosis Results - Labs: A1c test ordered for glycemic control assessment. Plan I have ordered an A1c test to monitor his diabetes mellitus. The neuropathy reported will be observed with periodic sensation assessments, as the patient's current sensation remains intact. There is no immediate concern for the elongated toenails as no fungal infection is present. The patient's morning ear discomfort does not exhibit signs indicative of infection or other complications. The patient will continue to receive routine follow-ups to ensure an ongoing comprehensive care plan for diabetes and coordination with his hazardous materials driver. Discussion Notes We discussed the importance of regular monitoring of his diabetes mellitus, with an A1c test ordered to ascertain current glycemic control. The patient understands the significance of observing his neuropathy symptoms, even though sensation is currently maintained. The elongated toenails are not a current health risk without fungal infection. Ear discomfort occurrence is not indicative of an infection based on the lack of physical findings. We emphasized the continuation of regular consultations with his hazardous materials driver to promote integrated care, and the patient consents to this management plan. Patient Instructions - Follow up with the ordered A1c test. - Monitor any new or worsening symptoms of neuropathy and report if changes occur. - Continue regular self-care for toenails and observe for any changes. - Report if ear discomfort persists or worsens. - Attend routine check-ups with your hazardous materials driver as scheduled. - Maintain any current medications and lifestyle modifications for diabetes management. [facility] Medical History Bilateral impacted cerumen Diabetes mellitus with polyneuropathy Hypertensive retinopathy Raynauds disease Type 2 diabetes mellitus with diabetic polyneuropathy CKD (chronic kidney disease) stage 3, GFR 30-59 ml/min Sleep apnea CAD (coronary artery disease) Seasonal allergies BPH (benign prostatic hyperplasia) Hematuria Hx of dermatitis Pulmonary HTN HTN (hypertension) CVA (cerebral vascular accident) Type 2 diabetes mellitus with unspecified complications NICM (nonischemic cardiomyopathy) Atherosclerotic heart disease of [place] coronary artery without angina pectoris Hyperlipidemia, unspecified Smoker Transient cerebral ischemic attack, unspecified Surgical History Hx of colonoscopy Hx of bilateral cataract extraction History of inguinal hernia repair, bilateral (~04/2016) History of cardiac catheterization (12/28/19) Family History Father Cardiovascular disease Diabetes Mother Osteoporosis Social History Housing: Apartment Are you a primary nanny caregiver to a significant other at home: No Do you presently have visiting nurse or other home services: No Alcohol intake: never Patient Tobacco Use Status: Current everyday Tobacco user Cigarettes Per Day: 10 Years Smoked: 55 e-Cigarette/Vaping Use: Never Used Second Hand Smoke Exposure: Yes Current occupational status: retired Cognitive needs: No Hearing needs: No Vision needs: Yes Questionnaire PHQ-9 Over the last 2 weeks, how often have you been bothered by any of the following problems? 21227 - PHQ-9 Billing: Patient declined-do not bill Source: Developed by Drs. Crispin Vargas, Nannette Alanis, Jimmy Parks and colleagues, with an educational orville from [employer]. Thrive Questionnaire Date Thrive assessed: 08/04/24 I am a: Patient What is your living situation today?: I choose not to answer this question Within the past 12 months, did the food you bought not last and you didn't have the money to get more?: I choose not to answer this question Within the past 12 months, did you worry whether your food would run out before you got money to buy more?: I choose not to answer this question Do you have trouble paying for medicines?: I choose not to answer this question Do you have trouble getting transportation to medical appointments?: I choose not to answer this question Do you have trouble paying your heating and electricity bill?: I choose not to answer this question Do you have trouble taking care of your child, family member or friend?: I choose not to answer this question Do you have trouble with day-to-day activities such as bathing, preparing meals, shopping, managing finances, etc.?: I choose not to answer this question Are you currently unemployed and looking for a job?: I choose not to answer this question Are you interested in more education?: I choose not to answer this question THRIVE Score: 0 MECHELLE-7 AMB Questionnaire MECHELLE-7 Date MECHELLE - 7 assessed: 08/04/24 (patient declined ) Source: Developed by Drs. Crispin Vargas, Nannette Alanis, Jimmy Parks and colleagues, with an educational orville from [employer]. Physical exam (Primary Care) Vital Signs: Last Vital Signs Pulse 76 08/04/24 12:54 BP 112/62 08/04/24 12:54 Pulse Ox 97 08/04/24 12:54 Oxygen Delivery Method Room Air 08/04/24 12:54 BMI result Body Mass Index 26.8 Tobacco/Smoking Status: Tobacco use Status Tobacco use date assessed 06/17/24 08/04/24 12:56 Patient Tobacco Use Status Current everyday Tobacco 08/04/24 12:56 e-Cigarette/Vaping Use Never Used 08/04/24 12:56 Thrive Assessment: Date of Thrive Assessment Date Thrive assessed 08/04/24 08/04/24 12:56 Coding Level of Care Code Est Pt Level 3 (74762) Diagnoses Diabetes mellitus with polyneuropathy E11.42 Ear discomfort H92.09 Assessment & Plan Assessment & Plan (1) Diabetes mellitus with polyneuropathy: Code(s): E11.42 - Type 2 diabetes mellitus with diabetic polyneuropathy Category: Medical (2) Ear discomfort: Code(s): H92.09 - Otalgia, unspecified ear Category: Medical Plan . Orders: Orders Complete Blood Count Auto Diff Today E11.42 - Type 2 diabetes mellitus with diabetic polyneuropathy Comprehensive Drain. Panel Fast Today E11.42 - Type 2 diabetes mellitus with diabetic polyneuropathy UA CC w/rflx Micro + Cult Today E11.42 - Type 2 diabetes mellitus with diabetic polyneuropathy Microalbumin, Random (w Creat) Today E11.42 - Type 2 diabetes mellitus with diabetic polyneuropathy Hemoglobin A1c Today E11.42 - Type 2 diabetes mellitus with diabetic polyneuropathy TSH reflex Free T4 Today E11.42 - Type 2 diabetes mellitus with diabetic polyneuropathy Lipid Panel Today E11.42 - Type 2 diabetes mellitus with diabetic polyneuropathy
--- OUTSIDE RECORDS SUMMARY | 2024-08-04 13:59 | XMS_ITS | Clinical Summary ---
Author Organization [address] [facility] Address [address] [place] [address] Phone Care Team Providers Care Mangle Catcher Name Role Phone Lonny Tamayo MD Primary Care Provider Allergies No known active allergies Medications No known medications Encounters Date Type Department Care Team Description 05/24/2024 10:30 AM EST Office Visit Orthopedic Surgery [facility] [address] [address] Walter Guillory DPM Controlled type 2 diabetes mellitus with diabetic polyneuropathy, without long-term current use of insulin (CMS/HCC V24, CMS/HCC V28) (Primary Dx); PAD (peripheral artery disease) (CMS/HCC V24); Metatarsalgia of left foot; Onychomycosis from Last [...] Care Team (Late st Contact Info) Description 08/13/2024 9:45 AM EDT Office Visit Orthopedic [facility] [address] [address] Pastora, Walter A, [address] [address] Health Maintenance Due Date Last Done Comments Diabetes: Annual GFR (Glomerular Filtration Rate) 1945 Diabetes: Annual Foot Exam 06/09/1957 Diabetes: Annual Retina Eye Exam 06/09/1957 Zoster Vaccines (1 of 2) 06/09/1997 DTaP,Tdap,and Td Vaccines (2 - Td or Tdap) 06/01/2022 06/01/2012 RSV Immunization Adult Patients (1 - 1-dose 75+ series) 06/09/2022 COVID-19 Vaccine (3 - season) 2023 08/16/2020, 07/24/2020 Cholesterol Screening (Lipid Panel) 01/31/2024 Depression Screening 01/31/2024 Falls Risk Assessment 01/31/2024 Hepatitis C Screening 01/31/2024 Medicare Annual Wellness Visit 01/31/2024 Social Influencers of Health Screening 01/31/2024 Diabetes: Annual Urine Albumin-Creatinine Ratio (uACR) 03/16/2024 Diabetes: Blood Sugar Control Test (HGBA1C) 03/16/2024 Hypertension/CHF/CAD Annual BMP Blood Test 03/16/2024 Influenza Vaccine (Season Ended) 2024 02/12/2019, 01/06/2018, 11/18/2016, Additional history exists Pneumococcal Vaccine: 50+ Years Completed 01/22/2023, 06/11/2021 [...] age to complete this topic Meningococcal B Vaccine Aged Out No l onger eligible based on patient's age to complete this topic RSV Immunization Patients Under 20 months Aged Out No longer eligible based on patient's age to complete this topic Varicella Vaccines Aged Out No longer eligible based on patient's age to complete this topic Insurance MEDICARE MEDICAID - [place] Care Teams Mangle Catcher Relationship Specialty Start Date End Date Lonny Tamayo MD [address] [place] [id number] PCP - General Internal Medicine 03/22/24
--- OUTSIDE RECORDS SUMMARY | 2024-08-04 13:59 | XMS_ITS | Clinical Summary ---
Author Organization [facility] Address [address] [place] [address] [place] [address] Phone Care Team Providers Care Non Destructive Testing Specialist Name Role Phone Finn Ta NP Primary Care Provider [phone] Allergies No known active allergies Medications gabapentin (NEURONTIN) 600 MG tablet Take 2 tablets by mouth 3 times a day 06/28/2020 Active [facility] Ear Drops 6.5 % otic solution DROP 5 DROPS INTO THE LEFT EAR EVERY 12 HOURS FOR 4 DAYS 06/27/2020 Active simvastatin (ZOCOR) 20 MG tablet Take 1 tablet by mouth at bed time Active Tiotropium [place] Monohydrate (Spiriva Respimat) 2.5 MCG/ACT aerosol solution [...] Due Date Last Done Comments Pneumococcal Vaccine: 50+ Ye ars (1 of 2 - PCV) 06/09/1966 Diabetes: Hemoglobin A1C 05/07/2020 Diabetes: Ophthalmology Exam 05/07/2020 Diabetes: Pedal Pulse Checked 05/07/2020 Diabetes: Sensory Foot Exam 05/07/2020 Diabetes: Visual Foot Exam 05/07/2020 Influenza Vaccine (Season Ended) 2024 Hepatitis B Vaccine Aged Out No longe r eligible based on patient's age to complete this topic Insurance Medicare Medicaid [place] Care Teams Non Destructive Testing Specialist Relationship Specialty Start Date End Date Finn Ta NP [facility] [place] [address] PCP - General Nurse Practitioner 07/12/20
--- OUTSIDE RECORDS SUMMARY | 2024-08-04 13:59 | XMS_ITS | Patient Health Record ---
Author Organization [facility] [place] Address [address] [place] [address] Care Team Providers Care Emt Driver Name Role Phone Finn Bird Primary Care Provider Unav ailSky Cowan Unavailable [phone] Allergies No Known Allergies Reason For Referral [...] Polyneuropathy due to type 2 diabetes mellitus ([id number]) Type 2 diabetes mellitus with diabetic polyneuropathy (E11.42) Active confirmed Problem Polyneuropathy due to diabetes mellitus type I (963292067) Type 1 diabetes mellitus with diabetic polyneuropathy (E10.42) Active confirmed Problem [id number] Raynaud's diseas e without gangrene (I73.00) Active confirmed Plan Of Treatment Pending Test Test Name Order Date [id number] SKIN LESIONS, 2 TO 4 12/14/19 21 [id number] SKIN LESIONS, 2 TO 4 03/15/20 21 52671-[id number] SKIN LESIONS, 2 TO 4 06/07/19 22 Insurance Providers Payer Name Payer Address Payer Phone Subscriber Number Group Number Insured Name Patient Relationship to Insured Coverage Start Date Coverage End Date Medicare National [employer] [address] [place] [address] [id number] Darius Askew Self - patient is the [...]
== END 2024-08-04 14:05 | disposition home or self-care (01) ==
LOC: HO.HMCC 12:47
PROVIDERS: PCP Nurse Practitioner Family; Visit Provider Nurse Practitioner Family
DX: E11.42 Type 2 diabetes mellitus with diabetic polyneuropathy (principal); H92.09 Otalgia, unspecified ear

== ENCOUNTER → 2024-08-04 12:46 | Outpatient (BNVA) | payer MEDICARE, MEDICAID, SELFPAY | PROVIDERS: PCP Nurse Practitioner Family; Visit Provider Nurse Practitioner Family | DX: E11.42 Type 2 diabetes mellitus with diabetic polyneuropathy (principal); H92.09 Otalgia, unspecified ear | CPT/HCPCS: 99212 ==

== ENCOUNTER 2024-08-06 06:57 | Outpatient (REF) | payer MEDICARE, MEDICAID, SELFPAY ==
--- OUTSIDE RECORDS SUMMARY | 2024-08-06 06:59 | XMS_ITS | Patient Health Record ---
Author Organization [facility] [place] Address [address] [address] Care Team Providers Care Dressmaker Garment Fitter Name Role Phone Finn Bird Primary Care Provider Unav ailjodi AdamsSky Unavailable [phone] Allergies No Known Allergies Reason For Referral [...] Polyneuropathy due to type 2 diabetes mellitus ([id number]) Type 2 diabetes mellitus with diabetic polyneuropathy (E11.42) Active confirmed Problem Polyneuropathy due to diabetes mellitus type I (969887073) Type 1 diabetes mellitus with diabetic polyneuropathy (E10.42) Active confirmed Problem [id number] Raynaud's diseas e without gangrene (I73.00) Active confirmed Plan Of Treatment Pending Test Test Name Order Date [id number] SKIN LESIONS, 2 TO 4 12/14/19 21 [id number] SKIN LESIONS, 2 TO 4 03/15/20 21 [id number] SKIN LESIONS, 2 TO 4 06/07/19 22 Insurance Providers Payer Name Payer Address Payer Phone Subscriber Number Group Number Insured Name Patient Relationship to Insured Coverage Start Date Coverage End Date Medicare National [employer] [address] [facility] [place] [address] [id number] Darius Askew Self - patient is the [...]
--- OUTSIDE RECORDS SUMMARY | 2024-08-06 06:59 | XMS_ITS | Clinical Summary ---
Author Organization [address] [facility] Address [address] [place] [address] Phone Care Team Providers Care Dance Critic Name Role Phone Lonny Tamayo MD Primary Care Provider Allergies No known active allergies Medications No known medications Encounters Date Type Department Care Team Description 05/24/2024 10:30 AM EST Office Visit Orthopedic Surgery [facility] [address] [address] Waletr Guillory DPM Controlled type 2 diabetes mellitus [...] 08/13/2024 9:45 AM EDT Office Visit Orthopedic [facility] [address] [address] Pastora, Walter A, [address] [address] Health Maintenance Due Date Last Done Comments [...] Insurance MEDICARE MEDICAID - [place] Care Teams Dance Critic Relationship Specialty Start Date End Date Lonny Tamayo MD [address] [place] [id number] PCP - General Internal Medicine 03/22/24
[2024-08-06 10:05] LABS: Appearance Urine Clear; Color Urine Yellow; Glucose Urine UA 100 mg/dL (Negative); Leukocyte Esterase Urine Negative (Negative); Nitrite Urine Negative (Negative); PH 5.5 (5.0-9.0); Urine Blood Negative (Negative); Urine Ketones Negative (Negative); Urine Protein Trace mg/dL (Neg-Trace)
[2024-08-06 10:06] LABS: MANUAL DIFF FLAG NO
[2024-08-06 10:13] LABS: Basophils Percent Auto 0.4 % (0-2); Eosinophils Absolute Auto 0.3 X10*3/uL (0.0-0.4); Eosinophils Percent Auto 3.1 % (0-4); Hematocrit 46.7 % (42.0-52.0); Hemoglobin 15.5 g/dl (14.0-18.0); Imm Gran Abs Auto 0.03 X10*3/uL (0.00-0.03); Imm Gran Pct Auto 0.4 % (0.0-0.4); Lymphocytes Absolute Auto 2.2 X10*3/uL (1.2-4.9); Lymphocytes Percent Auto 27.1 % (20-40); Mean Corpuscular HGB Conc 33.2 g/dl (31.0-36.0); Mean Corpuscular Hemoglobin 30.8 pg (27.0-33.0); Mean Corpuscular Volume 92.8 fL (80.0-98.0); Mean Platelet Volume 9.9 fL (9.4-12.4); Monocytes Absolute Auto 0.7 X10*3/uL (0.1-1.2); Monocytes Percent Auto 8.5 % (2-11); Neutrophils Percent Auto 60.5 % (45-73); Platelet Count 240 X10*3/uL (160-400); Red Blood Count 5.03 X10*6/uL (4.60-5.80); Red Cell Distribution Width 13.2 % (11.0-16.0); White Blood Count 8.2 X10*3/uL (4.8-10.8)
[2024-08-06 10:31] LABS: Estimated Average Glucose 137 mg/dL; Hemoglobin A1C 186.7404 umol/L; Hemoglobin A1c % 6.4 % (<6.0)
[2024-08-06 10:37] LABS: Creatinine Urine 65.23 mg/dL; Microalbum/Creatinine Ratio Ur 98.1 ug/mg cr (<30)
[2024-08-06 11:00] LABS: Alanine Aminotransferase 20 U/L (0-40); Albumin Level 4.3 g/dL (3.5-5.0); Alkaline Phosphatase 71 U/L (39-117); Anion Gap 14 (12-20); Aspartate Amino Transferase 27 U/L (5-37); Bilirubin Total 0.4 mg/dL (0.0-1.0); Blood Urea Nitrogen 27 mg/dL (9-16); Calcium 9.5 mg/dL (8.4-10.2); Carbon Dioxide 22 mmol/L (22-29); Chloride 109 mmol/L (96-108); Cholesterol 103 mg/dL (<200); Estimated Glomerular Filt Rate 48; Glucose Fasting 118 mg/dL (60-99); HDL Cholesterol 45 mg/dL (>40); LDL Cholesterol Calculated 46 mg/dL (<100); Potassium 4.7 mmol/L (3.3-5.1); Sodium 140 mmol/L (135-145); TSH reflex Free T4 3.38 uIU/mL (0.32-4.0); Total Protein 7.1 g/dL (6.5-8.0); Triglycerides 63 mg/dL (<150)
== END 2024-08-06 06:58 | disposition home or self-care (01) ==
LOC: HO.HMGCLDS 06:57
PROVIDERS: PCP Nurse Practitioner Family; Visit Provider Nurse Practitioner Family
DX: E11.42 Type 2 diabetes mellitus with diabetic polyneuropathy (principal)
CPT/HCPCS: 36415; 80053; 80061; 81003; 82043; 82570; 83036; 84443; 85025

== ENCOUNTER 2024-09-08 08:32 | Outpatient (AMB) | payer MEDICARE, MEDICAID, SELFPAY ==
--- NOTE | 2024-09-08 08:42 | MHC.OFFVIS ---
Intake Visit Reasons: 6M PVR Intake Note: Pt presents to the office today for a 6 month follow up/PVR. Urolgoy meds:finasteride,gemtesa Blood thinners:aspirin PVR:0ml Allergies No Known Allergies [No Known Allergies*] Allergy (Verified 09/08/24 09:20) Medication List - Last Reconciled 09/08/24 by URBAN Rudolph alcohol swabs (Alcohol Prep Pads) 1 pad topical TID 30 days aspirin 81 mg PO DAILY blood sugar diagnostic (FreeStyle Lite Strips) test TID blood-glucose meter (FreeStyle Lite Meter kit) Test TID dapagliflozin propanediol (Farxiga) 2.5 mg (1/2 x 5 mg) PO DAILY 90 days [extra-depth Diabetic shoes with 3 pair Custom heat-molded multi-density innersoles As directed] finasteride 5 mg PO DAILY 90 days gabapentin 1,200 mg PO TID ketoconazole 2% 1 appl topical BID 20 days lancets (FreeStyle Lancets) Test TID lisinopril 2.5 mg PO DAILY metformin 500 mg PO TID rosuvastatin 40 mg PO DAILY Shower Chair use daily, for lower extrem weakness/hip pains sodium polystyrene sulfonate 30 grams PO ONCE umeclidinium-vilanterol 62.5-25 mcg/actuation (Anoro Ellipta) 1 inh inhalation DAILY Ventolin HFA 90 mcg/actuation (albuterol sulfate) 2 puffs inhalation Q4-6H PRN NS vibegron (Gemtesa) 75 mg PO DAILY 90 days HPI Comments Details: Darius is a pleasant 79 year old male patient of Dr. Ta. He has a PMH of hypertension, Raynaud's disease, diabetes, chronic kidney disease stage 3, sleep apnea, coronary artery disease, seasonal allergies, pulmonary hypertension, CVA, nonischemic cardiomyopathy, hyperlipidemia, and nicotine dependence. He presents to the office today for a follow up. When asked patient reports to be doing and feeling well. When asked he reports compliance with finasteride and Gemtesa as prescribed. Of note, patient was last seen approximately 3 months ago at which time Myrbetriq was switched to Gemtesa due to insurance coverage. He reports feeling Gemtesa has been helpful in treating his lower urinary tract symptoms of urinary urgency, frequency, and nocturia. He currently denies any bothersome urinary issues or concerns. He denies hematuria, dysuria, foul smelling urine, changes to urinary stream, fever, and or chills. He is happy with his current voiding parameters. In office urinalysis results reviewed with the patient today. PVR 0 mLs. Previous workup has included a retroperitoneal ultrasound 09/27 noting bilateral kidneys with no calculi, lesions, and or hydronephrosis noted. The bladder is well distended and normal. Pre void bladder volume is approximately 200 mL. Postvoid bladder volume is approximately 5 mL. Prostate volume measures 45 mL. PSA's are as follows: 06/26 3.3, 06/27 3.9, 01/27 3.6 07/29 1.7, 02/28 1.5 Discussed and stressed at length importance of managing diabetes for improvement in urinary symptoms as well as for overall health and well being. Also stressed the importance of limiting/quitting cigarette smoking for overall health and well-being. He does report ongoing back pain. On exam today no CVA tenderness noted bilaterally. It appears patient with generalized lumbar discomfort during palpation. He does report previously following up with [facility] as well as pain management here at [facility]. He otherwise offers no issues or concerns at this time. FORMERLY [facility], [facility] Medical History Bilateral impacted cerumen Diabetes mellitus with polyneuropathy Hypertensive retinopathy Raynauds disease Type 2 diabetes mellitus with diabetic polyneuropathy CKD (chronic kidney disease) stage 3, GFR 30-59 ml/min Sleep apnea CAD (coronary artery disease) Seasonal allergies BPH (benign prostatic hyperplasia) Hematuria Hx of dermatitis Pulmonary HTN HTN (hypertension) CVA (cerebral vascular accident) Type 2 diabetes mellitus with unspecified complications NICM (nonischemic cardiomyopathy) Atherosclerotic heart disease of [place] coronary artery without angina pectoris Hyperlipidemia, unspecified Smoker Transient cerebral ischemic attack, unspecified Surgical History Hx of colonoscopy Hx of bilateral cataract extraction History of inguinal hernia repair, bilateral (~04/2016) History of cardiac catheterization (12/28/19) Family History Father Cardiovascular disease Diabetes Mother Osteoporosis Social History Housing: Apartment Are you a primary manager primary care to a significant other at home: No Do you presently have visiting nurse or other home services: No Alcohol intake: never Patient Tobacco Use Status: Current everyday Tobacco user Cigarettes Per Day: 10 Years Smoked: 55 e-Cigarette/Vaping Use: Never Used Second Hand Smoke Exposure: Yes Current occupational status: retired Cognitive needs: No Hearing needs: No Vision needs: Yes Review of Systems Const Reports as per HPI Eyes Reports no additional complaints ENT Reports no additional complaints Card Reports as per HPI Resp Reports as per HPI GI Reports no additional complaints Reports as per HPI Musc Reports as per HPI Neuro Reports as per HPI Psych Reports no additional complaints Endo Reports as per HPI Physical Exam Const General: cooperative, comfortable, no acute distress, well developed, alert and awake Orientation/consciousness: patient oriented x3 Limitations: no limitations HEENT Head: Yes normal to inspection, Yes normocephalic and Yes atraumatic Ears: hearing grossly normal bilaterally Eyes General: appearance normal, both eyes and all related structures Neck Neck: Yes normal visual inspection and Yes trachea midline Chest Chest palpation & inspection: normal inspection of the chest Resp Effort & Inspection: normal respiratory effort and able to speak in complete sentences Cardio Rate: regular rate GI Inspection: Yes normal to inspection General: Yes no CVA tenderness Back/Spine/Pelvis Back: no CVA tenderness Skin General skin exam: no rashes or lesions noted Neuro General: patient oriented x3 Extrem General: Yes normal to inspection Psych Appearance: grossly normal and well kempt Mental Status: mental status grossly normal Speech and movement: Normal speech and movement present and Clear speech present Affect: normal affect Attitude: cooperative Thought process: Normal thought process present Thought content: Normal thought content present Insight: Fair insight present (Psych) Judgement: Fair judgement present (Psych) Office Procedures Post Void Residual Post Residual Void Post Void Residual (PVR): 0 79472-Anor Void Residual by ultrasound Results AMB Urinalysis, Automated UA Leukoctes 0 Brian/uL Last Edit by Mimi Mccracken CMA on 09/08/24 08:50 UA Nitrite Negative Last Edit by Mimi Mccracken CMA on 09/08/24 08:50 UA Urobilinogen 0.2 mg/dL Last Edit by Mimi Mccracken CMA on 09/08/24 08:50 UA Protein 15 mg/dL Last Edit by Mimi Mccracken CMA on 09/08/24 08:50 UA pH 6.0 Last Edit by Mimi Mccracken CMA on 09/08/24 08:50 UA Blood 0 Demetrius/uL Last Edit by Mimi Mccracken CMA on 09/08/24 08:50 UA Specific [place] 1.015 Last Edit by Mimi Mccracken CMA on 09/08/24 08:50 UA Ketone Negative Last Edit by Mimi Mccracken CMA on 09/08/24 08:50 UA Bilirubin 0 mg/dL Last Edit by Mimi Mccracken CMA on 09/08/24 08:50 UA Glucose 0 mg/dL Last Edit by Mimi Mccracken CMA on 09/08/24 08:50 Results Reviewed Results Reviewed: Laboratory Last Values Urine pH (Auto) 6.0 09/08/24 08:48 Specific [place] (Auto) 1.015 09/08/24 08:48 Urine Protein (Auto) 15 mg/dL 09/08/24 08:48 Glucose (UA)(Auto) 0 mg/dL 09/08/24 08:48 Urine Ketones (Auto) Negative 09/08/24 08:48 Urine Blood (Auto) 0 Edmetrius/uL 09/08/24 08:48 Urine Nitrite (Auto) Negative 09/08/24 08:48 Urine Bilirubin (Auto) 0 mg/dL 09/08/24 08:48 Urine Urobilinogen (Auto) 0.2 mg/dL 09/08/24 08:48 Leukocyte Esterase (Auto) 0 Brian/uL 09/08/24 08:48 Assessment & Plan Assessment & Plan (1) BPH w urinary obs/LUTS: Code(s): N40.1 - Benign prostatic hyperplasia with lower urinary tract symptoms; N13.8 - Other obstructive and reflux uropathy Category: Medical (2) Nocturia more than twice per night: Code(s): R35.1 - Nocturia Category: Medical (3) Enlarged prostate: Code(s): N40.0 - Benign prostatic hyperplasia without lower urinary tract symptoms Category: Medical (4) Erectile dysfunction associated with type 2 diabetes mellitus: Code(s): E11.69 - Type 2 diabetes mellitus with other specified complication; N52.1 - Erectile dysfunction due to diseases classified elsewhere Category: Medical Plan In office urinalysis results reviewed the patient today; as noted above. PVR 0 mL. He reports be happy with current voiding parameters on Gemtesa; will continue. He reports compliance with finasteride Friday as prescribed. He currently denies any bothersome urinary issues. We discussed continuation of surveillance monitoring. Will obtain PSA in 6 months. Will obtain renal ultrasound for further assessment evaluation. We discussed the importance of limiting nicotine dependence for overall health and well-being. We also discussed the importance of management in diabetes for overall health and well-being. Follow-up in 6 months with PSA, imaging, and PVR; or sooner with any issues, concerns, and or questions. Orders: Orders AMB Urinalysis Automated Today R31.29 - Other microscopic hematuria US renal BI Today N20.0 - Calculus of kidney Prostate Specific Antigen 6 Months N13.8 - Other obstructive and reflux uropathy, N40.1 - Benign prostatic hyperplasia with lower urinary tract symptoms AMB Post Void Residual by ultrasound Today N13.8 - Other obstructive and reflux uropathy, N40.1 - Benign prostatic hyperplasia with lower urinary tract symptoms Patient Instructions: The patient had an opportunity to ask questions regarding the treatment plan. All questions were answered. Physical exam, labs, and imaging were discussed and reviewed in detail. As well as risks, benefits, and discussion of treatment choices. No major barriers to understanding were identified. The patient expressed understanding and agreement with the above treatment plan. The patient was made aware they should contact our office by phone for worsening of their current condition, the appearance of new symptoms, or with any questions or concerns. Compliance is encouraged with any medications and follow up testing that is ordered. It is a privilege to be allowed the opportunity to participate in? your urological care.? Again, if you have any questions or concerns If you have any questions or concerns please do not hesitate to contact me. The office is [phone]. This note is constructed using voice recognition software. While every effort has been made to ensure accuracy medicaid collection specialist errors may have been included. Yours sincerely, URBAN Rudolph Coding Level of Care Code Est Pt Level 3 (67857) Complex EM visit Add On G2211 Diagnoses BPH w urinary obs/LUTS N40.1; N13.8 Nocturia more than twice per night R35.1 Enlarged prostate N40.0 Erectile dysfunction associated with type 2 diabetes mellitus E11.69; N52.1 CPT Codes Post Residual Void - PVR CPT Code: 58386-Glxt Void Residual by ultrasound ([id number])
--- OUTSIDE RECORDS SUMMARY | 2024-09-08 08:43 | XMS_ITS | Clinical Summary ---
Author Organization [facility] Address [address] [place] [address] Phone Care Team Providers Care Registry Nurse Name Role Phone Finn Ta NP Primary Care Provider [phone] Allergies No known active allergies Medications gabapentin (NEURONTIN) 600 MG tablet Take 2 tablets by mouth 3 times a day 06/28/2020 Active [facility] Ear Drops 6.5 % otic solution DROP 5 DROPS INTO THE LEFT EAR EVERY 12 HOURS FOR 4 DAYS 06/27/2020 Active simvastatin (ZOCOR) 20 MG tablet Take 1 tablet by mouth at bed time Active Tiotropium [place] Monohydrate (Spiriva Respimat) 2.5 MCG/ACT aerosol solution [...] Medicaid [place] Care Teams Registry Nurse Relationship Specialty Start Date End Date Finn Ta NP [facility] [place] [address] PCP - General Nurse Practitioner 07/12/20
== END 2024-09-08 09:24 | disposition home or self-care (01) ==
LOC: HO.HUSH 08:33
PROVIDERS: PCP Nurse Practitioner Family; Visit Provider Nurse Practitioner Family
DX: N40.1 Benign prostatic hyperplasia with lower urinary tract symptoms (principal); N13.8 Other obstructive and reflux uropathy; R35.1 Nocturia; N40.0 Benign prostatic hyperplasia without lower urinary tract symptoms; E11.69 Type 2 diabetes mellitus with other specified complication; N52.1 Erectile dysfunction due to diseases classified elsewhere; R31.29 Other microscopic hematuria
CPT/HCPCS: 99213; G2211

== ENCOUNTER → 2024-09-08 08:32 | Outpatient (BNVA) | payer MEDICARE, MEDICAID, SELFPAY | PROVIDERS: PCP Nurse Practitioner Family; Visit Provider Nurse Practitioner Family | DX: N40.1 Benign prostatic hyperplasia with lower urinary tract symptoms (principal); N13.8 Other obstructive and reflux uropathy; R35.1 Nocturia; E11.22 Type 2 diabetes mellitus with diabetic chronic kidney disease; E11.69 Type 2 diabetes mellitus with other specified complication; N52.1 Erectile dysfunction due to diseases classified elsewhere; N20.0 Calculus of kidney; I12.9 Hypertensive chronic kidney disease with stage 1 through stage 4 chronic kidney disease, or unspecified chronic kidney disease; N18.30 Chronic kidney disease, stage 3 unspecified | CPT/HCPCS: 51798; 81003; 99212 ==

== ENCOUNTER 2024-09-10 16:08 | Outpatient (AMB) | payer MEDICARE, MEDICAID, SELFPAY ==
[2024-09-10 16:11] VITALS: BP 144/64; PULSE 104; RESP 12; TEMP 36.6
--- NOTE | 2024-09-10 16:11 | MHC.OFFWIV ---
Intake Vital Signs 09/10/24 16:11 BP 144/64 H Blood Pressure Location Lt brachial Position Sitting Respiration 12 Pulse 104 H Pulse Source Pulse Oximeter Temp 97.9 F Temp Source Oral Intake Visit Reasons: EP ? Stroke signs Intake Note: Pt is here today c/o signs of stroke Patient Tobacco Use Status: Current everyday Tobacco user Allergies No Known Allergies [No Known Allergies*] Allergy (Verified 09/10/24 16:11) HPI HPI Comments History of Present Illness Details Patient is a 79yo M with hx of TIA who presents with stroke symptoms He presents with and grandson States yesterday night before bed he had blurred vision to L eye Upon waking, he noticed L sided eye and mouth drooping with associated drooling Pt woke up at 5am He states he was able to get up without notable weakness but when he tried to talk he was having difficulty with word finding He is unable to specify how long this lasted but said it has improved Still struggles slightly and slurrs a little due to remaining L facial droop Has not noticed weakness to arms or legs States he went to work Denies CP or SOB No medicines taken for symptoms Grandson visited him with prompted his daughter to be involved and bring him in for evaluation He takes bbay aspirin daily per daughter PFSH Medical History Bilateral impacted cerumen Diabetes mellitus with polyneuropathy Hypertensive retinopathy Raynauds disease Type 2 diabetes mellitus with diabetic polyneuropathy CKD (chronic kidney disease) stage 3, GFR 30-59 ml/min Sleep apnea CAD (coronary artery disease) Seasonal allergies BPH (benign prostatic hyperplasia) Hematuria Hx of dermatitis Pulmonary HTN HTN (hypertension) CVA (cerebral vascular accident) Type 2 diabetes mellitus with unspecified complications NICM (nonischemic cardiomyopathy) Atherosclerotic heart disease of [place] coronary artery without angina pectoris Hyperlipidemia, unspecified Smoker Transient cerebral ischemic attack, unspecified Surgical History Hx of colonoscopy Hx of bilateral cataract extraction History of inguinal hernia repair, bilateral (~04/2016) History of cardiac catheterization (12/28/19) Family History Father Cardiovascular disease Diabetes Mother Osteoporosis Social History Housing: Apartment Are you a primary patient care representative to a significant other at home: No Do you presently have visiting nurse or other home services: No Alcohol intake: never Patient Tobacco Use Status: Current everyday Tobacco user Cigarettes Per Day: 10 Years Smoked: 55 e-Cigarette/Vaping Use: Never Used Second Hand Smoke Exposure: Yes Current occupational status: retired Cognitive needs: No Hearing needs: No Vision needs: Yes Review of Systems Const Denies chills, Denies fever(s), Denies frequent falls and Reports weakness Eyes Reports blurry vision ENT Denies otalgia, Denies nasal congestion, Denies sore throat and Reports other (drooling) Card Denies chest pain, Denies syncope and Denies dyspnea Resp Denies cough and Denies dyspnea Skin/Breast Denies rash Neuro Reports Abnormal speech present, Denies syncope, Denies frequent falls, Reports lack of coordination and Reports weakness Physical Exam Vital Signs: Last Vital Signs Temp 97.9 F 09/10/24 16:11 Pulse 104 H 09/10/24 16:11 Resp 12 09/10/24 16:11 BP 144/64 H 09/10/24 16:11 General: Non-toxic, NAD. Speaking full sentences with slight slur Skin: Warm dry throughout without vesicular lesion to face or neck Eye: PERRL, EOMI HENT: Airway patent. Uvula midline. No pharyngeal erythema or edema. No [employer]. Bilateral canals clear. TM non-erythematous, non-bulging. No TM perforation or hemotympanum noted. Respiratory: CTA bilaterally. No wheezes, rales or rhonchi Cardiac: RRR. No murmur Neurology: Alert. + L sided facial droop slightly. Able to raise eyebrows and puff out cheeks but less prominent than R side.5/5 optical effects line up person strength and strangth with dorsal flexion feet.Negative pronator drift. FInger to nose tracing uneven and difficult with L side. Gait without abnormality/foot drop Psych: Good mood and affect Neuro Speech: Abnormal speech present Assessment & Plan Assessment & Plan (1) Facial droop: Code(s): R29.810 - Facial weakness Plan: Pt seen and evaluated immediately LNWT was last night He still has notable droop EMS called for transfer to ER discussed with pt and family and they are aware and agree with plan All quesrtions answered Coding Level of Care Code Est Pt Level 5 (04005) Diagnoses Facial droop R29.810
== END 2024-09-10 16:27 | disposition home or self-care (01) ==
PROVIDERS: PCP Nurse Practitioner Family; Visit Provider Physician Assistant
DX: R29.810 Facial weakness (principal)

== ENCOUNTER → 2024-09-10 16:08 | Outpatient (BNVA) | payer MEDICARE, MEDICAID, SELFPAY | PROVIDERS: PCP Nurse Practitioner Family; Visit Provider Physician Assistant | DX: R29.810 Facial weakness (principal) | CPT/HCPCS: 99212 ==

== ENCOUNTER 2024-09-23 09:57 | Outpatient (AMB) | payer MEDICARE, MEDICAID, SELFPAY ==
--- NOTE | 2024-09-23 10:09 | A.OFFPC_ITS ---
Vital Signs 09/23/24 10:11 Height 5 ft 6 in Weight 162 lb BMI 26.1 BP 118/64 Blood Pressure Location Lt brachial Position Sitting Respiration 16 Pulse 66 Pulse Source Pulse Oximeter Temp 97.7 F Temp Source Oral Pulse Oximetry (%) 99 Oxygen Delivery Method Room Air Intake Visit Reasons: HDF, [facility] chart Intake Note: Pt is here today for his HDF [facility] Allergies No Known Allergies (No Known Allergies*) Allergy (Verified 09/10/24 16:11) Tobacco use date assessed: 09/23/24 Fall risk assessment: 1 Fall in past year Last assessed Fall Risk: 09/23/24 Dental Screening Dental Screen Date: 06/17/24 Did you have a dental visit in the last 12 months?: No Did you have a dental problem in the last 6 months where you did not have access to dental care?: No Was dental information given to patient?: Patient has dentist HPI HPI Comments History of Present Illness Details Patient is a 79 year old male with a history of type 2 diabetes, dyslipidemia, hypertension who was an active smoker who was admitted to [facility] for CVA rule out on September 11 and discharged on September 13. He went to the emergency room via EMS after he was found to have slurred speech by his grandson and was also having difficulty swallowing. In the emergency department he had a CTA which was negative and a subsequent MRI of the brain confirmed an evolving acute/subacute infarct in the right carr radiata Patient was started on 81mg aspirin 75mg Plavix and 40mg atorvastatin. Echocardiogram did not have any acute abnormalities and his neurological status returned to baseline. A MBS showed no concerns of silent aspiration he was placed on a level 3 dysphagia advanced diet and discharged home with follow up with Cardiology and a Zio patch with Neurology. Since being home, he feels like his swallowing is back to normal, he has been eating his normal foods and regular diet. He is still smoking almost a pack per day but he is trying to slow down . He reports no trouble ambulating. He met with [facility] on 09/20 and he was given the ZIO patch which he is wearing and will wear for 14 days, he will continue to follow up with them at that time. He also has follow up with [facility] Neurology on 12/03/24. PT and OT has been going to his house and he tells me they didn't find anything wrong . Tells me his daughter handles all of his appts and he is not sure if he has heard from [facility] Cardiology about an appt yet. Overall, he feels like is back to his normal self. Has been taking aspirin, plavix and statin daily, as prescribed. He denies chest pain, dizziness or trouble speaking. He does admit that sometimes when swallowing water he has to tuck his chin to be able to swallow it completely. [facility] Medical History Bilateral impacted cerumen Diabetes mellitus with polyneuropathy Hypertensive retinopathy Raynauds disease Type 2 diabetes mellitus with diabetic polyneuropathy CKD (chronic kidney disease) stage 3, GFR 30-59 ml/min Sleep apnea CAD (coronary artery disease) Seasonal allergies BPH (benign prostatic hyperplasia) Hematuria Hx of dermatitis Pulmonary HTN HTN (hypertension) CVA (cerebral vascular accident) Type 2 diabetes mellitus with unspecified complications NICM (nonischemic cardiomyopathy) Atherosclerotic heart disease of [place] coronary artery without angina pectoris Hyperlipidemia, unspecified Smoker Transient cerebral ischemic attack, unspecified Surgical History Hx of colonoscopy Hx of bilateral cataract extraction History of inguinal hernia repair, bilateral (~04/2016) History of cardiac catheterization (12/28/19) Family History Father Cardiovascular disease Diabetes Mother Osteoporosis Social History Housing: Apartment Are you a primary behavioral health care coordinator to a significant other at home: No Do you presently have visiting nurse or other home services: No Alcohol intake: never Patient Tobacco Use Status: Current everyday Tobacco user Cigarettes Per Day: 10 Years Smoked: 55 e-Cigarette/Vaping Use: Never Used Second Hand Smoke Exposure: Yes Current occupational status: retired Cognitive needs: No Hearing needs: No Vision needs: Yes Questionnaire Thrive Questionnaire Date Thrive assessed: 08/04/24 MECHELLE-7 AMB Questionnaire MECHELLE-7 Date MECHELLE - 7 assessed: 08/04/24 (patient declined ) Source: Developed by Drs. Crispin Vargas, Nannette Alanis, Jimmy Parks and colleagues, with an educational orville from [email or web address]. Review of Systems Const All systems reviewed & are unremarkable except as noted in HPI and below Physical exam (Primary Care) Vital Signs: Last Vital Signs Temp 97.7 F 09/23/24 10:11 Resp 16 09/23/24 10:11 BP 118/64 09/23/24 10:11 BMI result Body Mass Index 26.1 Tobacco/Smoking Status: Tobacco use Status Tobacco use date assessed 06/17/24 09/23/24 10:11 Patient Tobacco Use Status Current everyday Tobacco 09/23/24 10:11 e-Cigarette/Vaping Use Never Used 09/23/24 10:11 Thrive Assessment: Date of Thrive Assessment Date Thrive assessed 08/04/24 09/23/24 10:11 Coding Level of Care Code Est Pt Level 4 (06414) Diagnoses CVA (cerebral vascular accident) I63.9 Laterality of affected vessel: right Hospital discharge follow-up Z09 Assessment & Plan Assessment & Plan (1) CVA (cerebral vascular accident): Comment: 2024 right carr radiata - [facility] - started on asa, plavix and statin, echo normal, ZIO pending Code(s): I63.9 - Cerebral infarction, unspecified Category: Medical Qualifiers: Laterality of affected vessel: right Plan: Recommended patient adhere to follow up, this includes following up with Neurology and the Zio patch which he is currently wearing. Also recommended he confirm with his daughter that he does have a follow up appointment with [facility] cardiology. The discharge papers work says [facility] was supposed to reach out to him with an appointment. Also encouraged smoking cessation or at least reduction in his daily pack per day habit. (2) Hospital discharge follow-up: Code(s): Z09 - Encounter for follow-up examination after completed treatment for conditions other than malignant neoplasm Category: Medical Plan: As above
[2024-09-23 10:11] VITALS: BP 118/64; PULSE 66; RESP 16; TEMP 36.5; O2SAT 99; BMI 26.1
--- OUTSIDE RECORDS SUMMARY | 2024-09-23 11:07 | XMS_ITS | Clinical Summary ---
Author Organization [facility] Address [address] [place] [address] Phone Care Team Providers Care Composing Room Machinist Name Role Phone Finn Ta NP Primary Care Provider Allergies No known active allergies Medications gabapentin (NEURONTIN) 600 MG tablet Take 2 tablets by mouth 3 times a day 06/28/2020 Active [facility]S Ear Drops 6.5 % otic solution DROP 5 DROPS INTO THE LEFT EAR EVERY 12 HOURS FOR 4 DAYS 06/27/2020 Active simvastatin (ZOCOR) 20 MG tablet Take 1 tablet by mouth at bed time Active Tiotropium [place] Monohydrate (Spiriva Respimat) 2.5 MCG/ACT aerosol solution [...] Medicaid [place] Care Teams Composing Room Machinist Relationship Specialty Start Date End Date Finn Ta NP [facility] [place] [address] PCP - General Nurse Practitioner 07/12/20
== END 2024-09-23 10:53 | disposition home or self-care (01) ==
LOC: HO.HMCC 09:58
PROVIDERS: PCP Nurse Practitioner Family; Visit Provider Physician Assistant
DX: I63.9 Cerebral infarction, unspecified (principal); Z09 Encounter for follow-up examination after completed treatment for conditions other than malignant neoplasm

== ENCOUNTER → 2024-09-23 09:57 | Outpatient (BNVA) | payer MEDICARE, MEDICAID, SELFPAY | PROVIDERS: PCP Nurse Practitioner Family; Visit Provider Physician Assistant | DX: Z09 Encounter for follow-up examination after completed treatment for conditions other than malignant neoplasm (principal); I63.9 Cerebral infarction, unspecified | CPT/HCPCS: 99212 ==

== ENCOUNTER → 2024-09-27 23:59 | Outpatient (BNV) | payer MEDICARE, MEDICAID, SELFPAY | PROVIDERS: PCP Nurse Practitioner Family; Visit Provider Nurse Practitioner Family | DX: I69.391 Dysphagia following cerebral infarction (principal); I12.9 Hypertensive chronic kidney disease with stage 1 through stage 4 chronic kidney disease, or unspecified chronic kidney disease; N18.30 Chronic kidney disease, stage 3 unspecified | CPT/HCPCS: G0180 ==

== ENCOUNTER 2024-10-15 09:42 | Outpatient (AMB) | payer MEDICARE, MEDICAID, SELFPAY ==
--- OUTSIDE RECORDS SUMMARY | 2024-10-15 10:00 | XMS_ITS | Clinical Summary ---
Author Organization 175 [facility] Address [address] [place] [address] Phone Care Team Providers Care Professor Of Surgery Name Role Phone Lonny Tamayo MD Primary Care Provider Allergies No known active allergies Medications No known medications Encounters Date Type Department Care Team Description 08/13/2024 9:45 AM EDT Office Visit Orthopedic Surgery [place] [address] [address] Walter Guillory DPM Controlled type 2 diabetes mellitus with diabetic polyneuropathy, without long-term current use of insulin (CMS/HCC V24, CMS/HCC V28) (Primary Dx); PAD (peripheral artery disease) (CMS/HCC V24); Metatarsalgia of left foot; Neuropathy; Onychomycosis from Last 3 Months Social History [...] Care Team (Late st Contact Info) Description 10/19/2024 9:00 AM EDT Office Visit [facility] [address] [address] Walter Guillory DPM 175 [place] [address] [place] [address] Health Maintenance Due Date Last Done Comments [...] Annual BMP Blood Test 03/16/2024 Influenza Vaccine (#1) 2024 9, 01/06/2018, 11/18/2016, Additional history exists Pneumococcal Vaccine: [...] Insurance MEDICARE MEDICAID - [place] Care Teams Professor Of Surgery Relationship Specialty Start Date End Date Lonny Tamayo MD [address] [place] [address] PCP - General Internal Medicine 03/22/24
--- OUTSIDE RECORDS SUMMARY | 2024-10-15 10:00 | XMS_ITS | Patient Health Record ---
Author Organization [facility] [place] Address [address] [place] [address] Care Team Providers Care Abrasives Sales Representative Name Role Phone Finn Bird Primary Care Provider Unav Sky Gill Unavailable [phone] Allergies No Known Allergies Reason For Referral No Information Medications Medication SIG (Take, Route, Frequency, Duration) Notes Start Date End Date Status Cyanocobalamin 1000 MCG/ML as directed Orally Active metFORMIN HCl ER 500 MG 1 tablet with ev ening meal Orally Once a day; Duration: 30 day(s) Active Gabapentin 400 MG 1 capsule Orally Onc e a day; Duration: 30 day(s) Active Simvastatin 20 MG 1 tablet in the even ing Orally Once a day; Duration: 30 day(s) Active Rosuvastatin Calcium 40 MG Oral; Duration: 90 Active Vitamin B-12 Active Umeclidinium-Vilanterol 62.5-25 MCG/INH 1 puff Inhalation Once a day Active Extra Depth Diabetic Shoes with 3 Pair Custom heat-molded multi-density innersoles for 1 year Dx: 12/13/2020 Active Aspirin 81 MG 1 tablet Orally Once a day; Duration: 30 day(s) Active Carvedilol 3.125 MG 1 tablet with food Orally Twice a day; Duration: 30 day(s) Active Immunizations Vaccine Route Administration [...] Polyneuropathy due to type 2 diabetes mellitus (597948540) Type 2 diabetes mellitus with diabetic polyneuropathy (E11.42) Active confirmed Problem Polyneuropathy due to diabetes mellitus type I (258275421) Type 1 diabetes mellitus with diabetic polyneuropathy (E10.42) Active confirmed Problem Raynaud's disease (352964476) Raynaud's disease without gangrene (I73.00) Active confirmed Plan Of Treatment Pending Test Test Name Order Date [id number] SKIN LESIONS, 2 TO 4 12/14/19 21 10138-UYFT SKIN LESIONS, 2 TO 4 03/15/20 21 70706-MXGF SKIN LESIONS, 2 TO 4 06/07/19 22 Insurance Providers Payer Name Payer Address Payer Phone Subscriber Number Group Number Insured Name Patient Relationship to Insured Coverage Start Date Coverage End Date Medicare National [employer] [address] [place] [address] [id number] Darius Askew Self - patient is the [...]
--- OUTSIDE RECORDS SUMMARY | 2024-10-15 10:00 | XMS_ITS | Patient Health Record ---
Author Organization [facility] Address [address] [place] [address] Care Team Providers Care Veterinary Pharmacologist Name Role Phone Skyler Pyle Primary Care Provider Crispin Valladares Unavailable [phone] Reason For Referral No Information Medications Medication SIG (Take, Route, Fr equency, Duration) Notes Start Date End Date Status Percocet 5/325mg Act sridevi MoviPrep 100 GM as directed Orally 03/07/2011 Active Gabapentin 300mg Act sridevi Simvastatin 20mg Act sridevi metFORMIN HCl 500mg Active Problems Problem Type SNOMED Code ICD Code Onset Dates Problem Status W/U Status Risk Notes Problem Family history of malignant neoplasm of gastrointestinal tract (647209542) Family history of malignant neoplasm of gastrointestinal tract (V16.0) Active confirmed Problem Screening for malignant neoplasm of colon (843442602) Special screening for malignant neoplasms, colon (V76.51) Active confirmed Plan Of Treatment Future Test Test Name Order Date COLONOSCOPY 03/07/2011 Insurance Providers Payer Name Payer Address Payer Phone Subscriber Number Group Number Insured Name Patient Relationship to Insured Coverage Start Date Coverage End Date [facility] [employer] [facility] [address] [address] [place], [place] [id number] PRAVEENA AMADORO Self - patient is the insured MEDICAID OF [facility] [address] [place] [phone] [phone] [id number] PRAVEENA AMADORO Self - patient is the insured Medical (General) History Medical History History ICD Code Diabetes Hyprlipidemia Denies [place],CVA,Lung disease,renal disease
--- OUTSIDE RECORDS SUMMARY | 2024-10-15 10:00 | XMS_ITS | Clinical Summary ---
Author Organization [facility] Address [address] [place] [address] Phone Care Team Providers Care Gas Examiner Name Role Phone Finn Ta NP Primary Care Provider [phone] Allergies No known active allergies Medications gabapentin (NEURONTIN) 600 MG tablet Take 2 tablets by mouth 3 times a day 06/28/2020 Active [facility] Ear Drops 6.5 % otic solution DROP 5 DROPS INTO THE LEFT EAR EVERY 12 HOURS FOR 4 DAYS 06/27/2020 Active simvastatin (ZOCOR) 20 MG tablet Take 1 tablet by mouth at bed time Active Tiotropium [place]ont Monohydrate (Spiriva Respimat) 2.5 MCG/ACT aerosol solution [...] Visual Foot Exam 05/07/2020 Influenza Vaccine (#1) 2024 Hepatitis B Vaccine Aged Out No longe r eligible based on patient's age to complete this topic Insurance Medicare Medicaid [place] Medicare [place] Care Teams Gas Examiner Relationship Specialty Start Date End Date Finn Ta NP [facility] [place] [place] [address] PCP - General Nurse Practitioner 07/12/20
[2024-10-15 10:06] VITALS: BP 122/62; PULSE 85; O2SAT 96; BMI 25.3
--- NOTE | 2024-10-15 10:06 | HO.NEPHOV ---
Vital Signs 10/15/24 10:06 Height 5 ft 6 in Weight 157 lb BMI 25.3 BP 122/62 Blood Pressure Location Lt brachial Position Sitting Pulse 85 Pulse Source Pulse Oximeter Pulse Oximetry (%) 96 Oxygen Delivery Method Room Air Intake Visit Reasons: 4 MO FU-LVM Accompanied by: Grand Child Allergies No Known Allergies (No Known Allergies*) Allergy (Verified 10/15/24 10:08) HPI Comments Details: Darius was seen in follow up for his CKD. He recently had CVA . He has been started on Plavix. He has diabetic renal disease. He has no episodes of hypoglycemia. He has no hematuria, edema or dizziness. He is compliant with his medications. He had been on SGLT2 inhibitor. His last serum creatinine had been stable. He has H/O mild hyperkalemia . He is on ACEI. He does not take any NSAID's. [facility] Medical History (Updated 10/15/24 @ 10:33 by Henry Scott MD) Bilateral impacted cerumen Diabetes mellitus with polyneuropathy Hypertensive retinopathy Raynauds disease Type 2 diabetes mellitus with diabetic polyneuropathy CKD (chronic kidney disease) stage 3, GFR 30-59 ml/min Sleep apnea CAD (coronary artery disease) Seasonal allergies BPH (benign prostatic hyperplasia) Hematuria Hx of dermatitis Pulmonary HTN HTN (hypertension) CVA (cerebral vascular accident) Type 2 diabetes mellitus with unspecified complications NICM (nonischemic cardiomyopathy) Atherosclerotic heart disease of [place] coronary artery without angina pectoris Hyperlipidemia, unspecified Smoker Transient cerebral ischemic attack, unspecified Surgical History Hx of colonoscopy Hx of bilateral cataract extraction History of inguinal hernia repair, bilateral (~04/2016) History of cardiac catheterization (12/28/19) Family History Father Cardiovascular disease Diabetes Mother Osteoporosis Social History Housing: Apartment Are you a primary day care attendant to a significant other at home: No Do you presently have visiting nurse or other home services: No Alcohol intake: never Patient Tobacco Use Status: Current everyday Tobacco user Cigarettes Per Day: 10 Years Smoked: 55 e-Cigarette/Vaping Use: Never Used Second Hand Smoke Exposure: Yes Current occupational status: retired Cognitive needs: No Hearing needs: No Vision needs: Yes Review of Systems Const All systems reviewed & are unremarkable except as noted in HPI and below Physical Exam Vital Signs: Last Vital Signs Pulse 85 10/15/24 10:06 BP 122/62 10/15/24 10:06 Pulse Ox 96 10/15/24 10:06 Oxygen Delivery Method Room Air 10/15/24 10:06 BMI result Body Mass Index 25.3 Const General: comfortable and no acute distress Orientation/consciousness: patient oriented x3 HEENT Head: Yes normocephalic Mouth: Normal oral and palatal mucosa present Eyes EOM: EOMs intact bilaterally Neck Neck: Yes supple Resp Auscultation: clear to auscultation bilaterally Cardio Jugular venous distension: no JVD Rate: regular rate GI Palpation (GI): Soft to palpation Auscultation: normal bowel sounds General: Yes no CVA tenderness Back/Spine/Pelvis Back: no CVA tenderness Skin General skin exam: no rashes or lesions noted Neuro General: patient oriented x3 and moves all extremities Extrem General: Yes no pedal edema Results Reviewed Nephrology Results: Hgb, (14.0-18.0) 15.5 g/dl 08/06/24 WBC, (4.8-10.8) 8.2 X10*3/uL 08/06/24 Plt Count, (160-400) 240 X10*3/uL 08/06/24 Sodium, (135-145) 140 mmol/L 08/06/24 Potassium, (3.3-5.1) 4.7 mmol/L 08/06/24 Chloride, (96-108) 109 mmol/L H 08/06/24 Carbon Dioxide, (22-29) 22 mmol/L 08/06/24 BUN, (9-16) 27 mg/dL H 08/06/24 Creatinine, (0.5-1.4) 1.44 mg/dL H 08/06/24 Calcium, (8.4-10.2) 9.5 mg/dL 08/06/24 Urine Protein, (Neg-Trace) Trace mg/dL 08/06/24 Urine Creatinine 65.23 mg/dL 08/06/24 Assessment & Plan Assessment & Plan (1) CKD (chronic kidney disease) stage 3, GFR 30-59 ml/min: Code(s): N18.30 - Chronic kidney disease, stage 3 unspecified Category: Medical Qualifiers: Chronic kidney disease stage 3 subtype: stage 3a (GFR 45-59) Qualified Code(s): N18.31 - Chronic kidney disease, stage 3a (2) HTN (hypertension): Code(s): I10 - Essential (primary) hypertension Category: Medical Qualifiers: Hypertension type: renovascular hypertension Qualified Code(s): I15.0 - Renovascular hypertension Plan Has CKD for long time. Serum creatinine had been fairly stable Urine output good. Does not take NSAID's; Good hydration Blood pressure at goal. Needs consistent good BS control On Farxiga 2.5 mg daily- may increase the dose with time; No NSAID's Labs ordered; All questions answered . F/U given for 3 months Orders: Orders Creatinine 3 Months I15.0 - Renovascular hypertension, N18.31 - Chronic kidney disease, stage 3a Blood Urea Nitrogen 3 Months I15.0 - Renovascular hypertension, N18.31 - Chronic kidney disease, stage 3a Electrolytes 3 Months I15.0 - Renovascular hypertension, N18.31 - Chronic kidney disease, stage 3a Coding Level of Care Code Est Pt Level 4 (60064) Diagnoses Stage 3a chronic kidney disease N18.31 Chronic kidney disease stage 3 subtype: stage 3a (GFR 45-59) Renovascular hypertension I15.0 Hypertension type: renovascular hypertension
== END 2024-10-15 10:37 | disposition home or self-care (01) ==
LOC: HO.HKA 09:43
PROVIDERS: PCP Nurse Practitioner Family; Visit Provider Internal Medicine Nephrology
DX: N18.31 Chronic kidney disease, stage 3a (principal); I15.0 Renovascular hypertension
CPT/HCPCS: 99214

== ENCOUNTER → 2024-10-15 09:42 | Outpatient (BNVA) | payer MEDICARE, SELFPAY | PROVIDERS: PCP Nurse Practitioner Family; Visit Provider Internal Medicine Nephrology | DX: I15.0 Renovascular hypertension (principal); N18.31 Chronic kidney disease, stage 3a | CPT/HCPCS: 99212 ==

== ENCOUNTER 2024-11-18 10:48 | Outpatient (AMB) | payer MEDICARE, MEDICAID, SELFPAY ==
--- NOTE | 2024-11-18 11:01 | A.OFFVIS_ITS ---
Vital Signs 11/18/24 11:02 Height 5 ft 6 in Weight 154 lb 5.177 oz BMI 24.9 BP 120/60 Blood Pressure Location Lt brachial Position Sitting Pulse 78 Pulse Source Monitor Intake Visit Reasons: [id number]-JC-Dotiiy up Water Systems Designer Required: Yes Water Systems Designer Services: Water Systems Designer Offered & Declined Accompanied by: Grand Child Allergies No Known Allergies (No Known Allergies*) Allergy (Verified 10/15/24 10:08) Medication List - Last Reconciled 11/18/24 by Georges Key MD aspirin 81 mg PO DAILY atorvastatin (Lipitor) 40 mg PO BEDTIME blood sugar diagnostic (FreeStyle Lite Strips) test TID blood-glucose meter (FreeStyle Lite Meter kit) Test TID clopidogrel (Plavix) 75 mg PO DAILY [extra-depth Diabetic shoes with 3 pair Custom heat-molded multi-density innersoles As directed] gabapentin 800 mg PO TID ketoconazole 2% 1 appl topical BID 20 days lancets (FreeStyle Lancets) Test TID metformin 500 mg PO BID Shower Chair use daily, for lower extrem weakness/hip pains umeclidinium-vilanterol 62.5-25 mcg/actuation (Anoro Ellipta) 1 ea inhalation DAILY Ventolin HFA 90 mcg/actuation (albuterol sulfate) 2 puffs inhalation Q4-6H PRN NS HPI Comments Details: Darius returns for follow-up regarding cardiomyopathy and other concerns. Last seen in 05/2023. He has numerous risk factors including type 2 diabetes, hyperlipidemia, active smoking among others. In May of 2019, he apparently had speech difficulty and right arm numbness and that led to hospitalization at [facility]. He was diagnosed to have a TIA and then discharged home. Thought to have small vessel related infarcts. From the cardiac standpoint, he does have a lot of coronary artery calcification on chest CT scan but cardiac catheterization did not show anything significant. Unfortunately, he is still smoking. In September of this year, it seems that he was admitted again to [facility] for question of CVA. Per notes, MRI confirmed stroke in the carr radiata. CTA without any large vessel occlusion. Then improved and then he was discharged home. Patient states he underwent a 14 day monitor through neurology but we do not have any results. No new concerns otherwise from cardiac. No angina. [facility] Medical History (Updated 10/15/24 @ 10:33 by Henry Scott MD) Bilateral impacted cerumen Diabetes mellitus with polyneuropathy Hypertensive retinopathy Raynauds disease Type 2 diabetes mellitus with diabetic polyneuropathy CKD (chronic kidney disease) stage 3, GFR 30-59 ml/min Sleep apnea CAD (coronary artery disease) Seasonal allergies BPH (benign prostatic hyperplasia) Hematuria Hx of dermatitis Pulmonary HTN HTN (hypertension) CVA (cerebral vascular accident) Type 2 diabetes mellitus with unspecified complications NICM (nonischemic cardiomyopathy) Atherosclerotic heart disease of [place] coronary artery without angina pectoris Hyperlipidemia, unspecified Smoker Transient cerebral ischemic attack, unspecified Surgical History Hx of colonoscopy Hx of bilateral cataract extraction History of inguinal hernia repair, bilateral (~04/2016) History of cardiac catheterization (12/28/19) Family History Father Cardiovascular disease Diabetes Mother Osteoporosis Social History Housing: Apartment Are you a primary attending ambulatory care to a significant other at home: No Do you presently have visiting nurse or other home services: No Alcohol intake: never Patient Tobacco Use Status: Current everyday Tobacco user Cigarettes Per Day: 10 Years Smoked: 55 e-Cigarette/Vaping Use: Never Used Second Hand Smoke Exposure: Yes Current occupational status: retired Cognitive needs: No Hearing needs: No Vision needs: Yes Review of Systems Const Denies weakness ENT Denies dizziness Card Denies chest pain, Denies chest pain with activity, Denies syncope, Denies rapid heart rate, Denies pedal edema, Denies edema, Denies leg edema, Denies lightheadedness, Denies palpitations, Denies dyspnea, Denies dyspnea on exertion and Denies orthopnea Resp Denies cough, Denies dyspnea and Denies dyspnea on exertion GI Denies hematochezia and Denies change in stool character Musc Denies abnormal gait, Denies muscle cramps, Denies muscle weakness, Denies numbness, Denies radiating pain into limb and Denies tingling Neuro Denies abnormal gait, Denies dizziness, Denies syncope, Denies numbness, Denies tingling and Denies weakness Endo Denies palpitations Physical Exam Vital Signs: Last Vital Signs Pulse 78 11/18/24 11:02 BP 120/60 11/18/24 11:02 BMI result Body Mass Index 24.9 Const General: comfortable and no acute distress Orientation/consciousness: patient oriented x3 HEENT Other: Unremarkable Head: Yes normal to inspection Neck Neck: Yes normal visual inspection Chest Chest palpation & inspection: normal inspection of the chest Resp Auscultation: clear to auscultation bilaterally Cardio Palpation: normal PMI Heart sounds: S1 normal heart sound present, S2 normal heart sound present, no gallops, no murmurs and no rubs GI Palpation (GI): Soft to palpation Back/Spine/Pelvis Other: unremarkable Skin General skin exam: no rashes or lesions noted Neuro General: patient oriented x3 Extrem General: Yes normal to inspection Psych Mental Status: mental status grossly normal Office Procedures EKG Details: EKG with underlying sinus rhythm at 78/Min; SD prolongation to 328 milliseconds; rightward axis; [place]. [id number], Complete Assessment & Plan Assessment & Plan (1) Atherosclerotic heart disease of [place] coronary artery without angina pectoris: Code(s): I25.10 - Atherosclerotic heart disease of [place] coronary artery without angina pectoris Category: Medical Qualifiers: [place] vs. transplanted heart: [place] heart Qualified Code(s): I25.10 - Atherosclerotic heart disease of [place] coronary artery without angina pectoris Plan: Cardiac catheterization in the past without any obstructive lesions. There was only mild coronary disease. Continue aspirin and statins. Per [facility], recent LDL listed as 40 mg/dL and 33 mg/dL. (2) NICM (nonischemic cardiomyopathy): Code(s): I42.8 - Other cardiomyopathies Category: Medical Plan: In a prior echocardiogram echocardiogram, LVEF 42% with mild global hypokinesis. No significant valvular issues. RV function was also mildly reduced. Cardiac catheterization however does not show any significant lesions. In the recent [facility] echocardiogram, LVEF is 64%. Moderate left ventricular hypertrophy. No wall motion abnormalities. He was on Coreg in the past but then stopped because of conduction system disease. There is also history of syncopal episode in the past from use of prazosin. No new meds added today. (3) CVA (cerebral vascular accident): Comment: 2024 right carr radiata - [facility] - started on asa, plavix and statin, echo normal, ZIO pending Code(s): I63.9 - Cerebral infarction, unspecified Category: Medical Qualifiers: Laterality of affected vessel: right Plan: 2024-per MRI at [facility]- infarct in the right coronary radiata. Chronic microangiopathy. CTA-no proximal occlusion or high-grade stenosis in the major arteries of head and neck. This [id number] stenosis in the origin of left common carotid and left vertebral origin. Suspect atherosclerotic etiology. Less likely embolic but it seems he did a 14 day Holter through [facility] and we can get that resolved. He is on aspirin/Plavix. (4) Smoker: Code(s): F17.200 - Nicotine dependence, unspecified, uncomplicated Category: Social Hx Plan: Discussed numerous times in the past and again today. Plan Discussion Notes I discussed with the patient the importance of continuing aspirin and Plavix. We talked about the need for smoking cessation to lower the risk of further strokes and heart issues. I advised the patient to follow up with neurology for comprehensive management. A follow-up appointment was scheduled for six months to monitor progress and make necessary adjustments to the treatment plan. Patient was informed and verbally consented to the use of an ambient scribe for clinic note documentation during this visit. Patient Instructions: - Work on quitting smoking to reduce health risks. - Follow up with neurology as recommended. - Attend the scheduled follow-up appointment in six months. Coding Level of Care Code Est Pt Level 4 (99149) Complex EM visit Add On G2211 Diagnoses Atherosclerosis of [place] coronary artery of [place] heart without angina pectoris I25.10 [place] vs. transplanted heart: [place] heart NICM (nonischemic cardiomyopathy) I42.8 CVA (cerebral vascular accident) I63.9 Laterality of affected vessel: right Smoker F17.200 CPT Codes EKG - CPT: 39579-[id number], Complete ([id number])
[2024-11-18 11:02] VITALS: BP 120/60; PULSE 78; BMI 24.9
--- OUTSIDE RECORDS SUMMARY | 2024-11-18 11:55 | XMS_ITS | Clinical Summary ---
Author Organization 175 [facility] Address [address] [place] [address] Phone Care Team Providers Care Speech Language Pathology Assistant Name Role Phone Lonny Tamayo MD Primary Care Provider Allergies No known active allergies Medications No known medications Encounters Date Type Department Care Team Description 10/19/2024 9:00 AM EDT Office Visit Orthopedic Surgery [facility] [address] [address] Walter Guillory DPM Controlled type [...] Care Team (Late st Contact Info) Description 12/20/2024 9:30 AM EDT Office Visit Orthopedic [facility] [address] [address] Walter Guillory DPM [address] [place] [address] Health Maintenance Due Date Last Done Comments [...] 08/16/2020, 07/24/2020 Cholesterol Screening (Lipid Panel) 01/31/2024 Falls Risk Assessment 01/31/2024 Hepatitis C Screening 01/31/2024 Medicare Annual Wellness Visit 01/31/2024 Social Influencers of Health Screening 01/31/2024 Diabetes: Annual Urine Albumin-Creatinine Ratio (uACR) 03/16/2024 Diabetes: Blood Sugar Control Test (HGBA1C) 03/16/2024 Hypertension/CHF/CAD Annual BMP Blood Test 03/16/2024 Depression Screening 04/07/2024 Influenza Vaccine (#1) 2024 9, 01/06/2018, 11/18/2016, [...] Insurance MEDICARE MEDICAID - [place] Care Teams Speech Language Pathology Assistant Relationship Specialty Start Date End Date Lonny Tamayo MD [address] [place] [id number] PCP - General Internal Medicine 03/22/24
--- OUTSIDE RECORDS SUMMARY | 2024-11-18 11:55 | XMS_ITS | Patient Health Record ---
Author Organization [facility] Address [address] [place] [address] Care Team Providers Care Manager Home Name Role Phone Skyler Pyle Primary Care Provider Crispin Valladares Unavailable [phone] Reason For Referral No Information Medications Medication [...] history of malignant neoplasm of gastrointestinal tract (145867660) Family history of malignant neoplasm of gastrointestinal tract (V16.0) Active confirmed Problem Screening for malignant neoplasm of colon (495018931) Special screening for malignant neoplasms, colon (V76.51) Active confirmed Plan Of Treatment Future Test Test Name Order Date COLONOSCOPY 03/07/2011 Insurance Providers Payer Name Payer Address Payer Phone Subscriber Number Group Number Insured Name Patient Relationship to Insured Coverage Start Date Coverage End Date [facility] [facility] [address] [address] [place], [place] [id number] PRAVEENA AMADORO Self - patient is the insured MEDICAID OF [facility] [address] [place] [phone] [id number] PRAVEENA AMADORO Self - patient is the insured Medical (General) History Medical History History ICD Code Diabetes Hyprlipidemia Denies [place],CVA,Lung disease,renal disease
--- OUTSIDE RECORDS SUMMARY | 2024-11-18 11:55 | XMS_ITS | Clinical Summary ---
Author Organization [facility] Address [address] [place] [address] Phone Care Team Providers Care Size Mixer Name Role Phone Finn Ta NP Primary Care Provider [phone] Allergies No known active allergies Medications gabapentin (NEURONTIN) 600 MG tablet Take 2 tablets by mouth 3 times a day 06/28/2020 Active [facility] Ear Drops 6.5 % otic solution DROP 5 DROPS INTO THE LEFT EAR EVERY 12 HOURS FOR 4 DAYS 06/27/2020 Active simvastatin (ZOCOR) 20 MG tablet Take 1 tablet by mouth at bed time Active Tiotropium [place] Monohydrate (Spiriva Respimat) 2.5 MCG/ACT aerosol solution [...] Medicaid [place] Medicare Medicaid [place] Care Teams Size Mixer Relationship Specialty Start Date End Date Finn Ta NP [facility] [place] [place] [address] PCP - General Nurse Practitioner 07/12/20
== END 2024-11-18 11:29 | disposition home or self-care (01) ==
LOC: HO.HCS 10:48
PROVIDERS: PCP Nurse Practitioner Family; Visit Provider Internal Medicine
DX: I25.10 Atherosclerotic heart disease of native coronary artery without angina pectoris (principal); I42.8 Other cardiomyopathies; I63.9 Cerebral infarction, unspecified; F17.200 Nicotine dependence, unspecified, uncomplicated
CPT/HCPCS: 93010; 99214; G2211

== ENCOUNTER → 2024-11-18 10:48 | Outpatient (BNVA) | payer MEDICARE, MEDICAID, SELFPAY | PROVIDERS: PCP Nurse Practitioner Family; Visit Provider Internal Medicine | DX: I25.10 Atherosclerotic heart disease of native coronary artery without angina pectoris (principal); I42.8 Other cardiomyopathies; Z86.79 Personal history of other diseases of the circulatory system; F17.200 Nicotine dependence, unspecified, uncomplicated | CPT/HCPCS: 93005; 99212 ==

== ENCOUNTER 2024-11-25 09:49 | Outpatient (AMB) | payer MEDICARE, MEDICAID, SELFPAY ==
--- NOTE | 2024-11-25 11:00 | MHC.OFFVIS ---
Vital Signs 11/25/24 11:01 Height 5 ft 6 in Intake Visit Reasons: 6m PN Allergies No Known Allergies (No Known Allergies*) Allergy (Verified 10/15/24 10:08) Medication List - Last Reconciled 11/25/24 by Nesha Guadarrama CNP aspirin 81 mg PO DAILY atorvastatin (Lipitor) 40 mg PO BEDTIME blood sugar diagnostic (FreeStyle Lite Strips) test TID blood-glucose meter (FreeStyle Lite Meter kit) Test TID clopidogrel (Plavix) 75 mg PO DAILY [extra-depth Diabetic shoes with 3 pair Custom heat-molded multi-density innersoles As directed] gabapentin 1,200 mg PO TID ketoconazole 2% 1 appl topical BID 20 days lancets (FreeStyle Lancets) Test TID metformin 500 mg PO BID Shower Chair use daily, for lower extrem weakness/hip pains umeclidinium-vilanterol 62.5-25 mcg/actuation (Anoro Ellipta) 1 ea inhalation DAILY Ventolin HFA 90 mcg/actuation (albuterol sulfate) 2 puffs inhalation Q4-6H PRN NS HPI Comments Details: Seen at [facility] [place] 09/2024 after he was noted by family to have slight facial droop, slurred speech, and difficulty swallowing. He had negative CTA and brain MRI which showed an evolving acute/subacute infarct in the right carr radiata. He was started on aspirin 81mg, Plavix 75mg, and atorvastatin 40mg. Echocardiogram did not have any acute abnormalities. He saw cardiology and was waiting for results of 14-day monitor. He was doing okay. Swallowing was okay and back to baseline, occasional difficulty if he drank water to fast which he reports was ongoing prior to stroke. Speech was okay. No new or increased weakness. No dizziness. No further TIA or stroke-like symptoms. No falls. Burning pain in legs is tolerable with gabapentin. Pain increases when next dose is due. Sleep was okay. He was following with [facility] for back pain and was planning for injection at some point. Had LBP radiating down LLE, at times 01/14. Epidural helped in the past. Chronic neck pain for 6+ months. Taking gabapentin 3600mg and still has pain. Generalized itching for 3+ years, seen casing mixer on multiple occasions without clear diagnosis. Had ? small stroke in 04/2019 where the right side was weaker and speech was slurred , it cleared shortly. Neck pain and restriction of movement. He has had a burning sensation in both feet and lower portions of the legs fairly symmetrically. 20+ year history of type 2 diabetes that's under control. [facility] Medical History (Updated 11/25/24 @ 11:07 by Nesha Guadarrama CNP) Bilateral impacted cerumen Diabetes mellitus with polyneuropathy Hypertensive retinopathy Raynauds disease Type 2 diabetes mellitus with diabetic polyneuropathy CKD (chronic kidney disease) stage 3, GFR 30-59 ml/min Sleep apnea CAD (coronary artery disease) Seasonal allergies BPH (benign prostatic hyperplasia) Hematuria Hx of dermatitis Pulmonary HTN HTN (hypertension) CVA (cerebral vascular accident) Type 2 diabetes mellitus with unspecified complications NICM (nonischemic cardiomyopathy) Atherosclerotic heart disease of [place] coronary artery without angina pectoris Hyperlipidemia, unspecified Smoker Transient cerebral ischemic attack, unspecified Surgical History Hx of colonoscopy Hx of bilateral cataract extraction History of inguinal hernia repair, bilateral (~04/2016) History of cardiac catheterization (12/28/19) Family History Father Cardiovascular disease Diabetes Mother Osteoporosis Social History Housing: Apartment Are you a primary property caretaker to a significant other at home: No Do you presently have visiting nurse or other home services: No Alcohol intake: never Patient Tobacco Use Status: Current everyday Tobacco user Cigarettes Per Day: 10 Years Smoked: 55 e-Cigarette/Vaping Use: Never Used Second Hand Smoke Exposure: Yes Current occupational status: retired Cognitive needs: No Hearing needs: No Vision needs: Yes Review of Systems Const Denies chills, Denies daytime sleepiness, Denies difficulty sleeping, Denies fatigue, Denies fever(s), Denies frequent falls, Denies headache(s), Denies increased appetite, Denies poor appetite, Denies snoring, Denies weakness, Denies weight gain and Denies weight loss Eyes Denies loss of vision ENT Denies vertigo, Denies dizziness, Denies headache(s) and Reports neck pain Card Denies chest pain at rest, Denies chest pain with activity, Denies syncope, Denies leg edema, Denies palpitations, Denies dyspnea and Denies dyspnea on exertion Resp Denies cough, Denies dyspnea, Denies dyspnea on exertion and Denies snoring GI Denies abdominal pain, Denies constipation, Denies heartburn, Denies diarrhea and Denies nausea Denies urinary frequency, Denies urinary incontinence and Denies urinary urgency Musc Denies abnormal gait, Reports back pain, Denies myalgias, Denies arthralgias, Reports neck pain, Denies numbness and Denies tingling Neuro Denies abnormal gait, Denies vertigo, Denies dizziness, Denies syncope, Denies frequent falls, Denies headache(s), Denies lack of coordination, Denies loss of vision, Denies memory loss, Denies numbness, Denies Other visual disturbances, Denies restless legs, Denies seizure-like activity, Denies tingling, Denies paresthesias, Denies tremor(s) and Denies weakness Psych Denies anxiety, Denies depression, Denies auditory hallucinations, Denies memory loss and Denies visual hallucinations Endo Denies fatigue and Denies palpitations Physical Exam Const Other: General Appearance:? normal, in no acute distress. Heart:? S1, S2 normal, no murmurs. Lungs:? clear anteriorly and posteriorly. Musculoskeletal:? normal. Extremities:? no edema. Psych:? alert, oriented, cognitive function intact, cooperative with exam. Neuro Other: Abnormal Neurological Findings:?Absent reflexes in LE. Mental Status: alert and oriented X 3. Normal attention, orientation, memory, and affect. Cranial Nerves: Pupils are equal, round, and reactive to light. External ocular muscles are intact. Visual sierra are full, no ptosis. Face is symmetrical, no facial weakness or droop. Facial sensations are normal. Tongue protrudes in midline. Palate elevates symmetrically. Shoulder shrugging is normal Motor Examination: Normal muscle tone, bulk and strength. No atrophy or fasciculations. No drift of the extended upper extremities. DTR 2+, absent in LE. Sensory Exam: Normal light touch, temperature, pinprick, vibration, and joint-position sensations. Rhomberg sign is absent. Coordination: No ataxia. No titubation. Gait Exam: Within normal limits. Cerebellar Signs: [id number] is okay. Extrapyramidal System: No tremor, rigidity with normal facial expressions. No bradykinesia. No bradyphrenia. Normal arm swing and posture. No propulsion or retropulsion. Speech: Normal. Results Reviewed Results Reviewed: NCV/EMG LE 01/12/19 Demyelinating more than axonal sensory and motor peripheral neuropathy in the lower extremities. Normal EMG of the right L4-S1 innervated muscles. 02/22/19 MRI brain shows microvascular disease and small old lacunar strokes in left puatmen and right thalamus. 11/2023 MRI LS: 1. At L4-5, grade 1 spondylolisthesis as well as bilateral facet hypertrophy and thickening of the ligamentum flavum. No central canal steosis, mild neuroforaminal narrowing. 2 At L2-3, mild retrolisthesis as well as small broad-based disc bulge and bilateral facet hypertrophy. No central canal or neuroforaminal stenosis. 3. L5-S1, bilateral synovial cysts projecting into posterior paraspinous soft tissues. These do not cause any central canal or lateral recess narrowing. CTA at [facility] 09/10/2024: No proximal occlusion or high grade stenosis in the major arteries of the head and neck. Moderate to severe stenosis of the origin of the left common carotid artery and severe stenosis of the left vertebral artery origin. Brain MRI at [facility] 09/11/2024: Evolving small acute/subacute infarct in the right carr radiata. Moderate non specific white matter T2 hyperintensities, probably chronic microangiopathy Echo at [facility] 09/12/2024: Moderately increased L ventricular wall thickness. LV systolic function normal. LVEf 64%. No wall motion abnormalities. R ventricle is normal in size and function. Assessment & Plan Assessment & Plan (1) Peripheral neuropathy: Code(s): G62.9 - Polyneuropathy, unspecified Category: Medical Qualifiers: Peripheral neuropathy type: polyneuropathy, unspecified Qualified Code(s): G62.9 - Polyneuropathy, unspecified Plan: Continue gabapentin 600mg 2 tablets three times a day. (2) Lumbar degenerative disc disease: Code(s): M51.369 - Other intervertebral disc degeneration, lumbar region without mention of lumbar back pain or lower extremity pain Category: Medical Qualifiers: Disc-related pain type: unspecified whether pain present Qualified Code(s): M51.369 - Other intervertebral disc degeneration, lumbar region without mention of lumbar back pain or lower extremity pain (3) Cervical spondylosis: Code(s): M47.812 - Spondylosis without myelopathy or radiculopathy, cervical region Category: Medical (4) History of stroke: Code(s): Z86.73 - Personal history of transient ischemic attack (TIA), and cerebral infarction without residual deficits Category: Medical Plan: [facility] discharge records reviewed. CD of CTA/MRI images were not available for review at this time. Continue low dose aspirin, Plavix, and atorvastatin. Plan . Medications: New gabapentin 1,200 mg (2 x 600 mg) PO TID 540 tabs 1RF 90 days Coding Level of Care Code Est Pt Level 4 (11181) Diagnoses Peripheral polyneuropathy G62.9 Peripheral neuropathy type: polyneuropathy, unspecified Degeneration of intervertebral disc of lumbar region, unspecified whether pain present M51.369 Disc-related pain type: unspecified whether pain present Cervical spondylosis M47.812 History of stroke Z86.73
--- OUTSIDE RECORDS SUMMARY | 2024-11-25 11:09 | XMS_ITS | Clinical Summary ---
Author Organization [facility] Address [address] [place] [address] Phone Care Team Providers Care Gymnasium Teacher Name Role Phone Finn Ta NP Primary Care Provider [phone] Allergies No known active allergies Medications gabapentin (NEURONTIN) 600 MG tablet Take 2 tablets by mouth 3 times a day 06/28/2020 Active [facility] Ear Drops 6.5 % otic solution DROP 5 DROPS INTO THE LEFT EAR EVERY 12 HOURS FOR 4 DAYS 06/27/2020 Active simvastatin (ZOCOR) 20 MG tablet Take 1 tablet by mouth at bed time Active Tiotropium [place] Monohydrate (Spiriva Respimat) 2.5 MCG/ACT aerosol solution [...] Medicaid [place] Medicare [place] Care Teams Gymnasium Teacher Relationship Specialty Start Date End Date Finn Ta NP [facility] [place] [address] PCP - General Nurse Practitioner 07/12/20
--- OUTSIDE RECORDS SUMMARY | 2024-11-25 11:09 | XMS_ITS | Patient Health Record ---
Author Organization [facility] Address [address] [place] [address] Care Team Providers Care Education Consultant Name Role Phone Skyler Pyle Primary Care Provider Crispin Valladares Unavailable [phone] Reason For Referral No Information Medications Medication [...] history of malignant neoplasm of gastrointestinal tract (754184220) Family history of malignant neoplasm of gastrointestinal tract (V16.0) Active confirmed Problem Screening for malignant neoplasm of colon (087238262) Special screening for malignant neoplasms, colon (V76.51) Active confirmed Plan Of Treatment Future Test Test Name Order Date COLONOSCOPY 03/07/2011 Insurance Providers Payer Name Payer Address Payer Phone Subscriber Number Group Number Insured Name Patient Relationship to Insured Coverage Start Date Coverage End Date [facility] [facility] [address] [address] [place], [place] [id number] PRAVEENA AMADORO Self - patient is the insured MEDICAID OF [facility] [address] [place] [id number] PRAVEENA AMADORO Self - patient is the insured Medical (General) History Medical History History ICD Code Diabetes Hyprlipidemia Denies [place],CVA,Lung disease,renal disease
--- OUTSIDE RECORDS SUMMARY | 2024-11-25 11:09 | XMS_ITS | Patient Health Record ---
Author Organization [facility] Address [address] [place] [address] Care Team Providers Care Game Trapper Name Role Phone Finn Bird Primary Care Provider Unav Sky Gill Unavailable [phone] Allergies No Known Allergies Reason For Referral [...] Polyneuropathy due to type 2 diabetes mellitus (939770130) Type 2 diabetes mellitus with diabetic polyneuropathy (E11.42) Active confirmed Problem Polyneuropathy due to diabetes mellitus type I (323407512) Type 1 diabetes mellitus with diabetic polyneuropathy (E10.42) Active confirmed Problem Raynaud's disease (518141854) Raynaud's disease without gangrene (I73.00) Active confirmed Plan Of Treatment Pending Test Test Name Order Date [id number] SKIN LESIONS, 2 TO 4 12/14/19 21 [id number] SKIN LESIONS, 2 TO 4 03/15/20 21 [id number] SKIN LESIONS, 2 TO 4 06/07/19 22 Insurance Providers Payer Name Payer Address Payer Phone Subscriber Number Group Number Insured Name Patient Relationship to Insured Coverage Start Date Coverage End Date Medicare National [employer] [address] [place] [address] [id number] Darius Askew Self - patient is the [...]
--- OUTSIDE RECORDS SUMMARY | 2024-11-25 11:10 | XMS_ITS | Clinical Summary ---
Author Organization [address] [facility] Address [address] [place] [address] Phone Care Team Providers Care Freight Shipping Agent Name Role Phone Lonny Tamayo MD Primary Care Provider [phone] Allergies No known active allergies Medications No known medications Encounters Date Type Department Care Team Description 10/19/2024 9:00 AM EDT Office Visit Orthopedic Surgery [facility] [address] [address] Walter Guillory DPM Controlled type [...] 12/20/2024 9:30 AM EDT Office Visit Orthopedic [facility] [address] [address] Walter Guillory DPM [address] [place] [address] Health Maintenance Due Date Last Done Comments [...] Insurance MEDICARE MEDICAID - [place] Care Teams Freight Shipping Agent Relationship Specialty Start Date End Date Lonny Tamayo MD [address] [place] [id number] PCP - General Internal Medicine 03/22/24
== END 2024-11-25 11:29 | disposition home or self-care (01) ==
LOC: HO.HSM 09:49
PROVIDERS: PCP Nurse Practitioner Family; Referring Provider Internal Medicine; Visit Provider Registered Nurse
DX: G62.9 Polyneuropathy, unspecified (principal); M51.369 Other intervertebral disc degeneration, lumbar region without mention of lumbar back pain or lower extremity pain; M47.812 Spondylosis without myelopathy or radiculopathy, cervical region; Z86.73 Personal history of transient ischemic attack (TIA), and cerebral infarction without residual deficits
CPT/HCPCS: 99214

== ENCOUNTER → 2024-11-25 09:49 | Outpatient (BNVA) | payer MEDICARE, MEDICAID, SELFPAY | PROVIDERS: PCP Nurse Practitioner Family; Referring Provider Internal Medicine; Visit Provider Registered Nurse | DX: G62.9 Polyneuropathy, unspecified (principal); Z86.73 Personal history of transient ischemic attack (TIA), and cerebral infarction without residual deficits; M51.369 Other intervertebral disc degeneration, lumbar region without mention of lumbar back pain or lower extremity pain; M47.812 Spondylosis without myelopathy or radiculopathy, cervical region; Z79.82 Long term (current) use of aspirin; Z79.02 Long term (current) use of antithrombotics/antiplatelets | CPT/HCPCS: 99212 ==

== ENCOUNTER 2024-12-08 08:27 | Outpatient (REF) | payer MEDICARE, MEDICAID, SELFPAY ==
--- NOTE | ~2024-12-08 | US_ITS ---
CLINICAL HISTORY: N20.0 - Calculus of kidney US of kidneys Comparison: US/[place]/SR - US RETROPERITONEUM - 09/18/22 14:41 EDT Findings: Right kidney is normal in size, echogenicity and morphology, 11.8 cm in length. No calculus, mass or hydronephrosis. Left kidney is normal in size, echogenicity and morphology, 10.9 cm in length. No calculus, mass or hydronephrosis. Limited color Doppler demonstrates unremarkable bilateral blood flow. Impression: No acute finding. No nephrolithiasis. This document has been electronically signed by: Sandi Jerome MD on 12/08/2024 14:08:49
--- OUTSIDE RECORDS SUMMARY | 2024-12-08 08:53 | XMS_ITS | Patient Health Record ---
Author Organization [facility] Address [address] [address] Care Team Providers Care Helper Shear Operator Name Role Phone Finn Bird Primary Care Provider Unav Sky Gill Unavailable [phone] Allergies No Known Allergies Reason For Referral [...] Polyneuropathy due to type 2 diabetes mellitus (135195405) Type 2 diabetes mellitus with diabetic polyneuropathy (E11.42) Active confirmed Problem Polyneuropathy due to diabetes mellitus type I (930621827) Type 1 diabetes mellitus with diabetic polyneuropathy (E10.42) Active confirmed Problem Raynaud's disease (491816979) Raynaud's disease without gangrene (I73.00) Active confirmed Plan Of Treatment Pending Test Test Name Order Date [id number] SKIN LESIONS, 2 TO 4 12/14/19 21 [id number] SKIN LESIONS, 2 TO 4 03/15/20 21 [id number] SKIN LESIONS, 2 TO 4 06/07/19 22 Insurance Providers Payer Name Payer Address Payer Phone Subscriber Number Group Number Insured Name Patient Relationship to Insured Coverage Start Date Coverage End Date Medicare National [employer] [address] [facility] [place] [address] [id number] Darius Askew Self - patient is the [...]
--- OUTSIDE RECORDS SUMMARY | 2024-12-08 08:53 | XMS_ITS | Clinical Summary ---
Author Organization [address] [facility] Address [address] [place] [address] Phone Care Team Providers Care Document Preparation Specialist Name Role Phone Lonny Tamayo MD Primary Care Provider Allergies No known active allergies Medications No known medications Encounters Date Type Department Care Team Description 10/19/2024 9:00 AM EDT Office Visit Orthopedic Surgery [facility] [address] [address] Walter Guillory DPM Controlled type [...] 12/20/2024 9:30 AM EDT Office Visit [facility] [address] [address] Walter Guillory DPM [address] [place] [address] Health Maintenance Due Date Last Done Comments Diabetes: Annual GFR (Glomerular Filtration Rate) 1947 Diabetes: Annual Foot Exam 06/09/1957 Diabetes: Annual Retina Eye Exam 06/09/1957 Zoster Vaccines (1 of 2) 06/09/1997 DTaP,Tdap,and Td Vaccines (2 - Td or Tdap) 06/01/2022 06/01/2012 RSV Immunization Adult Patients (1 - 1-dose 75+ series) 06/09/2022 Cholesterol Screening (Lipid Panel) 01/31/2024 Falls Risk Assessment 01/31/2024 Hepatitis C Screening 01/31/2024 Medicare Annual Wellness Visit 01/31/2024 Social Influencers of Health Screening 01/31/2024 Diabetes: Annual Urine Albumin-Creatinine Ratio (uACR) 03/16/2024 Diabetes: Blood Sugar Control Test (HGBA1C) 03/16/2024 Hypertension/CHF/CAD Annual BMP Blood Test 03/16/2024 Depression Screening 04/07/2024 COVID-19 Vaccine ( season) 2024 08/16/2020, 07/24/2020 Influenza Vaccine (#1) 2024 9, 01/06/2018, 11/18/2016, [...] Insurance MEDICARE MEDICAID - [place] Care Teams Document Preparation Specialist Relationship Specialty Start Date End Date Lonny Tamayo MD [address] [place] [id number] PCP - General Internal Medicine 03/22/24
--- OUTSIDE RECORDS SUMMARY | 2024-12-08 08:53 | XMS_ITS | Patient Health Record ---
Author Organization [facility] Address [address] [place] [address] Care Team Providers Care Glass Artist Name Role Phone Skyler Pyle Primary Care Provider Crispin Valladares Unavailable [phone] Reason For Referral No Information Medications Medication [...] history of malignant neoplasm of gastrointestinal tract (835533200) Family history of malignant neoplasm of gastrointestinal tract (V16.0) Active confirmed Problem Screening for malignant neoplasm of colon (050484029) Special screening for malignant neoplasms, colon (V76.51) Active confirmed Plan Of Treatment Future Test Test Name Order Date COLONOSCOPY 03/07/2011 Insurance Providers Payer Name Payer Address Payer Phone Subscriber Number Group Number Insured Name Patient Relationship to Insured Coverage Start Date Coverage End Date [facility] [facility] [address] [address] [place], [place] [id number] PRAVEENA AMADORO Self - patient is the insured MEDICAID OF [facility] [address] [place] [phone] [id number] PRAVEENA AMADORO Self - patient is the insured Medical (General) History Medical History History ICD Code Diabetes Hyprlipidemia Denies [place],CVA,Lung disease,renal disease
--- OUTSIDE RECORDS SUMMARY | 2024-12-08 08:53 | XMS_ITS | Clinical Summary ---
Author Organization [facility] Address [address] [place] [address] Phone Care Team Providers Care Quality Assurance Analyst Name Role Phone Finn Ta NP Primary Care Provider [phone] Allergies No known active allergies Medications gabapentin (NEURONTIN) 600 MG tablet Take 2 tablets by mouth 3 times a day 06/28/2020 Active [facility] Ear Drops 6.5 % otic solution DROP 5 DROPS INTO THE LEFT EAR EVERY 12 HOURS FOR 4 DAYS 06/27/2020 Active simvastatin (ZOCOR) 20 MG tablet Take 1 tablet by mouth at bed time Active Tiotropium [place] Monohydrate (Spiriva Respimat) 2.5 MCG/ACT aerosol solution [...] Medicaid [place] Medicare [place] Care Teams Quality Assurance Analyst Relationship Specialty Start Date End Date Finn Ta NP [facility] [place] [address] PCP - General Nurse Practitioner 07/12/20
== END 2024-12-08 08:28 | disposition home or self-care (01) ==
LOC: HO.HMGCX 08:27
PROVIDERS: PCP Nurse Practitioner Family; Visit Provider Nurse Practitioner Family
DX: N20.0 Calculus of kidney (principal)
CPT/HCPCS: 76775

== ENCOUNTER → 2024-12-08 08:36 | Outpatient (BNV) | payer MEDICARE, MEDICAID, SELFPAY | PROVIDERS: PCP Nurse Practitioner Family; Visit Provider Radiology Diagnostic Radiology | DX: N20.0 Calculus of kidney (principal) | CPT/HCPCS: 76775 ==

== ENCOUNTER 2024-12-13 13:00 | Outpatient (AMB) | payer MEDICARE, MEDICAID, SELFPAY ==
[2024-12-13 13:18] VITALS: BP 122/68; PULSE 93; RESP 16; TEMP 36.6; O2SAT 97; BMI 25.3
--- NOTE | 2024-12-13 13:18 | A.OFFPC_ITS ---
Vital Signs 12/13/24 13:18 Height 5 ft 6 in Weight 157 lb BMI 25.3 BP 122/68 Blood Pressure Location Lt brachial Position Sitting Respiration 16 Pulse 93 Pulse Source Pulse Oximeter Temp 97.9 F Temp Source Oral Pulse Oximetry (%) 97 Oxygen Delivery Method Room Air Intake Visit Reasons: 4 months f/up Workforce Staffing Advisor Required: No Accompanied by: Self / Same As Patient Allergies No Known Allergies (No Known Allergies*) Allergy (Verified 12/13/24 13:32) Medication List - Last Reconciled 12/13/24 by Finn Ta, [facility]- aspirin 81 mg PO DAILY blood sugar diagnostic (FreeStyle Lite Strips) test TID blood-glucose meter (FreeStyle Lite Meter kit) Test TID clopidogrel (Plavix) 75 mg PO DAILY [extra-depth Diabetic shoes with 3 pair Custom heat-molded multi-density innersoles As directed] gabapentin 1,200 mg (2 x 600 mg) PO TID 90 days ketoconazole 2% 1 appl topical BID 20 days lancets (FreeStyle Lancets) Test TID lisinopril 2.5 mg PO DAILY 90 days metformin 500 mg PO BID rosuvastatin 40 mg PO DAILY Shower Chair use daily, for lower extrem weakness/hip pains umeclidinium-vilanterol 62.5-25 mcg/actuation (Anoro Ellipta) 1 ea inhalation DAILY Ventolin HFA 90 mcg/actuation (albuterol sulfate) 2 puffs inhalation Q4-6H PRN NS Tobacco use date assessed: 09/23/24 Fall risk assessment: 1 Fall in past year Last assessed Fall Risk: 12/13/24 Dental Screening Dental Screen Date: 12/13/24 Did you have a dental visit in the last 12 months?: No Did you have a dental problem in the last 6 months where you did not have access to dental care?: No Was dental information given to patient?: Patient has dentist HPI 4 months f/up HPI Details Chief Complaint The patient presents for follow-up care related to diabetes and recent stroke. History of Present Illness The patient is a 79-year-old male presenting with diabetes management and post- stroke care. He experienced an acute ischemic stroke on September 10, 2024, characterized by left facial droop and weakness, leading to hospitalization. Imaging revealed no large vessel occlusion but identified a left-sided carotid lesion, which did not correlate with his symptoms. The MRI showed an infarct in the right carr radiata, and he was outside the window for thrombolytic therapy. No arrhythmias were noted during his hospital stay. He has a history of smoking and is under pulmonary care, receiving low-dose CT scans for monitoring. His statin medication was changed from atorvastatin to rosuvastatin, and he is on aspirin and Plavix for further stroke prevention. Pt reports smoking less now The patient reports neuropathy in his bilateral extremities and is under podiatric care for onychomycosis. His A1c is currently 6.3, indicating good diabetes control. Social History - Smoking: The patient has a long histor y of smoking and is currently under pulmonary care. Health Maintenance - Diabetes management: A1c is 6.3, indic ating good control. - Pulmonary care: Regular low-dose CT sc ans for monitoring due to smoking history. Review of Systems - Neurological: Reports neuropathy in bi lateral extremities. - Dermatological: Reports onychomycosis. -denies any fevers, chills, N/V, OSMAN, gonsalo rred vision, weakness of an extremity Physical Exam General: Cooperative, healthy appearing, comfortable, no acute distress and well developed, soft spoken Orientation: Patient oriented x3 Limitations: No limitations Head: Normal to inspection Ears: Hearing grossly normal bilaterally Nose: Normal external nose present Face and sinus: symmetrical Eyes: Appearance normal, both eyes and all related structures Neck: Normal visual inspection and Yes full ROM Respiratory: Diminished breath sounds throughout, somewhat coarse Cardiovascular: Regular rate and rhythm. Normal S1 and S2 GI: Normal to inspection. Soft to palpation and nontender Skin: No rashes or lesions noted Neuro: Patient oriented x3, cn 2-12 intact Extremities: positive sensation use of monofilament to feet, onychomycosis noted bilat, otherwise feet were intact Results - MRI: Infarct in the right carr radia ta. - CT/CTA: No large vessel occlusion, lef t-sided carotid lesion noted. Plan 1. Diabetes Mellitus The patient's diabetes is currently well-controlled with an A1c of 6.3. He should continue his current medication regimen and monitor his blood glucose levels regularly. 2. Acute Ischemic Stroke The patient experienced an acute ischemic stroke with left facial droop and weakness. Imaging showed an infarct in the right carr radiata. He is on aspirin and Plavix for secondary prevention. Follow-up with neurology and executive secretary social welfare is scheduled to monitor his condition and manage any further risks (vessel stenosis). 3. Carotid Artery Stenosis The patient has a left-sided carotid lesion identified on imaging. He is scheduled to see a vascular specialist for further evaluation and management. Continued monitoring and potential intervention may be necessary based on the specialist's recommendations. 4. Neuropathy The patient reports neuropathy in his bilateral extremities. He should continue to follow up with his primary care provider and colleter for management of symptoms and to prevent complications. Regular foot care and monitoring for any changes are advised. 5. Onychomycosis The patient is under podiatric care for onychomycosis. Continued treatment and monitoring by the colleter are recommended to manage the condition effectively. Discussion Notes During the visit, we discussed the management of the patient's diabetes and stroke. I emphasized the importance of medication adherence and regular follow- ups with neurology and executive secretary social welfare. We also reviewed the need for continued pulmonary monitoring due to his smoking history. The patient was advised to maintain regular foot care and monitor for any changes due to neuro rosey. Patient Instructions - Continue taking all prescribed medicat ions as directed. - Schedule and attend follow-up appointm ents with neurology and executive secretary social welfare. - Maintain regular foot care and monitor for any changes. - Continue pulmonary follow-up and low-d ose CT scans as advised. [facility] Medical History Lacunar infarction Bilateral impacted cerumen Diabetes mellitus with polyneuropathy Hypertensive retinopathy Raynauds disease Type 2 diabetes mellitus with diabetic polyneuropathy CKD (chronic kidney disease) stage 3, GFR 30-59 ml/min Sleep apnea CAD (coronary artery disease) Seasonal allergies BPH (benign prostatic hyperplasia) Hematuria Hx of dermatitis Pulmonary HTN HTN (hypertension) CVA (cerebral vascular accident) Type 2 diabetes mellitus with unspecified complications NICM (nonischemic cardiomyopathy) Atherosclerotic heart disease of [place] coronary artery without angina pectoris Hyperlipidemia, unspecified Smoker Transient cerebral ischemic attack, unspecified Surgical History Hx of colonoscopy Hx of bilateral cataract extraction History of inguinal hernia repair, bilateral (~04/2016) History of cardiac catheterization (12/28/19) Family History Father Cardiovascular disease Diabetes Mother Osteoporosis Social History Housing: Apartment Are you a primary post acute care registered nurse to a significant other at home: No Do you presently have visiting nurse or other home services: No Alcohol intake: never Patient Tobacco Use Status: Current everyday Tobacco user Cigarettes Per Day: 10 Years Smoked: 55 e-Cigarette/Vaping Use: Never Used Second Hand Smoke Exposure: Yes Current occupational status: retired Cognitive needs: No Hearing needs: No Vision needs: Yes Questionnaire PHQ-9 Over the last 2 weeks, how often have you been bothered by any of the following problems? 1. Little interest or pleasure in doing things: not at all 2. Feeling down, depressed, or hopeless: not at all 3. Trouble falling or staying asleep, or sleeping too much: not at all 4. Feeling tired or having little energy: not at all 5. Poor appetite or overeating: not at all 6. Feeling bad about yourself - or that you are a failure or have let yourself or your family down: not at all 7. Trouble concentrating on things, such as reading the newspaper or watching television: not at all 8. Moving or speaking so slowly that other people could have noticed. Or the opposite - being so fidgety or restless that you have been moving around a lot more than usual: not at all 9. Thoughts that you would be better off or of hurting yourself in some way: not at all Total score: 0 Depression Screening Interpretation: Negative Depression Screening Done: Yes 61869 - PHQ-9 Billing: Yes Source: Developed by Drs. Crispin Vargas, Nannette Alanis, Jimmy Parks and colleagues, with an educational orville from [employer]. Thrive Questionnaire Date Thrive assessed: 08/04/24 I am a: Parent/Caregiver What is your living situation today?: I have a steady place to live Within the past 12 months, did the food you bought not last and you didn't have the money to get more?: Sometimes True Within the past 12 months, did you worry whether your food would run out before you got money to buy more?: Sometimes True Do you have trouble paying for medicines?: No Do you have trouble getting transportation to medical appointments?: No Do you have trouble paying your heating and electricity bill?: Yes Do you have trouble taking care of your child, family member or friend?: No Do you have trouble with day-to-day activities such as bathing, preparing meals, shopping, managing finances, etc.?: Yes Are you currently unemployed and looking for a job?: No Are you interested in more education?: No Please select the resources that you would like help with: None Currently or been in a relationship where the following occur: No concerns reported THRIVE Score: 3 AUDIT C Alcohol Use Questionnaire (AUDIT-C) 1. How often do you have a drink containing alcohol?: Never Total Score: 0 MECHELLE-7 AMB Questionnaire MECHELLE-7 Date MECHELLE - 7 assessed: 12/13/24 (patient declined ) Feeling nervous, anxious, or on edge: 0 = Not at all Not being able to stop or control worryin = Not at all Worrying too much about different things: 0 = Not at all Trouble relaxin = Not at all Being so restless that it is hard to sit still: 0 = Not at all Becoming easily annoyed or irritable: 0 = Not at all Feeling afraid as if something awful might happen: 0 = Not at all Total MECHELLE-7 score (0-4 normal; 5-9 mild; 10-14 moderate; 15-21 severe): 0 Source: Developed by Drs. Crispin Vargas, Nannette Alanis, Jimmy Parks and colleagues, with an educational orville from [employer]. Physical exam (Primary Care) Vital Signs: Last Vital Signs Temp 97.9 F 12/13/24 13:18 Pulse 93 12/13/24 13:18 Resp 16 12/13/24 13:18 BP 122/68 12/13/24 13:18 Pulse Ox 97 12/13/24 13:18 Oxygen Delivery Method Room Air 12/13/24 13:18 BMI result Body Mass Index 25.3 Tobacco/Smoking Status: Tobacco use Status Tobacco use date assessed 09/23/24 12/13/24 13:22 Patient Tobacco Use Status Current everyday Tobacco 12/13/24 13:22 e-Cigarette/Vaping Use Never Used 12/13/24 13:22 PHQ-9: PHQ-9 Score PHQ-9: Total score 0 12/13/24 13:22 Depression Screening Interpretation: Negative Thrive Assessment: Date of Thrive Assessment Date Thrive assessed 08/04/24 12/13/24 13:22 Currently or been in a relationship where the following occur: No concerns reported Results AMB Hemoglobin A1c AMB Hemoglobin A1c 6.3 % Last Edit by Iliana Bernstein MA on 12/13/24 14:03 Coding Level of Care Code Est Pt Level 4 (98525) Diagnoses Type 2 diabetes mellitus with diabetic polyneuropathy E11.42 CVA (cerebral vascular accident) I63.9 Laterality of affected vessel: right Diabetes mellitus with polyneuropathy E11.42 COPD (chronic obstructive pulmonary disease) J44.9 Additional Codes PHQ-9 - 56845 - PHQ-9 Billing: Yes ([id number]) Assessment & Plan Assessment & Plan (1) Type 2 diabetes mellitus with diabetic polyneuropathy: Code(s): E11.42 - Type 2 diabetes mellitus with diabetic polyneuropathy Category: Medical (2) CVA (cerebral vascular accident): Comment: 2024 right carr radiata - [facility] - started on asa, plavix and statin, echo normal Code(s): I63.9 - Cerebral infarction, unspecified Category: Medical Qualifiers: Laterality of affected vessel: right (3) Diabetes mellitus with polyneuropathy: Code(s): E11.42 - Type 2 diabetes mellitus with diabetic polyneuropathy Category: Medical (4) COPD (chronic obstructive pulmonary disease): Code(s): J44.9 - Chronic obstructive pulmonary disease, unspecified Category: Medical Plan . Orders: Orders AMB Hemoglobin A1c Today Z13.9 - Encounter for screening, unspecified Comprehensive [place]. Panel Fast Today E11.42 - Type 2 diabetes mellitus with diabetic polyneuropathy Complete Blood Count Auto Diff Today E11.42 - Type 2 diabetes mellitus with diabetic polyneuropathy TSH reflex Free T4 Today E11.42 - Type 2 diabetes mellitus with diabetic polyneuropathy UA CC w/rflx Micro + Cult Today E11.42 - Type 2 diabetes mellitus with diabetic polyneuropathy Lipid Panel Today E11.42 - Type 2 diabetes mellitus with diabetic polyneuropathy Medications: New lisinopril 2.5 mg PO DAILY 90 tabs 0RF 90 days clopidogrel (Plavix) 75 mg PO DAILY 30 tabs 2RF
--- OUTSIDE RECORDS SUMMARY | 2024-12-13 15:09 | XMS_ITS | Clinical Summary ---
Author Organization [facility] Address [address] [place] [address] Phone Care Team Providers Care Supervisor Wash House Name Role Phone Finn Ta NP Primary Care Provider [phone] Allergies No known active allergies Medications gabapentin (NEURONTIN) 600 MG tablet Take 2 tablets by mouth 3 times a day 06/28/2020 Active [facility] Ear Drops 6.5 % otic solution DROP 5 DROPS INTO THE LEFT EAR EVERY 12 HOURS FOR 4 DAYS 06/27/2020 Active simvastatin (ZOCOR) 20 MG tablet Take 1 tablet by mouth at bed time Active Tiotropium [place] Monohydrate (Spiriva Respimat) 2.5 MCG/ACT aerosol solution [...] Medicaid [place] Care Teams Supervisor Wash House Relationship Specialty Start Date End Date Finn Ta NP [facility] [place] [address] PCP - General Nurse Practitioner 07/12/20
--- OUTSIDE RECORDS SUMMARY | 2024-12-13 15:09 | XMS_ITS | Patient Health Record ---
Author Organization [facility] Address [address] [place] [address] Care Team Providers Care Curing Room Worker Name Role Phone Skyler Pyle Primary Care Provider Crispin Valladares Unavailable [phone] Reason For Referral No Information Medications Medication [...] history of malignant neoplasm of gastrointestinal tract (480615353) Family history of malignant neoplasm of gastrointestinal tract (V16.0) Active confirmed Problem Screening for malignant neoplasm of colon (076693149) Special screening for malignant neoplasms, colon (V76.51) Active confirmed Plan Of Treatment Future Test Test Name Order Date COLONOSCOPY 03/07/2011 Insurance Providers Payer Name Payer Address Payer Phone Subscriber Number Group Number Insured Name Patient Relationship to Insured Coverage Start Date Coverage End Date [facility] [employer] [facility] [address] [address] [place], [place] [id number] PRAVEENA AMADORO Self - patient is the insured MEDICAID OF [facility] [address] [place] [phone] [id number] PRAVEENA AMADORO Self - patient is the insured Medical (General) History Medical History History ICD Code Diabetes Hyprlipidemia Denies [place],CVA,Lung disease,renal disease
--- OUTSIDE RECORDS SUMMARY | 2024-12-13 15:10 | XMS_ITS | Patient Health Record ---
Author Organization [facility] [place] Address [address] [place] [address] Care Team Providers Care Cellophane Worker Name Role Phone Finn Bird Primary Care Provider Unav Sky Gill Unavailable [phone] Allergies No Known Allergies Reason For Referral [...] Polyneuropathy due to type 2 diabetes mellitus (636760546) Type 2 diabetes mellitus with diabetic polyneuropathy (E11.42) Active confirmed Problem Polyneuropathy due to diabetes mellitus type I (927354266) Type 1 diabetes mellitus with diabetic polyneuropathy (E10.42) Active confirmed Problem Raynaud's disease (403885397) Raynaud's disease without gangrene (I73.00) Active confirmed Plan Of Treatment Pending Test Test Name Order Date [id number] SKIN LESIONS, 2 TO 4 12/14/19 21 [id number] SKIN LESIONS, 2 TO 4 03/15/20 21 [id number] SKIN LESIONS, 2 TO 4 06/07/19 22 Insurance Providers Payer Name Payer Address Payer Phone Subscriber Number Group Number Insured Name Patient Relationship to Insured Coverage Start Date Coverage End Date Medicare National [employer] [address] [place] [address] [id number] Darius Askew Self - patient is the [...]
--- OUTSIDE RECORDS SUMMARY | 2024-12-13 15:10 | XMS_ITS | Clinical Summary ---
Author Organization [address] [facility] Address [address] [place] [address] Phone Care Team Providers Care Scratcher Name Role Phone Lonny Tamayo MD Primary Care Provider Allergies No known active allergies Medications No known medications Encounters Date Type Department Care Team Description 10/19/2024 9:00 AM EDT Office Visit Orthopedic Surgery [facility] [address] [address] Walter Guillory DPM Controlled type [...] 12/20/2024 9:30 AM EDT Office Visit Orthopedic [facility] [address] [address] Walter Guillory DPM [address] [place] [address] Health Maintenance Due Date Last Done Comments [...] Insurance MEDICARE MEDICA[place] - [place] Care Teams Scratcher Relationship Specialty Start Date End Date Lonny Tamayo MD [address] [place] [id number] PCP - General Internal Medicine 03/22/24
== END 2024-12-13 14:22 | disposition home or self-care (01) ==
LOC: HO.HMCC 13:01
PROVIDERS: PCP Nurse Practitioner Family; Visit Provider Nurse Practitioner Family
DX: E11.42 Type 2 diabetes mellitus with diabetic polyneuropathy (principal); I63.9 Cerebral infarction, unspecified; J44.9 Chronic obstructive pulmonary disease, unspecified; Z13.9 Encounter for screening, unspecified

== ENCOUNTER → 2024-12-13 13:00 | Outpatient (BNVA) | payer MEDICARE, MEDICAID, SELFPAY | PROVIDERS: PCP Nurse Practitioner Family; Visit Provider Nurse Practitioner Family | DX: E11.42 Type 2 diabetes mellitus with diabetic polyneuropathy (principal); E11.40 Type 2 diabetes mellitus with diabetic neuropathy, unspecified; I65.22 Occlusion and stenosis of left carotid artery; B35.1 Tinea unguium; J44.9 Chronic obstructive pulmonary disease, unspecified; Z86.73 Personal history of transient ischemic attack (TIA), and cerebral infarction without residual deficits; Z87.891 Personal history of nicotine dependence | CPT/HCPCS: 83036; 96127; 99212 ==

== ENCOUNTER 2025-01-31 07:04 | Outpatient (REF) | payer MEDICARE, MEDICAID, SELFPAY ==
--- OUTSIDE RECORDS SUMMARY | 2025-01-31 07:08 | XMS_ITS | Patient Health Record ---
Author Organization [facility] Address [address] [place] [address] Care Team Providers Care Crabber Name Role Phone Skyler Pyle Primary Care Provider Crispin Valladares Unavailable [phone] Reason For Referral No Information Medications Medication [...] history of malignant neoplasm of gastrointestinal tract (618707369) Family history of malignant neoplasm of gastrointestinal tract (V16.0) Active confirmed Problem Screening for malignant neoplasm of colon (379819025) Special screening for malignant neoplasms, colon (V76.51) Active confirmed Plan Of Treatment Future Test Test Name Order Date COLONOSCOPY 03/07/2011 Insurance Providers Payer Name Payer Address Payer Phone Subscriber Number Group Number Insured Name Patient Relationship to Insured Coverage Start Date Coverage End Date [facility] [employer] [facility] [address] [address] [place], [place] [id number] PRAVEENA AMADORO Self - patient is the insured MEDICAID OF [facility] [address] [place] [phone] [id number] PRAVEENA AMADORO Self - patient is the insured Medical (General) History Medical History History ICD Code Diabetes Hyprlipidemia Denies MD,CVA,Lung disease,renal disease
--- OUTSIDE RECORDS SUMMARY | 2025-01-31 07:08 | XMS_ITS | Clinical Summary ---
Author Organization [facility] Address [address] [place] [address] Phone Care Team Providers Care Supplier Engineer Name Role Phone Finn Ta NP Primary Care Provider [phone] Allergies No known active allergies Medications gabapentin (NEURONTIN) 600 MG tablet Take 2 tablets by mouth 3 times a day 06/28/2020 Active [facility] Ear Drops 6.5 % otic solution DROP 5 DROPS INTO THE LEFT EAR EVERY 12 HOURS FOR 4 DAYS 06/27/2020 Active simvastatin (ZOCOR) 20 MG tablet Take 1 tablet by mouth at bed time Active Tiotropium [place] Monohydrate (Spiriva Respimat) 2.5 MCG/ACT aerosol solution [...] Medicaid [place] Medicare [place] Care Teams Supplier Engineer Relationship Specialty Start Date End Date Finn Ta NP [facility] [place] [address] PCP - General Nurse Practitioner 07/12/20
--- OUTSIDE RECORDS SUMMARY | 2025-01-31 07:08 | XMS_ITS | Patient Health Record ---
Author Organization [facility] [place] Address [address] [place] [address] Care Team Providers Care Pest Control Worker Helper Name Role Phone Finn Bird Primary Care Provider Unav ailable Sky Gamble Unavailable [phone] Allergies No Known Allergies Reason For Referral [...] Polyneuropathy due to type 2 diabetes mellitus (835907561) Type 2 diabetes mellitus with diabetic polyneuropathy (E11.42) Active confirmed Problem Polyneuropathy due to diabetes mellitus type I (085094156) Type 1 diabetes mellitus with diabetic polyneuropathy (E10.42) Active confirmed Problem Raynaud's disease (141114433) Raynaud's disease without gangrene (I73.00) Active confirmed Plan Of Treatment Pending Test Test Name Order Date [id number] SKIN LESIONS, 2 TO 4 12/14/19 21 [id number] SKIN LESIONS, 2 TO 4 03/15/20 21 [id number] SKIN LESIONS, 2 TO 4 06/07/19 22 Insurance Providers Payer Name Payer Address Payer Phone Subscriber Number Group Number Insured Name Patient Relationship to Insured Coverage Start Date Coverage End Date Medicare National [employer] [address] [facility] [address] [id number] Darius Askew Self - patient is the [...]
[2025-01-31 10:36] LABS: MANUAL DIFF FLAG NO
[2025-01-31 10:47] LABS: Hematocrit 43.5 % (42.0-52.0); Hemoglobin 14.1 g/dl (14.0-18.0); Imm Gran Abs Auto 0.01 X10*3/uL (0.00-0.03); Imm Gran Pct Auto 0.1 % (0.0-0.4); Lymphocytes Absolute Auto 1.9 X10*3/uL (1.2-4.9); Mean Corpuscular HGB Conc 32.4 g/dl (31.0-36.0); Mean Corpuscular Hemoglobin 30.9 pg (27.0-33.0); Mean Corpuscular Volume 95.2 fL (80.0-98.0); NRBC Abs Auto 0.000 X10*3/uL (0.0-0.012); NRBC Pct Auto 0.0 /100WBC (0.0-0.2); Platelet Count 231 X10*3/uL (160-400); Red Blood Count 4.57 X10*6/uL (4.60-5.80); White Blood Count 7.0 X10*3/uL (4.8-10.8)
[2025-01-31 10:51] LABS: Appearance Urine Clear; Glucose Urine UA 500 mg/dL (Negative); PH 5.5 (5.0-9.0); Specific Gravity - Urine 1.020 (1.005-1.025); UMIC TRIGGER UACC YES
[2025-01-31 11:13] LABS: Alanine Aminotransferase 7 U/L (0-40); Albumin Level 4.1 g/dL (3.5-5.0); Alkaline Phosphatase 68 U/L (39-117); Anion Gap 12 (12-20); Aspartate Amino Transferase 25 U/L (5-37); Blood Urea Nitrogen 18 mg/dL (9-16); Calcium 8.9 mg/dL (8.4-10.2); Carbon Dioxide 26 mmol/L (22-29); Chloride 110 mmol/L (96-108); Cholesterol 93 mg/dL (<200); Estimated Glomerular Filt Rate 41; HDL Cholesterol 41 mg/dL (>40); Potassium 5.0 mmol/L (3.3-5.1); Sodium 143 mmol/L (135-145); Total Protein 6.7 g/dL (6.5-8.0); Triglycerides 56 mg/dL (<150)
[2025-01-31 11:24] LABS: Prostate Specific Antigen 2.38 ng/mL (<0.05-4.0)
== END 2025-01-31 07:05 | disposition home or self-care (01) ==
LOC: HO.HMGCLDS 07:04
PROVIDERS: Nurse Practitioner Family; Absent Provider Internal Medicine Nephrology; PCP Nurse Practitioner Family; Visit Provider Nurse Practitioner Family
DX: E11.42 Type 2 diabetes mellitus with diabetic polyneuropathy (principal); N40.1 Benign prostatic hyperplasia with lower urinary tract symptoms; N13.8 Other obstructive and reflux uropathy; Z12.5 Encounter for screening for malignant neoplasm of prostate
CPT/HCPCS: 36415; 80053; 80061; 81001; 84153; 84443; 85025

== ENCOUNTER 2025-02-08 10:51 | Outpatient (AMB) | payer MEDICARE, MEDICAID, SELFPAY ==
--- NOTE | 2025-02-08 11:06 | MHC.OFFVIS ---
Intake Visit Reasons: 6m/PVR/PSA/US Intake Note: Patient is present for PVR/PSA/Ultrasound Urology Medication: Gemtesa Antibiotic Allergy: None Blood Thinner: Plavix PVR: 15ML Allergies No Known Allergies (No Known Allergies*) Allergy (Verified 02/08/25 11:41) Medication List - Last Reconciled 02/08/25 by URBAN Rudolph aspirin 81 mg PO DAILY blood sugar diagnostic (FreeStyle Lite Strips) test TID blood-glucose meter (FreeStyle Lite Meter kit) Test TID clopidogrel (Plavix) 75 mg PO DAILY [extra-depth Diabetic shoes with 3 pair Custom heat-molded multi-density innersoles As directed] gabapentin 1,200 mg (2 x 600 mg) PO TID 90 days ketoconazole 2% 1 appl topical BID 20 days lancets (FreeStyle Lancets) Test TID lisinopril 2.5 mg PO DAILY 90 days metformin 500 mg PO BID rosuvastatin 40 mg PO DAILY Shower Chair use daily, for lower extrem weakness/hip pains umeclidinium-vilanterol 62.5-25 mcg/actuation (Anoro Ellipta) 1 ea inhalation DAILY Ventolin HFA 90 mcg/actuation (albuterol sulfate) 2 puffs inhalation Q4-6H PRN NS vibegron (Gemtesa) 75 mg PO DAILY 90 days HPI Comments Details: Darius is a pleasant 79 year old male patient of Dr. Ta. He has a PMH of hypertension, Raynaud's disease, diabetes, chronic kidney disease stage 3, sleep apnea, coronary artery disease, seasonal allergies, pulmonary hypertension, CVA, nonischemic cardiomyopathy, hyperlipidemia, and nicotine dependence. He presents to the office today for a follow up. When asked patient reports to be doing and feeling well. When asked he reports compliance with finasteride and Gemtesa as prescribed. He reports feeling Gemtesa has been helpful in treating his lower urinary tract symptoms of urinary urgency, frequency, and nocturia. He currently denies any bothersome urinary issues or concerns. He denies hematuria, dysuria, foul smelling urine, changes to urinary stream, fever, and or chills. He is happy with his current voiding parameters. In office urinalysis results reviewed with the patient today. PVR 15 mLs. Previous workup has included a retroperitoneal ultrasound 09/27 noting bilateral kidneys with no calculi, lesions, and or hydronephrosis noted. The bladder is well distended and normal. Pre void bladder volume is approximately 200 mL. Postvoid bladder volume is approximately 5 mL. Prostate volume measures 45 mL. Most recent renal ultrasound results were reviewed 12/30 bilateral kidneys are normal in size, contour, and echogenicity. No hydronephrosis, calculi, or masses noted bilaterally. Per radiology report. Labs are as follows: PSA: 06/26 3.3, 06/27 3.9, 01/27 3.6 07/29 1.7, 02/28 1.5, 01/29 2.4 A1c: 12/30 6.3% Discussed and stressed importance of managing diabetes for improvement in urinary symptoms as well as for overall health and well being. Also stressed the importance of limiting/quitting cigarette smoking for overall health and well-being. He otherwise offers no issues or concerns at this time. [facility] Medical History Lacunar infarction Bilateral impacted cerumen Diabetes mellitus with polyneuropathy Hypertensive retinopathy Raynauds disease Type 2 diabetes mellitus with diabetic polyneuropathy CKD (chronic kidney disease) stage 3, GFR 30-59 ml/min Sleep apnea CAD (coronary artery disease) Seasonal allergies BPH (benign prostatic hyperplasia) Hematuria Hx of dermatitis Pulmonary HTN HTN (hypertension) CVA (cerebral vascular accident) Type 2 diabetes mellitus with unspecified complications NICM (nonischemic cardiomyopathy) Atherosclerotic heart disease of [place] coronary artery without angina pectoris Hyperlipidemia, unspecified Smoker Transient cerebral ischemic attack, unspecified Surgical History Hx of colonoscopy Hx of bilateral cataract extraction History of inguinal hernia repair, bilateral (~04/2016) History of cardiac catheterization (12/28/19) Family History Father Cardiovascular disease Diabetes Mother Osteoporosis Social History Housing: Apartment Are you a primary child daycare worker to a significant other at home: No Do you presently have visiting nurse or other home services: No Alcohol intake: never Patient Tobacco Use Status: Current everyday Tobacco user Cigarettes Per Day: 10 Years Smoked: 55 e-Cigarette/Vaping Use: Never Used Second Hand Smoke Exposure: Yes Current occupational status: retired Cognitive needs: No Hearing needs: No Vision needs: Yes Review of Systems Const Reports as per [facility] Eyes Reports no additional complaints ENT Reports no additional complaints Card Reports as per [facility] Resp Reports as per [facility] GI Reports no additional complaints Reports as per [facility] Musc Reports as per [facility] Neuro Reports as per [facility] Psych Reports no additional complaints Endo Reports as per HPI Physical Exam Const General: cooperative, comfortable, no acute distress, well developed, alert and awake Orientation/consciousness: patient oriented x3 Limitations: no limitations HEENT Head: Yes normal to inspection, Yes normocephalic and Yes atraumatic Ears: hearing grossly normal bilaterally Eyes General: appearance normal, both eyes and all related structures Neck Neck: Yes normal visual inspection and Yes trachea midline Chest Chest palpation & inspection: normal inspection of the chest Resp Effort & Inspection: normal respiratory effort and able to speak in complete sentences Cardio Rate: regular rate GI Inspection: Yes normal to inspection General: Yes no CVA tenderness Back/Spine/Pelvis Back: no CVA tenderness Skin General skin exam: no rashes or lesions noted Neuro General: patient oriented x3 Extrem General: Yes normal to inspection Psych Appearance: grossly normal and well kempt Mental Status: mental status grossly normal Speech and movement: Normal speech and movement present and Clear speech present Affect: normal affect Attitude: cooperative Thought process: Normal thought process present Thought content: Normal thought content present Insight: Fair insight present (Psych) Judgement: Fair judgement present (Psych) Office Procedures Post Void Residual Post Residual Void Post Void Residual (PVR): 15 [id number] Void Residual by ultrasound Results AMB Urinalysis, Automated UA Leukoctes 0 Brian/uL Last Edit by CARLI Rodriguez on 02/08/25 11:20 UA Nitrite Negative Last Edit by CARLI Rodriguez on 02/08/25 11:20 UA Urobilinogen 0.2 mg/dL Last Edit by CARLI Rodriguez on 02/08/25 11:20 UA Protein 30 mg/dL Last Edit by CARLI Rodriguez on 02/08/25 11:20 UA pH 6.0 Last Edit by CARLI Rodriguez on 02/08/25 11:20 UA Blood 10 Demetrius/uL Last Edit by Eva Smith, RMA on 02/08/25 11:20 UA Specific [place] 1.015 Last Edit by Eva Smith, RMA on 02/08/25 11:20 UA Ketone Negative Last Edit by Eva Smith, RMA on 02/08/25 11:20 UA Bilirubin 0 mg/dL Last Edit by Eva Smith, RMA on 02/08/25 11:20 UA Glucose 1000 mg/dL Last Edit by Eva Smith, RMA on 02/08/25 11:20 Results Reviewed Results Reviewed: Laboratory Last Values Urine pH (Auto) 6.0 02/08/25 11:19 Specific [place] (Auto) 1.015 02/08/25 11:19 Urine Protein (Auto) 30 mg/dL 02/08/25 11:19 Glucose (UA)(Auto) 1000 mg/dL 02/08/25 11:19 Urine Ketones (Auto) Negative 02/08/25 11:19 Urine Blood (Auto) 10 Demetrius/uL 02/08/25 11:19 Urine Nitrite (Auto) Negative 02/08/25 11:19 Urine Bilirubin (Auto) 0 mg/dL 02/08/25 11:19 Urine Urobilinogen (Auto) 0.2 mg/dL 02/08/25 11:19 Leukocyte Esterase (Auto) 0 Brian/uL 02/08/25 11:19 Date of Service: 12/08/24 Procedure(s): US renal BI Findings: Right kidney is normal in size, echogenicity and morphology, 11.8 cm in length. No calculus, mass or hydronephrosis. Left kidney is normal in size, echogenicity and morphology, 10.9 cm in length. No calculus, mass or hydronephrosis. Limited color Doppler demonstrates unremarkable bilateral blood flow. Impression: No acute finding. No nephrolithiasis. Assessment & Plan Assessment & Plan (1) Microscopic hematuria: Code(s): R31.29 - Other microscopic hematuria Category: Medical (2) Nocturia more than twice per night: Code(s): R35.1 - Nocturia Category: Medical (3) Incontinence: Code(s): R32 - Unspecified urinary incontinence Category: Medical (4) BPH w urinary obs/LUTS: Code(s): N40.1 - Benign prostatic hyperplasia with lower urinary tract symptoms; N13.8 - Other obstructive and reflux uropathy Category: Medical (5) Enlarged prostate: Code(s): N40.0 - Benign prostatic hyperplasia without lower urinary tract symptoms Category: Medical Plan In office urinalysis results with the patient today; as noted above; will send for urine cytology We did discussed microscopic hematuria in the setting of nicotine dependence; we did discuss obtaining CT urogram as well as in office cystoscopy however patient declines at this time. PVR 15 mL Most recent renal imaging results reviewed with the patient today; as noted above. Recent A1c and PSA results reviewed with the patient today; as noted above. Continue Gemtesa and finasteride as discussed and prescribed. He currently denies any bothersome urinary issues or concerns. He reports be happy with current voiding parameters. We discussed the importance of limiting/quitting nicotine dependence for urological health as well as overall health and well-being. All questions were answered. Follow-up in 6 months with PVR; or sooner with any issues, concerns, and or questions. Orders: Orders AMB Post Void Residual by ultrasound Today N40.0 - Benign prostatic hyperplasia without lower urinary tract symptoms AMB Urinalysis Automated Today Z13.9 - Encounter for screening, unspecified Patient Instructions: The patient had an opportunity to ask questions regarding the treatment plan. All questions were answered. Physical exam, labs, and imaging were discussed and reviewed in detail. As well as risks, benefits, and discussion of treatment choices. No major barriers to understanding were identified. The patient expressed understanding and agreement with the above treatment plan. The patient was made aware they should contact our office by phone for worsening of their current condition, the appearance of new symptoms, or with any questions or concerns. Compliance is encouraged with any medications and follow up testing that is ordered. It is a privilege to be allowed the opportunity to participate in? your urological care.? Again, if you have any questions or concerns If you have any questions or concerns please do not hesitate to contact me. The office is [phone]. This note is constructed using voice recognition software. While every effort has been made to ensure accuracy beater engineer helper errors may have been included. Yours sincerely, URBAN Rudolph Coding Level of Care Code Est Pt Level 3 (67308) Complex EM visit Add On G2211 Diagnoses Microscopic hematuria R31.29 Nocturia more than twice per night R35.1 Incontinence R32 BPH w urinary obs/LUTS N40.1; N13.8 Enlarged prostate N40.0 CPT Codes Post Residual Void - PVR CPT Code: [id number] Void Residual by ultrasound ([id number])
== END 2025-02-08 11:39 | disposition home or self-care (01) ==
LOC: HO.HUSH 10:51
PROVIDERS: PCP Nurse Practitioner Family; Visit Provider Nurse Practitioner Family
DX: N40.1 Benign prostatic hyperplasia with lower urinary tract symptoms (principal); R31.29 Other microscopic hematuria; R35.1 Nocturia; R32 Unspecified urinary incontinence; N13.8 Other obstructive and reflux uropathy; Z13.9 Encounter for screening, unspecified
CPT/HCPCS: 99213; G2211

== ENCOUNTER → 2025-02-08 10:51 | Outpatient (BNVA) | payer MEDICARE, MEDICAID, SELFPAY | PROVIDERS: PCP Nurse Practitioner Family; Visit Provider Nurse Practitioner Family | DX: R35.1 Nocturia (principal); N40.1 Benign prostatic hyperplasia with lower urinary tract symptoms; N13.8 Other obstructive and reflux uropathy; R32 Unspecified urinary incontinence; N40.0 Benign prostatic hyperplasia without lower urinary tract symptoms; R31.29 Other microscopic hematuria | CPT/HCPCS: 51798; 81003; 99212 ==

== ENCOUNTER 2025-02-24 09:44 | Outpatient (AMB) | payer MEDICARE, MEDICAID, SELFPAY ==
--- NOTE | 2025-02-24 09:46 | MHC.OFFVIS ---
Vital Signs 02/24/25 09:48 Height 5 ft 6 in Weight 160 lb BMI 25.8 BP 118/62 Blood Pressure Location Rt brachial Position Sitting Pulse 81 Pulse Source Pulse Oximeter Pulse Oximetry (%) 98 Oxygen Delivery Method Room Air Intake Visit Reasons: COPD follow-up Inside Sales Associate Required: Yes Inside Sales Associate Name: Eva Sung Shanika Allergies No Known Allergies (No Known Allergies*) Allergy (Verified 02/08/25 11:41) HPI HPI COPD follow-up: Details: 79-year-old gentleman, active 50+ pack-year smoker, followed for underlying moderate to severe COPD and pulmonary nodules. Patient continues to use Anoro and albuterol MDI with reasonable control of his symptoms. He denies any recent exacerbations. [facility] Medical History Lacunar infarction Bilateral impacted cerumen Diabetes mellitus with polyneuropathy Hypertensive retinopathy Raynauds disease Type 2 diabetes mellitus with diabetic polyneuropathy CKD (chronic kidney disease) stage 3, GFR 30-59 ml/min Sleep apnea CAD (coronary artery disease) Seasonal allergies BPH (benign prostatic hyperplasia) Hematuria Hx of dermatitis Pulmonary HTN HTN (hypertension) CVA (cerebral vascular accident) Type 2 diabetes mellitus with unspecified complications NICM (nonischemic cardiomyopathy) Atherosclerotic heart disease of [place] coronary artery without angina pectoris Hyperlipidemia, unspecified Smoker Transient cerebral ischemic attack, unspecified Surgical History Hx of colonoscopy Hx of bilateral cataract extraction History of inguinal hernia repair, bilateral (~04/2016) History of cardiac catheterization (12/28/19) Family History Father Cardiovascular disease Diabetes Mother Osteoporosis Social History Housing: Apartment Are you a primary critical care unit manager to a significant other at home: No Do you presently have visiting nurse or other home services: No Alcohol intake: never Patient Tobacco Use Status: Current everyday Tobacco user Cigarettes Per Day: 10 Years Smoked: 55 e-Cigarette/Vaping Use: Never Used Second Hand Smoke Exposure: Yes Current occupational status: retired Cognitive needs: No Hearing needs: No Vision needs: Yes Review of Systems Const Denies daytime sleepiness, Denies excessive sweating, Denies fatigue, Denies fever(s), Denies lethargy, Denies malaise, Denies night sweats, Denies snoring and Denies weight loss Eyes Denies blurry vision and Denies itchy eyes ENT Denies nasal congestion, Denies post nasal drip, Denies sinus pain, Denies sinus pressure and Denies other ( Thrush) Card Denies chest pain, Denies pedal edema, Denies dyspnea, Denies orthopnea and Denies paroxysmal nocturnal dyspnea Resp Denies cough, Denies hemoptysis, Denies excessive phlegm production, Denies dyspnea, Denies snoring and Denies wheezing GI Denies abdominal pain and Denies heartburn Musc Denies myalgias, Denies arthralgias and Denies joint swelling Skin/Breast Denies rash Neuro Denies memory loss and Denies seizure-like activity Psych Denies abnormal sleep pattern, Denies anxiety and Denies memory loss Endo Denies excessive sweating, Denies fatigue and Denies heat intolerance Kaiden/Lymph Denies easy bruising Aller/Immun Denies itchy eyes, Denies seasonal rhinorrhea and Denies wheezing Physical Exam Vital Signs: Last Vital Signs Pulse 81 02/24/25 09:48 BP 118/62 02/24/25 09:48 Pulse Ox 98 02/24/25 09:48 Oxygen Delivery Method Room Air 02/24/25 09:48 BMI result Body Mass Index 25.8 Const General: no acute distress and alert Nutritional Appearance: not obese Orientation/consciousness: Other orientation findings ( oriented) HEENT Head: Yes atraumatic Eyes General: appearance normal, both eyes and all related structures Sclerae: sclerae normal EOM: EOMs intact bilaterally Neck Neck: Yes supple Lymphatic: no lymphadenopathy noted Resp Effort & Inspection: normal respiratory effort and no use of accessory muscles Auscultation: clear to auscultation bilaterally Cardio Rate: regular rate Rhythm: regular rhythm Heart sounds: no gallops, no murmurs and no rubs Skin General skin exam: other ( warm) Extrem General: No clubbing, No cyanosis and No edema Assessment & Plan Assessment & Plan (1) COPD (chronic obstructive pulmonary disease): Code(s): J44.9 - Chronic obstructive pulmonary disease, unspecified Category: Medical Plan: Well controlled on Anoro and albuterol MDI. Continue current regimen. (2) Personal history of nicotine dependence: Code(s): Z87.891 - Personal history of nicotine dependence Category: Medical Plan: Results of CT chest from November of 2023 reviewed, no worrisome nodules. Continue lung cancer screening. Coding Level of Care Code Est Pt Level 4 (32705) Diagnoses COPD (chronic obstructive pulmonary disease) J44.9 Personal history of nicotine dependence Z87.891
[2025-02-24 09:48] VITALS: BP 118/62; PULSE 81; O2SAT 98; BMI 25.8
--- OUTSIDE RECORDS SUMMARY | 2025-02-24 13:51 | XMS_ITS | Clinical Summary ---
Author Organization [facility] Address [address] [place] [address] Phone Care Team Providers Care Loft Rigger Name Role Phone Finn Ta NP Primary Care Provider [phone] Allergies No known active allergies Medications gabapentin (NEURONTIN) 600 MG tablet Take 2 tablets by mouth 3 times a day 06/28/2020 Active [facility] Ear Drops 6.5 % otic solution DROP 5 DROPS INTO THE LEFT EAR EVERY 12 HOURS FOR 4 DAYS 06/27/2020 Active simvastatin (ZOCOR) 20 MG tablet Take 1 tablet by mouth at bed time Active Tiotropium [place] Monohydrate (Spiriva Respimat) 2.5 MCG/ACT aerosol solution [...] Medicaid [place] Care Teams Loft Rigger Relationship Specialty Start Date End Date Finn Ta NP [place] [address] PCP - General Nurse Practitioner 07/12/20
== END 2025-02-24 10:10 | disposition home or self-care (01) ==
LOC: HO.HPS 09:45
PROVIDERS: PCP Nurse Practitioner Family; Visit Provider Internal Medicine Pulmonary Disease
DX: J44.9 Chronic obstructive pulmonary disease, unspecified (principal); Z87.891 Personal history of nicotine dependence
CPT/HCPCS: 99214

== ENCOUNTER → 2025-02-24 09:44 | Outpatient (BNVA) | payer MEDICARE, MEDICAID, SELFPAY | PROVIDERS: PCP Nurse Practitioner Family; Visit Provider Internal Medicine Pulmonary Disease | DX: J44.9 Chronic obstructive pulmonary disease, unspecified (principal); R91.8 Other nonspecific abnormal finding of lung field; Z87.891 Personal history of nicotine dependence | CPT/HCPCS: 99212 ==

== ENCOUNTER 2025-03-21 08:03 | Outpatient (REF) | payer MEDICARE, MEDICAID, SELFPAY ==
--- OUTSIDE RECORDS SUMMARY | 2025-03-21 08:38 | XMS_ITS | Clinical Summary ---
Author Organization [address] [facility] Address [address] [place] [address] Phone Care Team Providers Care Licensed Vocational Nurse Name Role Phone Lonny Tamayo MD Primary Care Provider Allergies No known active allergies Medications No known medications Encounters Date Type Department Care Team Description 02/14/2025 9:15 AM EST Office Visit Orthopedic Surgery [facility] [address] [phone] Walter Guillory DPM Controlled type 2 diabetes mellitus with diabetic polyneuropathy, without long-term current use of insulin ([facility] V24, [facility] V28) (Primary Dx); PAD (peripheral artery disease) ([facility] V24); Metatarsalgia of left foot; Neuropathy; Onychomycosis 12/20/2024 9:30 AM EDT Office Visit [facility] [address] [phone] Walter Guillory DPM Controlled type 2 diabetes mellitus with diabetic polyneuropathy, without long-term current use of insulin ([facility] V24, [facility] V28) (Primary Dx); PAD (peripheral artery disease) ([facility] V24); Metatarsalgia of left foot; Onychomycosis from [...] Care Team (Late st Contact Info) Description 04/11/2025 9:30 AM EST Office Visit Orthopedic Surgery - [place] [address] [facility] [address] [place] [phone] Walter Guillory DPM [address] [address] Health Maintenance Due Date Last Done Comments [...] Insurance MEDICARE MEDICAID - [place] Care Teams Licensed Vocational Nurse Relationship Specialty Start Date End Date Lonny Tamayo MD [address] [place] [id number] PCP - General Internal Medicine 03/22/24
--- OUTSIDE RECORDS SUMMARY | 2025-03-21 08:38 | XMS_ITS | Patient Health Record ---
Author Organization [facility] Address [address] [place] [address] Care Team Providers Care Data Governance Consultant Name Role Phone Skyler Pyle Primary Care Provider Crispin Valladares Unavailable [phone] Reason For Referral No Information Medications Medication SIG (Take, Route, Frequency, Duration) Notes Start Date End Date Status Percocet 5/325mg Act sridevi MoviPrep 100 GM Solution Reconstituted as directed Orally 03/07/2011 Active Gabapentin 300mg Act sridevi Simvastatin 20mg Act sridevi metFORMIN HCl 500mg Active Social History Social History Additional Details Category Social Info Options Details Miscellaneous: Marital status: 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 Section Notes: He does smoke, and has 2-3 g lasses of wine daily Problems Problem Type SNOMED Code ICD Code Onset Dates Problem Status W/U Status Risk Notes Problem Family history of malignant neoplasm of gastrointestinal tract (183385503) Family history of malignant neoplasm of gastrointestinal tract (V16.0) Active confirmed Problem Screening for malignant neoplasm of colon (621939097) Special screening for malignant neoplasms, colon (V76.51) Active confirmed Plan Of Treatment Future Test Test Name Order Date COLONOSCOPY 03/07/2011 Insurance Providers Payer Name Payer Address Payer Phone Subscriber Number Group Number Insured Name Patient Relationship to Insured Coverage Start Date Coverage End Date [facility] [employer] Plan [address] [address] [place], [place] [id number] AMADORPRVAEENAO Self - patient is the insured MEDICAID OF [facility] [address] [place] [address] [id number] PRAVEENA AMADORO Self - patient is the insured Medical (General) History Medical History History ICD Code Diabetes Hyprlipidemia Denies [place],CVA,Lung disease,renal disease
--- OUTSIDE RECORDS SUMMARY | 2025-03-21 08:38 | XMS_ITS | Patient Health Record ---
Author Organization [facility] [place] Address [address] [place] [address] Care Team Providers Care Training And Development Head Name Role Phone Finn Bird Primary Care Provider Unav ailable Sky Gamble Unavailable [phone] Allergies No Known Allergies Reason For Referral [...] Polyneuropathy due to type 2 diabetes mellitus (557116838) Type 2 diabetes mellitus with diabetic polyneuropathy (E11.42) Active confirmed Problem Polyneuropathy due to diabetes mellitus type I (482954456) Type 1 diabetes mellitus with diabetic polyneuropathy (E10.42) Active confirmed Problem Raynaud's disease (418796529) Raynaud's disease without gangrene (I73.00) Active confirmed Plan Of Treatment Pending Test Test Name Order Date 79320-[id number] SKIN LESIONS, 2 TO 4 12/14/19 21 [id number] SKIN LESIONS, 2 TO 4 03/15/20 21 09631-UXCO SKIN LESIONS, 2 TO 4 06/07/19 22 Insurance Providers Payer Name Payer Address Payer Phone Subscriber Number Group Number Insured Name Patient Relationship to Insured Coverage Start Date Coverage End Date Medicare [employer] [address] [place] [address] [id number] Darius Askew Self - patient is the [...]
--- OUTSIDE RECORDS SUMMARY | 2025-03-21 08:38 | XMS_ITS | Clinical Summary ---
Author Organization [facility] Address [address] [place] [address] Phone Care Team Providers Care Interior Decorator Painting Name Role Phone Finn Ta NP Primary Care Provider [phone] Allergies No known active allergies Medications gabapentin (NEURONTIN) 600 MG tablet Take 2 tablets by mouth 3 times a day 06/28/2020 Active [facility] Ear Drops 6.5 % otic solution DROP 5 DROPS INTO THE LEFT EAR EVERY 12 HOURS FOR 4 DAYS 06/27/2020 Active simvastatin (ZOCOR) 20 MG tablet Take 1 tablet by mouth at bed time Active Tiotropium [place] Monohydrate (Spiriva Respimat) 2.5 MCG/ACT aerosol solution [...] Medicaid [place] Care Teams Interior Decorator Painting Relationship Specialty Start Date End Date Finn Ta NP [facility] [place] [address] PCP - General Nurse Practitioner 07/12/20
[2025-03-21 10:46] LABS: Appearance Urine Cloudy; Glucose Urine UA 100 mg/dL (Negative); PH 5.5 (5.0-9.0); Specific Gravity - Urine 1.020 (1.005-1.025); UMIC TRIGGER UACC YES
== END 2025-03-21 08:04 | disposition home or self-care (01) ==
LOC: HO.HMGCLDS 08:03
PROVIDERS: PCP Nurse Practitioner Family; Visit Provider Nurse Practitioner Family
DX: E11.42 Type 2 diabetes mellitus with diabetic polyneuropathy (principal)
CPT/HCPCS: 81001

== ENCOUNTER 2025-03-22 08:53 | Outpatient (AMB) | payer MEDICARE, MEDICAID, SELFPAY ==
--- NOTE | 2025-03-22 09:09 | A.OFFPC_ITS ---
Intake Visit Reasons: SWV [id number] Allergies No Known Allergies (No Known Allergies*) Allergy (Verified 02/08/25 11:41) Tobacco use date assessed: 09/23/24 Dental Screening Dental Screen Date: 12/13/24 [facility] Medical History Lacunar infarction Bilateral impacted cerumen Diabetes mellitus with polyneuropathy Hypertensive retinopathy Raynauds disease Type 2 diabetes mellitus with diabetic polyneuropathy CKD (chronic kidney disease) stage 3, GFR 30-59 ml/min Sleep apnea CAD (coronary artery disease) Seasonal allergies BPH (benign prostatic hyperplasia) Hematuria Hx of dermatitis Pulmonary HTN HTN (hypertension) CVA (cerebral vascular accident) Type 2 diabetes mellitus with unspecified complications NICM (nonischemic cardiomyopathy) Atherosclerotic heart disease of [place] coronary artery without angina pectoris Hyperlipidemia, unspecified Smoker Transient cerebral ischemic attack, unspecified Surgical History Hx of colonoscopy Hx of bilateral cataract extraction History of inguinal hernia repair, bilateral (~04/2016) History of cardiac catheterization (12/28/19) Family History Father Cardiovascular disease Diabetes Mother Osteoporosis Social History Housing: Apartment Are you a primary care specialist to a significant other at home: No Do you presently have visiting nurse or other home services: No Alcohol intake: never Patient Tobacco Use Status: Current everyday Tobacco user Cigarettes Per Day: 10 Years Smoked: 55 e-Cigarette/Vaping Use: Never Used Second Hand Smoke Exposure: Yes Current occupational status: retired Cognitive needs: No Hearing needs: No Vision needs: Yes Questionnaire Thrive Questionnaire Date Thrive assessed: 12/07/24 I am a: Parent/Caregiver What is your living situation today?: I have a steady place to live Within the past 12 months, did the food you bought not last and you didn't have the money to get more?: Sometimes True Within the past 12 months, did you worry whether your food would run out before you got money to buy more?: Sometimes True Do you have trouble paying for medicines?: No Do you have trouble getting transportation to medical appointments?: No Do you have trouble paying your heating and electricity bill?: Yes Do you have trouble taking care of your child, family member or friend?: No Do you have trouble with day-to-day activities such as bathing, preparing meals, shopping, managing finances, etc.?: Yes Are you currently unemployed and looking for a job?: No Are you interested in more education?: No Please select the resources that you would like help with: None Currently or been in a relationship where the following occur: No concerns reported THRIVE Score: 3 MECHELLE-7 AMB Questionnaire MECHELLE-7 Date MECHELLE - 7 assessed: 12/13/24 (patient declined ) Source: Developed by Drs. Crispin Vargas, Nannette Alanis, Jimmy Parks and colleagues, with an educational orville from [employer]. Physical exam (Primary Care) Tobacco/Smoking Status: Tobacco use Status Tobacco use date assessed 09/23/24 12/13/24 13:22 Patient Tobacco Use Status Current everyday Tobacco 12/13/24 13:22 e-Cigarette/Vaping Use Never Used 12/13/24 13:22 Thrive Assessment: Date of Thrive Assessment Date Thrive assessed 12/07/24 01/11/25 15:19 Currently or been in a relationship where the following occur: No concerns reported Coding
[2025-03-22 09:16] VITALS: BP 140/80; PULSE 80; RESP 16; O2SAT 100; BMI 26.0
--- NOTE | 2025-03-22 09:20 | A.OFFPC_ITS ---
Vital Signs 03/22/25 09:16 Height 5 ft 6 in Weight 161 lb BMI 26.0 BP 140/80 H Blood Pressure Location Rt brachial Position Sitting Respiration 16 Pulse 80 Pulse Source Pulse Oximeter Pulse Oximetry (%) 100 Oxygen Delivery Method Room Air Intake Visit Reasons: DM and left shoulder pain Allergies No Known Allergies (No Known Allergies*) Allergy (Verified 03/22/25 09:41) Medication List - Last Reconciled 03/22/25 by KRYSTLE Rivera- aspirin 81 mg PO DAILY blood sugar diagnostic (FreeStyle Lite Strips) test TID blood-glucose meter (FreeStyle Lite Meter kit) Test TID clopidogrel 75 mg PO DAILY [extra-depth Diabetic shoes with 3 pair Custom heat-molded multi-density innersoles As directed] gabapentin 1,200 mg (2 x 600 mg) PO TID 90 days ketoconazole 2% 1 appl topical BID 20 days lancets (FreeStyle Lancets) Test TID lisinopril 2.5 mg PO DAILY metformin 500 mg PO BID rosuvastatin 40 mg PO DAILY Shower Chair use daily, for lower extrem weakness/hip pains umeclidinium-vilanterol 62.5-25 mcg/actuation (Anoro Ellipta) 1 ea inhalation DAILY Ventolin HFA 90 mcg/actuation (albuterol sulfate) 2 puffs inhalation Q4-6H PRN NS vibegron (Gemtesa) 75 mg PO DAILY 90 days Tobacco use date assessed: 09/23/24 Dental Screening Dental Screen Date: 12/13/24 HPI DM and left shoulder pain HPI0 Details Chief Complaint The patient's chief complaint is left shoulder pain. History of Present Illness The patient is a 79 year old male presenting for follow-up of diabetes and left shoulder pain. He reports difficulty raising his left arm and notes that he sleeps on it, causing tenderness, poitnign to the anterior and lateral/superior left shoulder Regarding his diabetes, recent labs showed an A1c of 6.1%. He also sees a funeral home makeup artist and scientific programmer, and his urine microalbumin is up to date. He reports a recent eye exam. His cholesterol was noted to be 41. Social History - Habits: Reports sleeping on his left s sarthak. Health Maintenance - The patient sees a funeral home makeup artist. - The patient sees a scientific programmer. - He reports having a recent eye exam. - His urine microalbumin is up to date. Review of Systems - Musculoskeletal: Reports left shoulder pain with tenderness and difficulty raising the arm. -reports intermittent neuropathy but den ies fevers chills, CP,, increased SOB, SI or HI Physical Exam General: Cooperative, healthy appearing, comfortable, no acute distress and well developed Orientation: Patient oriented x3 Limitations: Difficulty raising left upper extrem due to left shoulder pain. Head: Normal to inspection Ears: Hearing grossly normal bilaterally Nose: Normal external nose present Face and sinus: Normal facial exam Eyes: Appearance normal, both eyes and all related structures Neck: Normal visual inspection and Yes full ROM Respiratory: Lungs are clear/diminished bilat Cardiovascular: Regular rate and rhythm. Normal S1 and S2 GI: Normal to inspection. Soft to palpation and nontender Skin: No rashes or lesions noted Neuro: Patient oriented x3 Extremities: Tenderness in the left shoulder, positive Kapadia, positive Neers, positive Job's test, mostly anterior and lateral aspect. no pain on palpation. + sensation with use of monofilament to feet. feet were dry with onychomycosis noted bilat Results - Labs: Recent A1c was 6.1%. - Labs: Cholesterol is 41. - Labs: Urine microalbumin is up to date . Plan 1. Diabetes Mellitus The patient's A1c is 6.1%. No changes will be made to his medications at this time. 2. Left Shoulder Pain The patient presents with left shoulder pain with positive Kapadia, Neer's, and Audra's tests, along with tenderness and difficulty with arm elevation. He will be sent for an x-ray of the left shoulder today. Discussion Notes I have reviewed the patient's recent lab results. His A1c is well-controlled at 6.1%, so no changes to his diabetes medications are warranted at this time. Given his presentation of left shoulder pain and positive physical exam findings, I will send him for an x-ray today to further evaluate. Patient Instructions - Go for an x-ray of your left shoulder today to check for the cause of your pain. - Continue your current medications for diabetes as your recent A1c level is good. - Try to avoid sleeping on your left eun e as it may be making the tenderness worse. [facility] Medical History (Reviewed 03/22/25 @ 09:42 by ANGELIKA [facility]) Lacunar infarction Bilateral impacted cerumen Diabetes mellitus with polyneuropathy Hypertensive retinopathy Raynauds disease Type 2 diabetes mellitus with diabetic polyneuropathy CKD (chronic kidney disease) stage 3, GFR 30-59 ml/min Sleep apnea CAD (coronary artery disease) Seasonal allergies BPH (benign prostatic hyperplasia) Hematuria Hx of dermatitis Pulmonary HTN HTN (hypertension) CVA (cerebral vascular accident) Type 2 diabetes mellitus with unspecified complications NICM (nonischemic cardiomyopathy) Atherosclerotic heart disease of [place] coronary artery without angina pectoris Hyperlipidemia, unspecified Smoker Transient cerebral ischemic attack, unspecified Surgical History Hx of colonoscopy Hx of bilateral cataract extraction History of inguinal hernia repair, bilateral (~04/2016) History of cardiac catheterization (12/28/19) Family History Father Cardiovascular disease Diabetes Mother Osteoporosis Social History Housing: Apartment Are you a primary director of primary care to a significant other at home: No Do you presently have visiting nurse or other home services: No Alcohol intake: never Patient Tobacco Use Status: Current everyday Tobacco user Cigarettes Per Day: 10 Years Smoked: 55 e-Cigarette/Vaping Use: Never Used Second Hand Smoke Exposure: Yes Current occupational status: retired Cognitive needs: No Hearing needs: No Vision needs: Yes Questionnaire PHQ-9 Over the last 2 weeks, how often have you been bothered by any of the following problems? 1. Little interest or pleasure in doing things: several days 2. Feeling down, depressed, or hopeless: more than half the days 3. Trouble falling or staying asleep, or sleeping too much: more than half the days 4. Feeling tired or having little energy: nearly every day 5. Poor appetite or overeating: several days 6. Feeling bad about yourself - or that you are a failure or have let yourself or your family down: not at all 7. Trouble concentrating on things, such as reading the newspaper or watching television: not at all 8. Moving or speaking so slowly that other people could have noticed. Or the opposite - being so fidgety or restless that you have been moving around a lot more than usual: not at all 9. Thoughts that you would be better off or of hurting yourself in some way: not at all Total score: 9 Depression Screening Interpretation: Positive Depression Screening Follow-up: Existing condition and Declines treatment Depression Screening Done: Yes 03713 - PHQ-9 Billing: Yes Source: Developed by Drs. Crispin Vargas, Nannette Alanis, Jimmy Parks and colleagues, with an educational orville from [employer]. Thrive Questionnaire Date Thrive assessed: 12/07/24 I am a: Parent/Caregiver What is your living situation today?: I have a steady place to live Within the past 12 months, did the food you bought not last and you didn't have the money to get more?: Sometimes True Within the past 12 months, did you worry whether your food would run out before you got money to buy more?: Sometimes True Do you have trouble paying for medicines?: No Do you have trouble getting transportation to medical appointments?: No Do you have trouble paying your heating and electricity bill?: Yes Do you have trouble taking care of your child, family member or friend?: No Do you have trouble with day-to-day activities such as bathing, preparing meals, shopping, managing finances, etc.?: Yes Are you currently unemployed and looking for a job?: No Are you interested in more education?: No Please select the resources that you would like help with: None Currently or been in a relationship where the following occur: No concerns reported THRIVE Score: 3 MECHELLE-7 AMB Questionnaire MECHELLE-7 Date MECHELLE - 7 assessed: 12/13/24 (patient declined ) Feeling nervous, anxious, or on edge: 0 = Not at all Not being able to stop or control worryin = Not at all Worrying too much about different things: 0 = Not at all Trouble relaxin = Not at all Being so restless that it is hard to sit still: 0 = Not at all Becoming easily annoyed or irritable: 0 = Not at all Feeling afraid as if something awful might happen: 0 = Not at all Total MECHELLE-7 score (0-4 normal; 5-9 mild; 10-14 moderate; 15-21 severe): 0 Source: Developed by Cassius Menjivaret B.W. Zeke, Jimmy Parks and colleagues, with an educational orville from [employer]. MECHELLE-7 Assessment Billing MECHELLE-7 Assessment Tool: MECHELLE-7 Assessment 46478 Physical exam (Primary Care) Vital Signs: Last Vital Signs Pulse 80 03/22/25 09:16 Resp 16 03/22/25 09:16 BP 140/80 H 03/22/25 09:16 Pulse Ox 100 03/22/25 09:16 Oxygen Delivery Method Room Air 03/22/25 09:16 Tobacco/Smoking Status: Tobacco use Status Tobacco use date assessed 09/23/24 03/22/25 09:37 Patient Tobacco Use Status Current everyday Tobacco 03/22/25 09:37 e-Cigarette/Vaping Use Never Used 03/22/25 09:37 Depression Screening Interpretation: Positive Depression Screening Follow-up: Existing condition and Declines treatment Thrive Assessment: Date of Thrive Assessment Date Thrive assessed 12/07/24 03/22/25 09:37 Currently or been in a relationship where the following occur: No concerns reported Results AMB Hemoglobin A1c AMB Hemoglobin A1c 6.1 % Last Edit by Iliana Bernstein MA on 03/22/25 09:41 Coding Level of Care Code Est Pt Level 3 (95672) Diagnoses Left shoulder pain M25.512 Diabetes mellitus with polyneuropathy E11.42 Additional Codes MECHELLE-7 Assessment Billing - MECHELLE-7 Assessment Tool: MECHELLE-7 Assessment 17458 ([id number]) PHQ-9 - 67442 - PHQ-9 Billing: Yes ([id number]) Assessment & Plan Assessment & Plan (1) Left shoulder pain: Code(s): M25.512 - Pain in left shoulder Category: Medical (2) Diabetes mellitus with polyneuropathy: Code(s): E11.42 - Type 2 diabetes mellitus with diabetic polyneuropathy Category: Medical Plan . Orders: Orders AMB Hemoglobin A1c Today Z13.9 - Encounter for screening, unspecified XR shoulder LT min 2V Today M25.512 - Pain in left shoulder
--- OUTSIDE RECORDS SUMMARY | 2025-03-22 09:51 | XMS_ITS | Clinical Summary ---
Author Organization [address] [facility] Address [address] [place] [address] Phone Care Team Providers Care Youth Ministry Director Name Role Phone Lonny Tamayo MD Primary Care Provider Allergies No known active allergies Medications No known medications Encounters Date Type Department Care Team Description 02/14/2025 9:15 AM EST Office Visit Orthopedic Surgery [facility] [address] [address] Walter Guillory DPM Controlled type [...] 04/11/2025 9:30 AM EST Office Visit Orthopedic [facility] [address] [address] Walter Guillory DPM [address] [place] [address] Health Maintenance Due Date Last Done Comments [...] Insurance MEDICARE MEDICAID - [place] Care Teams Youth Ministry Director Relationship Specialty Start Date End Date Lonny Tamayo MD [address] [place] [phone] PCP - General Internal Medicine 03/22/24
--- OUTSIDE RECORDS SUMMARY | 2025-03-22 09:51 | XMS_ITS | Clinical Summary ---
Author Organization [facility] Address [address] [place] [address] Phone Care Team Providers Care Customer Operations Intern Name Role Phone Finn Ta NP Primary Care Provider [phone] Allergies No known active allergies Medications gabapentin (NEURONTIN) 600 MG tablet Take 2 tablets by mouth 3 times a day 06/28/2020 Active [facility] Ear Drops 6.5 % otic solution DROP 5 DROPS INTO THE LEFT EAR EVERY 12 HOURS FOR 4 DAYS 06/27/2020 Active simvastatin (ZOCOR) 20 MG tablet Take 1 tablet by mouth at bed time Active Tiotropium [place] Monohydrate (Spiriva Respimat) 2.5 MCG/ACT aerosol solution [...] Medicaid [place] Care Teams Customer Operations Intern Relationship Specialty Start Date End Date Finn Ta NP [facility] [place] [address] PCP - General Nurse Practitioner 07/12/20
== END 2025-03-22 10:03 | disposition home or self-care (01) ==
PROVIDERS: PCP Nurse Practitioner Family; Visit Provider Nurse Practitioner Family
DX: M25.512 Pain in left shoulder (principal); E11.42 Type 2 diabetes mellitus with diabetic polyneuropathy; Z13.9 Encounter for screening, unspecified

== ENCOUNTER 2025-03-22 08:53 | Outpatient (REF) | payer MEDICARE, MEDICAID, SELFPAY ==
--- NOTE | ~2025-03-22 | XR_ITS ---
EXAMINATION: XR SHOULDER, LEFT CLINICAL INFORMATION: M25.512 - Pain in left shoulder COMPARISON: No left radiograph available. Right shoulder radiographs 07/02/2017. TECHNIQUE: Three views of the left shoulder. FINDINGS: Normal bone mineralization. No fracture, dislocation, or suspicious bone lesion. Normal alignment. The glenohumeral joint demonstrates mild degenerative arthrosis. The AC joint demonstrates mild undersurface spurring. There is a neutral lateral acromion. There is a hooked appearing subacromial spur posteriorly, poorly seen on the Y view but well seen on the Grashey. The subacromial space is preserved. Remainder of the soft tissue and bony structures appear normal. XR/XR shoulder LT min 2V IMPRESSION: 1. No acute bony or soft tissue abnormality of the left shoulder. 2. 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 3. There is a posterior subacromial osteophyte (similar to the contralateral side when compared). Electronically signed by: Arnol Farnsworth MD 03/22/2025 09:51 AM SHANDA
--- OUTSIDE RECORDS SUMMARY | 2025-03-22 11:16 | XMS_ITS | Patient Health Record ---
Author Organization [facility] Address [address] [place] [address] Care Team Providers Care Electronic Warfare Linguist Name Role Phone Finn Bird Primary Care Provider Unav ailable Sky Gamble Unavailable [phone] Allergies No Known Allergies Reason For Referral [...] Polyneuropathy due to type 2 diabetes mellitus (814013378) Type 2 diabetes mellitus with diabetic polyneuropathy (E11.42) Active confirmed Problem Polyneuropathy due to diabetes mellitus type I (254145426) Type 1 diabetes mellitus with diabetic polyneuropathy (E10.42) Active confirmed Problem Raynaud's disease (253955923) Raynaud's disease without gangrene (I73.00) Active confirmed Plan Of Treatment Pending Test Test Name Order Date 93171-[id number] SKIN LESIONS, 2 TO 4 12/14/19 21 [id number]-KQLS SKIN LESIONS, 2 TO 4 03/15/20 21 61863-YOSX SKIN LESIONS, 2 TO 4 06/07/19 22 Insurance Providers Payer Name Payer Address Payer Phone Subscriber Number Group Number Insured Name Patient Relationship to Insured Coverage Start Date Coverage End Date Medicare National [employer] [address] [facility] [place] [address] [id number] Darius Askew Self - patient is the [...]
--- OUTSIDE RECORDS SUMMARY | 2025-03-22 11:16 | XMS_ITS | Patient Health Record ---
Author Organization [facility] Address [address] [place] [address] Care Team Providers Care Medical Coding Manager Name Role Phone Skyler Pyle Primary Care Provider Crispin Valladares Unavailable [phone] Reason For Referral No Information Medications Medication [...] history of malignant neoplasm of gastrointestinal tract (253865676) Family history of malignant neoplasm of gastrointestinal tract (V16.0) Active confirmed Problem Screening for malignant neoplasm of colon (579004169) Special screening for malignant neoplasms, colon (V76.51) Active confirmed Plan Of Treatment Future Test Test Name Order Date COLONOSCOPY 03/07/2011 Insurance Providers Payer Name Payer Address Payer Phone Subscriber Number Group Number Insured Name Patient Relationship to Insured Coverage Start Date Coverage End Date [id number] [email or web address] Plan [address] [address] [place], [place] [id number] AMADORPRAVEENAO Self - patient is the insured MEDICAID OF [facility] [address] [place] [address] [id number] PRAVEENA AMADORO Self - patient is the insured Medical (General) History Medical History History ICD Code Diabetes Hyprlipidemia Denies [place],CVA,Lung disease,renal disease
== END 2025-03-22 08:54 | disposition home or self-care (01) ==
LOC: HO.HMGCX 08:53
PROVIDERS: PCP Nurse Practitioner Family; Visit Provider Nurse Practitioner Family
DX: M25.512 Pain in left shoulder (principal); E11.42 Type 2 diabetes mellitus with diabetic polyneuropathy
CPT/HCPCS: 73030; 83036; 96127; 99212

== ENCOUNTER → 2025-03-22 09:36 | Outpatient (BNV) | payer MEDICARE, MEDICAID, SELFPAY | PROVIDERS: PCP Nurse Practitioner Family; Visit Provider Radiology Diagnostic Radiology | DX: M19.012 Primary osteoarthritis, left shoulder (principal); M25.712 Osteophyte, left shoulder | CPT/HCPCS: 73030 ==

== ENCOUNTER 2025-04-01 10:20 | Outpatient (AMB) | payer MEDICARE, MEDICAID, SELFPAY ==
--- OUTSIDE RECORDS SUMMARY | 2025-04-01 10:23 | XMS_ITS | Patient Health Record ---
Author Organization [facility] Address [address] [place] [address] Care Team Providers Care Manager Multicultural Name Role Phone Skyler Pyle Primary Care Provider Crispin Valladares Unavailable [phone] Reason For Referral No Information Medications Medication [...] history of malignant neoplasm of gastrointestinal tract (053517368) Family history of malignant neoplasm of gastrointestinal tract (V16.0) Active confirmed Problem Screening for malignant neoplasm of colon (002716210) Special screening for malignant neoplasms, colon (V76.51) Active confirmed Plan Of Treatment Future Test Test Name Order Date COLONOSCOPY 03/07/2011 Insurance Providers Payer Name Payer Address Payer Phone Subscriber Number Group Number Insured Name Patient Relationship to Insured Coverage Start Date Coverage End Date [facility] [address] [address] [place], [place] [id number] AMADORPRAVEENAO Self - patient is the insured MEDICAID OF [facility] [address] [place] [phone] [id number] PRAVEENA AMADORO Self - patient is the insured Medical (General) History Medical History History ICD Code Diabetes Hyprlipidemia Denies [place],CVA,Lung disease,renal disease
--- OUTSIDE RECORDS SUMMARY | 2025-04-01 10:23 | XMS_ITS | Clinical Summary ---
Author Organization [facility] Address [address] [place] [address] Phone Care Team Providers Care Roll Sheeting Cutter Name Role Phone Lonny Tamayo MD Primary Care Provider Allergies No known active allergies Medications No known medications Encounters Date Type Department Care Team Description 02/14/2025 9:15 AM EST Office Visit Orthopedic Surgery [facility] [address] [address] Walter Guillory DPM Controlled type [...] 04/11/2025 9:30 AM EST Office Visit Orthopedic [facility] [address] [address] Walter Guillory DPM [address] [place] [address] Health Maintenance Due Date Last Done Comments [...] Insurance MEDICARE [place]ICA[place] - [place] Care Teams Roll Sheeting Cutter Relationship Specialty Start Date End Date Lonny Tamayo MD [address] [place] [phone] PCP - General Internal Medicine 03/22/24
--- OUTSIDE RECORDS SUMMARY | 2025-04-01 10:23 | XMS_ITS | Clinical Summary ---
Author Organization [facility] Address [address] [place] [address] Phone Care Team Providers Care Acting Professor Name Role Phone Finn Ta NP Primary Care Provider [phone] Allergies No known active allergies Medications gabapentin (NEURONTIN) 600 MG tablet Take 2 tablets by mouth 3 times a day 06/28/2020 Active [facility] Ear Drops 6.5 % otic solution DROP 5 DROPS INTO THE LEFT EAR EVERY 12 HOURS FOR 4 DAYS 06/27/2020 Active simvastatin (ZOCOR) 20 MG tablet Take 1 tablet by mouth at bed time Active Tiotropium [place] Monohydrate (Spiriva Respimat) 2.5 MCG/ACT aerosol solution [...] Medicaid [place] Care Teams Acting Professor Relationship Specialty Start Date End Date Finn Ta NP [facility] [place] [address] PCP - General Nurse Practitioner 07/12/20
--- OUTSIDE RECORDS SUMMARY | 2025-04-01 10:24 | XMS_ITS | Patient Health Record ---
Author Organization [facility] [place] Address [address] [place] [address] Care Team Providers Care Maintenance Assistant Name Role Phone Finn Bird Primary Care Provider Unav ailable Sky Gamble Unavailable [phone] Allergies No Known Allergies Reason For Referral [...] Polyneuropathy due to type 2 diabetes mellitus (233421507) Type 2 diabetes mellitus with diabetic polyneuropathy (E11.42) Active confirmed Problem Polyneuropathy due to diabetes mellitus type I (946680534) Type 1 diabetes mellitus with diabetic polyneuropathy (E10.42) Active confirmed Problem Raynaud's disease (611934007) Raynaud's disease without gangrene (I73.00) Active confirmed Plan Of Treatment Pending Test Test Name Order Date [id number] SKIN LESIONS, 2 TO 4 12/14/19 21 [id number] SKIN LESIONS, 2 TO 4 03/15/20 21 [id number] SKIN LESIONS, 2 TO 4 06/07/19 22 Insurance Providers Payer Name Payer Address Payer Phone Subscriber Number Group Number Insured Name Patient Relationship to Insured Coverage Start Date Coverage End Date [employer] [address] [place] [address] [id number] Darius Askew Self - patient is the [...]
[2025-04-01 10:26] VITALS: BP 118/70; PULSE 82; O2SAT 98; BMI 26.0
--- NOTE | 2025-04-01 10:26 | HO.NEPHOV_ITS ---
Vital Signs 04/01/25 10:26 Height 5 ft 6 in Weight 161 lb BMI 26.0 BP 118/70 Blood Pressure Location Rt brachial Position Sitting Pulse 82 Pulse Source Pulse Oximeter Pulse Oximetry (%) 98 Oxygen Delivery Method Room Air Intake Visit Reasons: 3mon follow-up w/labs-LVM Environmental Engineering Manager Required: No Accompanied by: Self / Same As Patient Allergies No Known Allergies (No Known Allergies*) Allergy (Verified 04/01/25 10:27) HPI Comments Details: Darius was seen in follow up for his CKD. He has H/O CVA . He is on Plavix. He has diabetic renal disease. He has no episodes of hypoglycemia. He has no hematuria, edema or dizziness. He is compliant with his medications. He had been on SGLT2 inhibitor. His last serum creatinine had been stable. He has H/O mild hyperkalemia . He is on ACEI. He does not take any NSAID's. [facility] Medical History Lacunar infarction Bilateral impacted cerumen Diabetes mellitus with polyneuropathy Hypertensive retinopathy Raynauds disease Type 2 diabetes mellitus with diabetic polyneuropathy CKD (chronic kidney disease) stage 3, GFR 30-59 ml/min Sleep apnea CAD (coronary artery disease) Seasonal allergies BPH (benign prostatic hyperplasia) Hematuria Hx of dermatitis Pulmonary HTN HTN (hypertension) CVA (cerebral vascular accident) Type 2 diabetes mellitus with unspecified complications NICM (nonischemic cardiomyopathy) Atherosclerotic heart disease of [place] coronary artery without angina pectoris Hyperlipidemia, unspecified Smoker Transient cerebral ischemic attack, unspecified Surgical History Hx of colonoscopy Hx of bilateral cataract extraction History of inguinal hernia repair, bilateral (~04/2016) History of cardiac catheterization (12/28/19) Family History Father Cardiovascular disease Diabetes Mother Osteoporosis Social History Housing: Apartment Are you a primary human services care specialist to a significant other at home: No Do you presently have visiting nurse or other home services: No Alcohol intake: never Patient Tobacco Use Status: Current everyday Tobacco user Cigarettes Per Day: 10 Years Smoked: 55 e-Cigarette/Vaping Use: Never Used Second Hand Smoke Exposure: Yes Current occupational status: retired Cognitive needs: No Hearing needs: No Vision needs: Yes Review of Systems Const All systems reviewed & are unremarkable except as noted in HPI and below Physical Exam Vital Signs: Last Vital Signs Pulse 82 04/01/25 10:26 BP 118/70 04/01/25 10:26 Pulse Ox 98 04/01/25 10:26 Oxygen Delivery Method Room Air 04/01/25 10:26 BMI result Body Mass Index 26.0 Const General: comfortable and no acute distress Orientation/consciousness: patient oriented x3 HEENT Head: Yes normocephalic Mouth: Normal oral and palatal mucosa present Eyes EOM: EOMs intact bilaterally Neck Neck: Yes supple Resp Auscultation: clear to auscultation bilaterally Cardio Jugular venous distension: no JVD Rate: regular rate GI Palpation (GI): Soft to palpation Auscultation: normal bowel sounds General: Yes no CVA tenderness Back/Spine/Pelvis Back: no CVA tenderness Skin General skin exam: no rashes or lesions noted Neuro General: patient oriented x3 and moves all extremities Extrem General: Yes no pedal edema Results Reviewed Nephrology Results: Hgb, (14.0-18.0) 14.1 g/dl 01/31/25 WBC, (4.8-10.8) 7.0 X10*3/uL 01/31/25 Plt Count, (160-400) 231 X10*3/uL 01/31/25 Sodium, (135-145) 143 mmol/L 01/31/25 Potassium, (3.3-5.1) 5.0 mmol/L 01/31/25 Chloride, (96-108) 110 mmol/L H 01/31/25 Carbon Dioxide, (22-29) 26 mmol/L 01/31/25 BUN, (9-16) 18 mg/dL H 01/31/25 Creatinine, (0.5-1.4) 1.65 mg/dL H 01/31/25 Calcium, (8.4-10.2) 8.9 mg/dL Δ 01/31/25 Urine Protein, (Neg-Trace) 30 (1+) mg/dL H 03/21/25 Renal US 12/08/24 Assessment & Plan Assessment & Plan (1) HTN (hypertension): Code(s): I10 - Essential (primary) hypertension Category: Medical Qualifiers: Hypertension type: renovascular hypertension Qualified Code(s): I15.0 - Renovascular hypertension (2) CKD (chronic kidney disease) stage 3, GFR 30-59 ml/min: Code(s): N18.30 - Chronic kidney disease, stage 3 unspecified Category: Medical Qualifiers: Chronic kidney disease stage 3 subtype: stage 3a (GFR 45-59) Qualified Code(s): N18.31 - Chronic kidney disease, stage 3a Plan Has CKD for long time. Serum creatinine had been fairly stable Urine output good. Does not take NSAID's; Good hydration Blood pressure at goal. Needs consistent good BS control On Farxiga 2.5 mg daily- may increase the dose with time; No NSAID's Labs ordered; All questions answered . F/U given for 3 months Orders: Orders Protein Creatinine Ratio, Ur 3 Months I15.0 - Renovascular hypertension, N18.31 - Chronic kidney disease, stage 3a Blood Urea Nitrogen 3 Months I15.0 - Renovascular hypertension, N18.31 - Chronic kidney disease, stage 3a Electrolytes 3 Months I15.0 - Renovascular hypertension, N18.31 - Chronic kidney disease, stage 3a Creatinine 3 Months I15.0 - Renovascular hypertension, N18.31 - Chronic kidney disease, stage 3a Coding Level of Care Code Est Pt Level 4 (95259) Diagnoses Renovascular hypertension I15.0 Hypertension type: renovascular hypertension Stage 3a chronic kidney disease N18.31 Chronic kidney disease stage 3 subtype: stage 3a (GFR 45-59)
== END 2025-04-01 10:43 | disposition home or self-care (01) ==
PROVIDERS: PCP Nurse Practitioner Family; Visit Provider Internal Medicine Nephrology
DX: I15.0 Renovascular hypertension (principal); N18.31 Chronic kidney disease, stage 3a
CPT/HCPCS: 99214

== ENCOUNTER → 2025-04-01 10:20 | Outpatient (BNVA) | payer MEDICARE, SELFPAY | PROVIDERS: PCP Nurse Practitioner Family; Visit Provider Internal Medicine Nephrology | DX: I15.0 Renovascular hypertension (principal); E11.22 Type 2 diabetes mellitus with diabetic chronic kidney disease; N18.31 Chronic kidney disease, stage 3a; Z72.0 Tobacco use; Z79.84 Long term (current) use of oral hypoglycemic drugs; Z79.85 Long-term (current) use of injectable non-insulin antidiabetic drugs; Z79.82 Long term (current) use of aspirin | CPT/HCPCS: 99212 ==